=== PATIENT | female | born 1980 | race Caucasian/White ===

== ENCOUNTER 2017-02-25 20:34 | Emergency (ER) | payer MEDICAID ==
[2017-02-25 20:47] VITALS: O2SAT 100
[2017-02-25] MEDS ORDERED: ANTIVERT 25 MG PO ONE ×2 (21:00→21:54)
[2017-02-25] MEDS ORDERED: ANTIVERT 25 MG ONE ×2 (21:03→21:57)
[2017-02-25 21:11] LABS: BASOPHIL % 0.2 % (0.0-0.4); Eosinophil % 0.9 % (0.00-5.0); Granulocytes % 60.2 % (36.0-66.0); Lymphocytes % 34.1 % (24.0-44.0); Mean Corpuscular Hemoglobin 29.4 pg (26-32); Mean Platelet Volume 9.7 fl (6-9.5); Monocytes % 4.6 % (0.0-12.0); Platelet Count 348 K/mm3 (150-450); Red Cell Distribution Width 13.1 % (11.5-14.0); White Blood Count 12.5 K/mm3 (4.0-10.5)
--- NOTE | 2017-02-25 21:11 | ERPHSYRPT ---
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 dizziness and then back pain. saw today for follow up. with change of position, pt states she is having a frontal gonzalez. denies cough but has congestion in the morning. Physician History: CC: dizziness Hx: 36 y/o patient of Dr French. She has hx of DM. She has known perforated left ear drum and has seen Dr Acosta for this in the past. Tonite after supper she noted vertiginous dizziness. Room was spinning. Brief mild headache now gone. No chest pain or palpitations. No hx of this dizziness in the past. Still feels a little spinning but room is better. Sugars have been good. Eating well. No tinnitus or hearing loss. Timing/Duration: today Severity: moderate Allergies/Adverse Reactions: omeprazole [From Prilosec] Allergy (Severe, Verified 02/25/17 20:47) Hives Home Medications: Metformin HCl 500 mg [Glucophage 500 MG] 1,000 mg PO BID 02/12/14 [History ] Albuterol 2.5 mg/3 ml Neb [Proventil 2.5 mg/3 ml Neb] 2.5 mg IH Q4H PRN PRN 08/14/15 [History] Albuterol 8 gm Mdi Hfa [Ventolin Hfa MDI] 8 gm IH Q4HPRN PRN 08/14/15 [ History] Fluticasone/Salmeterol [Advair 250-50 Diskus] 1 puff IH DAILY 08/14/15 [History] Montelukast Sodium [Singulair] 10 mg PO DAILY 02/25/17 [History] Hx Tetanus, Diphtheria Vaccination/Date Given: Yes Hx Influenza Vaccination/Date Given: Yes Hx Pneumococcal Vaccination/Date Given: Yes Immunizations Up to Date: Yes - Review of Systems Constitutional: No Fever, No Chills Eyes: No Symptoms, No Vision Changes Ears, Nose, & Throat: No Hearing Changes, No Tinnitus Respiratory: No Cough, No Dyspnea Cardiac: No Chest Pain, No Palpitations, No Syncope Abdominal/Gastrointestinal: No Abdominal Pain, No Nausea, No Vomiting Genitourinary Symptoms: No Symptoms, (current normal menses) Musculoskeletal: No Symptoms Skin: No Rash Neurological: Dizziness, No Focal Weakness, No Headache, No Parasthesia All Other Systems: Reviewed and Negative - Past Medical History Pertinent Past Medical History: Yes Neurological History: No Pertinent History ENT History: No Pertinent History Cardiac History: High Cholesterol Respiratory History: Asthma Endocrine Medical History: Diabetes Type II Musculoskeletal History: Arthritis GI Medical History: No Pertinent History History: No Pertinent History Psycho-Social History: Anxiety, Depression Female Reproductive Disorders: Other Other Medical History: scoliosis - Past Surgical History Past Surgical History: Yes Neuro Surgical History: No Pertinent History Cardiac: No Pertinent History Respiratory: No Pertinent History Gastrointestinal: Hernia Repair Genitourinary: No Pertinent History Musculoskeletal: No Pertinent History Female Surgical History: Section Other Surgical History: 2 hernia repair,ear tubes, left ear drum,T&A - Social History Smoking Status: Never smoker Exposure to second hand smoke: Yes Alcohol Use: None Drug Use: none Patient Lives Alone: No - Female History Hx Last Menstrual Period: current Hx Now: No - Nursing Vital Signs Nursing Vital Signs: Initial Vital Signs Temperature 98.3 F Temperature Source Oral Pulse Rate 88 Respiratory Rate 16 Blood Pressure [Right Arm] 130/85 Pain Intensity 0 - Physical Exam General Appearance: alert Eye Exam: PERRL/EOMI, other (mild horizontal nystagmus) Ears, Nose, Throat Exam: moist mucous membranes, other (left TM perforation) Neck Exam: supple Respiratory Exam: normal breath sounds Cardiovascular Exam: regular rate/rhythm, No murmur Gastrointestinal/Abdomen Exam: soft, No tenderness, No distention Back Exam: normal inspection Extremity Exam: normal inspection, normal range of motion Neurologic Exam: alert, oriented x 3, 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, 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, nml cerebellar function (normal FTN, normal heel to [place], normal station and gait, normal heel walk, tandem walk, toe walk), nml station & gait, sensation nml, No motor deficits Skin Exam: warm, dry, No rash SpO2 Interpretation: normal SpO2: 100 Oxygen Delivery: Room Air - Course Nursing assessment & vital signs reviewed: Yes EKG Interpreted by Me: RATE (88), Sinus Rhythm, NORMAL AXIS, NORMAL INTERVALS ( QTc 441), NORMAL QRS, NORMAL ST-T Ordered Tests: Active Orders 24 hr Category Date Time Status EKG-ER Only STAT Care 02/25/17 21:00 Active Orthostatic Vital Signs STAT Care 02/25/17 20:49 Active CBC W DIFF Stat Lab 02/25/17 21:06 Completed CMP Stat Lab 02/25/17 21:06 Completed HCG QUALITATIVE,SERUM Stat Lab 02/25/17 21:06 Completed Medication Summary Generic Name Dose Route Start Last Admin Trade Name Freq PRN Reason Stop Dose Admin Meclizine HCl 25 mg 02/25/17 21:54 Antivert 25 Mg PO 02/25/17 21:55 STAT ONE Discontinued Medications Generic Name Dose Route Start Last Admin Trade Name Freq PRN Reason Stop Dose Admin Meclizine HCl 25 mg 02/25/17 21:00 02/25/17 21:04 Antivert 25 Mg PO 02/25/17 21:01 25 mg STAT ONE Administration Meclizine HCl Confirm 02/25/17 21:03 Antivert 25 Mg Administered 02/25/17 21:04 Dose 25 mg .ROUTE .STK-MED ONE Lab/Rad Data: Laboratory Result Diagrams 02/25/17 21:06 02/25/17 21:06 Laboratory Results 02/25/17 02/25/17 02/25/17 Range/Units 21:06 21:06 21:06 WBC 12.5 H (4.0-10.5) K/mm3 RBC 4.70 (4.1-5.4) M/mm3 Hgb 13.8 (12.0-16.0) gm/dl Hct 40.4 (35-47) % MCV 86.0 (78-100) fl MCH 29.4 (26-32) pg MCHC 34.2 (32-36) g/dl RDW 13.1 (11.5-14.0) % Plt Count 348 (150-450) K/mm3 MPV 9.7 H (6-9.5) fl Gran % 60.2 (36.0-66.0) % Lymphocytes % 34.1 (24.0-44.0) % Monocytes % 4.6 (0.0-12.0) % Eosinophils % 0.9 (0.00-5.0) % Basophils % 0.2 (0.0-0.4) % Basophils # 0.03 (0-0.4) Sodium 141 (136-145) mEq/L Potassium 3.5 (3.5-5.1) mEq/L Chloride 102 (98-107) mEq/L Carbon Dioxide 26.6 (21-32) mEq/L Anion Gap 15.4 H (5-15) MEQ/L BUN 7 L (9-20) mg/dL Creatinine 0.91 (0.55-1.30) mg/dl Estimated GFR > 60 ML/MIN Glucose 119 H (70-110) MG/DL Calcium 9.5 (8.5-10.1) mg/dL Total Bilirubin 0.40 (0.2-1.0) mg/dL AST 23 (15-37) U/L ALT 29 (12-78) U/L Alkaline Phosphatase 97 (46-116) U/L Serum Total Protein 8.4 H (6.4-8.2) gm/dL Albumin 3.6 (3.4-5.0) g/dL Serum , Qual NEGATIVE (Negative) - Progress Progress Note: 02/25/17 21:14 She ambulated well. Antivert given. Accu check ok. Likely inner ear phenomenon. 02/25/17 21:55 The patient feels better. She ambulated well. Will release with antivert. Advised follow up with dr French this week. Counseled pt/family regarding: lab results, diagnosis, need for follow-up - Departure Time of Disposition: 21:56 Departure Disposition: Home Clinical Impression: Vertigo Condition: Stable Critical Care Time: No Referrals: RAMESH FRENCH [Primary Care Provider] - Instructions: Vertigo Additional Instructions: No driving tonite or while taking antivert. Stay with family tonite. Follow up with Dr French this week. Return for problems or concerns. Rx antivert. Watch your sugars. Prescriptions: Meclizine HCl 25 mg [Antivert 25 mg] 1 tab PO Q6H PRN PRN #15 tablet PRN Reason: dizziness
[2017-02-25 21:37] LABS: ALBUMIN 3.6 g/dL (3.4-5.0); ALKALINE PHOSPHATASE 97 U/L (46-116); ANION GAP 15.4 MEQ/L (5-15); BLOOD UREA NITROGEN 7 mg/dL (9-20); CHLORIDE 102 mEq/L (98-107); Carbon Dioxide 26.6 mEq/L (21-32); Glucose 119 MG/DL (70-110); Potassium 3.5 mEq/L (3.5-5.1); SGOT/AST 23 U/L (15-37); SGPT/ALT 29 U/L (12-78); SODIUM 141 mEq/L (136-145); Total Protein 8.4 gm/dL (6.4-8.2)
[2017-02-25 22:05] VITALS: BP 119/70; PULSE 76
== END 2017-02-25 22:05 | disposition home or self-care (01) ==
LOC: ED 20:34
DX: R42 Dizziness and giddiness (principal)
CPT/HCPCS: 36415; 80053; 84703; 85025; 93005; 99284; A9270-GY

== ENCOUNTER 2017-04-25 21:08 | Emergency (ER) | payer MEDICAID ==
[2017-04-25] MEDS ORDERED: Zofran 4 MG/2 ML VIAL IV ONE (21:17)
[2017-04-25] MEDS ORDERED: Zofran 4 MG/2 ML VIAL ONE (21:27)
[2017-04-25] MEDS ORDERED: Hydromorphone 1 mg/ml Ampule IV ONE (21:27)
[2017-04-25] MEDS ORDERED: Sodium Chloride 0.9% 1000 ML 1,000 ML ONE (21:27)
[2017-04-25] MEDS ORDERED: Hydromorphone 1 mg/ml Ampule ONE (21:30)
[2017-04-25] MEDS ORDERED: Sodium Chloride 0.9% 1000 ML 1,000 ML IV SCH (21:30)
[2017-04-25 21:50] LABS: BASOPHIL % 0.2 % (0.0-0.4); Eosinophil % 1.8 % (0.00-5.0); Granulocytes % 55.8 % (36.0-66.0); Lymphocytes % 36.7 % (24.0-44.0); Mean Cell Volume 86.4 fl (78-100); Mean Platelet Volume 9.7 fl (6-9.5); Monocytes % 5.5 % (0.0-12.0); Platelet Count 346 K/mm3 (150-450); White Blood Count 11.1 K/mm3 (4.0-10.5)
--- NOTE | 2017-04-25 21:50 | ERPHSYRPT ---
- History of Present Illness Time Seen by Provider: 04/25/17 21:10 Historian: patient, family Exam Limitations: no limitations Patient Subjective Stated Complaint: pt reports pain in the chest and shoulder blades x 3 days - and getting worse with eating - states that she began vomiting after eating today and felt "shakey" thereafter Triage Nursing Assessment: ambulatory to treatment area - waddling gait - moves all extremities with equal strength. alert/oriented - flat affect. skin flushed/hot/dry - no rash/injury appreciated. resps labored per exertion Physician History: patient complains of abd pain x 3 days associated with N&V; onset 3 days ago; started between shoulder bladed; now in upper abdomen; worse after eating; some N&V no blood; normal BMs and voids ok; no fever; no travel; some substernal burning; no cough or sob; no travel; no expsoures; no prior hx but hx of HH and reflux; pain 4/10 worst Timing/Duration: today (worse), day(s) (3), constant, gradual onset, worse Activities at Onset: other (eating or bending) Quality: burning, fullness Abdominal Pain Onset Location: epigastric Pain Radiation: chest Severity of Pain-Max: moderate Severity of Pain-Current: moderate Modifying Factors: Improves With: eating, movement, vomiting Associated Symptoms: back, chest pain, heartburn, nausea, vomiting Previous symptoms: different symptoms Allergies/Adverse Reactions: omeprazole [From Prilosec] Allergy (Severe, Verified 04/25/17 21:56) Hives Home Medications: Metformin HCl 500 mg [Glucophage 500 MG] 1,000 mg PO BID 02/12/14 [History ] Albuterol 2.5 mg/3 ml Neb [Proventil 2.5 mg/3 ml Neb] 2.5 mg IH Q4H PRN PRN 08/14/15 [History] Albuterol 8 gm Mdi Hfa [Ventolin Hfa MDI] 8 gm IH Q4HPRN PRN 08/14/15 [ History] Fluticasone/Salmeterol [Advair 250-50 Diskus] 1 puff IH DAILY 08/14/15 [History] Montelukast Sodium [Singulair] 10 mg PO DAILY 02/25/17 [History] Cholecalciferol (Vitamin D3) [Vitamin D] 400 unit PO DAILY 04/25/17 [ History] Hx Tetanus, Diphtheria Vaccination/Date Given: Yes Hx Influenza Vaccination/Date Given: No Hx Pneumococcal Vaccination/Date Given: No Immunizations Up to Date: Yes - Review of Systems Constitutional: No Symptoms Eyes: No Symptoms Ears, Nose, & Throat: No Symptoms Respiratory: No Cough, No Dyspnea, No Wheezing Cardiac: Chest Pain, No Palpitations, No Syncope Abdominal/Gastrointestinal: Abdominal Pain, Nausea, Vomiting, No Diarrhea, No Constipation Genitourinary Symptoms: No Symptoms Musculoskeletal: Back Pain, No Fall, No Injury Skin: No Symptoms Neurological: No Symptoms Psychological: No Symptoms Endocrine: Polyuria, Polydipsia, Cold Intolerance Hematologic/Lymphatic: No Symptoms Immunological/Allergic: No Symptoms - Past Medical History Pertinent Past Medical History: Yes Neurological History: No Pertinent History ENT History: No Pertinent History Cardiac History: High Cholesterol Respiratory History: Asthma Endocrine Medical History: Diabetes Type II Musculoskeletal History: Arthritis GI Medical History: No Pertinent History History: No Pertinent History Psycho-Social History: Anxiety, Depression Female Reproductive Disorders: Other Other Medical History: scoliosis - Past Surgical History Past Surgical History: Yes Neuro Surgical History: No Pertinent History Cardiac: No Pertinent History Respiratory: No Pertinent History Gastrointestinal: Hernia Repair Genitourinary: No Pertinent History Musculoskeletal: No Pertinent History Female Surgical History: Section Other Surgical History: 2 hernia repair,ear tubes, left ear drum,T&A - Social History Smoking Status: Never smoker Exposure to second hand smoke: No Alcohol Use: None Drug Use: none Patient Lives Alone: No Significant Family History: diabetes, hypertension - Female History Hx Last Menstrual Period: unknown Hx Now: No - Nursing Vital Signs Nursing Vital Signs: Initial Vital Signs Temperature 99.3 F 04/25/17 21:37 Pulse Rate 90 04/25/17 21:37 Respiratory Rate 16 04/25/17 21:37 Blood Pressure 135/95 04/25/17 21:37 O2 Sat by Pulse Oximetry 99 04/25/17 21:37 Pain Scale Pain Intensity 3 - Physical Exam General Appearance: moderate distress, alert, obese Eye Exam: PERRL/EOMI, eyes nml inspection, No photophobia Ears, Nose, Throat Exam: normal ENT inspection, TMs normal, pharynx normal, moist mucous membranes Neck Exam: normal inspection, non-tender, supple, full range of motion, No meningismus, No JVD Respiratory Exam: normal breath sounds, lungs clear, airway intact, No chest tenderness, No respiratory distress, No crackles/rales, No rhonchi, No wheezing , No pleural rub Cardiovascular Exam: regular rate/rhythm, normal heart sounds, normal peripheral pulses, capillary refill <2 sec, No murmur Gastrointestinal/Abdomen Exam: soft, normal bowel sounds, tenderness (epig mild) , distention (due to obesity), No mass, No guarding, No pulsatile mass, No rebound, No organomegaly, No bruit Pelvic Exam: normal external exam, other (cervix closed and slightly blus; due to patients habitus exam not very revealing but no tenderness anywhere), No adnexal tenderness, No adnexal mass, No cervical motion tenderness, No vaginal bleeding, No uterine tenderness, No vaginal discharge Rectal Exam: deferred Back Exam: normal inspection, normal range of motion, No CVA tenderness, No vertebral tenderness, No rash Extremity Exam: normal inspection, normal range of motion, No kellie's sign, No pedal edema Neurologic Exam: alert, oriented x 3, 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, 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, normal mood/affect, nml cerebellar function, nml station & gait Skin Exam: normal color, warm, dry, No rash Lymphatic Exam: No adenopathy SpO2 Interpretation: normal SpO2: 99 Oxygen Delivery: Room Air - Course Nursing assessment & vital signs reviewed: Yes EKG Interpreted by Me: RATE (88), Sinus Rhythm, NORMAL AXIS, NORMAL INTERVALS, NORMAL QRS, NORMAL ST-T Rhythm Strip: Rate (88), Normal Sinus Rhythm Ordered Tests: Active Orders 24 hr Category Date Time Status EKG-ER Only STAT Care 04/25/17 21:17 Active IV Insertion STAT Care 04/25/17 21:17 Active NPO (ED) STAT Care 04/25/17 21:17 Active Pelvic Exam Assist STAT Care 04/25/17 23:01 Active Re-Check Vital Signs STAT Care 04/25/17 21:17 Active AMYLASE Stat Lab 04/25/17 21:25 Completed CBC W DIFF Stat Lab 04/25/17 21:25 Completed CMP Stat Lab 04/25/17 21:25 Completed HCG QUALITATIVE,SERUM Stat Lab 04/25/17 21:25 Completed LIPASE Stat Lab 04/25/17 21:25 Completed TROPONIN Q3H Lab 04/25/17 21:25 Completed TROPONIN Q3H Lab 04/26/17 00:30 Ordered TROPONIN Q3H Lab 04/26/17 03:30 Ordered TROPONIN Q3H Lab 04/26/17 06:30 Ordered TROPONIN Q3H Lab 04/26/17 09:30 Ordered UA W/RFX UR CULTURE Stat Lab 04/25/17 21:30 Completed Wet Prep Stat Lab 04/25/17 23:01 Ordered Medication Summary Generic Name Dose Route Start Last Admin Trade Name Freq PRN Reason Stop Dose Admin Sodium Chloride 1,000 mls @ 100 mls/hr 04/25/17 21:30 04/25/17 21:35 Sodium Chloride 0.9% 1000 Ml IV 05/25/17 21:29 100 mls/hr .Q10H USMAN Administration Discontinued Medications Generic Name Dose Route Start Last Admin Trade Name Freq PRN Reason Stop Dose Admin Al Hydrox/Mg Hydrox/Simethicone Confirm 04/25/17 22:34 Maalox Es 30 Ml Unit Dose Administered 04/25/17 22:35 Dose 30 ml .ROUTE .STK-MED ONE Belladonna Alkaloids/Phenobarbital 60 ml 04/25/17 22:31 04/25/17 22:39 Gi Cocktail 60ml (Belladonn/Phenobarb/Lidoc* PO 04/25/17 22:32 60 ml STAT ONE Administration Hydromorphone HCl 0.5 mg 04/25/17 21:27 04/25/17 21:36 Hydromorphone 1 Mg/Ml Ampule IV 04/25/17 21:28 0.5 mg STAT ONE Administration Hydromorphone HCl Confirm 04/25/17 21:30 Hydromorphone 1 Mg/Ml Ampule Administered 04/25/17 21:31 Dose 1 mg .ROUTE .STK-MED ONE Lidocaine HCl Confirm 04/25/17 22:34 Xylocaine Hcl Viscous * Administered 04/25/17 22:35 Dose 20 ml .ROUTE .STK-MED ONE Ondansetron HCl 4 mg 04/25/17 21:17 04/25/17 21:35 Zofran 4 Mg/2 Ml Vial IV 04/25/17 21:18 4 mg STAT ONE Administration Ondansetron HCl Confirm 04/25/17 21:27 Zofran 4 Mg/2 Ml Vial Administered 04/25/17 21:28 Dose 4 mg .ROUTE .STK-MED ONE Sucralfate Confirm 04/25/17 22:33 Carafate 1 Gm Administered 04/25/17 22:34 Dose 1 g PO .STK-MED ONE Lab/Rad Data: Laboratory Result Diagrams 04/25/17 21:25 04/25/17 21:25 Laboratory Results 04/25/17 04/25/17 04/25/17 Range/Units 21:30 21:25 21:25 WBC (4.0-10.5) K/mm3 RBC (4.1-5.4) M/mm3 Hgb (12.0-16.0) gm/dl Hct (35-47) % MCV (78-100) fl MCH (26-32) pg MCHC (32-36) g/dl RDW (11.5-14.0) % Plt Count (150-450) K/mm3 MPV (6-9.5) fl Gran % (36.0-66.0) % Lymphocytes % (24.0-44.0) % Monocytes % (0.0-12.0) % Eosinophils % (0.00-5.0) % Basophils % (0.0-0.4) % Basophils # (0-0.4) Sodium (136-145) mEq/L Potassium (3.5-5.1) mEq/L Chloride (98-107) mEq/L Carbon Dioxide (21-32) mEq/L Anion Gap (5-15) MEQ/L BUN (9-20) mg/dL Creatinine (0.55-1.30) mg/dl Estimated GFR ML/MIN Glucose (70-110) MG/DL Calcium (8.5-10.1) mg/dL Total Bilirubin (0.2-1.0) mg/dL AST (15-37) U/L ALT (12-78) U/L Alkaline Phosphatase (46-116) U/L Troponin I < 0.017 (0.000-0.056) ng/ml Serum Total Protein (6.4-8.2) gm/dL Albumin (3.4-5.0) g/dL Amylase (25-115) U/L Lipase (73-393) U/L Serum , Qual POSITIVE (Negative) Ur Collection Type CLEAN CATCH Urine Color YELLOW (YELLOW) Urine Appearance CLEAR (CLEAR) Urine pH 6.0 (5-6) Ur Specific [place] 1.020 (1.005-1.025) Urine Protein NEGATIVE (Negative) Urine Ketones NEGATIVE (NEGATIVE) Urine Blood NEGATIVE (0-5) Carloz/ul Urine Nitrite NEGATIVE (NEGATIVE) Urine Bilirubin NEGATIVE (NEGATIVE) Urine Urobilinogen 1 (0-1) mg/dL Ur Leukocyte Esterase NEGATIVE (NEGATIVE) Urine Glucose NEGATIVE (NEGATIVE) mg/dL Specimen Received 04/25/17:2130 04/25/17 04/25/17 Range/Units 21:25 21:25 WBC 11.1 H (4.0-10.5) K/mm3 RBC 4.20 (4.1-5.4) M/mm3 Hgb 12.2 (12.0-16.0) gm/dl Hct 36.3 (35-47) % MCV 86.4 (78-100) fl MCH 29.0 (26-32) pg MCHC 33.6 (32-36) g/dl RDW 13.0 (11.5-14.0) % Plt Count 346 (150-450) K/mm3 MPV 9.7 H (6-9.5) fl Gran % 55.8 (36.0-66.0) % Lymphocytes % 36.7 (24.0-44.0) % Monocytes % 5.5 (0.0-12.0) % Eosinophils % 1.8 (0.00-5.0) % Basophils % 0.2 (0.0-0.4) % Basophils # 0.02 (0-0.4) Sodium 140 (136-145) mEq/L Potassium 3.1 L (3.5-5.1) mEq/L Chloride 101 (98-107) mEq/L Carbon Dioxide 25.6 (21-32) mEq/L Anion Gap 16.4 H (5-15) MEQ/L BUN 13 (9-20) mg/dL Creatinine 1.03 (0.55-1.30) mg/dl Estimated GFR > 60 ML/MIN Glucose 136 H (70-110) MG/DL Calcium 9.2 (8.5-10.1) mg/dL Total Bilirubin 0.30 (0.2-1.0) mg/dL AST 14 L (15-37) U/L ALT 19 (12-78) U/L Alkaline Phosphatase 108 (46-116) U/L Troponin I (0.000-0.056) ng/ml Serum Total Protein 7.3 (6.4-8.2) gm/dL Albumin 3.4 (3.4-5.0) g/dL Amylase 49 (25-115) U/L Lipase 129 (73-393) U/L Serum , Qual (Negative) Ur Collection Type Urine Color (YELLOW) Urine Appearance (CLEAR) Urine pH (5-6) Ur Specific [place] (1.005-1.025) Urine Protein (Negative) Urine Ketones (NEGATIVE) Urine Blood (0-5) Carloz/ul Urine Nitrite (NEGATIVE) Urine Bilirubin (NEGATIVE) Urine Urobilinogen (0-1) mg/dL Ur Leukocyte Esterase (NEGATIVE) Urine Glucose (NEGATIVE) mg/dL Specimen Received reviewed - Progress Progress: improved (some with meds), re-examined (after meds) Progress Note: 04/25/17 21:54 IV started; meds given; labs pending; EKG wnl; xr pending; will monitor and recheck 04/25/17 22:37 HCG pos so will not get xr; will do pelvic exam; some releif with meds; now says am nausea for some time; breasts tender; low K+ 3.1; other labs ok; [id number] 04/25/17 23:03 rechecked and good relief of N&V and pain with GI cocktail; pelvic exam done and unremarkable after Preg test pos; 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; ; treatment plan and instructions given Counseled pt/family regarding: lab results, diagnosis, need for follow-up, rad results - Departure Time of Disposition: 23:05 Departure Disposition: Home Clinical Impression: Abdominal pain complicating , , Vomiting affecting , Hypokalemia, Morbid obesity, Type 2 diabetes mellitus, GERD (gastroesophageal reflux disease) Condition: Stable Critical Care Time: No Referrals: RAMESH GARCIA [Primary Care Provider] - Instructions: Abdominal Pain-Adult, Abdominal Pain -- Early , Hypokalemia Additional Instructions: rest; K+ rich diet; take meds; call LMD for recheck; vits Follow-up with family doctor as directed. Call for appointment. Return if any problems. If you smoke please stop. Call or follow up with your family doctor for assistance if you need it to stop. Please wear your seatbelt when driving. Have a nice day. Thank you for allowing us to participate in your care today. :o) Dr Carlos Manuel Pennington Prescriptions: Ondansetron [Zofran Odt] 4 mg PO Q6-8HPRN PRN #14 tab.rapdis PRN Reason: Vomiting Sucralfate 1000 mg/10 ml [Carafate SUSPENSION 1000 MG/10 ML] 1 gm PO ACHS # 1 liter
[2017-04-25 22:00] LABS: ADD URINE CULTURE? NO (NO); Bilirubin NEGATIVE (NEGATIVE); Blood NEGATIVE Ery/ul (0-5); COMPLETE URINE MICROSCOPIC? NO; Collection Type CLEAN CATCH; Glucose NEGATIVE (NEGATIVE); Leukocyte Esterase NEGATIVE (NEGATIVE)
[2017-04-25 22:06] LABS: ALBUMIN 3.4 g/dL (3.4-5.0); ALKALINE PHOSPHATASE 108 U/L (46-116); ANION GAP 16.4 MEQ/L (5-15); BLOOD UREA NITROGEN 13 mg/dL (9-20); CHLORIDE 101 mEq/L (98-107); Carbon Dioxide 25.6 mEq/L (21-32); Glucose 136 MG/DL (70-110); LIPASE 129 U/L (73-393); Potassium 3.1 mEq/L (3.5-5.1); SGOT/AST 14 U/L (15-37); SODIUM 140 mEq/L (136-145); Total Protein 7.3 gm/dL (6.4-8.2)
[2017-04-25 22:17] LABS: SGPT/ALT 19 U/L (12-78)
[2017-04-25] MEDS ORDERED: GI COCKTAIL 60ML (Belladonn/Phenobarb/Lidoc PO ONE (22:31)
[2017-04-25] MEDS ORDERED: Carafate 1 GM PO ONE (22:33)
[2017-04-25] MEDS ORDERED: MAALOX ES 30 ML UNIT DOSE ONE (22:34)
[2017-04-25] MEDS ORDERED: XYLOCAINE HCl Viscous ONE (22:34)
[2017-04-25 23:03] VITALS: BP 122/88; PULSE 78
[2017-04-25 23:07] VITALS: O2SAT 99
[2017-04-25 23:18] LABS: Bacteria Moderate; Clue Cells None Seen; Trichomonas None Seen; Yeast None Seen
== END 2017-04-25 23:23 | disposition home or self-care (01) ==
LOC: ED 21:08
DX: O21.9 Vomiting of pregnancy, unspecified (principal); R10.9 Unspecified abdominal pain; E87.6 Hypokalemia; E66.01 Morbid (severe) obesity due to excess calories; O24.111 Pre-existing type 2 diabetes mellitus, in pregnancy, first trimester; E11.9 Type 2 diabetes mellitus without complications; Z79.84 Long term (current) use of oral hypoglycemic drugs; K21.9 Gastro-esophageal reflux disease without esophagitis
CPT/HCPCS: 36000; 36415; 80053; 81002; 82150; 83690; 84484; 84703; 85025; 87210; 93005; 96360; 96361; 96374; 96375; 99284; 99285; J1170; J2405; A9270-GY

== ENCOUNTER 2017-05-09 19:20 | Emergency (ER) | payer OTHER ==
--- NOTE | 2017-05-09 20:09 | ERPHSYRPT ---
- History of Present Illness Time Seen by Provider: 05/09/17 19:50 Source: patient Exam Limitations: no limitations Patient Subjective Stated Complaint: "My doctor says that I am about 1 month . my levels were low. I am suppose to go back on friday to get my levels checks again. I started having real light brown discharge just a few min ago. there is no blood of anything. i am not having any stomach pain, but i do have a little back pain." Triage Nursing Assessment: aox3, breathing easy unlabored, skin pink warm dry, steady gait with cane Physician History: States noticed dark vaginal discharge about 1 hr. 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 Denies any abdominal pain , trauma or injury. Pt. seen in ED on when she first discovered she was . Pt. is with one previous live at 5 months [place], but child did not survive. Pt. states she has had frequency, but no dysuria or urgency. Denies any fever, chills, dizziness or weakness. Pt. have had some N/V associated with . Pt. have been seen for OB care and states that her "HCG was low and was not able to get an US." She is to follow up with he OB next week for recheck of HCG. Timing/Duration: today Activites at Onset: rest Quality: other (no pain) Sexual intercourse history: single partner Modifying Factors: Improves With: nothing Associated Symptoms: nausea, vomiting, urinary frequency, , vaginal discharge, No abdominal pain, No fever, No chills, No loss of bladder control, No vaginal fluid leakage Allergies/Adverse Reactions: omeprazole [From Prilosec] Allergy (Severe, Verified 05/09/17 19:33) Hives Home Medications: Metformin HCl 500 mg [Glucophage 500 MG] 1,000 mg PO BID 02/12/14 [History ] Hx Tetanus, Diphtheria Vaccination/Date Given: Yes Hx Influenza Vaccination/Date Given: No Hx Pneumococcal Vaccination/Date Given: No - Review of Systems Constitutional: No Fever, No Chills Eyes: No Symptoms Ears, Nose, & Throat: No Symptoms Respiratory: No Cough, No Dyspnea Cardiac: No Chest Pain, No Edema, No Syncope Abdominal/Gastrointestinal: No Abdominal Pain, No Nausea, No Vomiting, No Diarrhea Genitourinary Symptoms: Frequency, , Vaginal Discharge, No Dysuria, No Hematuria, No Hesitancy, No Incontinence, No Urgency Musculoskeletal: No Back Pain, No Neck Pain Skin: No Rash Neurological: No Dizziness, No Focal Weakness, No Sensory Changes Psychological: No Symptoms Endocrine: No Symptoms All Other Systems: Reviewed and Negative - Past Medical History Pertinent Past Medical History: Yes Neurological History: No Pertinent History ENT History: No Pertinent History Cardiac History: High Cholesterol Respiratory History: Asthma Endocrine Medical History: Diabetes Type II Musculoskeletal History: Arthritis GI Medical History: No Pertinent History History: No Pertinent History Psycho-Social History: Anxiety, Depression Female Reproductive Disorders: Other Other Medical History: scoliosis - Past Surgical History Past Surgical History: Yes Neuro Surgical History: No Pertinent History Cardiac: No Pertinent History Respiratory: No Pertinent History Gastrointestinal: Hernia Repair Genitourinary: No Pertinent History Musculoskeletal: No Pertinent History Female Surgical History: Section Other Surgical History: 2 hernia repair,ear tubes, left ear drum,T&A - Social History Smoking Status: Never smoker Exposure to second hand smoke: No Alcohol Use: None Drug Use: none Patient Lives Alone: No Significant Family History: diabetes, hypertension - Female History Hx Last Menstrual Period: 03/26/2017 Hx Now: No - Nursing Vital Signs Nursing Vital Signs: Initial Vital Signs Temperature 98.0 F 05/09/17 19:26 Pulse Rate 98 H 05/09/17 19:26 Respiratory Rate 16 05/09/17 19:26 Blood Pressure 150/95 05/09/17 19:26 O2 Sat by Pulse Oximetry 99 05/09/17 19:26 Pain Scale Pain Intensity 0 - Physical Exam General Appearance: no apparent distress, alert, obese Eye Exam: PERRL/EOMI, eyes nml inspection Ears, Nose, Throat Exam: normal ENT inspection, TMs normal, pharynx normal, moist mucous membranes Neck Exam: normal inspection, non-tender, supple, full range of motion Respiratory Exam: normal breath sounds, lungs clear, No respiratory distress Cardiovascular Exam: regular rate/rhythm, normal heart sounds, normal peripheral pulses Gastrointestinal/Abdomen Exam: soft, No tenderness, No mass Pelvic Exam: normal external exam, vaginal discharge (minimal dark discharge), No adnexal tenderness, No adnexal mass, No cervical motion tenderness, No vaginal bleeding Rectal Exam: deferred, not done Back Exam: normal inspection, normal range of motion, No CVA tenderness, No vertebral tenderness Extremity Exam: normal inspection, normal range of motion, pelvis stable Neurologic Exam: alert, oriented x 3, cooperative, 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, normal mood/affect, sensation nml, No motor deficits Skin Exam: normal color, warm, dry Lymphatic Exam: No adenopathy SpO2: 99 Oxygen Delivery: Room Air - Course Nursing assessment & vital signs reviewed: Yes Ordered Tests: Active Orders 24 hr Category Date Time Status Pelvic Exam Assist STAT Care 05/09/17 20:01 Active BMP Stat Lab 05/09/17 20:15 Completed CBC W DIFF Stat Lab 05/09/17 20:15 Completed CULTURE,URINE Stat Lab 05/09/17 20:00 Received HCG, Quantitative (Inhouse) Stat Lab 05/09/17 20:15 Completed UA W/ MICROSCOPIC Stat Lab 05/09/17 20:00 Completed Wet Prep Stat Lab 05/09/17 20:00 Completed Lab/Rad Data: Laboratory Result Diagrams 05/09/17 20:15 05/09/17 20:15 Laboratory Results 05/09/17 05/09/17 05/09/17 Range/Units 20:15 20:15 20:00 WBC 10.8 H (4.0-10.5) K/mm3 RBC 4.42 (4.1-5.4) M/mm3 Hgb 12.9 (12.0-16.0) gm/dl Hct 38.4 (35-47) % MCV 86.9 (78-100) fl MCH 29.2 (26-32) pg MCHC 33.6 (32-36) g/dl RDW 13.5 (11.5-14.0) % Plt Count 355 (150-450) K/mm3 MPV 9.3 (6-9.5) fl Gran % 56.9 (36.0-66.0) % Lymphocytes % 37.0 (24.0-44.0) % Monocytes % 4.6 (0.0-12.0) % Eosinophils % 1.2 (0.00-5.0) % Basophils % 0.3 (0.0-0.4) % Basophils # 0.03 (0-0.4) Sodium 139 (136-145) mEq/L Potassium 3.4 L (3.5-5.1) mEq/L Chloride 100 (98-107) mEq/L Carbon Dioxide 24.0 (21-32) mEq/L Anion Gap 17.9 H (5-15) MEQ/L BUN 8 L (9-20) mg/dL Creatinine 0.82 (0.55-1.30) mg/dl Estimated GFR > 60 ML/MIN Glucose 116 H (70-110) MG/DL Calcium 9.5 (8.5-10.1) mg/dL Beta HCG, Quant 954 H (0-6) IU/L Ur Collection Type Urine Color (YELLOW) Urine Appearance (CLEAR) Urine pH (5-6) Ur Specific [place] (1.005-1.025) Urine Protein (Negative) Urine Ketones (NEGATIVE) Urine Blood (0-5) Carloz/ul Urine Nitrite (NEGATIVE) Urine Bilirubin (NEGATIVE) Urine Urobilinogen (0-1) mg/dL Ur Leukocyte Esterase (NEGATIVE) Urine Microscopic WBC (0-5) /HPF Ur Epithelial Cells (FEW) /HPF Urine Bacteria (NEGATIVE) /HPF Urine Yeast (NEGATIVE) /HPF Urine Glucose (NEGATIVE) mg/dL WBC (Wet Prep) Few RBC (Wet Prep) Few Epi Cells (Wet Prep) Rare Bacteria (Wet Prep) Rare Clue Cells (Wet Prep) None Seen Trichomonas (Wet Prep) None Seen Budding Yeast (Wet Prp) Rare Specimen Received 05/09/17 Range/Units 20:00 WBC (4.0-10.5) K/mm3 RBC (4.1-5.4) M/mm3 Hgb (12.0-16.0) gm/dl Hct (35-47) % MCV (78-100) fl MCH (26-32) pg MCHC (32-36) g/dl RDW (11.5-14.0) % Plt Count (150-450) K/mm3 MPV (6-9.5) fl Gran % (36.0-66.0) % Lymphocytes % (24.0-44.0) % Monocytes % (0.0-12.0) % Eosinophils % (0.00-5.0) % Basophils % (0.0-0.4) % Basophils # (0-0.4) Sodium (136-145) mEq/L Potassium (3.5-5.1) mEq/L Chloride (98-107) mEq/L Carbon Dioxide (21-32) mEq/L Anion Gap (5-15) MEQ/L BUN (9-20) mg/dL Creatinine (0.55-1.30) mg/dl Estimated GFR ML/MIN Glucose (70-110) MG/DL Calcium (8.5-10.1) mg/dL Beta HCG, Quant (0-6) IU/L Ur Collection Type CCMS Urine Color YELLOW (YELLOW) Urine Appearance CLEAR (CLEAR) Urine pH 6.0 (5-6) Ur Specific [place] 1.010 (1.005-1.025) Urine Protein NEGATIVE (Negative) Urine Ketones NEGATIVE (NEGATIVE) Urine Blood 250 (0-5) Carloz/ul Urine Nitrite NEGATIVE (NEGATIVE) Urine Bilirubin NEGATIVE (NEGATIVE) Urine Urobilinogen NORMAL (0-1) mg/dL Ur Leukocyte Esterase 1+ (NEGATIVE) Urine Microscopic WBC 2-5 (0-5) /HPF Ur Epithelial Cells MODERATE (FEW) /HPF Urine Bacteria RARE (NEGATIVE) /HPF Urine Yeast FEW (NEGATIVE) /HPF Urine Glucose NEGATIVE (NEGATIVE) mg/dL WBC (Wet Prep) RBC (Wet Prep) Epi Cells (Wet Prep) Bacteria (Wet Prep) Clue Cells (Wet Prep) Trichomonas (Wet Prep) Budding Yeast (Wet Prp) Specimen Received 05-09-172024 - Progress Progress: improved Air Movement: good Counseled pt/family regarding: lab results, diagnosis - Departure Time of Disposition: 21:22 Departure Disposition: Home Clinical Impression: UTI (urinary tract infection) Condition: Stable Critical Care Time: No Referrals: RAMESH GARCIA [Primary Care Provider] - Instructions: Urinary Tract Infection (UTI) Additional Instructions: RX: Macrobid Tylenol for fever/pain Return for worse abdominal pain, fever, worse discharge or any problems Prescriptions: Nitrofurantoin Monohyd/M-Cryst [Macrobid 100 mg Capsule] 100 mg PO BID 7 Days # 14 capsule
[2017-05-09 20:26] LABS: Bacteria RARE /HPF (NEGATIVE); Bilirubin NEGATIVE (NEGATIVE); Blood 250 Ery/ul (0-5); COMPLETE URINE MICROSCOPIC? YES; Collection Type CCMS; Epithelial Cells MODERATE /HPF (FEW); Glucose NEGATIVE (NEGATIVE); Leukocyte Esterase 1+ (NEGATIVE)
[2017-05-09 20:27] LABS: BASOPHIL % 0.3 % (0.0-0.4); Eosinophil % 1.2 % (0.00-5.0); Granulocytes % 56.9 % (36.0-66.0); Mean Cell Volume 86.9 fl (78-100); Mean Corpuscular Hemoglobin 29.2 pg (26-32); Mean Platelet Volume 9.3 fl (6-9.5); Monocytes % 4.6 % (0.0-12.0); Platelet Count 355 K/mm3 (150-450); Red Blood Count 4.42 M/mm3 (4.1-5.4); Red Cell Distribution Width 13.5 % (11.5-14.0); White Blood Count 10.8 K/mm3 (4.0-10.5)
[2017-05-09 20:27] LABS: ADD URINE CULTURE? YES (NO); Bacteria Rare; Clue Cells None Seen; Yeast FEW /HPF (NEGATIVE)
[2017-05-09 20:28] LABS: Trichomonas None Seen; Yeast Rare
[2017-05-09 20:53] LABS: ANION GAP 17.9 MEQ/L (5-15); BLOOD UREA NITROGEN 8 mg/dL (9-20); CHLORIDE 100 mEq/L (98-107); Glucose 116 MG/DL (70-110); HCG, Quantitative (Inhouse) 954 IU/L (0-6); Potassium 3.4 mEq/L (3.5-5.1); SODIUM 139 mEq/L (136-145)
[2017-05-09 21:40] VITALS: BP 115/69; PULSE 89; O2SAT 98
[2017-05-09 21:50] LABS: CHLAMYDIA DNA NEGATIVE
== END 2017-05-09 21:39 | disposition home or self-care (01) ==
LOC: ED 19:20
DX: O23.41 Unspecified infection of urinary tract in pregnancy, first trimester (principal); Z3A.00 Weeks of gestation of pregnancy not specified; O26.20 Pregnancy care for patient with recurrent pregnancy loss, unspecified trimester
CPT/HCPCS: 36000; 36415; 80048; 81000; 84702; 85025; 87086; 87210; 87490; 87590; 99283

== ENCOUNTER 2017-05-15 12:33 | Emergency (ER) | payer OTHER ==
--- NOTE | 2017-05-15 12:59 | ERPHSYRPT ---
- History of Present Illness Time Seen by Provider: 05/15/17 12:57 Source: patient Exam Limitations: no limitations Patient Subjective Stated Complaint: "I am 6 weeks and I went to wipe and I had allot of blood on the toilet paper. I called the office and they told me to come here." Triage Nursing Assessment: PT alert and oriented X 3, skin pwd pt ambulates without difficulty, able to speak in full sentences. Physician History: 37 y/o female who says she is 6 weeks comes to the ER with complaints of vaginal bleeding that started this morning. Pt noticed a few clots in the toilet paper. Pt denies any abdominal pain, nausea, vomiting, dizziness, or urinary symptoms. Pt had a miscarriage at 5 months gestation. Timing/Duration: today Activites at Onset: none Associated Symptoms: No abdominal pain Allergies/Adverse Reactions: omeprazole [From Prilosec] Allergy (Severe, Verified 05/15/17 12:44) Hives Home Medications: Metformin HCl 500 mg [Glucophage 500 MG] 1,000 mg PO BID 02/12/14 [History ] Vit No.78/Iron/FA [Prenatabs FA Tablet] 1 each PO 05/15/17 [History] Hx Tetanus, Diphtheria Vaccination/Date Given: Yes Hx Influenza Vaccination/Date Given: Yes Hx Pneumococcal Vaccination/Date Given: Yes - Review of Systems Constitutional: No Fever, No Chills Eyes: No Symptoms Ears, Nose, & Throat: No Symptoms Respiratory: No Cough, No Dyspnea Cardiac: No Chest Pain, No Edema, No Syncope Abdominal/Gastrointestinal: No Abdominal Pain, No Nausea, No Vomiting, No Diarrhea Genitourinary Symptoms: Vaginal Bleeding, No Dysuria Musculoskeletal: No Back Pain, No Neck Pain Skin: No Rash Neurological: No Dizziness, No Focal Weakness, No Sensory Changes Psychological: No Symptoms Endocrine: No Symptoms All Other Systems: Reviewed and Negative - Past Medical History Pertinent Past Medical History: Yes Neurological History: No Pertinent History ENT History: No Pertinent History Cardiac History: High Cholesterol Respiratory History: Asthma Endocrine Medical History: Diabetes Type II Musculoskeletal History: Arthritis GI Medical History: No Pertinent History History: No Pertinent History Psycho-Social History: Anxiety, Depression Female Reproductive Disorders: Other Other Medical History: scoliosis - Past Surgical History Past Surgical History: Yes Neuro Surgical History: No Pertinent History Cardiac: No Pertinent History Respiratory: No Pertinent History Gastrointestinal: Hernia Repair Genitourinary: No Pertinent History Musculoskeletal: No Pertinent History Female Surgical History: Section Other Surgical History: 2 hernia repair,ear tubes, left ear drum,T&A - Social History Smoking Status: Never smoker Exposure to second hand smoke: Yes Alcohol Use: None Drug Use: none Patient Lives Alone: No Significant Family History: diabetes, hypertension - Female History Hx Last Menstrual Period: 03/26/2017 Hx Now: No Expected Date of Delivery: 12/31/17 - Nursing Vital Signs Nursing Vital Signs: Initial Vital Signs Temperature 98.1 F 05/15/17 12:38 Pulse Rate 96 H 05/15/17 12:38 Respiratory Rate 16 05/15/17 12:38 Blood Pressure 132/85 05/15/17 12:38 O2 Sat by Pulse Oximetry 98 05/15/17 12:38 Pain Scale Pain Intensity 0 - Physical Exam General Appearance: no apparent distress, alert, obese Eye Exam: PERRL/EOMI, eyes nml inspection Ears, Nose, Throat Exam: normal ENT inspection, TMs normal, pharynx normal, moist mucous membranes Neck Exam: normal inspection, non-tender, supple, full range of motion Respiratory Exam: normal breath sounds, lungs clear, No respiratory distress Cardiovascular Exam: regular rate/rhythm, normal heart sounds, normal peripheral pulses Gastrointestinal/Abdomen Exam: soft, No tenderness, No mass Back Exam: normal inspection, normal range of motion, No CVA tenderness, No vertebral tenderness Extremity Exam: normal inspection, normal range of motion, pelvis stable Neurologic Exam: alert, oriented x 3, cooperative, 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, normal mood/affect, sensation nml, No motor deficits Skin Exam: normal color, warm, dry Lymphatic Exam: No adenopathy SpO2: 98 Oxygen Delivery: Room Air - Course Nursing assessment & vital signs reviewed: Yes Ordered Tests: Active Orders 24 hr Category Date Time Status OB TRANSVAGINAL [US] Stat Exams 05/15/17 12:56 Completed CBC W DIFF Stat Lab 05/15/17 12:55 Completed CMP Stat Lab 05/15/17 12:55 Completed CULTURE,URINE Stat Lab 05/15/17 13:00 Received HCG, Quantitative (Inhouse) Stat Lab 05/15/17 12:55 Completed UA W/ MICROSCOPIC Stat Lab 05/15/17 13:00 Completed Lab/Rad Data: Laboratory Result Diagrams 05/15/17 12:55 05/15/17 12:55 Laboratory Results 05/15/17 05/15/17 05/15/17 Range/Units 13:00 12:55 12:55 WBC 8.0 (4.0-10.5) K/mm3 RBC 4.39 (4.1-5.4) M/mm3 Hgb 12.6 (12.0-16.0) gm/dl Hct 38.9 (35-47) % MCV 88.6 (78-100) fl MCH 28.7 (26-32) pg MCHC 32.4 (32-36) g/dl RDW 13.7 (11.5-14.0) % Plt Count 351 (150-450) K/mm3 MPV 9.5 (6-9.5) fl Gran % 62.2 (36.0-66.0) % Lymphocytes % 29.7 (24.0-44.0) % Monocytes % 5.6 (0.0-12.0) % Eosinophils % 2.1 (0.00-5.0) % Basophils % 0.4 (0.0-0.4) % Basophils # 0.03 (0-0.4) Sodium 139 (136-145) mEq/L Potassium 3.7 (3.5-5.1) mEq/L Chloride 101 (98-107) mEq/L Carbon Dioxide 28.2 (21-32) mEq/L Anion Gap 13.1 (5-15) MEQ/L BUN 8 L (9-20) mg/dL Creatinine 0.89 (0.55-1.30) mg/dl Estimated GFR > 60 ML/MIN Glucose 174 H (70-110) MG/DL Calcium 9.5 (8.5-10.1) mg/dL Total Bilirubin 0.40 (0.2-1.0) mg/dL AST 22 (15-37) U/L ALT 35 (12-78) U/L Alkaline Phosphatase 93 (46-116) U/L Serum Total Protein 7.7 (6.4-8.2) gm/dL Albumin 3.8 (3.4-5.0) g/dL Beta HCG, Quant 3769 H (0-6) IU/L Ur Collection Type CLEAN CATCH Urine Color YELLOW (YELLOW) Urine Appearance SLIGHTLY CLOUDY (CLEAR) Urine pH 6.0 (5-6) Ur Specific [place] 1.010 (1.005-1.025) Urine Protein TRACE (Negative) Urine Ketones NEGATIVE (NEGATIVE) Urine Blood 250 (0-5) Carloz/ul Urine Nitrite NEGATIVE (NEGATIVE) Urine Bilirubin NEGATIVE (NEGATIVE) Urine Urobilinogen NORMAL (0-1) mg/dL Ur Leukocyte Esterase 1+ (NEGATIVE) Urine Microscopic RBC >100 (0-2) /HPF Urine Microscopic WBC 2-5 (0-5) /HPF Ur Epithelial Cells FEW (FEW) /HPF Urine Bacteria MODERATE (NEGATIVE) /HPF Urine Glucose NEGATIVE (NEGATIVE) mg/dL Specimen Received 05/15 1300 - Progress Progress: improved Progress Note: 05/15/17 15:02 Pt has no more vaginal bleeding. The transvaginal US does not show any pole and the HCG is 3600. I spoke to Dr French who wants the patient to keep her appointment on June 04 - Departure Time of Disposition: 15:06 Departure Disposition: Home Clinical Impression: Vaginal bleeding Condition: Stable Critical Care Time: No Referrals: RAMESH FRENCH [Primary Care Provider] - Instructions: Vaginal Bleeding During Additional Instructions: Follow up with Dr French on June 04. Return to the ER with worsening abdominal pain, vaginal bleeding, nausea, vomiting or dizziness.
[2017-05-15 13:22] LABS: BASOPHIL % 0.4 % (0.0-0.4); Eosinophil % 2.1 % (0.00-5.0); Granulocytes % 62.2 % (36.0-66.0); Lymphocytes % 29.7 % (24.0-44.0); Mean Cell Volume 88.6 fl (78-100); Mean Corpuscular Hemoglobin 28.7 pg (26-32); Mean Platelet Volume 9.5 fl (6-9.5); Monocytes % 5.6 % (0.0-12.0); Platelet Count 351 K/mm3 (150-450); Red Blood Count 4.39 M/mm3 (4.1-5.4); Red Cell Distribution Width 13.7 % (11.5-14.0)
[2017-05-15 13:35] LABS: Collection Type CLEAN CATCH
[2017-05-15 13:36] LABS: Bilirubin NEGATIVE (NEGATIVE); Blood 250 Ery/ul (0-5); COMPLETE URINE MICROSCOPIC? YES; Glucose NEGATIVE (NEGATIVE); Leukocyte Esterase 1+ (NEGATIVE)
[2017-05-15 13:49] LABS: ADD URINE CULTURE? YES (NO); Bacteria MODERATE /HPF (NEGATIVE); Epithelial Cells FEW /HPF (FEW)
[2017-05-15 14:03] LABS: ALBUMIN 3.8 g/dL (3.4-5.0); ALKALINE PHOSPHATASE 93 U/L (46-116); ANION GAP 13.1 MEQ/L (5-15); BLOOD UREA NITROGEN 8 mg/dL (9-20); CHLORIDE 101 mEq/L (98-107); Carbon Dioxide 28.2 mEq/L (21-32); Glucose 174 MG/DL (70-110); HCG, Quantitative (Inhouse) 3769 IU/L (0-6); Potassium 3.7 mEq/L (3.5-5.1); SGOT/AST 22 U/L (15-37); SGPT/ALT 35 U/L (12-78); SODIUM 139 mEq/L (136-145); Total Protein 7.7 gm/dL (6.4-8.2)
--- NOTE | 2017-05-15 14:11 | XRAY ---
Indication: Vaginal bleeding. Two-dimensional transvaginal early OB ultrasound performed. Comparison: None for this . Uterus is anteverted with intrauterine saclike mass. Mean sac diameter 0.89 cm. No pole or heart tones. Right ovary measures 2.6 x 2.8 x 2.2 cm and the left measures 2.3 x 1.9 x 1.9 cm. No suspicious adnexal mass or free fluid. Impression: Intrauterine saclike mass, too small to calculate gestational age. No pole/heart tones. Correlate with serial beta hCG and follow-up sonogram to evaluate viability.
[2017-05-15 14:19] VITALS: BP 123/75; PULSE 83
[2017-05-15 15:04] VITALS: O2SAT 98
== END 2017-05-15 15:28 | disposition home or self-care (01) ==
LOC: ED 12:33
DX: O20.9 Hemorrhage in early pregnancy, unspecified (principal); Z87.59 Personal history of other complications of pregnancy, childbirth and the puerperium; Z3A.01 Less than 8 weeks gestation of pregnancy
CPT/HCPCS: 36415; 76817; 80053; 81000; 84702; 85025; 87086; 99284

== ENCOUNTER 2017-06-08 20:26 | Emergency (ER) | payer OTHER ==
[2017-06-08 20:43] VITALS: O2SAT 98
--- NOTE | 2017-06-08 20:56 | ERPHSYRPT ---
- History of Present Illness Time Seen by Provider: 06/08/17 20:49 Source: patient, family (mother in law) Patient Subjective Stated Complaint: "I started having sharp pains down there. ( points to vaginal area) It hurt really bad eariler when I peed. I miscarried last month and have not had a period yet" Triage Nursing Assessment: aox3, breathing easy unlabored, skin pink warm dry, steady gait Physician History: CC: dysuria Hx; 37 y/o patient of Dr French had recent miscarriage. Today she had sharp pains in urethral area with urination. No vaginal bleeding or discharge. No back pain. No vomiting. She has had prior UTI. She wants to know if she is re- . Timing/Duration: today Allergies/Adverse Reactions: omeprazole [From Prilosec] Allergy (Severe, Verified 06/08/17 20:44) Hives Home Medications: Metformin HCl 500 mg [Glucophage 500 MG] 1,000 mg PO BID 02/12/14 [History ] Vit,Calc78/Iron/Folic [Prenatabs FA Tablet] 1 each PO DAILY 05/15/17 [ History] Hx Tetanus, Diphtheria Vaccination/Date Given: Yes Hx Influenza Vaccination/Date Given: Yes Hx Pneumococcal Vaccination/Date Given: Yes - Review of Systems Constitutional: No Fever, No Chills Eyes: No Symptoms Ears, Nose, & Throat: No Symptoms Respiratory: No Cough Cardiac: No Chest Pain Abdominal/Gastrointestinal: No Abdominal Pain, No Vomiting Genitourinary Symptoms: Dysuria, No Vaginal Bleeding, No Vaginal Discharge Musculoskeletal: No Back Pain Skin: No Rash Neurological: No Headache All Other Systems: Reviewed and Negative - Past Medical History Pertinent Past Medical History: Yes Neurological History: No Pertinent History ENT History: No Pertinent History Cardiac History: High Cholesterol Respiratory History: Asthma Endocrine Medical History: Diabetes Type II Musculoskeletal History: Arthritis GI Medical History: No Pertinent History History: No Pertinent History Psycho-Social History: Anxiety, Depression Female Reproductive Disorders: Other Other Medical History: scoliosis - Past Surgical History Past Surgical History: Yes Neuro Surgical History: No Pertinent History Cardiac: No Pertinent History Respiratory: No Pertinent History Gastrointestinal: Hernia Repair Genitourinary: No Pertinent History Musculoskeletal: No Pertinent History Female Surgical History: Section Other Surgical History: 2 hernia repair,ear tubes, left ear drum,T&A - Social History Smoking Status: Never smoker Exposure to second hand smoke: Yes Alcohol Use: None Drug Use: none Patient Lives Alone: No Significant Family History: diabetes, hypertension - Female History Hx Last Menstrual Period: 03/26/17 Hx Now: No - Nursing Vital Signs Nursing Vital Signs: Initial Vital Signs Temperature 98.3 F 06/08/17 20:39 Pulse Rate 87 06/08/17 20:39 Respiratory Rate 16 06/08/17 20:39 Blood Pressure 119/73 06/08/17 20:39 O2 Sat by Pulse Oximetry 98 06/08/17 20:39 Pain Scale Pain Intensity 10 - Physical Exam General Appearance: alert, obese Eye Exam: PERRL/EOMI Ears, Nose, Throat Exam: normal ENT inspection, moist mucous membranes Neck Exam: normal inspection, non-tender, supple Respiratory Exam: normal breath sounds Cardiovascular Exam: regular rate/rhythm Gastrointestinal/Abdomen Exam: soft, No tenderness, No distention Pelvic Exam: other (external inspection with RN May- no discharge, bleeding or lesions) Extremity Exam: normal inspection, normal range of motion Neurologic Exam: alert, oriented x 3, cooperative Skin Exam: warm, dry, No rash SpO2 Interpretation: normal SpO2: 98 Oxygen Delivery: Room Air - Course Nursing assessment & vital signs reviewed: Yes Ordered Tests: Active Orders 24 hr Category Date Time Status Clean Catch Urine Specimen STAT Care 06/08/17 20:53 Active HCG,QUALITATIVE URINE Stat Lab 06/08/17 20:35 Completed UA W/RFX UR CULTURE Stat Lab 06/08/17 20:35 Completed Lab/Rad Data: Laboratory Results 06/08/17 06/08/17 Range/Units 20:35 20:35 Ur Collection Type CLEAN CATCH Urine Color YELLOW (YELLOW) Urine Appearance CLEAR (CLEAR) Urine pH 6.0 (5-6) Ur Specific [place] 1.010 (1.005-1.025) Urine Protein NEGATIVE (Negative) Urine Ketones NEGATIVE (NEGATIVE) Urine Blood NEGATIVE (0-5) Carloz/ul Urine Nitrite NEGATIVE (NEGATIVE) Urine Bilirubin NEGATIVE (NEGATIVE) Urine Urobilinogen NORMAL (0-1) mg/dL Ur Leukocyte Esterase NEGATIVE (NEGATIVE) Urine Glucose NEGATIVE (NEGATIVE) mg/dL Urine HCG, Qual NEGATIVE (Negative) Specimen Received 06/08/17:2034 - Progress Progress Note: 06/08/17 21:32 UA negative. HCG negative. She really wanted preg test. She has follow up appt with Dr Gillian Doherty. Will not do pelvic at this time as no discharge and no bleeding. Counseled pt/family regarding: diagnosis, need for follow-up - Departure Time of Disposition: 21:33 Departure Disposition: Home Clinical Impression: Dysuria Condition: Stable Critical Care Time: No Referrals: RAMESH FRENCH [Primary Care Provider] - Instructions: Dysuria -- Adult Additional Instructions: Drink plenty of fluids. See Dr Gillian Dohertyday as already scheduled.
[2017-06-08 21:16] LABS: ADD URINE CULTURE? NO (NO); Bilirubin NEGATIVE (NEGATIVE); Blood NEGATIVE Ery/ul (0-5); COMPLETE URINE MICROSCOPIC? NO; Collection Type CLEAN CATCH; Glucose NEGATIVE (NEGATIVE); Leukocyte Esterase NEGATIVE (NEGATIVE)
[2017-06-08 21:55] VITALS: BP 121/68; PULSE 65
== END 2017-06-08 21:20 | disposition home or self-care (01) ==
LOC: ED 20:26
DX: R30.0 Dysuria (principal)
CPT/HCPCS: 81002; 84703; 99284

== ENCOUNTER 2017-08-04 20:05 | Emergency (ER) | payer OTHER ==
[2017-08-04] MEDS ORDERED: Zofran 4 MG/2 ML VIAL IV ONE (21:03)
[2017-08-04] MEDS ORDERED: Sodium Chloride 0.9% 1000 ML 1,000 ML IV STA (21:03)
--- NOTE | 2017-08-04 21:08 | ERPHSYRPT ---
- History of Present Illness Time Seen by Provider: 08/04/17 21:00 Historian: patient Exam Limitations: no limitations Patient Subjective Stated Complaint: Pt reports nausea and vomiting, denies diarrhea. Vomited x 3. Was seen by PCP today for "head cold" and was given antibiotic and steroid injections. Stated PCP did not address her vomiting. Reports upper ABD pain 07/01 Triage Nursing Assessment: Pt alert, oriented, answers all questions appropriately. Ambulatory to tx room, steady gait noted. Resps non-labored. Pt vomiting during triage. Physician History: 37-year-old morbidly obese white female arrives with complaint of epigastric pain vomiting symptoms all day. Patient apparently had been seen by her family doctor earlier today and was given steroid injection as well as antibiotics. Past medical history includes asthma, hypercholesterolemia, diabetes type 2, arthritis, anxiety, depression,. Past surgical history includes , hernia repair, ear tubes, left eardrum repair, tonsillectomy and adenoidectomy.. Timing/Duration: today Activities at Onset: none Quality: cramping Abdominal Pain Onset Location: epigastric Pain Radiation: no radiation Severity of Pain-Max: moderate Severity of Pain-Current: moderate Modifying Factors: Improves With: nothing Associated Symptoms: nausea, vomiting, No back, No chest pain, No diaphoresis, No diarrhea, No fever/chills, No fatigue, No headache, No heartburn, No loss of appetite, No neck pain, No rash, No shortness of breath, No syncope Previous symptoms: no prior history Allergies/Adverse Reactions: omeprazole [From Prilosec] Allergy (Severe, Verified 08/04/17 20:37) Hives Home Medications: Famotidine [Pepcid] 20 mg PO DAILY 08/04/17 [History] Metformin HCl 1,000 mg PO BID 08/04/17 [History] Hx Tetanus, Diphtheria Vaccination/Date Given: Yes Hx Influenza Vaccination/Date Given: Yes Hx Pneumococcal Vaccination/Date Given: Yes Immunizations Up to Date: No - Review of Systems Constitutional: No Fever, No Chills Eyes: No Symptoms Ears, Nose, & Throat: No Symptoms Respiratory: No Cough, No Dyspnea Cardiac: No Chest Pain, No Edema, No Syncope Abdominal/Gastrointestinal: Abdominal Pain, Nausea, Vomiting, No Diarrhea, No Constipation, No Hematemesis, No Hematochezia, No Melena, No Dysphagia, No Appetite Changes Genitourinary Symptoms: No Dysuria Musculoskeletal: No Back Pain, No Neck Pain Skin: No Rash Neurological: No Dizziness, No Focal Weakness, No Sensory Changes Psychological: No Symptoms Endocrine: No Symptoms All Other Systems: Reviewed and Negative - Past Medical History Pertinent Past Medical History: Yes Neurological History: No Pertinent History ENT History: No Pertinent History Cardiac History: High Cholesterol Respiratory History: Asthma Endocrine Medical History: Diabetes Type II Musculoskeletal History: Arthritis GI Medical History: No Pertinent History History: No Pertinent History Psycho-Social History: Anxiety, Depression Female Reproductive Disorders: Other Other Medical History: scoliosis - Past Surgical History Past Surgical History: Yes Neuro Surgical History: No Pertinent History Cardiac: No Pertinent History Respiratory: No Pertinent History Gastrointestinal: Hernia Repair Genitourinary: No Pertinent History Musculoskeletal: No Pertinent History Female Surgical History: Section Other Surgical History: 2 hernia repair,ear tubes, left ear drum,T&A - Social History Smoking Status: Never smoker Exposure to second hand smoke: No Alcohol Use: None Drug Use: none Patient Lives Alone: No Significant Family History: diabetes, hypertension - Female History Hx Last Menstrual Period: 07/06/17 Hx Now: No - Nursing Vital Signs Nursing Vital Signs: Initial Vital Signs Temperature 98.4 F 08/04/17 20:30 Pulse Rate 102 H 08/04/17 20:30 Respiratory Rate 18 08/04/17 20:30 Blood Pressure 166/38 08/04/17 20:30 O2 Sat by Pulse Oximetry 99 08/04/17 20:30 Pain Scale Pain Intensity 4 - Physical Exam General Appearance: moderate distress Eye Exam: PERRL/EOMI, eyes nml inspection Ears, Nose, Throat Exam: normal ENT inspection, pharynx normal, moist mucous membranes Neck Exam: normal inspection, non-tender, supple, full range of motion Respiratory Exam: normal breath sounds, lungs clear, No respiratory distress Cardiovascular Exam: regular rate/rhythm, normal heart sounds Gastrointestinal/Abdomen Exam: soft, normal bowel sounds, tenderness ( epigastric tenderness) Back Exam: normal inspection, normal range of motion, No CVA tenderness, No vertebral tenderness Extremity Exam: normal inspection, normal range of motion, pelvis stable Neurologic Exam: alert, oriented x 3, cooperative, normal mood/affect, nml cerebellar function, sensation nml, No motor deficits Skin Exam: normal color, warm, dry SpO2 Interpretation: normal (99%) SpO2: 99 Oxygen Delivery: Room Air - Course Nursing assessment & vital signs reviewed: Yes - Radiology Exams Abdomen X-ray Interpretation: Interpreted by me, Other (acute abdominal series: No obstructive pattern nonspecific abdomen evidence of old hernia surgery) Ordered Tests: Active Orders 24 hr Category Date Time Status Accucheck STAT Care 08/04/17 21:04 Active IV Insertion STAT Care 08/04/17 21:03 Active OBSTR/ACUTE ABDOMEN SERIES Stat Exams 08/04/17 23:19 Taken AMYLASE Stat Lab 08/04/17 21:08 Completed CBC W DIFF Stat Lab 08/04/17 21:08 Completed CMP Stat Lab 08/04/17 21:08 Completed HCG QUALITATIVE,SERUM Stat Lab 08/04/17 21:08 Completed LIPASE Stat Lab 08/04/17 21:08 Completed Manual Differential NC Stat Lab 08/04/17 21:08 Completed UA W/RFX UR CULTURE Stat Lab 08/04/17 21:08 Completed Medication Summary Discontinued Medications Generic Name Dose Route Start Last Admin Trade Name Darius PRN Reason Stop Dose Admin Sodium Chloride 1,000 mls @ 999 mls/hr 08/04/17 21:03 08/04/17 21:19 Sodium Chloride 0.9% 1000 Ml IV 08/04/17 22:03 999 mls/hr .Q1H1M STA Administration Sodium Chloride Confirm 08/04/17 21:17 Sodium Chloride 0.9% 1000 Ml Administered 08/04/17 21:18 Dose 1,000 mls @ ud .ROUTE .STK-MED ONE Sodium Chloride Confirm 08/04/17 21:56 Sodium Chloride 0.9% 1000 Ml Administered 08/04/17 21:57 Dose 1,000 mls @ ud .ROUTE .STK-MED ONE Morphine Sulfate 4 mg 08/04/17 21:46 08/04/17 21:58 Morphine Sulfate 4 Mg Inj IV 08/04/17 21:47 4 mg STAT ONE Administration Morphine Sulfate Confirm 08/04/17 21:56 Morphine Sulfate 4 Mg Inj Administered 08/04/17 21:57 Dose 4 mg .ROUTE .STK-MED ONE Morphine Sulfate 4 mg 08/04/17 23:19 08/04/17 23:45 Morphine Sulfate 4 Mg Inj IV 08/04/17 23:20 4 mg STAT ONE Administration Morphine Sulfate Confirm 08/04/17 23:25 Morphine Sulfate 4 Mg Inj Administered 08/04/17 23:26 Dose 4 mg .ROUTE .STK-MED ONE Ondansetron HCl 4 mg 08/04/17 21:03 08/04/17 21:20 Zofran 4 Mg/2 Ml Vial IV 08/04/17 21:04 4 mg STAT ONE Administration Ondansetron HCl Confirm 08/04/17 21:17 Zofran 4 Mg/2 Ml Vial Administered 08/04/17 21:18 Dose 4 mg .ROUTE .STK-MED ONE Lab/Rad Data: Laboratory Result Diagrams 08/04/17 21:08 08/04/17 21:08 Laboratory Results 08/04/17 08/04/17 08/04/17 Range/Units 21:08 21:08 21:08 WBC (4.0-10.5) K/mm3 RBC (4.1-5.4) M/mm3 Hgb (12.0-16.0) gm/dl Hct (35-47) % MCV (78-100) fl MCH (26-32) pg MCHC (32-36) g/dl RDW (11.5-14.0) % Plt Count (150-450) K/mm3 MPV (6-9.5) fl Segmented Neutrophils (36.0-66.0) % Lymphocytes (Manual) (24-44) % Monocytes (Manual) (0.0-12.0) % Eosinophils (Manual) (0.00-3.0) % Basophils (Manual) (0.0-1.0) % Differential Comment Platelet Estimate (NORMAL) Anisocytosis Sodium 139 (136-145) mEq/L Potassium 3.9 (3.5-5.1) mEq/L Chloride 101 (98-107) mEq/L Carbon Dioxide 27.2 (21-32) mEq/L Anion Gap 14.3 (5-15) MEQ/L BUN 10 (9-20) mg/dL Creatinine 1.02 (0.55-1.30) mg/dl Estimated GFR > 60 ML/MIN Glucose 134 H (70-110) MG/DL Calcium 9.9 (8.5-10.1) mg/dL Total Bilirubin 0.40 (0.2-1.0) mg/dL AST 20 (15-37) U/L ALT 40 (12-78) U/L Alkaline Phosphatase 90 (46-116) U/L Serum Total Protein 8.4 H (6.4-8.2) gm/dL Albumin 3.9 (3.4-5.0) g/dL Amylase 47 (25-115) U/L Lipase 106 (73-393) U/L Serum , Qual NEGATIVE (Negative) Ur Collection Type CLEAN CATCH Urine Color YELLOW (YELLOW) Urine Appearance CLEAR (CLEAR) Urine pH 5.0 (5-6) Ur Specific [place] 1.010 (1.005-1.025) Urine Protein NEGATIVE (Negative) Urine Ketones NEGATIVE (NEGATIVE) Urine Blood NEGATIVE (0-5) Carloz/ul Urine Nitrite NEGATIVE (NEGATIVE) Urine Bilirubin NEGATIVE (NEGATIVE) Urine Urobilinogen NORMAL (0-1) mg/dL Ur Leukocyte Esterase NEGATIVE (NEGATIVE) Urine Culture Reflexed NO (NO) Urine Glucose NEGATIVE (NEGATIVE) mg/dL Specimen Received [id number] 08/04/17 Range/Units 21:08 WBC 16.4 H (4.0-10.5) K/mm3 RBC 4.36 (4.1-5.4) M/mm3 Hgb 13.0 (12.0-16.0) gm/dl Hct 39.1 (35-47) % MCV 89.7 (78-100) fl MCH 29.8 (26-32) pg MCHC 33.2 (32-36) g/dl RDW 14.5 H (11.5-14.0) % Plt Count 369 (150-450) K/mm3 MPV 9.8 H (6-9.5) fl Segmented Neutrophils 54 (36.0-66.0) % Lymphocytes (Manual) 40 (24-44) % Monocytes (Manual) 4 (0.0-12.0) % Eosinophils (Manual) 1 (0.00-3.0) % Basophils (Manual) 1 (0.0-1.0) % Differential Comment ABNORMAL Platelet Estimate NORMAL (NORMAL) Anisocytosis 1+ Sodium (136-145) mEq/L Potassium (3.5-5.1) mEq/L Chloride (98-107) mEq/L Carbon Dioxide (21-32) mEq/L Anion Gap (5-15) MEQ/L BUN (9-20) mg/dL Creatinine (0.55-1.30) mg/dl Estimated GFR ML/MIN Glucose (70-110) MG/DL Calcium (8.5-10.1) mg/dL Total Bilirubin (0.2-1.0) mg/dL AST (15-37) U/L ALT (12-78) U/L Alkaline Phosphatase (46-116) U/L Serum Total Protein (6.4-8.2) gm/dL Albumin (3.4-5.0) g/dL Amylase (25-115) U/L Lipase (73-393) U/L Serum , Qual (Negative) Ur Collection Type Urine Color (YELLOW) Urine Appearance (CLEAR) Urine pH (5-6) Ur Specific [place] (1.005-1.025) Urine Protein (Negative) Urine Ketones (NEGATIVE) Urine Blood (0-5) Carloz/ul Urine Nitrite (NEGATIVE) Urine Bilirubin (NEGATIVE) Urine Urobilinogen (0-1) mg/dL Ur Leukocyte Esterase (NEGATIVE) Urine Culture Reflexed (NO) Urine Glucose (NEGATIVE) mg/dL Specimen Received - Progress Progress: improved Progress Note: 08/04/17 21:47 37-year-old morbidly obese white female with history of asthma hypercholesterolemia diabetes anxiety depression. She was seen by her family doctor given a shot of antibiotics and steroids. She states she's been having epigastric abdominal pain vomiting all day. Patient with a mild tenderness in the epigastric region is improved with IV normal saline and Zofran but continues. Patient with a white count of 16,000 however patient received steroids injection. Patient with normal amylase and lipase. Will give patient Morphine 4 mg IV. 08/05/17 00:10 Patient feeling much better. Abdominal series shows a nonobstructive abdominal series no acute chest old abdominal hernia surgery. Will send patient home with Zofran and Mabel. - Departure Time of Disposition: 00:10 Departure Disposition: Home Clinical Impression: Vomiting Qualifiers: Vomiting type: bilious vomiting Nausea presence: with nausea Qualified Code(s) : R11.14 - Bilious vomiting Abdominal pain Qualifiers: Abdominal location: epigastric Qualified Code(s): R10.13 - Epigastric pain Condition: Fair Critical Care Time: No Referrals: RAMESH GARCIA [Primary Care Provider] - Instructions: Abdominal Pain-Adult Additional Instructions: Return home. Plenty of fluids clear fluids only 24-48 hours if nausea or vomiting. Zofran and Mabel as prescribed. Follow-up with your family doctor. Return for acute distress or for severe symptoms. Prescriptions: Hydrocodone/Acetaminophen [Mabel 5-325 Tablet] 1 tab PO Q4-6HPRN PRN #10 tablet PRN Reason: Pain Ondansetron [Zofran Odt] 4 mg PO Q4-6HPRN PRN #10 tab.rapdis PRN Reason: nausea and vomiting
[2017-08-04 21:11] LABS: ADD URINE CULTURE? NO (NO); Bilirubin NEGATIVE (NEGATIVE); Blood NEGATIVE Ery/ul (0-5); COMPLETE URINE MICROSCOPIC? NO; Collection Type CLEAN CATCH; Glucose NEGATIVE (NEGATIVE); Leukocyte Esterase NEGATIVE (NEGATIVE); Mean Cell Volume 89.7 fl (78-100); Mean Corpuscular Hemoglobin 29.8 pg (26-32); Mean Platelet Volume 9.8 fl (6-9.5); Platelet Count 369 K/mm3 (150-450); Red Blood Count 4.36 M/mm3 (4.1-5.4); Red Cell Distribution Width 14.5 % (11.5-14.0); White Blood Count 16.4 K/mm3 (4.0-10.5)
[2017-08-04] MEDS ORDERED: Zofran 4 MG/2 ML VIAL ONE (21:17)
[2017-08-04] MEDS ORDERED: Sodium Chloride 0.9% 1000 ML 1,000 ML ONE ×2 (21:17→21:56)
[2017-08-04 21:23] LABS: ALBUMIN 3.9 g/dL (3.4-5.0); ALKALINE PHOSPHATASE 90 U/L (46-116); ANION GAP 14.3 MEQ/L (5-15); BLOOD UREA NITROGEN 10 mg/dL (9-20); CHLORIDE 101 mEq/L (98-107); Carbon Dioxide 27.2 mEq/L (21-32); Glucose 134 MG/DL (70-110); LIPASE 106 U/L (73-393); Potassium 3.9 mEq/L (3.5-5.1); SGOT/AST 20 U/L (15-37); SGPT/ALT 40 U/L (12-78); SODIUM 139 mEq/L (136-145); Total Protein 8.4 gm/dL (6.4-8.2)
[2017-08-04] MEDS ORDERED: MORPHINE SULFATE 4 MG INJ IV ONE ×2 (21:46→23:19)
[2017-08-04] MEDS ORDERED: MORPHINE SULFATE 4 MG INJ ONE ×2 (21:56→23:25)
[2017-08-04 22:28] LABS: Basophil 1 % (0.0-1.0); Eosinophil 1 % (0.00-3.0); Platelet Estimate NORMAL (NORMAL); Total Cells Counted 100
[2017-08-04 22:30] LABS: ANISOCYTOSIS 1+
[2017-08-05] MEDS ORDERED: NORCO 5/325 MG PO ONE (00:15)
[2017-08-05] MEDS ORDERED: NORCO 5/325 MG ONE (00:23)
[2017-08-05 01:41] VITALS: BP 93/52; PULSE 85; O2SAT 97
--- NOTE | 2017-08-05 08:47 | XRAY ---
Indication: Abdominal pain, nausea, and vomiting. Comparison: December 04, 2015. 2 views of the abdomen again nonacute and nonobstructed with hernia mesh graft. Solid organs unremarkable. Single frontal chest again demonstrates normal heart and lungs. Osseous structures intact again with double curvature scoliosis. Impression: Stable nonacute abdomen and normal 1 view chest.
== END 2017-08-05 01:10 | disposition home or self-care (01) ==
LOC: ED 20:05
DX: R11.14 Bilious vomiting (principal); R10.13 Epigastric pain; E11.9 Type 2 diabetes mellitus without complications; E78.00 Pure hypercholesterolemia, unspecified; R11.0 Nausea
CPT/HCPCS: 36000; 36415; 74022; 80053; 81002; 82150; 82962; 83690; 84703; 85025; 96360; 96374; 96375; 96376; 99284; J2270; J2405; A9270-GY

== ENCOUNTER 2017-09-12 11:55 | Emergency (ER) | payer OTHER ==
--- NOTE | 2017-09-12 12:21 | ERPHSYRPT ---
- History of Present Illness Time Seen by Provider: 09/12/17 12:10 Source: patient Exam Limitations: no limitations Patient Subjective Stated Complaint: PT states "I started to get a sore throat yesterday and a cough and It is getting worse." Triage Nursing Assessment: Pt alert and oriented X 3, skin pwd. Pt ambulates without difficulty, able to speak in clear full sentences. Physician History: 37 y/o female comes to the ER with complaints of cough, runny nose and sore throat that started today. Pt also states that she thought she had a fever this morning. Pt has been using OTC tussin with minimal relief. Pt denies any shortness of breath, wheezing, sinus congestion and the daughter has similar symptoms. Timing/Duration: today Cough Quality/Degree: mild Modifying Factors: Improves With: nothing Associated Symptoms: fever, nasal drainage, sore throat Allergies/Adverse Reactions: omeprazole [From Prilosec] Allergy (Severe, Verified 08/04/17 20:37) Hives Home Medications: Famotidine [Pepcid] 20 mg PO DAILY 08/04/17 [History] Metformin HCl 1,000 mg PO BID 08/04/17 [History] Hx Tetanus, Diphtheria Vaccination/Date Given: Yes Hx Influenza Vaccination/Date Given: No Hx Pneumococcal Vaccination/Date Given: No Immunizations Up to Date: Yes - Review of Systems Constitutional: Fever, No Chills Eyes: No Symptoms Ears, Nose, & Throat: No Symptoms, Nose Discharge, Throat Pain Respiratory: Cough, No Dyspnea Cardiac: No Chest Pain, No Edema, No Syncope Abdominal/Gastrointestinal: No Abdominal Pain, No Nausea, No Vomiting, No Diarrhea Genitourinary Symptoms: No Dysuria Musculoskeletal: No Back Pain, No Neck Pain Skin: No Rash Neurological: No Dizziness, No Focal Weakness, No Sensory Changes Psychological: No Symptoms Endocrine: No Symptoms All Other Systems: Reviewed and Negative - Past Medical History Pertinent Past Medical History: Yes Neurological History: No Pertinent History ENT History: No Pertinent History Cardiac History: High Cholesterol Respiratory History: Asthma Endocrine Medical History: Diabetes Type II Musculoskeletal History: Arthritis GI Medical History: No Pertinent History History: No Pertinent History Psycho-Social History: Anxiety, Depression Female Reproductive Disorders: Other Other Medical History: scoliosis - Past Surgical History Past Surgical History: Yes Neuro Surgical History: No Pertinent History Cardiac: No Pertinent History Respiratory: No Pertinent History Gastrointestinal: Hernia Repair Genitourinary: No Pertinent History Musculoskeletal: No Pertinent History Female Surgical History: Section Other Surgical History: 2 hernia repair,ear tubes, left ear drum,T&A - Social History Smoking Status: Never smoker Exposure to second hand smoke: Yes Alcohol Use: None Drug Use: none Patient Lives Alone: No Significant Family History: diabetes, hypertension - Female History Hx Last Menstrual Period: 08/15/2017 Hx Now: No - Nursing Vital Signs Nursing Vital Signs: Initial Vital Signs Temperature 99.8 F 09/12/17 12:06 Pulse Rate 86 09/12/17 12:06 Respiratory Rate 18 09/12/17 12:06 Blood Pressure 123/64 09/12/17 12:06 O2 Sat by Pulse Oximetry 96 09/12/17 12:06 Pain Scale Pain Intensity 4 - Physical Exam General Appearance: no apparent distress, alert Eye Exam: PERRL/EOMI, eyes nml inspection Ears, Nose, Throat Exam: normal ENT inspection, TMs normal, pharynx normal, moist mucous membranes Neck Exam: normal inspection, non-tender, supple, full range of motion Respiratory Exam: normal breath sounds, lungs clear, No respiratory distress Cardiovascular Exam: regular rate/rhythm, normal heart sounds Gastrointestinal/Abdomen Exam: soft, No tenderness Back Exam: normal inspection, No CVA tenderness, No vertebral tenderness Extremity Exam: normal inspection, normal range of motion Neurologic Exam: alert, oriented x 3, cooperative, normal mood/affect, sensation nml, No motor deficits Skin Exam: normal color, warm, dry, No rash Lymphatic Exam: No adenopathy SpO2: 96 Oxygen Delivery: Room Air - Course Nursing assessment & vital signs reviewed: Yes Ordered Tests: Active Orders 24 hr Category Date Time Status CULTURE, THROAT Stat Lab 09/12/17 12:25 Received STREP SCREEN-BETA A Stat Lab 09/12/17 12:25 Completed Lab/Rad Data: Laboratory Results 09/12/17 09/12/17 Range/Units 12:25 12:25 Influenza Type A Ag NEGATIVE (NEGATIVE) Influenza Type B Ag NEGATIVE (NEGATIVE) RSV (PCR) NEGATIVE (Negative) Streptococcus Screen NEGATIVE (Negative) - Progress Progress: improved Progress Note: 09/12/17 13:49 The influenza, RSV and rapid strep are negative. Pt will be d/c home on azithromycin for 5 days for upper respiratory infection - Departure Time of Disposition: 13:50 Departure Disposition: Home Clinical Impression: Upper respiratory infection Qualifiers: URI type: unspecified URI Qualified Code(s): J06.9 - Acute upper respiratory infection, unspecified Condition: Stable Critical Care Time: No Referrals: RAMESH GARCIA [Primary Care Provider] - Instructions: Viral Upper Respiratory Infection -- Adult Additional Instructions: Follow up with your primary care doctor in the next few days if there is no improvement. Prescriptions: Azithromycin 250 mg PO DAILY #4 tablet
[2017-09-12] MEDS ORDERED: Zithromax 250 MG TABLET PO ONE (13:49)
[2017-09-12] MEDS ORDERED: Zithromax 250 MG TABLET ONE (13:54)
[2017-09-12 14:20] VITALS: BP 148/77; PULSE 78; O2SAT 98
== END 2017-09-12 14:15 | disposition home or self-care (01) ==
LOC: ED 11:55
DX: J06.9 Acute upper respiratory infection, unspecified (principal)
CPT/HCPCS: 87070; 87430; 87631; 99283; A9270-GY

== ENCOUNTER 2017-10-31 20:18 | Emergency (ER) | payer OTHER ==
[2017-10-31 20:45] VITALS: O2SAT 99
[2017-10-31] MEDS ORDERED: Zofran 4 MG/2 ML VIAL IV ONE (20:45)
[2017-10-31] MEDS ORDERED: Sodium Chloride 0.9% 1000 ML 1,000 ML IV STA (20:45)
[2017-10-31] MEDS ORDERED: Zofran 4 MG/2 ML VIAL ONE (20:49)
[2017-10-31] MEDS ORDERED: Sodium Chloride 0.9% 1000 ML 1,000 ML ONE (20:49)
[2017-10-31 20:55] LABS: Lactic Acid 2.2 (0.4-2.0)
[2017-10-31 20:55] LABS: BASOPHIL % 0.3 % (0.0-0.4); Basophil (Absolute #) 0.03 (0-0.4); Eosinophil % 1.2 % (0.00-5.0); Eosinophil (Absolute #) 0.14 (0-0.5); Granulocyte Absolute (ANC) 5.92 (1.4-6.9); Granulocytes % 52.5 % (36.0-66.0); Hematocrit 40.1 % (35-47); Hemoglobin 13.4 gm/dl (12.0-16.0); Lymphocyte (Absolute #) 4.54 (1.0-4.6); Lymphocytes % 40.2 % (24.0-44.0); Mean Cell Volume 90.1 fl (78-100); Mean Corpuscular Hemoglobin 30.1 pg (26-32); Mean Corpuscular Hgb Concent. 33.4 g/dl (32-36); Monocyte (Absolute #) 0.65 (0.0-1.3); Monocytes % 5.8 % (0.0-12.0); Platelet Count 317 K/mm3 (150-450); Red Blood Count 4.45 M/mm3 (4.1-5.4); Red Cell Distribution Width 13.4 % (11.5-14.0); White Blood Count 11.3 K/mm3 (4.0-10.5)
[2017-10-31 21:02] LABS: Appearance SLIGHTLY CLOUDY (CLEAR); Bilirubin NEGATIVE (NEGATIVE); Blood NEGATIVE Ery/ul (0-5); Glucose NEGATIVE (NEGATIVE); Ketones NEGATIVE (NEGATIVE); Leukocyte Esterase TRACE (NEGATIVE); Nitrite NEGATIVE (NEGATIVE); Protein,Urine Dip 30 (Negative); Specific Gravity 1.015 (1.005-1.025); Urobilinogen NORMAL mg/dL (0-1)
[2017-10-31 21:03] LABS: Bacteria MODERATE /HPF (NEGATIVE); Epithelial Cells MANY /HPF (FEW); Mucus SLIGHT /HPF (NEGATIVE); WBC 0-2 /HPF (0-5); Yeast FEW /HPF (NEGATIVE)
--- NOTE | 2017-10-31 21:03 | ERPHSYRPT ---
- History of Present Illness Time Seen by Provider: 10/31/17 20:47 Historian: patient Exam Limitations: no limitations Patient Subjective Stated Complaint: vomiting yesterday and vomited tonight after eating dinner. stomache pain and burning. smilar episode on Oct 24 was worked up by her doctor. Triage Nursing Assessment: alert and does not appear to be in distress. abdomen soft. staets buring after eating and vomited yesterday and tonight after eating hamburger helper. Physician History: Pt started c/o nausea vomiting yesterday, today vomited several times, and developed RUQ abdominal pain. She denies diarrhea, vomiting blood or coffee ground material, no fever, chills or other complaints. She underwent abdominal hernia repair in the past, denies other surgery or significant medical problems. Timing/Duration: yesterday Activities at Onset: none Quality: cramping, sharpness Abdominal Pain Onset Location: RUQ Pain Radiation: no radiation Severity of Pain-Max: severe Severity of Pain-Current: moderate Modifying Factors: Improves With: nothing Associated Symptoms: nausea, vomiting Previous symptoms: no prior history Allergies/Adverse Reactions: omeprazole [From Prilosec] Allergy (Severe, Verified 08/04/17 20:37) Hives Home Medications: Famotidine [Pepcid] 20 mg PO DAILY 08/04/17 [History] Metformin HCl 1,000 mg PO BID 08/04/17 [History] Hx Tetanus, Diphtheria Vaccination/Date Given: Yes Hx Influenza Vaccination/Date Given: No Hx Pneumococcal Vaccination/Date Given: No Immunizations Up to Date: Yes - Review of Systems Constitutional: No Symptoms Abdominal/Gastrointestinal: Abdominal Pain, Nausea, Vomiting All Other Systems: Reviewed and Negative - Past Medical History Pertinent Past Medical History: Yes Neurological History: No Pertinent History ENT History: No Pertinent History Cardiac History: High Cholesterol Respiratory History: Asthma Endocrine Medical History: Diabetes Type II Musculoskeletal History: Arthritis GI Medical History: GERD History: No Pertinent History Psycho-Social History: Anxiety, Depression Female Reproductive Disorders: Other Other Medical History: scoliosis - Past Surgical History Past Surgical History: No Neuro Surgical History: No Pertinent History Cardiac: No Pertinent History Respiratory: No Pertinent History Gastrointestinal: Hernia Repair Genitourinary: No Pertinent History Musculoskeletal: No Pertinent History Female Surgical History: Section Other Surgical History: 2 hernia repair,ear tubes, left ear drum,T&A - Social History Smoking Status: Never smoker Exposure to second hand smoke: No Alcohol Use: None Drug Use: none Patient Lives Alone: No Significant Family History: diabetes, hypertension - Female History Hx Now: No - Nursing Vital Signs Nursing Vital Signs: Initial Vital Signs Temperature 98.7 F 10/31/17 20:31 Pulse Rate 99 H 10/31/17 20:31 Respiratory Rate 20 10/31/17 20:31 Blood Pressure 145/112 10/31/17 20:31 O2 Sat by Pulse Oximetry 99 10/31/17 20:31 Pain Scale Pain Intensity 4 - Physical Exam General Appearance: no apparent distress Eye Exam: eyes nml inspection Ears, Nose, Throat Exam: normal ENT inspection Neck Exam: normal inspection, non-tender, supple Respiratory Exam: normal breath sounds, lungs clear, No chest tenderness Cardiovascular Exam: regular rate/rhythm, normal heart sounds, normal peripheral pulses, No murmur Gastrointestinal/Abdomen Exam: soft, normal bowel sounds, tenderness (mod. RUQ) , other (obese, old surgical scars, hernia repair, no large mass, or incarceration.), No distention, No mass, No guarding, No pulsatile mass, No rebound Back Exam: normal inspection, No CVA tenderness Extremity Exam: normal inspection Neurologic Exam: alert, oriented x 3, cooperative Skin Exam: normal color, warm, dry, No rash Lymphatic Exam: No adenopathy SpO2 Interpretation: normal SpO2: 99 Oxygen Delivery: Room Air - Course Nursing assessment & vital signs reviewed: Yes EKG Interpreted by Me: RATE (84/min), NORMAL AXIS, NORMAL INTERVALS, NORMAL ST-T - Radiology Exams Chest X-ray Interpretation: Interpreted by me, Negative, Other (scoliosis) - CT Exams abdomen, pelvis CT Interpretation: Negative, Other (large ventral hernia, no obstruction) Ordered Tests: Active Orders 24 hr Category Date Time Status EKG-ER Only STAT Care 10/31/17 20:45 Active IV Insertion STAT Care 10/31/17 20:45 Active NPO (ED) STAT Care 10/31/17 20:45 Active ABDOMEN AND PELVIS W CONTRAST [CT] Stat Exams 10/31/17 20:46 Taken CHEST 1 VIEW (PORTABLE) Stat Exams 10/31/17 20:46 Taken CBC W DIFF Stat Lab 10/31/17 20:49 Completed CMP Stat Lab 10/31/17 20:49 Completed CULTURE,URINE Stat Lab 10/31/17 20:49 Received HCG,QUALITATIVE URINE Stat Lab 10/31/17 Uncollected HCG,QUALITATIVE URINE Stat Lab 10/31/17 20:49 Completed LIPASE Stat Lab 10/31/17 20:49 Completed Lactic Acid Stat Lab 10/31/17 20:45 Completed Lactic Acid Stat Lab 10/31/17 22:55 Ordered TROPONIN Q3H Lab 10/31/17 20:49 Completed TROPONIN Q3H Lab 10/31/17 23:45 Ordered TROPONIN Q3H Lab 11/01/17 02:45 Ordered TROPONIN Q3H Lab 11/01/17 05:45 Ordered TROPONIN Q3H Lab 11/01/17 08:45 Ordered UA W/ MICROSCOPIC Stat Lab 10/31/17 20:49 Completed Urine Triage Profile Stat Lab 10/31/17 20:49 Completed Medication Summary Discontinued Medications Generic Name Dose Route Start Last Admin Trade Name Freq PRN Reason Stop Dose Admin Sodium Chloride 1,000 mls @ 999 mls/hr 10/31/17 20:45 10/31/17 20:51 Sodium Chloride 0.9% 1000 Ml IV 10/31/17 21:45 999 mls/hr .Q1H1M STA Administration Sodium Chloride Confirm 10/31/17 20:49 Sodium Chloride 0.9% 1000 Ml Administered 10/31/17 20:50 Dose 1,000 mls @ ud .ROUTE .STK-MED ONE Ondansetron HCl 4 mg 10/31/17 20:45 10/31/17 20:50 Zofran 4 Mg/2 Ml Vial IV 10/31/17 20:46 4 mg STAT ONE Administration Ondansetron HCl Confirm 10/31/17 20:49 Zofran 4 Mg/2 Ml Vial Administered 10/31/17 20:50 Dose 4 mg .ROUTE .STK-MED ONE Lab/Rad Data: Laboratory Result Diagrams 10/31/17 20:49 10/31/17 20:49 Laboratory Results 10/31/17 10/31/17 10/31/17 Range/Units 20:49 20:49 20:49 WBC 11.3 H (4.0-10.5) K/mm3 RBC 4.45 (4.1-5.4) M/mm3 Hgb 13.4 (12.0-16.0) gm/dl Hct 40.1 (35-47) % MCV 90.1 (78-100) fl MCH 30.1 (26-32) pg MCHC 33.4 (32-36) g/dl RDW 13.4 (11.5-14.0) % Plt Count 317 (150-450) K/mm3 MPV 10.0 H (6-9.5) fl Gran % 52.5 (36.0-66.0) % Lymphocytes % 40.2 (24.0-44.0) % Monocytes % 5.8 (0.0-12.0) % Eosinophils % 1.2 (0.00-5.0) % Basophils % 0.3 (0.0-0.4) % Basophils # 0.03 (0-0.4) Sodium 137 (136-145) mEq/L Potassium 4.2 (3.5-5.1) mEq/L Chloride 101 (98-107) mEq/L Carbon Dioxide 24.7 (21-32) mEq/L Anion Gap 15.2 H (5-15) MEQ/L BUN 8 L (9-20) mg/dL Creatinine 0.89 (0.55-1.30) mg/dl Estimated GFR > 60 ML/MIN Glucose 122 H (70-110) MG/DL Lactic Acid (0.4-2.0) Calcium 8.9 (8.5-10.1) mg/dL Total Bilirubin 0.30 (0.2-1.0) mg/dL AST 31 (15-37) U/L ALT 33 (12-78) U/L Alkaline Phosphatase 108 (46-116) U/L Troponin I (0.000-0.056) ng/ml Serum Total Protein 7.9 (6.4-8.2) gm/dL Albumin 3.6 (3.4-5.0) g/dL Lipase 106 (73-393) U/L Ur Collection Type Urine Color (YELLOW) Urine Appearance (CLEAR) Urine pH (5-6) Ur Specific [place] (1.005-1.025) Urine Protein (Negative) Urine Ketones (NEGATIVE) Urine Blood (0-5) Carloz/ul Urine Nitrite (NEGATIVE) Urine Bilirubin (NEGATIVE) Urine Urobilinogen (0-1) mg/dL Ur Leukocyte Esterase (NEGATIVE) Urine Microscopic RBC (0-2) /HPF Urine Microscopic WBC (0-5) /HPF Ur Epithelial Cells (FEW) /HPF Urine Bacteria (NEGATIVE) /HPF Urine Mucus (NEGATIVE) /HPF Urine Yeast (NEGATIVE) /HPF Urine Culture Reflexed (NO) Urine Glucose (NEGATIVE) mg/dL Urine HCG, Qual NEGATIVE (Negative) Urine Opiates Level (NEGATIVE) Ur Methadone (NEGATIVE) Urine Barbiturates (NEGATIVE) Ur Phencyclidine (PCP) (NEGATIVE) Urine Amphetamine (NEGATIVE) U Benzodiazepine Level (NEGATIVE) Urine Cocaine (NEGATIVE) Urine Marijuana (THC) (NEGATIVE) Specimen Received 10/31/17 10/31/17 10/31/17 Range/Units 20:49 20:49 20:49 WBC (4.0-10.5) K/mm3 RBC (4.1-5.4) M/mm3 Hgb (12.0-16.0) gm/dl Hct (35-47) % MCV (78-100) fl MCH (26-32) pg MCHC (32-36) g/dl RDW (11.5-14.0) % Plt Count (150-450) K/mm3 MPV (6-9.5) fl Gran % (36.0-66.0) % Lymphocytes % (24.0-44.0) % Monocytes % (0.0-12.0) % Eosinophils % (0.00-5.0) % Basophils % (0.0-0.4) % Basophils # (0-0.4) Sodium (136-145) mEq/L Potassium (3.5-5.1) mEq/L Chloride (98-107) mEq/L Carbon Dioxide (21-32) mEq/L Anion Gap (5-15) MEQ/L BUN (9-20) mg/dL Creatinine (0.55-1.30) mg/dl Estimated GFR ML/MIN Glucose (70-110) MG/DL Lactic Acid (0.4-2.0) Calcium (8.5-10.1) mg/dL Total Bilirubin (0.2-1.0) mg/dL AST (15-37) U/L ALT (12-78) U/L Alkaline Phosphatase (46-116) U/L Troponin I < 0.017 (0.000-0.056) ng/ml Serum Total Protein (6.4-8.2) gm/dL Albumin (3.4-5.0) g/dL Lipase (73-393) U/L Ur Collection Type VOID Urine Color YELLOW (YELLOW) Urine Appearance SLIGHTLY CLOUDY (CLEAR) Urine pH 6.0 (5-6) Ur Specific [place] 1.015 (1.005-1.025) Urine Protein 30 (Negative) Urine Ketones NEGATIVE (NEGATIVE) Urine Blood NEGATIVE (0-5) Carloz/ul Urine Nitrite NEGATIVE (NEGATIVE) Urine Bilirubin NEGATIVE (NEGATIVE) Urine Urobilinogen NORMAL (0-1) mg/dL Ur Leukocyte Esterase TRACE (NEGATIVE) Urine Microscopic RBC 2-5 (0-2) /HPF Urine Microscopic WBC 0-2 (0-5) /HPF Ur Epithelial Cells MANY (FEW) /HPF Urine Bacteria MODERATE (NEGATIVE) /HPF Urine Mucus SLIGHT (NEGATIVE) /HPF Urine Yeast FEW (NEGATIVE) /HPF Urine Culture Reflexed YES (NO) Urine Glucose NEGATIVE (NEGATIVE) mg/dL Urine HCG, Qual (Negative) Urine Opiates Level NEG. (NEGATIVE) Ur Methadone NEG. (NEGATIVE) Urine Barbiturates NEG. (NEGATIVE) Ur Phencyclidine (PCP) NEG. (NEGATIVE) Urine Amphetamine NEG. (NEGATIVE) U Benzodiazepine Level NEG. (NEGATIVE) Urine Cocaine NEG. (NEGATIVE) Urine Marijuana (THC) NEG. (NEGATIVE) Specimen Received 10/31/17204910/31/17 Range/Units 20:45 WBC (4.0-10.5) K/mm3 RBC (4.1-5.4) M/mm3 Hgb (12.0-16.0) gm/dl Hct (35-47) % MCV (78-100) fl MCH (26-32) pg MCHC (32-36) g/dl RDW (11.5-14.0) % Plt Count (150-450) K/mm3 MPV (6-9.5) fl Gran % (36.0-66.0) % Lymphocytes % (24.0-44.0) % Monocytes % (0.0-12.0) % Eosinophils % (0.00-5.0) % Basophils % (0.0-0.4) % Basophils # (0-0.4) Sodium (136-145) mEq/L Potassium (3.5-5.1) mEq/L Chloride (98-107) mEq/L Carbon Dioxide (21-32) mEq/L Anion Gap (5-15) MEQ/L BUN (9-20) mg/dL Creatinine (0.55-1.30) mg/dl Estimated GFR ML/MIN Glucose (70-110) MG/DL Lactic Acid 2.2 H (0.4-2.0) Calcium (8.5-10.1) mg/dL Total Bilirubin (0.2-1.0) mg/dL AST (15-37) U/L ALT (12-78) U/L Alkaline Phosphatase (46-116) U/L Troponin I (0.000-0.056) ng/ml Serum Total Protein (6.4-8.2) gm/dL Albumin (3.4-5.0) g/dL Lipase (73-393) U/L Ur Collection Type Urine Color (YELLOW) Urine Appearance (CLEAR) Urine pH (5-6) Ur Specific [place] (1.005-1.025) Urine Protein (Negative) Urine Ketones (NEGATIVE) Urine Blood (0-5) Carloz/ul Urine Nitrite (NEGATIVE) Urine Bilirubin (NEGATIVE) Urine Urobilinogen (0-1) mg/dL Ur Leukocyte Esterase (NEGATIVE) Urine Microscopic RBC (0-2) /HPF Urine Microscopic WBC (0-5) /HPF Ur Epithelial Cells (FEW) /HPF Urine Bacteria (NEGATIVE) /HPF Urine Mucus (NEGATIVE) /HPF Urine Yeast (NEGATIVE) /HPF Urine Culture Reflexed (NO) Urine Glucose (NEGATIVE) mg/dL Urine HCG, Qual (Negative) Urine Opiates Level (NEGATIVE) Ur Methadone (NEGATIVE) Urine Barbiturates (NEGATIVE) Ur Phencyclidine (PCP) (NEGATIVE) Urine Amphetamine (NEGATIVE) U Benzodiazepine Level (NEGATIVE) Urine Cocaine (NEGATIVE) Urine Marijuana (THC) (NEGATIVE) Specimen Received - Progress Progress: improved Progress Note: 10/31/17 23:02 Stable, afebrile, did not vomit., explained labs and CT result, suggested liquid diet x 1-2 days, and follow up with her PCP next week. She understood agreed, all questions answered, agreed to be discharged home. - Departure Time of Disposition: 23:03 Departure Disposition: Home Clinical Impression: Ventral hernia Qualifiers: Obstruction and gangrene presence: without obstruction or gangrene Qualified Code(s): K43.9 - Ventral hernia without obstruction or gangrene Condition: Stable Critical Care Time: No Referrals: RAMESH GARCIA [Primary Care Provider] - Instructions: Abdominal Hernia (DC) Additional Instructions: Rest x 2-3 days, continue liquid diet, return if severe pain, vomiting, or fever > 101 F! Prescriptions: Ondansetron ODT 4 MG [Zofran Odt 4 mg] 4 mg PO Q6H PRN PRN #10 tab.rapdis PRN Reason: Nausea/Vomiting
[2017-10-31 21:04] LABS: Amphetamine,Urine NEG. (NEGATIVE); Barbiturate,Urine NEG. (NEGATIVE); Benzodiazepine,Urine NEG. (NEGATIVE); Cocaine,Urine NEG. (NEGATIVE); Methadone,Urine NEG. (NEGATIVE); Opiate,Urine NEG. (NEGATIVE); PCP,Urine NEG. (NEGATIVE); THC,Urine NEG. (NEGATIVE)
[2017-10-31 21:15] LABS: ALBUMIN 3.6 g/dL (3.4-5.0); ALKALINE PHOSPHATASE 108 U/L (46-116); ANION GAP 15.2 MEQ/L (5-15); BLOOD UREA NITROGEN 8 mg/dL (9-20); CHLORIDE 101 mEq/L (98-107); Calcium 8.9 mg/dL (8.5-10.1); Carbon Dioxide 24.7 mEq/L (21-32); Creatinine 1 0.89 mg/dl (0.55-1.30); EST GLOMERULAR FILTRATION RATE > 60 ML/MIN; Glucose 122 MG/DL (70-110); LIPASE 106 U/L (73-393); Potassium 4.2 mEq/L (3.5-5.1); SGOT/AST 31 U/L (15-37); SGPT/ALT 33 U/L (12-78); SODIUM 137 mEq/L (136-145); Total Protein 7.9 gm/dL (6.4-8.2)
[2017-10-31 23:24] VITALS: BP 138/95; PULSE 76
--- NOTE | 2017-11-01 07:59 | XRAY ---
Indication: Right upper quadrant pain and vomiting. Multiple contiguous axial images obtained through the abdomen and pelvis using 80 cc Isovue 370 contrast only. Comparison: March 19, 2016. Lung bases are clear. Heart is not enlarged. Noncontrasted stomach and bowel loops appear nonobstructed. Stable descending/sigmoid diverticulosis without diverticulitis. Again there is large failed ventral hernia with increasing omental fat and small bowel loops herniating without incarceration/obstruction. Stable mild diffuse fatty liver. Gallbladder contracted without gallstones. Remaining pancreas, spleen, adrenal glands, kidneys, ureters, bladder, and uterus appear unremarkable. There remains minimal aortic calcifications. No AAA or pathologic retroperitoneal lymphadenopathy. Osseous structures intact again with double curvature scoliosis. Impression: 1. Worsening failed ventral hernia repair with increasing herniated omental fat and small bowel loops. 2. Stable fatty liver and colonic diverticulosis. Comment: Preliminary interpretation was made by [facility]. No critical discrepancy. CTDI 28.13
--- NOTE | 2017-11-01 07:59 | XRAY ---
Indication: Right upper quadrant pain and vomiting. Comparison: August 04, 2017. Single AP chest unchanged again demonstrating normal heart and lungs. Bony thorax intact with stable double curvature scoliosis.
== END 2017-10-31 23:24 | disposition home or self-care (01) ==
LOC: ED 20:18
DX: K43.9 Ventral hernia without obstruction or gangrene (principal); E11.9 Type 2 diabetes mellitus without complications; Z79.4 Long term (current) use of insulin; J45.909 Unspecified asthma, uncomplicated; K21.9 Gastro-esophageal reflux disease without esophagitis; M19.90 Unspecified osteoarthritis, unspecified site; F41.9 Anxiety disorder, unspecified; M41.9 Scoliosis, unspecified; Z79.899 Other long term (current) drug therapy
CPT/HCPCS: 36000; 36415; 71045; 74177; 80053; 80307; 81000; 83605; 83690; 84484; 84703; 85025; 87086; 93005; 96360; 99284; J2405

== ENCOUNTER 2017-11-10 14:53 | Emergency (ER) | payer OTHER ==
[2017-11-10 16:02] LABS: Appearance CLEAR (CLEAR); Bilirubin NEGATIVE (NEGATIVE); Blood NEGATIVE Ery/ul (0-5); Glucose NEGATIVE (NEGATIVE); Ketones NEGATIVE (NEGATIVE); Leukocyte Esterase NEGATIVE (NEGATIVE); Nitrite NEGATIVE (NEGATIVE); Protein,Urine Dip NEGATIVE (Negative); Specific Gravity 1.015 (1.005-1.025); Urobilinogen NORMAL mg/dL (0-1)
--- NOTE | 2017-11-10 16:11 | ERPHSYRPT ---
- History of Present Illness Time Seen by Provider: 11/10/17 15:48 Historian: patient Patient Subjective Stated Complaint: pain in abdomen and down her sides some burning in vaginal , having to urinate excessivelyarea Triage Nursing Assessment: pt alert adn orietnedx3, gait steady, ambulates by self, skin warm dry and intact, tenderness to sides on palpation bilateral, lung sounds clear, bowel sounds present x4, Physician History: CC: lower abd pain Hx: 37 y/o patient of Dr french with bilateral side pain since this AM. Some burning with urine. Wants to makle sure not . No fever or chills. No V/ D. She had recent CT showing ventral hernia. Timing/Duration: today Allergies/Adverse Reactions: omeprazole [From Prilosec] Allergy (Severe, Verified 08/04/17 20:37) Hives Home Medications: Famotidine [Pepcid] 20 mg PO DAILY 08/04/17 [History] Metformin HCl 1,000 mg PO BID 08/04/17 [History] Hx Tetanus, Diphtheria Vaccination/Date Given: Yes Hx Influenza Vaccination/Date Given: No Hx Pneumococcal Vaccination/Date Given: No Immunizations Up to Date: Yes - Review of Systems Constitutional: No Fever, No Chills Eyes: No Symptoms Ears, Nose, & Throat: No Symptoms Respiratory: No Cough, No Dyspnea Cardiac: No Chest Pain Abdominal/Gastrointestinal: Abdominal Pain, No Nausea, No Vomiting, No Diarrhea Genitourinary Symptoms: Dysuria Skin: No Rash Neurological: No Headache All Other Systems: Reviewed and Negative - Past Medical History Pertinent Past Medical History: Yes Neurological History: No Pertinent History ENT History: No Pertinent History Cardiac History: High Cholesterol Respiratory History: Asthma Endocrine Medical History: Diabetes Type II Musculoskeletal History: Arthritis GI Medical History: GERD History: No Pertinent History Psycho-Social History: Anxiety, Depression Female Reproductive Disorders: Other Other Medical History: scoliosis - Past Surgical History Past Surgical History: No Neuro Surgical History: No Pertinent History Cardiac: No Pertinent History Respiratory: No Pertinent History Gastrointestinal: Hernia Repair Genitourinary: No Pertinent History Musculoskeletal: No Pertinent History Female Surgical History: Section Other Surgical History: 2 hernia repair,ear tubes, left ear drum,T&A - Social History Smoking Status: Never smoker Exposure to second hand smoke: No Alcohol Use: None Drug Use: none Patient Lives Alone: No Significant Family History: diabetes, hypertension - Female History Hx Now: (unknown) - Nursing Vital Signs Nursing Vital Signs: Initial Vital Signs Temperature 98.9 F 11/10/17 14:55 Pulse Rate 90 11/10/17 14:55 Respiratory Rate 18 11/10/17 14:55 Blood Pressure 144/96 11/10/17 14:55 O2 Sat by Pulse Oximetry 98 11/10/17 14:55 Pain Scale Pain Intensity 7 - Physical Exam General Appearance: alert Eye Exam: PERRL/EOMI Ears, Nose, Throat Exam: normal ENT inspection, moist mucous membranes Neck Exam: normal inspection, non-tender, supple Respiratory Exam: normal breath sounds Cardiovascular Exam: regular rate/rhythm Gastrointestinal/Abdomen Exam: soft, No tenderness, No distention, No mass, No guarding Back Exam: normal inspection Extremity Exam: normal inspection Neurologic Exam: alert, oriented x 3, cooperative Skin Exam: warm, dry, No rash SpO2 Interpretation: normal SpO2: 98 Oxygen Delivery: Room Air - Course Nursing assessment & vital signs reviewed: Yes - Radiology Exams AAS X-ray Interpretation: Teleradiologist Report, Negative Ordered Tests: Active Orders 24 hr Category Date Time Status Clean Catch Urine Specimen STAT Care 11/10/17 15:48 Active OBSTR/ACUTE ABDOMEN SERIES Stat Exams 11/10/17 16:12 Completed CBC W DIFF Stat Lab 11/10/17 17:05 Completed CMP Stat Lab 11/10/17 17:05 Completed HCG,QUALITATIVE URINE Stat Lab 11/10/17 16:00 Completed LIPASE Stat Lab 11/10/17 17:05 Completed UA W/RFX UR CULTURE Stat Lab 11/10/17 15:48 Completed Lab/Rad Data: Laboratory Result Diagrams 11/10/17 17:05 11/10/17 17:05 Laboratory Results 11/10/17 11/10/17 11/10/17 Range/Units 17:05 17:05 16:00 WBC 11.2 H (4.0-10.5) K/mm3 RBC 4.40 (4.1-5.4) M/mm3 Hgb 13.2 (12.0-16.0) gm/dl Hct 39.5 (35-47) % MCV 89.8 (78-100) fl MCH 30.0 (26-32) pg MCHC 33.4 (32-36) g/dl RDW 13.5 (11.5-14.0) % Plt Count 326 (150-450) K/mm3 MPV 9.3 (6-9.5) fl Gran % 68.3 H (36.0-66.0) % Lymphocytes % 24.7 (24.0-44.0) % Monocytes % 5.7 (0.0-12.0) % Eosinophils % 1.0 (0.00-5.0) % Basophils % 0.3 (0.0-0.4) % Basophils # 0.03 (0-0.4) Sodium 138 (136-145) mEq/L Potassium 3.9 (3.5-5.1) mEq/L Chloride 101 (98-107) mEq/L Carbon Dioxide 28.0 (21-32) mEq/L Anion Gap 13.2 (5-15) MEQ/L BUN 9 (9-20) mg/dL Creatinine 0.91 (0.55-1.30) mg/dl Estimated GFR > 60 ML/MIN Glucose 141 H (70-110) MG/DL Calcium 9.0 (8.5-10.1) mg/dL Total Bilirubin 0.50 (0.2-1.0) mg/dL AST 35 (15-37) U/L ALT 38 (12-78) U/L Alkaline Phosphatase 105 (46-116) U/L Serum Total Protein 7.7 (6.4-8.2) gm/dL Albumin 3.5 (3.4-5.0) g/dL Lipase 97 (73-393) U/L Ur Collection Type Urine Color (YELLOW) Urine Appearance (CLEAR) Urine pH (5-6) Ur Specific [place] (1.005-1.025) Urine Protein (Negative) Urine Ketones (NEGATIVE) Urine Blood (0-5) Carloz/ul Urine Nitrite (NEGATIVE) Urine Bilirubin (NEGATIVE) Urine Urobilinogen (0-1) mg/dL Ur Leukocyte Esterase (NEGATIVE) Urine Culture Reflexed (NO) Urine Glucose (NEGATIVE) mg/dL Urine HCG, Qual NEGATIVE (Negative) Specimen Received 11/10/17 Range/Units 15:48 WBC (4.0-10.5) K/mm3 RBC (4.1-5.4) M/mm3 Hgb (12.0-16.0) gm/dl Hct (35-47) % MCV (78-100) fl MCH (26-32) pg MCHC (32-36) g/dl RDW (11.5-14.0) % Plt Count (150-450) K/mm3 MPV (6-9.5) fl Gran % (36.0-66.0) % Lymphocytes % (24.0-44.0) % Monocytes % (0.0-12.0) % Eosinophils % (0.00-5.0) % Basophils % (0.0-0.4) % Basophils # (0-0.4) Sodium (136-145) mEq/L Potassium (3.5-5.1) mEq/L Chloride (98-107) mEq/L Carbon Dioxide (21-32) mEq/L Anion Gap (5-15) MEQ/L BUN (9-20) mg/dL Creatinine (0.55-1.30) mg/dl Estimated GFR ML/MIN Glucose (70-110) MG/DL Calcium (8.5-10.1) mg/dL Total Bilirubin (0.2-1.0) mg/dL AST (15-37) U/L ALT (12-78) U/L Alkaline Phosphatase (46-116) U/L Serum Total Protein (6.4-8.2) gm/dL Albumin (3.4-5.0) g/dL Lipase (73-393) U/L Ur Collection Type CATH Urine Color YELLOW (YELLOW) Urine Appearance CLEAR (CLEAR) Urine pH 5.0 (5-6) Ur Specific [place] 1.015 (1.005-1.025) Urine Protein NEGATIVE (Negative) Urine Ketones NEGATIVE (NEGATIVE) Urine Blood NEGATIVE (0-5) Carloz/ul Urine Nitrite NEGATIVE (NEGATIVE) Urine Bilirubin NEGATIVE (NEGATIVE) Urine Urobilinogen NORMAL (0-1) mg/dL Ur Leukocyte Esterase NEGATIVE (NEGATIVE) Urine Culture Reflexed NO (NO) Urine Glucose NEGATIVE (NEGATIVE) mg/dL Urine HCG, Qual (Negative) Specimen Received 11/10/17 1544 - Progress Progress Note: 11/10/17 18:19 She is stable. Advised follow up with Dr French. Benign abd exam on recheck. She had prior ventral hernia. Urine negative. Will see patient in: office Counseled pt/family regarding: lab results, diagnosis, need for follow-up, rad results - Departure Time of Disposition: 18:20 Departure Disposition: Home Clinical Impression: Abdominal pain, Hx of ventral hernia repair, Morbid obesity Condition: Stable Critical Care Time: No Referrals: RAMESH FRENCH [Primary Care Provider] - Instructions: Acute Abdomen (Belly Pain) Additional Instructions: ABDOMINAL PAIN 1. There are several different causes for abdominal pain, some of which may not be able to be identified on initial examination. 2. The important thing to remember is that bodily functions can change in a short period of time. If you notice any of the following symptoms, return to the emergency department or consult your doctor immediately: A. Worsening pain or no improvement in the next 12 hours. B. Increasing, severe abdominal pain C. Blood in stool D. Black stools E. Persistent vomiting F. Fever or chills or other symptoms Follow up this week with Dr french.
--- NOTE | 2017-11-10 16:36 | XRAY ---
Indication: Upper abdominal pain. Comparison: August 04, 2017. 2 views of the abdomen again nonacute and nonobstructed with hernia mesh graft. Solid organs unremarkable. Osseous structures intact again with moderate double curvature thoracolumbar scoliosis. Single frontal chest again demonstrates normal heart and lungs. Impression: Stable nonacute abdomen and normal one view chest.
[2017-11-10 17:12] LABS: BASOPHIL % 0.3 % (0.0-0.4); Basophil (Absolute #) 0.03 (0-0.4); Eosinophil (Absolute #) 0.11 (0-0.5); Granulocyte Absolute (ANC) 7.65 (1.4-6.9); Granulocytes % 68.3 % (36.0-66.0); Hematocrit 39.5 % (35-47); Hemoglobin 13.2 gm/dl (12.0-16.0); Lymphocyte (Absolute #) 2.77 (1.0-4.6); Lymphocytes % 24.7 % (24.0-44.0); Mean Cell Volume 89.8 fl (78-100); Mean Corpuscular Hgb Concent. 33.4 g/dl (32-36); Mean Platelet Volume 9.3 fl (6-9.5); Monocyte (Absolute #) 0.64 (0.0-1.3); Monocytes % 5.7 % (0.0-12.0); Platelet Count 326 K/mm3 (150-450); Red Cell Distribution Width 13.5 % (11.5-14.0); White Blood Count 11.2 K/mm3 (4.0-10.5)
[2017-11-10 17:46] LABS: ALBUMIN 3.5 g/dL (3.4-5.0); ALKALINE PHOSPHATASE 105 U/L (46-116); ANION GAP 13.2 MEQ/L (5-15); BLOOD UREA NITROGEN 9 mg/dL (9-20); CHLORIDE 101 mEq/L (98-107); Creatinine 1 0.91 mg/dl (0.55-1.30); EST GLOMERULAR FILTRATION RATE > 60 ML/MIN; Glucose 141 MG/DL (70-110); LIPASE 97 U/L (73-393); Potassium 3.9 mEq/L (3.5-5.1); SGOT/AST 35 U/L (15-37); SGPT/ALT 38 U/L (12-78); SODIUM 138 mEq/L (136-145); Total Protein 7.7 gm/dL (6.4-8.2)
[2017-11-10] MEDS ORDERED: MOTRIN 400 MG PO ONE (18:21)
[2017-11-10] MEDS ORDERED: Pepcid 20 MG PO ONE (18:21)
[2017-11-10] MEDS ORDERED: Pepcid 20 MG ONE (18:43)
[2017-11-10] MEDS ORDERED: MOTRIN 400 MG ONE (18:44)
[2017-11-10 18:50] VITALS: BP 135/94; PULSE 94; O2SAT 99
== END 2017-11-10 18:50 | disposition home or self-care (01) ==
LOC: ED 14:53
DX: R10.9 Unspecified abdominal pain (principal); Z98.890 Other specified postprocedural states; E78.00 Pure hypercholesterolemia, unspecified; E11.9 Type 2 diabetes mellitus without complications; E66.01 Morbid (severe) obesity due to excess calories
CPT/HCPCS: 36415; 74022; 80053; 81002; 83690; 84703; 85025; 99284; A9270-GY

== ENCOUNTER 2018-03-02 18:16 | Emergency (ER) | payer OTHER ==
[2018-03-02 18:44] VITALS: BP 142/89; PULSE 84; O2SAT 99
--- NOTE | 2018-03-02 19:31 | ERPHSYRPT ---
- History of Present Illness Time Seen by Provider: 03/02/18 19:15 Source: patient Exam Limitations: no limitations Patient Subjective Stated Complaint: states upper left mouth has been hurting since friday. states pain radiated up into left ear. Triage Nursing Assessment: ambulated to room per self. skin w/d, color flushed. left upper face slightly swollen Physician History: 37 y/o female comes to the ER with complaints of left upper mouth pain since last week. Pt states that the pain has gotten worse, describing the pain as sharp, constant, 10/10, with radiation to left ear and not relieved by tylenol. No fever or chills. Timing/Duration: gradual onset Severity: severe ENT Location: ear (L), mouth Prearrival Treatment: no prearrival treatment Modifying Factors: Improves With: nothing Associated Symptoms: ear pain (L) Allergies/Adverse Reactions: omeprazole [From Prilosec] Allergy (Severe, Verified 03/02/18 18:40) Hives Home Medications: Famotidine [Pepcid] 20 mg PO DAILY 08/04/17 [History] Metformin HCl 1,000 mg PO BID 08/04/17 [History] Hx Tetanus, Diphtheria Vaccination/Date Given: Yes Hx Influenza Vaccination/Date Given: Yes Hx Pneumococcal Vaccination/Date Given: No - Review of Systems Constitutional: No Fever, No Chills Eyes: No Symptoms Ears, Nose, & Throat: Ear Pain, Mouth Pain Respiratory: No Cough, No Dyspnea Cardiac: No Chest Pain, No Edema, No Syncope Abdominal/Gastrointestinal: No Abdominal Pain, No Nausea, No Vomiting, No Diarrhea Genitourinary Symptoms: No Dysuria Musculoskeletal: No Back Pain, No Neck Pain Skin: No Rash Neurological: No Dizziness, No Focal Weakness, No Sensory Changes Psychological: No Symptoms Endocrine: No Symptoms All Other Systems: Reviewed and Negative - Past Medical History Pertinent Past Medical History: Yes Neurological History: No Pertinent History ENT History: No Pertinent History Cardiac History: High Cholesterol Respiratory History: Asthma Endocrine Medical History: Diabetes Type II Musculoskeletal History: Arthritis GI Medical History: GERD History: No Pertinent History Psycho-Social History: Anxiety, Depression Female Reproductive Disorders: Other Other Medical History: scoliosis - Past Surgical History Past Surgical History: Yes Neuro Surgical History: No Pertinent History Cardiac: No Pertinent History Respiratory: No Pertinent History Gastrointestinal: Hernia Repair Genitourinary: No Pertinent History Musculoskeletal: No Pertinent History Female Surgical History: Section Other Surgical History: 2 hernia repair,ear tubes, left ear drum,T&A - Social History Smoking Status: Never smoker Exposure to second hand smoke: Yes Alcohol Use: None Drug Use: none Patient Lives Alone: No Significant Family History: diabetes, hypertension - Female History Hx Last Menstrual Period: 02/18/18 Hx Now: No - Nursing Vital Signs Nursing Vital Signs: Initial Vital Signs Temperature 98.3 F 03/02/18 18:31 Pulse Rate 84 03/02/18 18:31 Respiratory Rate 16 03/02/18 18:31 Blood Pressure 142/89 03/02/18 18:31 O2 Sat by Pulse Oximetry 99 03/02/18 18:31 Pain Scale Pain Intensity 10 - Physical Exam General Appearance: no apparent distress, alert Eye Exam: bilateral eye: PERRL, EOMI Ear Exam: bilateral ear: auricle normal, canal normal, TM normal Nasal Exam: normal inspection Throat Exam: pharynx normal, dental tenderness, moist mucus membranes, No tonsillar exudate Neck Exam: supple Cardiovascular/Respiratory Exam: normal breath sounds, regular rate/rhythm Abdominal Exam: non-tender, soft Neurologic Exam: alert, oriented x 3, sensation nml, No motor deficits Skin Exam: normal color, warm, dry SpO2: 99 Oxygen Delivery: Room Air - Course Nursing assessment & vital signs reviewed: Yes Ordered Tests: Medication Summary Generic Name Dose Route Start Last Admin Trade Name Freq PRN Reason Stop Dose Admin Hydrocodone Bitart/Acetaminophen 1 tab 03/02/18 19:25 [place] 5/325 Mg PO 03/02/18 19:26 STAT ONE Discontinued Medications Generic Name Dose Route Start Last Admin Trade Name Freq PRN Reason Stop Dose Admin Amoxicillin/Clavulanate Potassium 875 mg 03/02/18 19:24 Augmentin 875-125 Tablet PO 03/02/18 19:25 STAT ONE - Progress Progress: improved Progress Note: 03/02/18 19:27 Pt will be started on augmentin and a short course of norco. Pt will see a dentist this week. - Departure Time of Disposition: 19:28 Departure Disposition: Home Clinical Impression: Pain, dental Condition: Stable Critical Care Time: No Referrals: RAMESH GARCIA [Primary Care Provider] - Instructions: Dental Pain (DC) Additional Instructions: Follow up with your dentist in the next 2-3 days. Return to the ER if you should have worsening mouth or ear pain or if there is increase swelling of the left cheek. Prescriptions: Amoxicillin/Potassium Clav [Augmentin 875-125 Tablet] 875 mg PO BID #19 tablet Hydrocodone Bit/Acetaminophen [[place] 5-325 Tablet] 1 each PO QID PRN #10 tablet MDD 4 PRN Reason: Pain
[2018-03-02] MEDS ORDERED: NORCO 5/325 MG ONE (19:46)
[2018-03-02] MEDS ORDERED: Augmentin 875-125 Tablet ONE (19:46)
[2018-03-02] MEDS: Augmentin 875-125 Tablet PO ONE (19:50)
[2018-03-02] MEDS: NORCO 5/325 MG PO ONE (19:51)
== END 2018-03-02 19:49 | disposition home or self-care (01) ==
LOC: ED 18:16
DX: K08.89 Other specified disorders of teeth and supporting structures (principal); E11.9 Type 2 diabetes mellitus without complications; E78.00 Pure hypercholesterolemia, unspecified; J45.909 Unspecified asthma, uncomplicated; M19.90 Unspecified osteoarthritis, unspecified site; K21.9 Gastro-esophageal reflux disease without esophagitis; F41.9 Anxiety disorder, unspecified; M41.9 Scoliosis, unspecified
CPT/HCPCS: 99283; A9270-GY

== ENCOUNTER 2018-03-17 00:37 | Emergency (ER) | payer OTHER ==
[2018-03-17 00:53] VITALS: BP 129/99; PULSE 87; O2SAT 99
[2018-03-17] MEDS ORDERED: Lotrisone Cream TOP ONE (01:03)
--- NOTE | 2018-03-17 01:09 | ERPHSYRPT ---
- History of Present Illness Time Seen by Provider: 03/17/18 00:57 Source: patient Exam Limitations: no limitations Patient Subjective Stated Complaint: pt states she has had a rash on her neck since . states pain is increased and is 8/10 and describes as burning pain Triage Nursing Assessment: pt alert and oriented, answers questions approp. pt ambulatory with cane, steady gait noted. respirations nonlabored with lungs cta. redness with raised areas to neck and chest. no open areas noted. Physician History: C/o rash, and itching under her chin, on the anterior neck. She denies any known exposure, no fever, chills, headaches, nausea, cough, wheezing or other complaints. She used topical Benadryl on it, but had to remove it, because it caused more burning. Timing/Duration: day(s) (4) Quality: burning, itchy Severity: moderate Location: neck Possible Causes: no cause identified Associated Symptoms: denies symptoms, No blisters, No edema Allergies/Adverse Reactions: omeprazole [From Prilosec] Allergy (Severe, Verified 03/02/18 18:40) Hives Home Medications: Famotidine [Pepcid] 20 mg PO DAILY 08/04/17 [History] Metformin HCl 1,000 mg PO BID 08/04/17 [History] Hx Tetanus, Diphtheria Vaccination/Date Given: Yes Hx Influenza Vaccination/Date Given: Yes Hx Pneumococcal Vaccination/Date Given: No Immunizations Up to Date: Yes - Review of Systems Constitutional: No Symptoms Skin: Pruritis, Rash (upper chest, neck) Neurological: No Symptoms All Other Systems: Reviewed and Negative - Past Medical History Pertinent Past Medical History: Yes Neurological History: No Pertinent History ENT History: No Pertinent History Cardiac History: High Cholesterol Respiratory History: Asthma Endocrine Medical History: Diabetes Type II Musculoskeletal History: Arthritis GI Medical History: GERD History: No Pertinent History Psycho-Social History: Anxiety, Depression Female Reproductive Disorders: Other Other Medical History: scoliosis - Past Surgical History Past Surgical History: Yes Neuro Surgical History: No Pertinent History Cardiac: No Pertinent History Respiratory: No Pertinent History Gastrointestinal: Hernia Repair Genitourinary: No Pertinent History Musculoskeletal: No Pertinent History Female Surgical History: Section Other Surgical History: 2 hernia repair,ear tubes, left ear drum,T&A - Social History Smoking Status: Never smoker Exposure to second hand smoke: Yes Alcohol Use: None Drug Use: none Patient Lives Alone: No Significant Family History: diabetes, hypertension - Female History Hx Last Menstrual Period: current Hx Now: No - Nursing Vital Signs Nursing Vital Signs: Initial Vital Signs Temperature 97.8 F 03/17/18 00:45 Pulse Rate 87 03/17/18 00:45 Respiratory Rate 18 03/17/18 00:45 Blood Pressure 129/99 03/17/18 00:45 O2 Sat by Pulse Oximetry 99 03/17/18 00:45 Pain Scale Pain Intensity 8 - Physical Exam General Appearance: no apparent distress Eye Exam: eyes nml inspection Ears, Nose, Throat Exam: normal ENT inspection, pharynx normal, moist mucous membranes Neck Exam: normal inspection, non-tender, supple, No JVD Respiratory Exam: normal breath sounds, lungs clear, airway intact Cardiovascular Exam: regular rate/rhythm, normal heart sounds, normal peripheral pulses, No murmur Gastrointestinal/Abdomen Exam: soft, normal bowel sounds Back Exam: normal inspection, No CVA tenderness Extremity Exam: normal inspection Neurologic Exam: alert, oriented x 3, normal mood/affect Skin Exam: normal color, warm, dry, rash (patchy erythema, and hives on the anterior neck and upper chest in the midline and little bit to the left, no blisters, or other lesions.) Lymphatic Exam: No adenopathy SpO2 Interpretation: normal SpO2: 99 Oxygen Delivery: Room Air - Course Nursing assessment & vital signs reviewed: Yes - Progress Progress: improved Progress Note: 03/17/18 01:09 Lotrizone cream to the rash given, she has been afebrile and stable, no sign of wheezing or difficulty breathing. Counseled pt/family regarding: diagnosis, need for follow-up - Departure Time of Disposition: 01:09 Departure Disposition: Home Clinical Impression: Contact dermatitis Qualifiers: Contact dermatitis type: unspecified Contact dermatitis trigger: unspecified trigger Qualified Code(s): L25.9 - Unspecified contact dermatitis, unspecified cause Condition: Stable Critical Care Time: No Referrals: RAMESH GARCIA [Primary Care Provider] - Instructions: Contact Dermatitis (DC) Additional Instructions: Keep area dry and away from the sun, return if severe pain, swelling, or difficulty breathing, fever> 102 F, otherwise follow up with your physician next week! Prescriptions: Clotrimazole/Betamethasone Dip [Lotrisone Cream] 1 inch TOP BID 14 Days #1 cream..g.
== END 2018-03-17 01:22 | disposition home or self-care (01) ==
LOC: ED 00:37
DX: L25.9 Unspecified contact dermatitis, unspecified cause (principal)
CPT/HCPCS: 99283; A9270-GY

== ENCOUNTER 2018-03-28 12:31 | Emergency (ER) | payer OTHER ==
--- NOTE | 2018-03-28 13:08 | ERPHSYRPT ---
- History of Present Illness Time Seen by Provider: 03/28/18 12:55 Source: patient Exam Limitations: no limitations Patient Subjective Stated Complaint: pt reports rash to bilateral arms and legs- states that she itches-denies exposure to new meds or foods-denies sob-rash began on fri Triage Nursing Assessment: pt pink warm and dry-resp easy and nonlabored-red rash noted to arms Physician History: 37-year-old morbidly obese white female with history of diabetes, asthma, hypercholesterolemia, GERD, arthritis, anxiety She arrives with complaint of 2 weeks of itching of her arms and legs and upper chest. She states she is not had any contacts such as new medications. She states this is pruritic and keeps her awake at night. She has not had any fevers. Past medical history includes diabetes, asthma, hypercholesterolemia, GERD, arthritis, anxiety Past surgical history includes hernia surgery 2 year tubes, tonsillectomy and adenoidectomy Timing/Duration: week(s) (2weeks) Severity: moderate Modifying Factors: Improves With: nothing Associated Symptoms: rash (rash on arms and legs), No nausea, No vomiting, No abdominal pain, No shortness of breath, No heartburn, No diaphoresis, No cough, No chills, No chest pain, No fever, No headaches, No loss of appetite, No malaise, No syncope, No seizure, No weakness Allergies/Adverse Reactions: omeprazole [From Prilosec] Allergy (Severe, Verified 03/28/18 12:37) Hives Home Medications: Famotidine [Pepcid] 20 mg PO DAILY 08/04/17 [History] Metformin HCl 1,000 mg PO BID 08/04/17 [History] Hx Tetanus, Diphtheria Vaccination/Date Given: Yes Hx Influenza Vaccination/Date Given: Yes Hx Pneumococcal Vaccination/Date Given: No Immunizations Up to Date: Yes - Review of Systems Constitutional: No Fever, No Chills Eyes: No Symptoms Respiratory: No Cough, No Dyspnea Cardiac: No Chest Pain, No Edema, No Syncope Abdominal/Gastrointestinal: No Abdominal Pain, No Nausea, No Vomiting, No Diarrhea Genitourinary Symptoms: No Dysuria Musculoskeletal: No Back Pain, No Neck Pain Skin: Rash (rash on arms and legsand upper chest) Neurological: No Dizziness, No Focal Weakness, No Sensory Changes Psychological: No Symptoms Endocrine: No Symptoms All Other Systems: Reviewed and Negative - Past Medical History Pertinent Past Medical History: Yes Neurological History: No Pertinent History ENT History: No Pertinent History Cardiac History: High Cholesterol Respiratory History: Asthma Endocrine Medical History: Diabetes Type II Musculoskeletal History: Arthritis GI Medical History: GERD History: No Pertinent History Psycho-Social History: Anxiety, Depression Female Reproductive Disorders: Other Other Medical History: scoliosis - Past Surgical History Past Surgical History: Yes Neuro Surgical History: No Pertinent History Cardiac: No Pertinent History Respiratory: No Pertinent History Gastrointestinal: Hernia Repair Genitourinary: No Pertinent History Musculoskeletal: No Pertinent History Female Surgical History: Section Other Surgical History: 2 hernia repair,ear tubes, left ear drum,T&A - Social History Smoking Status: Never smoker Exposure to second hand smoke: Yes Alcohol Use: None Drug Use: none Patient Lives Alone: No Significant Family History: diabetes, hypertension - Female History Hx Last Menstrual Period: last month Hx Now: No - Nursing Vital Signs Nursing Vital Signs: Initial Vital Signs Temperature 97.9 F 03/28/18 12:33 Pulse Rate 84 03/28/18 12:33 Respiratory Rate 18 03/28/18 12:33 Blood Pressure 146/85 03/28/18 12:33 O2 Sat by Pulse Oximetry 98 03/28/18 12:33 Pain Scale Pain Intensity 0 - Physical Exam General Appearance: no apparent distress, alert, obese Eye Exam: PERRL/EOMI, eyes nml inspection Ears, Nose, Throat Exam: normal ENT inspection, TMs normal, pharynx normal, moist mucous membranes Neck Exam: normal inspection, non-tender, supple, full range of motion Respiratory Exam: normal breath sounds, lungs clear, No respiratory distress Cardiovascular Exam: regular rate/rhythm, normal heart sounds, normal peripheral pulses Gastrointestinal/Abdomen Exam: soft, normal bowel sounds, No tenderness, No mass Back Exam: normal inspection, normal range of motion, No CVA tenderness, No vertebral tenderness Extremity Exam: normal inspection, normal range of motion, pelvis stable Neurologic Exam: alert, oriented x 3, cooperative, marketing account manager II-XII nml as tested, normal mood/affect, nml cerebellar function, nml station & gait, sensation nml, No motor deficits Skin Exam: other (patient with a appears be a sunburn on her upper chest especially on left , slight erythema upper arrms. Really do not see obvious rash on forearms or legs) SpO2 Interpretation: normal SpO2: 98 Oxygen Delivery: Room Air - Course Nursing assessment & vital signs reviewed: Yes Ordered Tests: Active Orders 24 hr Category Date Time Status HCG QUALITATIVE,SERUM Stat Lab 03/28/18 13:30 Completed Lab/Rad Data: Laboratory Results 03/28/18 Range/Units 13:30 Serum , Qual NEGATIVE (Negative) - Progress Progress: improved Progress Note: 03/28/18 13:06 37-year-old white female arrives with complaint of a rash on her upper chest wall arms and legs symptoms worse when she is covered up with a blanket at night. Patient has obvious sunburn on her upper chest with the looks like scarring on her left upper chest on the left. Patient with slight erythema to the upper arms. Forearms and legs really no obvious rash.. Patient has been in the sun. Patient is not sure whether she is or not. Will do hCG. Plan Atarax 3 times a day when necessary, moisturizing cream. 03/28/18 13:08 patient states her blood sugars have not been elevated. - Departure Time of Disposition: 14:13 Departure Disposition: Home Clinical Impression: Rash and nonspecific skin eruption Condition: Fair Critical Care Time: No Referrals: RAMESH GARCIA [Primary Care Provider] - Additional Instructions: Return home. Moisturizing cream to extremities daily. Atarax 25 mg orally 3 times a day as needed for itching #20. Follow-up with your family doctor if symptoms are worse, no better in 48-72 hours or persist longer than one week. Return for acute distress or for severe symptoms. Prescriptions: Hydroxyzine HCl 25 mg [Atarax 25 mg] 25 mg PO TID PRN #20 tablet
[2018-03-28] MEDS ORDERED: ATARAX 25 MG PO ONE (14:17)
[2018-03-28 14:28] VITALS: BP 137/83; PULSE 72; O2SAT 99
== END 2018-03-28 14:28 | disposition home or self-care (01) ==
LOC: ED 12:31
DX: R21 Rash and other nonspecific skin eruption (principal); Z79.899 Other long term (current) drug therapy
CPT/HCPCS: 36415; 84703; 99283

== ENCOUNTER 2018-04-06 19:31 | Emergency (ER) | payer OTHER ==
--- NOTE | 2018-04-06 19:59 | ERPHSYRPT ---
- History of Present Illness Time Seen by Provider: 04/06/18 19:41 Source: patient Exam Limitations: no limitations Patient Subjective Stated Complaint: pain in shoulder that radiates to her fingers, feels like fingers are being pulled off, pain started when she began to move from her home Triage Nursing Assessment: Pt A&O x3, c/o pain in right shoulder that radiates to the fingers, tingling, feels like fingers are being pulled off, stated this happened while moving from her residence, mild pain, no swelling, no bruising, does not appear to be in any distress Physician History: Pt has been c/o numbness in her first 3 fingers for about a month, since she moved furnitures. She does not recall any particular injury, but also started c/ o right shoulder pain since yesterday. She describes the pain and numbness in her fingers as if somebody was "pulling my tendons out". She has a history of cervical disc herniations, denies severe headaches, vomiting, arm or hand weakness, fever, chest pain, other complaints. She is diabetic, takes metformin. Occurred: other (about one month) Method of Injury: other (lifting) Quality: constant Severity of Pain-Max: severe Severity of Pain-Current: moderate Extremities Pain Location: shoulder: right, thumb: right, 2nd finger: right, 3rd finger: right Modifying Factors: Improves With: nothing Associated Symptoms: none Allergies/Adverse Reactions: omeprazole [From Prilosec] Allergy (Severe, Verified 04/06/18 19:44) Hives Home Medications: Famotidine [Pepcid] 20 mg PO DAILY 08/04/17 [History] Metformin HCl 1,000 mg PO BID 08/04/17 [History] Hx Tetanus, Diphtheria Vaccination/Date Given: Yes Hx Influenza Vaccination/Date Given: Yes Hx Pneumococcal Vaccination/Date Given: No - Review of Systems Constitutional: No Symptoms Musculoskeletal: Other (right shoulder pain, right 1-3 finger pain and numbness , paresthesia) All Other Systems: Reviewed and Negative - Past Medical History Pertinent Past Medical History: Yes Neurological History: No Pertinent History ENT History: No Pertinent History Cardiac History: High Cholesterol Respiratory History: Asthma Endocrine Medical History: Diabetes Type II Musculoskeletal History: Arthritis GI Medical History: GERD History: No Pertinent History Psycho-Social History: Anxiety, Depression Female Reproductive Disorders: Other Other Medical History: scoliosis - Past Surgical History Past Surgical History: Yes Neuro Surgical History: No Pertinent History Cardiac: No Pertinent History Respiratory: No Pertinent History Gastrointestinal: Hernia Repair Genitourinary: No Pertinent History Musculoskeletal: No Pertinent History Female Surgical History: Section Other Surgical History: 2 hernia repair,ear tubes, left ear drum,T&A - Social History Smoking Status: Never smoker Exposure to second hand smoke: Yes Alcohol Use: None Drug Use: none Patient Lives Alone: No Significant Family History: diabetes, hypertension - Female History Hx Last Menstrual Period: Hx Now: No - Nursing Vital Signs Nursing Vital Signs: Initial Vital Signs Temperature 99.4 F 04/06/18 19:35 Pulse Rate 84 04/06/18 19:35 Blood Pressure 181/101 04/06/18 19:35 O2 Sat by Pulse Oximetry 99 04/06/18 19:35 Pain Scale Pain Intensity 5 - Physical Exam General Appearance: no apparent distress Eyes, Ears, Nose, Throat Exam: normal ENT inspection Neck Exam: normal inspection, non-tender, supple, No JVD Cardiovascular/Respiratory Exam: chest non-tender, normal breath sounds, regular rate/rhythm, heart sounds normal, no ecchymosis, no JVD, no respiratory distress Abdominal Exam: non-tender, soft, hernia (large ventral hernia, soft) Back Exam: normal inspection, No CVA tenderness, No vertebral tenderness Shoulder Exam: normal inspection, non-tender, no evidence of injury, normal ROM Hand Exam: normal inspection, non-tender Neuro/Tendon Exam: normal sensation, normal motor functions Mental Status Exam: alert, oriented x 3, cooperative Skin Exam: normal color, warm, dry, No rash SpO2 Interpretation: normal SpO2: 99 Oxygen Delivery: Room Air - Course Nursing assessment & vital signs reviewed: Yes - Radiology Exams Right Shoulder X-ray Interpretation: Interpreted by me, Negative - CT Exams Cervical Spine CT Interpretation: Negative, Tele-radiologist Report Ordered Tests: Active Orders 24 hr Category Date Time Status CERVICAL SPINE WO CONTRAST [CT] Stat Exams 04/06/18 19:47 Taken SHOULDER Stat Exams 04/06/18 19:48 Taken HCG,QUALITATIVE URINE Stat Lab 04/06/18 20:40 Completed Lab/Rad Data: Laboratory Results 04/06/18 Range/Units 20:40 Urine HCG, Qual NEGATIVE (Negative) - Progress Progress: unchanged Progress Note: 04/06/18 23:34 Pt was informed about the test results, given instructions, to rest, apply moist heat to painful muscles, and follow up with her doctor in 1 week, to return if severe headaches, severe arm weakness, numbness. She is being discharged on Medrol dosepak, Ultram 50 mg Po Q6h PRN #10m and Flexeril 10 mg TID #15. Counseled pt/family regarding: diagnosis, need for follow-up, rad results - Departure Time of Disposition: 23:36 Departure Disposition: Home Clinical Impression: Cervical radiculopathy Condition: Stable Critical Care Time: No Referrals: RAMESH GARCIA [Primary Care Provider] - Instructions: Radiculopathy (DC) Additional Instructions: Rest x 3-4 days, apply moist heat to painful muscles, return if severe pain, headaches, sudden arm weakness, numbness! Follow up with your physician in 1 week! Prescriptions: Cyclobenzaprine HCl 10 mg [Cyclobenzaprine 10 MG] 10 mg PO TID #15 tablet Methylprednisolone Packet [Medrol Dosepack] 4 mg PO UD #1 packet
[2018-04-06 23:40] VITALS: BP 121/80; PULSE 80; O2SAT 99
--- NOTE | 2018-04-07 08:46 | XRAY ---
Indication: Posterior neck pain. No known injury. Multiple contiguous axial images obtained through the cervical spine. Sagittal and coronal reformatted images obtained. Comparison: None. There is a cervical radiograph dated June 24, 2014. Axial images negative for acute fracture, suspicious bony lesions, or spinal canal stenosis. Very minimal C5-C6 endplate spurring without significant spinal canal or foraminal compromise. Sagittal and coronal reformatted images demonstrates cervical lordotic straightening, positional versus paraspinal spasm. Disc spaces maintained. No acute compression fracture, subluxation, or jumped facet. Normal-appearing craniocervical junction. Visualized noncontrasted soft tissues including base of the brain and lung apices unremarkable. Impression: 1. Minimal C5-C6 degenerative disc disease unchanged. 2. Cervical lordotic straightening, positional versus paraspinal spasm. 3. Remaining CT cervical spine is negative. CT DI 73.96
--- NOTE | 2018-04-07 09:02 | XRAY ---
Indication: Shoulder/neck pain. Finger numbness. No known injury. Comparison: None 3 views of the right shoulder demonstrates mild/moderate AC degenerative arthropathy and significant dextrorotoscoliosis. No other bony, articular, or soft tissue abnormalities.
== END 2018-04-06 23:48 | disposition home or self-care (01) ==
LOC: ED 19:31
DX: M54.12 Radiculopathy, cervical region (principal); M25.511 Pain in right shoulder; R20.0 Anesthesia of skin; Z79.899 Other long term (current) drug therapy
CPT/HCPCS: 72125; 73030; 84703; 99284

== ENCOUNTER 2018-05-23 21:33 | Emergency (ER) | payer OTHER ==
[2018-05-23] MEDS ORDERED: Zofran 4 MG/2 ML VIAL IV ONE (22:32)
[2018-05-23] MEDS ORDERED: Sodium Chloride 0.9% 1000 ML 1,000 ML IV STA (22:32)
[2018-05-23] MEDS ORDERED: PROTONIX 40 MG IV IV ONE ×2 (22:32→23:08)
--- NOTE | 2018-05-23 22:38 | ERPHSYRPT ---
- History of Present Illness Time Seen by Provider: 05/23/18 22:34 Historian: patient, family Exam Limitations: no limitations Patient Subjective Stated Complaint: abd pain Triage Nursing Assessment: pt stated that her left upper quadrant of her abdomen began hurting today causing her to vomit prior to coming to ER, states that she thinks she might be , vitals wnl, pulses normal, patient doesn' t appear to be in any distress Physician History: pt having epigastric pain today with nausea no vomiting hx lower abd hernia not amenable to repair but this is nontender today; tender in upper abd - no hx GB or pancreatic dx or etoh use; no trauma; no discharge vaginal - Timing/Duration: today Activities at Onset: none Quality: burning, cramping, sharpness Abdominal Pain Onset Location: LUQ, epigastric Severity of Pain-Max: moderate Severity of Pain-Current: moderate Modifying Factors: Improves With: nothing Associated Symptoms: nausea Previous symptoms: same symptoms as today (was last time) Allergies/Adverse Reactions: omeprazole [From Prilosec] Allergy (Severe, Verified 05/23/18 21:49) Hives Home Medications: Metformin HCl 1,000 mg PO BID 08/04/17 [History] Loratadine 10 mg [Claritin 10 mg] 10 mg PO DAILY 05/23/18 [History] Hx Tetanus, Diphtheria Vaccination/Date Given: Yes Hx Influenza Vaccination/Date Given: Yes Hx Pneumococcal Vaccination/Date Given: No - Review of Systems Constitutional: No Fever, No Chills Eyes: No Symptoms Ears, Nose, & Throat: No Symptoms Respiratory: No Cough, No Dyspnea Cardiac: No Chest Pain, No Edema, No Syncope Abdominal/Gastrointestinal: No Abdominal Pain, No Nausea, No Vomiting, No Diarrhea Genitourinary Symptoms: No Dysuria Musculoskeletal: No Back Pain, No Neck Pain Skin: No Rash Neurological: No Dizziness, No Focal Weakness, No Sensory Changes Psychological: No Symptoms Endocrine: No Symptoms Hematologic/Lymphatic: No Symptoms Immunological/Allergic: No Symptoms All Other Systems: Reviewed and Negative - Past Medical History Pertinent Past Medical History: Yes Neurological History: No Pertinent History ENT History: No Pertinent History Cardiac History: High Cholesterol Respiratory History: Asthma Endocrine Medical History: Diabetes Type II Musculoskeletal History: Arthritis GI Medical History: GERD History: No Pertinent History Psycho-Social History: Anxiety, Depression Female Reproductive Disorders: Other Other Medical History: scoliosis - Past Surgical History Past Surgical History: Yes Neuro Surgical History: No Pertinent History Cardiac: No Pertinent History Respiratory: No Pertinent History Gastrointestinal: Hernia Repair Genitourinary: No Pertinent History Musculoskeletal: No Pertinent History Female Surgical History: Section Other Surgical History: 2 hernia repair,ear tubes, left ear drum,T&A - Social History Smoking Status: Never smoker Exposure to second hand smoke: Yes Alcohol Use: None Drug Use: none Patient Lives Alone: No Significant Family History: diabetes, hypertension - Female History Hx Last Menstrual Period: 05/09/2018 Hx Now: No (unsure) - Nursing Vital Signs Nursing Vital Signs: Initial Vital Signs Temperature 98.8 F 05/23/18 21:36 Pulse Rate 98 H 05/23/18 21:36 Blood Pressure 133/83 05/23/18 21:36 O2 Sat by Pulse Oximetry 98 05/23/18 21:36 Pain Scale Pain Intensity 8 - Physical Exam General Appearance: no apparent distress, alert Eye Exam: PERRL/EOMI, eyes nml inspection Ears, Nose, Throat Exam: normal ENT inspection, pharynx normal, moist mucous membranes Neck Exam: normal inspection, non-tender, supple, full range of motion Respiratory Exam: normal breath sounds, lungs clear, No respiratory distress Cardiovascular Exam: regular rate/rhythm, normal heart sounds Gastrointestinal/Abdomen Exam: soft, tenderness, hernia, No distention, No mass , No ecchymosis, No pulsatile mass, No rebound Pelvic Exam: deferred Rectal Exam: deferred Back Exam: normal inspection, normal range of motion, No CVA tenderness, No vertebral tenderness Extremity Exam: normal inspection, normal range of motion, pelvis stable Neurologic Exam: alert, oriented x 3, cooperative, normal mood/affect, nml cerebellar function, sensation nml, No motor deficits Skin Exam: normal color, warm, dry SpO2: 98 Oxygen Delivery: Room Air - Course Nursing assessment & vital signs reviewed: Yes EKG Interpreted by Me: Sinus Rhythm, NORMAL AXIS, NORMAL INTERVALS, Non- specific ST Changes - CT Exams Abdomen/Pelvis CT Interpretation: Tele-radiologist Report, Normal Appendix, No appendicitis, Other (nonobst ventral hernia) Ordered Tests: Active Orders 24 hr Category Date Time Status Clean Catch Urine Specimen STAT Care 05/23/18 22:32 Active EKG-ER Only STAT Care 05/23/18 22:32 Active IV Insertion STAT Care 05/23/18 22:32 Active NPO (ED) STAT Care 05/23/18 22:32 Active ABDOMEN AND PELVIS W/0 CONTRAS [CT] Stat Exams 05/23/18 22:32 Ordered AMYLASE Stat Lab 05/23/18 21:00 Completed CBC W DIFF Stat Lab 05/23/18 21:00 Completed CMP Stat Lab 05/23/18 21:00 Completed HCG QUALITATIVE,SERUM Stat Lab 05/23/18 21:00 Completed LIPASE Stat Lab 05/23/18 21:00 Completed Lactic Acid Stat Lab 05/23/18 23:15 Completed Lactic Acid Stat Lab 05/24/18 01:19 Ordered Occult Blood,Stool Other Stat Lab 05/23/18 22:32 Uncollected TROPONIN Q3H Lab 05/23/18 21:00 Completed TROPONIN Q3H Lab 05/24/18 01:45 Ordered TROPONIN Q3H Lab 05/24/18 04:45 Ordered TROPONIN Q3H Lab 05/24/18 07:45 Ordered TROPONIN Q3H Lab 05/24/18 10:45 Ordered UA W/RFX UR CULTURE Stat Lab 05/23/18 21:00 Completed Medication Summary Discontinued Medications Generic Name Dose Route Start Last Admin Trade Name Freq PRN Reason Stop Dose Admin Sodium Chloride 1,000 mls @ 999 mls/hr 05/23/18 22:32 05/24/18 00:20 Sodium Chloride 0.9% 1000 Ml IV 05/23/18 23:32 Infused .Q1H1M STA Infusion Sodium Chloride Confirm 05/23/18 23:08 Sodium Chloride 0.9% 1000 Ml Administered 05/23/18 23:09 Dose 1,000 mls @ ud .ROUTE .STK-MED ONE Ondansetron HCl 4 mg 05/23/18 22:32 05/23/18 23:11 Zofran 4 Mg/2 Ml Vial IV 05/23/18 22:33 4 mg STAT ONE Administration Ondansetron HCl Confirm 05/23/18 23:08 Zofran 4 Mg/2 Ml Vial Administered 05/23/18 23:09 Dose 4 mg .ROUTE .STK-MED ONE Pantoprazole Sodium 40 mg 05/23/18 22:32 05/23/18 23:10 Protonix 40 Mg Iv IV 05/23/18 22:33 40 mg STAT ONE Administration Pantoprazole Sodium Confirm 05/23/18 23:08 Protonix 40 Mg Iv Administered 05/23/18 23:09 Dose 40 mg IV .STK-MED ONE Lab/Rad Data: Laboratory Result Diagrams 05/23/18 21:00 05/23/18 21:00 Laboratory Results 05/23/18 05/23/18 05/23/18 Range/Units 23:15 21:00 21:00 WBC (4.0-10.5) K/mm3 RBC (4.1-5.4) M/mm3 Hgb (12.0-16.0) gm/dl Hct (35-47) % MCV (78-100) fl MCH (26-32) pg MCHC (32-36) g/dl RDW (11.5-14.0) % Plt Count (150-450) K/mm3 MPV (6-9.5) fl Gran % (36.0-66.0) % Eos # (Auto) (0-0.5) Absolute Lymphs (auto) (1.0-4.6) Absolute Monos (auto) (0.0-1.3) Lymphocytes % (24.0-44.0) % Monocytes % (0.0-12.0) % Eosinophils % (0.00-5.0) % Basophils % (0.0-0.4) % Absolute Granulocytes (1.4-6.9) Basophils # (0-0.4) Sodium (137-145) mmol/L Potassium (3.5-5.1) mmol/L Chloride (98-107) mmol/L Carbon Dioxide (22-30) mmol/L Anion Gap (5-15) MEQ/L BUN (7-17) mg/dL Creatinine (0.52-1.04) mg/dL Estimated GFR ML/MIN Glucose (74-106) mg/dL Lactic Acid 2.4 H (0.4-2.0) Calcium (8.4-10.2) mg/dL Total Bilirubin (0.2-1.3) mg/dL AST (14-36) U/L ALT (0-35) U/L Alkaline Phosphatase (38-126) U/L Troponin I (0.000-0.034) ng/mL Serum Total Protein (6.3-8.2) g/dL Albumin (3.5-5.0) g/dL Amylase (30-110) U/L Lipase (23-300) U/L Serum , Qual NEGATIVE (Negative) Ur Collection Type VOID Urine Color YELLOW (YELLOW) Urine Appearance HAZY (CLEAR) Urine pH 5.0 (5-6) Ur Specific [place] 1.025 (1.005-1.025) Urine Protein NEGATIVE (Negative) Urine Ketones NEGATIVE (NEGATIVE) Urine Blood NEGATIVE (0-5) Carloz/ul Urine Nitrite NEGATIVE (NEGATIVE) Urine Bilirubin NEGATIVE (NEGATIVE) Urine Urobilinogen NORMAL (0-1) mg/dL Ur Leukocyte Esterase NEGATIVE (NEGATIVE) Urine Culture Reflexed NO (NO) Urine Glucose NEGATIVE (NEGATIVE) mg/dL Slides for Path Review Specimen Received 05/23 23005/23/18 05/23/18 05/23/18 Range/Units 21:00 21:00 21:00 WBC 11.5 H (4.0-10.5) K/mm3 RBC 4.26 (4.1-5.4) M/mm3 Hgb 13.0 (12.0-16.0) gm/dl Hct 37.6 (35-47) % MCV 88.3 (78-100) fl MCH 30.5 (26-32) pg MCHC 34.6 (32-36) g/dl RDW 14.0 (11.5-14.0) % Plt Count 295 (150-450) K/mm3 MPV 9.7 H (6-9.5) fl Gran % 49.5 (36.0-66.0) % Eos # (Auto) 0.08 (0-0.5) Absolute Lymphs (auto) 5.17 H (1.0-4.6) Absolute Monos (auto) 0.52 (0.0-1.3) Lymphocytes % 45.0 H (24.0-44.0) % Monocytes % 4.5 (0.0-12.0) % Eosinophils % 0.7 (0.00-5.0) % Basophils % 0.3 (0.0-0.4) % Absolute Granulocytes 5.70 (1.4-6.9) Basophils # 0.03 (0-0.4) Sodium 137 (137-145) mmol/L Potassium 3.8 (3.5-5.1) mmol/L Chloride 103 (98-107) mmol/L Carbon Dioxide 23 (22-30) mmol/L Anion Gap 15.2 H (5-15) MEQ/L BUN 13 (7-17) mg/dL Creatinine 0.80 (0.52-1.04) mg/dL Estimated GFR > 60.0 ML/MIN Glucose 137 H (74-106) mg/dL Lactic Acid (0.4-2.0) Calcium 9.9 (8.4-10.2) mg/dL Total Bilirubin 0.80 (0.2-1.3) mg/dL AST 35 (14-36) U/L ALT 31 (0-35) U/L Alkaline Phosphatase 96 (38-126) U/L Troponin I < 0.012 (0.000-0.034) ng/mL Serum Total Protein 7.8 (6.3-8.2) g/dL Albumin 4.6 (3.5-5.0) g/dL Amylase 55 (30-110) U/L Lipase 46 (23-300) U/L Serum , Qual (Negative) Ur Collection Type Urine Color (YELLOW) Urine Appearance (CLEAR) Urine pH (5-6) Ur Specific [place] (1.005-1.025) Urine Protein (Negative) Urine Ketones (NEGATIVE) Urine Blood (0-5) Carloz/ul Urine Nitrite (NEGATIVE) Urine Bilirubin (NEGATIVE) Urine Urobilinogen (0-1) mg/dL Ur Leukocyte Esterase (NEGATIVE) Urine Culture Reflexed (NO) Urine Glucose (NEGATIVE) mg/dL Slides for Path Review YES Specimen Received - Progress Progress: improved, re-examined Progress Note: 05/24/18 01:33 pt advised that undetected pathology may still be evolving and for need of f/u , further testing including for elevated lactate , but declines at this time, prefers outpt f/u PCP and has the capacity to make that choice. 05/24/18 01:34 05/24/18 01:35 ventral hernia in nontender and without current symptoms or acute findings on CT Counseled pt/family regarding: lab results, diagnosis, need for follow-up, rad results - Departure Time of Disposition: 01:35 Departure Disposition: Home Clinical Impression: Abdominal pain of unknown etiology, Ventral hernia Condition: Good Critical Care Time: No Referrals: RAMESH GARCIA [Primary Care Provider] - Instructions: Acute Abdomen (Belly Pain), Adult (DC), Abdominal Hernia (DC) Additional Instructions: followup with your Dr for further workup as we have not determined the cause for your abdominal pain; also ask your dr which antacid treatment they prefer during attempts return meantime if further concerns.
[2018-05-23] MEDS ORDERED: Sodium Chloride 0.9% 1000 ML 1,000 ML ONE (23:08)
[2018-05-23] MEDS ORDERED: Zofran 4 MG/2 ML VIAL ONE (23:08)
[2018-05-23 23:19] LABS: Lactic Acid 2.4 (0.4-2.0)
[2018-05-23 23:30] LABS: Appearance HAZY (CLEAR); Bilirubin NEGATIVE (NEGATIVE); Blood NEGATIVE Ery/ul (0-5); Glucose NEGATIVE (NEGATIVE); Ketones NEGATIVE (NEGATIVE); Leukocyte Esterase NEGATIVE (NEGATIVE); Nitrite NEGATIVE (NEGATIVE); Protein,Urine Dip NEGATIVE (Negative); Specific Gravity 1.025 (1.005-1.025); Urobilinogen NORMAL mg/dL (0-1)
[2018-05-23 23:32] LABS: BASOPHIL % 0.3 % (0.0-0.4); Basophil (Absolute #) 0.03 (0-0.4); Eosinophil % 0.7 % (0.00-5.0); Eosinophil (Absolute #) 0.08 (0-0.5); Granulocytes % 49.5 % (36.0-66.0); Hematocrit 37.6 % (35-47); Lymphocyte (Absolute #) 5.17 (1.0-4.6); Mean Cell Volume 88.3 fl (78-100); Mean Corpuscular Hemoglobin 30.5 pg (26-32); Mean Corpuscular Hgb Concent. 34.6 g/dl (32-36); Mean Platelet Volume 9.7 fl (6-9.5); Monocyte (Absolute #) 0.52 (0.0-1.3); Monocytes % 4.5 % (0.0-12.0); Platelet Count 295 K/mm3 (150-450); Red Blood Count 4.26 M/mm3 (4.1-5.4); White Blood Count 11.5 K/mm3 (4.0-10.5)
[2018-05-23 23:46] LABS: ALBUMIN 4.6 g/dL (3.5-5.0); ALKALINE PHOSPHATASE 96 U/L (38-126); AMYLASE 55 U/L (30-110); ANION GAP 15.2 MEQ/L (5-15); BLOOD UREA NITROGEN 13 mg/dL (7-17); CHLORIDE 103 mmol/L (98-107); Calcium 9.9 mg/dL (8.4-10.2); Carbon Dioxide 23 mmol/L (22-30); Glucose 137 mg/dL (74-106); LIPASE 46 U/L (23-300); Potassium 3.8 mmol/L (3.5-5.1); SGOT/AST 35 U/L (14-36); SGPT/ALT 31 U/L (0-35); SODIUM 137 mmol/L (137-145); Total Protein 7.8 g/dL (6.3-8.2)
[2018-05-24 00:25] LABS: Slide Review 1 YES
[2018-05-24 02:12] VITALS: BP 117/79; PULSE 72; O2SAT 99
--- NOTE | 2018-05-24 07:47 | XRAY ---
Indication: Left upper quadrant pain and emesis. Multiple contiguous axial images obtained through the abdomen and pelvis without contrast as ordered. Comparison: October 31, 2017. Lung bases essentially clear. Heart is not enlarged. Noncontrasted stomach and bowel loops appear nonobstructed with stable descending/sigmoid diverticulosis. Also stable large failed infraumbilical ventral hernia repair again with herniated omental fat and small bowel loops without incarceration/obstruction. No free fluid/air. Stable fatty liver. Remaining gallbladder, pancreas, spleen, adrenal glands, kidneys, ureters, bladder, and uterus appear unremarkable for noncontrast exam. Stable minimal aortic calcifications without AAA. Osseous structures intact again with double curvature scoliosis. Impression: 1. Again large failed infraumbilical ventral hernia repair with herniated omental fat and bowel loops. No complications. 2. Stable fatty liver and colonic diverticulosis. Comment: Preliminary interpretation was made by C. No critical discrepancy. CTDI 23.68
== END 2018-05-24 02:12 | disposition home or self-care (01) ==
LOC: ED 21:33
DX: R10.12 Left upper quadrant pain (principal); R10.13 Epigastric pain; R11.0 Nausea; K43.9 Ventral hernia without obstruction or gangrene
CPT/HCPCS: 36000; 36415; 74176; 80053; 81002; 82150; 83605; 83690; 84484; 84703; 85025; 93005; 96360; 96374; 96375; 99284; J2405

== ENCOUNTER 2018-07-28 16:09 | Emergency (ER) | payer OTHER ==
--- NOTE | 2018-07-28 16:44 | ERPHSYRPT ---
- History of Present Illness Time Seen by Provider: 07/28/18 16:25 Historian: patient Exam Limitations: no limitations Patient Subjective Stated Complaint: PT states "I vomited last night and again today after I ate. I feel nauseous. My stomach hurts a little too." Triage Nursing Assessment: Pt alert and oriented X 3, skin pwd. PT ambulates with an upright steady gait, able to speak in clear full sentences. Pt in no apparent respiratory distress. Physician History: 38 y/o obese white female presents with vomiting x2 since last pm. pt has only a little abd pain. no diarrhea. no vaginal bleeding or discharge. pt has no urinary complaints. pt has been seen often in this ED for abd pain issues. pt has not had any abd surgeries. Timing/Duration: day(s) (1) Quality: other (no sig abd pain) Pain Radiation: no radiation Severity of Pain-Max: none Severity of Pain-Current: none Modifying Factors: Improves With: eating Associated Symptoms: nausea, vomiting, No back, No chest pain, No diaphoresis, No diarrhea, No fatigue, No headache, No rash, No shortness of breath Previous symptoms: no prior history Allergies/Adverse Reactions: omeprazole [From Prilosec] Allergy (Severe, Verified 05/23/18 21:49) Hives Home Medications: Metformin HCl 1,000 mg PO BID 08/04/17 [History] Loratadine 10 mg [Claritin 10 mg] 10 mg PO DAILY 05/23/18 [History] Hx Tetanus, Diphtheria Vaccination/Date Given: Yes Hx Influenza Vaccination/Date Given: No Hx Pneumococcal Vaccination/Date Given: No Immunizations Up to Date: Yes - Review of Systems Constitutional: No Symptoms Eyes: No Symptoms Ears, Nose, & Throat: No Symptoms Respiratory: No Symptoms Cardiac: No Symptoms Abdominal/Gastrointestinal: No Symptoms, Nausea, Vomiting Genitourinary Symptoms: No Symptoms Musculoskeletal: No Symptoms Skin: No Symptoms Neurological: No Symptoms Psychological: No Symptoms Endocrine: No Symptoms Hematologic/Lymphatic: No Symptoms Immunological/Allergic: No Symptoms All Other Systems: Reviewed and Negative - Past Medical History Pertinent Past Medical History: Yes Neurological History: No Pertinent History ENT History: No Pertinent History Cardiac History: High Cholesterol Respiratory History: Asthma Endocrine Medical History: Diabetes Type II Musculoskeletal History: Arthritis GI Medical History: GERD History: No Pertinent History Psycho-Social History: Anxiety, Depression Female Reproductive Disorders: Other Other Medical History: scoliosis - Past Surgical History Past Surgical History: Yes Neuro Surgical History: No Pertinent History Cardiac: No Pertinent History Respiratory: No Pertinent History Gastrointestinal: Hernia Repair Genitourinary: No Pertinent History Musculoskeletal: No Pertinent History Female Surgical History: Section Other Surgical History: 2 hernia repair,ear tubes, left ear drum,T&A - Social History Smoking Status: Never smoker Exposure to second hand smoke: Yes Alcohol Use: None Drug Use: none Patient Lives Alone: No Significant Family History: diabetes, hypertension - Female History Hx Last Menstrual Period: 07/01/2018 Hx Now: (unknown) - Nursing Vital Signs Nursing Vital Signs: Initial Vital Signs Temperature 98.0 F 07/28/18 16:13 Pulse Rate 72 07/28/18 16:13 Respiratory Rate 18 07/28/18 16:13 Blood Pressure 136/79 07/28/18 16:13 O2 Sat by Pulse Oximetry 100 07/28/18 16:13 Pain Scale Pain Intensity 5 - Physical Exam General Appearance: no apparent distress, alert, anxiety Eye Exam: PERRL/EOMI Ears, Nose, Throat Exam: normal ENT inspection, moist mucous membranes Neck Exam: normal inspection, non-tender, supple, full range of motion Respiratory Exam: normal breath sounds, lungs clear, airway intact, No chest tenderness, No respiratory distress, No accessory muscle use, No rhonchi, No wheezing, No stridor Cardiovascular Exam: regular rate/rhythm, normal heart sounds, normal peripheral pulses Gastrointestinal/Abdomen Exam: soft, normal bowel sounds, No tenderness, No guarding, No rebound Pelvic Exam: not done Rectal Exam: not done Back Exam: normal inspection, normal range of motion, No CVA tenderness, No vertebral tenderness Extremity Exam: normal inspection, normal range of motion, pelvis stable Neurologic Exam: alert, oriented x 3, cooperative, 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 II-XII nml as tested Skin Exam: normal color, warm, dry Lymphatic Exam: No adenopathy SpO2: 100 Oxygen Delivery: Room Air - Course Nursing assessment & vital signs reviewed: Yes Ordered Tests: Active Orders 24 hr Category Date Time Status AMYLASE Stat Lab 07/28/18 16:48 Completed CBC W DIFF Stat Lab 07/28/18 16:48 Completed CMP Stat Lab 07/28/18 16:48 Completed HCG,QUALITATIVE URINE Stat Lab 07/28/18 17:00 Completed LIPASE Stat Lab 07/28/18 16:48 Completed Lactic Acid Stat Lab 07/28/18 16:48 Completed UA W/RFX UR CULTURE Stat Lab 07/28/18 17:00 Completed Lab/Rad Data: Laboratory Result Diagrams 07/28/18 16:48 07/28/18 16:48 Laboratory Results 07/28/18 07/28/18 07/28/18 Range/Units 17:00 17:00 16:48 WBC (4.0-10.5) K/mm3 RBC (4.1-5.4) M/mm3 Hgb (12.0-16.0) gm/dl Hct (35-47) % MCV (78-100) fl MCH (26-32) pg MCHC (32-36) g/dl RDW (11.5-14.0) % Plt Count (150-450) K/mm3 MPV (6-9.5) fl Gran % (36.0-66.0) % Eos # (Auto) (0-0.5) Absolute Lymphs (auto) (1.0-4.6) Absolute Monos (auto) (0.0-1.3) Lymphocytes % (24.0-44.0) % Monocytes % (0.0-12.0) % Eosinophils % (0.00-5.0) % Basophils % (0.0-0.4) % Absolute Granulocytes (1.4-6.9) Basophils # (0-0.4) Sodium 138 (137-145) mmol/L Potassium 4.2 (3.5-5.1) mmol/L Chloride 101 (98-107) mmol/L Carbon Dioxide 26 (22-30) mmol/L Anion Gap 14.6 (5-15) MEQ/L BUN 10 (7-17) mg/dL Creatinine 0.79 (0.52-1.04) mg/dL Estimated GFR > 60.0 ML/MIN Glucose 106 (74-106) mg/dL Lactic Acid (0.4-2.0) Calcium 9.6 (8.4-10.2) mg/dL Total Bilirubin 0.40 (0.2-1.3) mg/dL AST 23 (14-36) U/L ALT 19 (0-35) U/L Alkaline Phosphatase 91 (38-126) U/L Serum Total Protein 7.4 (6.3-8.2) g/dL Albumin 4.2 (3.5-5.0) g/dL Amylase 64 (30-110) U/L Lipase 34 (23-300) U/L Urine Color STRAW (YELLOW) Urine Appearance CLEAR (CLEAR) Urine pH 6.0 (5-6) Ur Specific [place] 1.000 (1.005-1.025) Urine Protein NEGATIVE (Negative) Urine Ketones NEGATIVE (NEGATIVE) Urine Blood NEGATIVE (0-5) Carloz/ul Urine Nitrite NEGATIVE (NEGATIVE) Urine Bilirubin NEGATIVE (NEGATIVE) Urine Urobilinogen NEGATIVE (0-1) mg/dL Ur Leukocyte Esterase TRACE (NEGATIVE) Urine WBC (Auto) 0-2 (0-5) /HPF Urine RBC (Auto) NONE (0-2) /HPF U Epithel Cells (Auto) RARE (FEW) /HPF Urine Mucus (Auto) SLIGHT (NEGATIVE) /HPF Urine Culture Reflexed NO (NO) Urine Glucose NEGATIVE (NEGATIVE) mg/dL Urine HCG, Qual NEGATIVE (Negative) 07/28/18 07/28/18 Range/Units 16:48 16:48 WBC 8.9 (4.0-10.5) K/mm3 RBC 4.08 L (4.1-5.4) M/mm3 Hgb 12.3 (12.0-16.0) gm/dl Hct 36.5 (35-47) % MCV 89.5 (78-100) fl MCH 30.1 (26-32) pg MCHC 33.7 (32-36) g/dl RDW 12.8 (11.5-14.0) % Plt Count 328 (150-450) K/mm3 MPV 9.4 (6-9.5) fl Gran % 51.4 (36.0-66.0) % Eos # (Auto) 0.10 (0-0.5) Absolute Lymphs (auto) 3.75 (1.0-4.6) Absolute Monos (auto) 0.43 (0.0-1.3) Lymphocytes % 42.4 (24.0-44.0) % Monocytes % 4.9 (0.0-12.0) % Eosinophils % 1.1 (0.00-5.0) % Basophils % 0.2 (0.0-0.4) % Absolute Granulocytes 4.55 (1.4-6.9) Basophils # 0.02 (0-0.4) Sodium (137-145) mmol/L Potassium (3.5-5.1) mmol/L Chloride (98-107) mmol/L Carbon Dioxide (22-30) mmol/L Anion Gap (5-15) MEQ/L BUN (7-17) mg/dL Creatinine (0.52-1.04) mg/dL Estimated GFR ML/MIN Glucose (74-106) mg/dL Lactic Acid 1.1 (0.4-2.0) Calcium (8.4-10.2) mg/dL Total Bilirubin (0.2-1.3) mg/dL AST (14-36) U/L ALT (0-35) U/L Alkaline Phosphatase (38-126) U/L Serum Total Protein (6.3-8.2) g/dL Albumin (3.5-5.0) g/dL Amylase (30-110) U/L Lipase (23-300) U/L Urine Color (YELLOW) Urine Appearance (CLEAR) Urine pH (5-6) Ur Specific [place] (1.005-1.025) Urine Protein (Negative) Urine Ketones (NEGATIVE) Urine Blood (0-5) Carloz/ul Urine Nitrite (NEGATIVE) Urine Bilirubin (NEGATIVE) Urine Urobilinogen (0-1) mg/dL Ur Leukocyte Esterase (NEGATIVE) Urine WBC (Auto) (0-5) /HPF Urine RBC (Auto) (0-2) /HPF U Epithel Cells (Auto) (FEW) /HPF Urine Mucus (Auto) (NEGATIVE) /HPF Urine Culture Reflexed (NO) Urine Glucose (NEGATIVE) mg/dL Urine HCG, Qual (Negative) - Progress Progress: unchanged Counseled pt/family regarding: lab results, diagnosis, need for follow-up - Departure Time of Disposition: 17:55 Departure Disposition: Home Clinical Impression: Vomiting Condition: Stable Critical Care Time: No Referrals: RAMESH GARCIA [Primary Care Provider] - Additional Instructions: drink plenty of fluids. avoid fatty, greasy, spicy food. follow up with primary doctor for further management. Prescriptions: Ondansetron HCl [Zofran] 4 mg PO TID PRN #10 tablet PRN Reason: Nausea/Vomiting
[2018-07-28 17:21] LABS: BASOPHIL % 0.2 % (0.0-0.4); Basophil (Absolute #) 0.02 (0-0.4); Eosinophil % 1.1 % (0.00-5.0); Granulocyte Absolute (ANC) 4.55 (1.4-6.9); Granulocytes % 51.4 % (36.0-66.0); Hematocrit 36.5 % (35-47); Hemoglobin 12.3 gm/dl (12.0-16.0); Lymphocyte (Absolute #) 3.75 (1.0-4.6); Lymphocytes % 42.4 % (24.0-44.0); Mean Cell Volume 89.5 fl (78-100); Mean Corpuscular Hemoglobin 30.1 pg (26-32); Mean Corpuscular Hgb Concent. 33.7 g/dl (32-36); Mean Platelet Volume 9.4 fl (6-9.5); Monocyte (Absolute #) 0.43 (0.0-1.3); Monocytes % 4.9 % (0.0-12.0); Platelet Count 328 K/mm3 (150-450); Red Blood Count 4.08 M/mm3 (4.1-5.4); Red Cell Distribution Width 12.8 % (11.5-14.0); White Blood Count 8.9 K/mm3 (4.0-10.5)
[2018-07-28 17:25] LABS: Appearance CLEAR (CLEAR); Bilirubin NEGATIVE (NEGATIVE); Blood NEGATIVE Ery/ul (0-5); Glucose NEGATIVE (NEGATIVE); Ketones NEGATIVE (NEGATIVE); Leukocyte Esterase TRACE (NEGATIVE); Nitrite NEGATIVE (NEGATIVE); Protein,Urine Dip NEGATIVE (Negative); Urobilinogen NEGATIVE mg/dL (0-1)
[2018-07-28 17:34] LABS: ALBUMIN 4.2 g/dL (3.5-5.0); ALKALINE PHOSPHATASE 91 U/L (38-126); AMYLASE 64 U/L (30-110); ANION GAP 14.6 MEQ/L (5-15); BLOOD UREA NITROGEN 10 mg/dL (7-17); CHLORIDE 101 mmol/L (98-107); Calcium 9.6 mg/dL (8.4-10.2); Carbon Dioxide 26 mmol/L (22-30); Creatinine 1 0.79 mg/dL (0.52-1.04); Glucose 106 mg/dL (74-106); LIPASE 34 U/L (23-300); Potassium 4.2 mmol/L (3.5-5.1); SGOT/AST 23 U/L (14-36); SGPT/ALT 19 U/L (0-35); SODIUM 138 mmol/L (137-145); Total Protein 7.4 g/dL (6.3-8.2)
[2018-07-28 18:13] VITALS: BP 134/72; PULSE 72; O2SAT 98
== END 2018-07-28 18:20 | disposition home or self-care (01) ==
LOC: ED 16:09
DX: R11.2 Nausea with vomiting, unspecified (principal); R10.9 Unspecified abdominal pain; Z79.899 Other long term (current) drug therapy
CPT/HCPCS: 36415; 80053; 81001; 82150; 83605; 83690; 84703; 85025; 99283

== ENCOUNTER 2018-08-27 12:42 | Observation (INO) | payer OTHER ==
[2018-08-27] MEDS ORDERED: Zofran 4 MG/2 ML VIAL IV ONE (12:56)
[2018-08-27] MEDS ORDERED: Sodium Chloride 0.9% 1000 ML 1,000 ML IV STA (12:56)
--- NOTE | 2018-08-27 12:56 | ERPHSYRPT ---
- History of Present Illness Time Seen by Provider: 08/27/18 12:50 Historian: patient Exam Limitations: no limitations Physician History: 38 y/o white female presents with 5 day h/o sinus drainage, cough, epigastric and cp with cough only. pt has coughed to the point of gagging and vomiting. pt seen by her pcp, dr. kulkarni, prior to arrival here. dr. kulkarni states pt trying to get and to perform a test. dr. kulkarni is going to admit her after our work up here to r/o myocardial infarction and will call in antibx. pt has no h/o cadz Timing/Duration: day(s) (5) Activities at Onset: none Quality: tightness (with coughing only) Location: substernal Chest Pain Radiation: no radiation Severity of Pain-Max: mild Severity of Pain-Current: none Modifying Factors: Improves With: coughing Associated Symptoms: vomiting (after gagging from coughing), abdominal pain ( epigastric ), cough, No nausea, No palpitations, No shortness of breath, No hurts to breathe, No diaphoresis, No weakness Prior Chest Pain/Cardiac Workup: no prior chest pain Nitro Today/Relief: no nitro taken today Aspirin Treatment Today: no aspirin today Allergies/Adverse Reactions: omeprazole [From Prilosec] Allergy (Severe, Verified 05/23/18 21:49) Hives Home Medications: Metformin HCl 1,000 mg PO BID 08/04/17 [History] Loratadine 10 mg [Claritin 10 mg] 10 mg PO DAILY 05/23/18 [History] Famotidine 20 mg [Pepcid 20 MG] 20 mg PO DAILY 08/27/18 [History] Hx Tetanus, Diphtheria Vaccination/Date Given: Yes Hx Influenza Vaccination/Date Given: No Hx Pneumococcal Vaccination/Date Given: No - Review of Systems Constitutional: No Symptoms Eyes: No Symptoms Ears, Nose, & Throat: No Symptoms Respiratory: Cough, No Dyspnea, No Stridor, No Wheezing Cardiac: Chest Pain (with coughing only), No Palpitations, No Syncope Abdominal/Gastrointestinal: Abdominal Pain (epigastric), No Nausea, No Vomiting , No Diarrhea Genitourinary Symptoms: No Symptoms, No Dysuria, No Frequency, No Hematuria Musculoskeletal: No Symptoms Skin: No Symptoms Neurological: No Symptoms Psychological: No Symptoms Endocrine: No Symptoms Hematologic/Lymphatic: No Symptoms Immunological/Allergic: No Symptoms All Other Systems: Reviewed and Negative - Past Medical History Pertinent Past Medical History: Yes Neurological History: No Pertinent History ENT History: No Pertinent History Cardiac History: High Cholesterol Respiratory History: Asthma Endocrine Medical History: Diabetes Type II Musculoskeletal History: Arthritis GI Medical History: GERD History: No Pertinent History Psycho-Social History: Anxiety, Depression Female Reproductive Disorders: Other Other Medical History: scoliosis - Past Surgical History Past Surgical History: Yes Neuro Surgical History: No Pertinent History Cardiac: No Pertinent History Respiratory: No Pertinent History Gastrointestinal: Hernia Repair Genitourinary: No Pertinent History Musculoskeletal: No Pertinent History Female Surgical History: Section Other Surgical History: 2 hernia repair,ear tubes, left ear drum,T&A - Social History Smoking Status: Never smoker Exposure to second hand smoke: Yes Alcohol Use: None Drug Use: none Patient Lives Alone: No Significant Family History: diabetes, hypertension - Nursing Vital Signs Nursing Vital Signs: Initial Vital Signs Temperature 98.3 F 08/27/18 12:50 Pulse Rate 80 08/27/18 12:50 Respiratory Rate 18 08/27/18 12:50 Blood Pressure 125/86 08/27/18 12:50 O2 Sat by Pulse Oximetry 99 08/27/18 12:50 Pain Scale Pain Intensity 4 - Physical Exam General Appearance: no apparent distress, alert, anxiety Eye Exam: PERRL/EOMI Ears, Nose, Throat Exam: normal ENT inspection, moist mucous membranes Neck Exam: normal inspection, non-tender, supple, full range of motion Respiratory Exam: normal breath sounds, chest tenderness (with cough), lungs clear, airway intact, No respiratory distress, No accessory muscle use, No rhonchi, No wheezing, No stridor Cardiovascular Exam: regular rate/rhythm, normal heart sounds, normal peripheral pulses Gastrointestinal/Abdomen Exam: soft, normal bowel sounds, No guarding, No rebound Pelvic Exam: not done Rectal Exam: not done Back Exam: normal inspection Extremity Exam: normal inspection, normal range of motion, pelvis stable Neurologic Exam: alert, oriented x 3, cooperative, is support analyst II-XII nml as tested Skin Exam: normal color, warm, dry Lymphatic Exam: No adenopathy SpO2 Interpretation: normal Oxygen Delivery: Room Air - Course Nursing assessment & vital signs reviewed: Yes EKG Interpreted by Me: RATE (72), Sinus Rhythm, NORMAL AXIS, NORMAL INTERVALS, NORMAL QRS Ordered Tests: Active Orders 24 hr Category Date Time Status Conveyor Belt Operator STAT Care 08/27/18 12:56 Active EKG-ER Only STAT Care 08/27/18 12:56 Active IV Insertion STAT Care 08/27/18 12:56 Active CHEST 1 VIEW (PORTABLE) Stat Exams 08/27/18 13:52 Completed BMP Stat Lab 08/27/18 12:56 Completed CBC W DIFF Stat Lab 08/27/18 12:56 Completed D-DIMER QUANTITATION Stat Lab 08/27/18 12:56 Completed HCG QUALITATIVE,SERUM Stat Lab 08/27/18 Completed NT PRO BNP Stat Lab 08/27/18 12:56 Completed TROPONIN Q3H Lab 08/27/18 12:56 Completed TROPONIN Q3H Lab 08/27/18 16:00 Ordered TROPONIN Q3H Lab 08/27/18 19:00 Ordered TROPONIN Q3H Lab 08/27/18 22:00 Ordered TROPONIN Q3H Lab 08/28/18 01:00 Ordered Transfer Order Routine Transfer 08/27/18 Ordered Medication Summary Discontinued Medications Generic Name Dose Route Start Last Admin Trade Name Freq PRN Reason Stop Dose Admin Sodium Chloride 1,000 mls @ 999 mls/hr 08/27/18 12:56 08/27/18 14:12 Sodium Chloride 0.9% 1000 Ml IV 08/27/18 13:56 999 mls/hr .Q1H1M STA Administration Sodium Chloride Confirm 08/27/18 14:03 Sodium Chloride 0.9% 1000 Ml Administered 08/27/18 14:04 Dose 1,000 mls @ ud .ROUTE .STK-MED ONE Ondansetron HCl 4 mg 08/27/18 12:56 08/27/18 14:12 Zofran 4 Mg/2 Ml Vial IV 08/27/18 12:57 4 mg STAT ONE Administration Ondansetron HCl Confirm 08/27/18 14:03 Zofran 4 Mg/2 Ml Vial Administered 08/27/18 14:04 Dose 4 mg .ROUTE .STK-MED ONE Lab/Rad Data: Laboratory Result Diagrams 08/27/18 12:56 08/27/18 12:56 Laboratory Results 08/27/18 08/27/18 08/27/18 Range/Units Unknown 12:56 12:56 WBC (4.0-10.5) K/mm3 RBC (4.1-5.4) M/mm3 Hgb (12.0-16.0) gm/dl Hct (35-47) % MCV (78-100) fl MCH (26-32) pg MCHC (32-36) g/dl RDW (11.5-14.0) % Plt Count (150-450) K/mm3 MPV (6-9.5) fl Gran % (36.0-66.0) % Eos # (Auto) (0-0.5) Absolute Lymphs (auto) (1.0-4.6) Absolute Monos (auto) (0.0-1.3) Lymphocytes % (24.0-44.0) % Monocytes % (0.0-12.0) % Eosinophils % (0.00-5.0) % Basophils % (0.0-0.4) % Absolute Granulocytes (1.4-6.9) Basophils # (0-0.4) D-Dimer 357 (215-500) ng/mL Sodium (137-145) mmol/L Potassium (3.5-5.1) mmol/L Chloride (98-107) mmol/L Carbon Dioxide (22-30) mmol/L Anion Gap (5-15) MEQ/L BUN (7-17) mg/dL Creatinine (0.52-1.04) mg/dL Estimated GFR ML/MIN Glucose (74-106) mg/dL Calcium (8.4-10.2) mg/dL Troponin I < 0.012 (0.000-0.034) ng/mL NT-Pro-B Natriuret Pep (0-450) pg/mL Serum , Qual NEGATIVE (Negative) 18 08/27/18 Range/Units 12:56 12:56 WBC 9.2 (4.0-10.5) K/mm3 RBC 4.46 (4.1-5.4) M/mm3 Hgb 13.3 (12.0-16.0) gm/dl Hct 39.8 (35-47) % MCV 89.2 (78-100) fl MCH 29.8 (26-32) pg MCHC 33.4 (32-36) g/dl RDW 12.7 (11.5-14.0) % Plt Count 315 (150-450) K/mm3 MPV 9.7 H (6-9.5) fl Gran % 55.3 (36.0-66.0) % Eos # (Auto) 0.11 (0-0.5) Absolute Lymphs (auto) 3.42 (1.0-4.6) Absolute Monos (auto) 0.56 (0.0-1.3) Lymphocytes % 37.2 (24.0-44.0) % Monocytes % 6.1 (0.0-12.0) % Eosinophils % 1.2 (0.00-5.0) % Basophils % 0.2 (0.0-0.4) % Absolute Granulocytes 5.08 (1.4-6.9) Basophils # 0.02 (0-0.4) D-Dimer (215-500) ng/mL Sodium 138 (137-145) mmol/L Potassium 4.1 (3.5-5.1) mmol/L Chloride 103 (98-107) mmol/L Carbon Dioxide 24 (22-30) mmol/L Anion Gap 15.7 H (5-15) MEQ/L BUN 14 (7-17) mg/dL Creatinine 0.73 (0.52-1.04) mg/dL Estimated GFR > 60.0 ML/MIN Glucose 115 H (74-106) mg/dL Calcium 9.5 (8.4-10.2) mg/dL Troponin I (0.000-0.034) ng/mL NT-Pro-B Natriuret Pep 23.6 (0-450) pg/mL Serum , Qual (Negative) - Progress Progress: unchanged Air Movement: good Blood Culture(s) Obtained: No Antibiotics given: No Discussed with : Gillian (elevator pilot) Counseled pt/family regarding: lab results, diagnosis, rad results - Departure Time of Disposition: 14:45 Departure Disposition: Observation Clinical Impression: Cough, Sinusitis, Chest pain Condition: Stable Critical Care Time: No Referrals: RAMESH KULKARNI [Primary Care Provider] -
[2018-08-27 13:17] LABS: BASOPHIL % 0.2 % (0.0-0.4); Basophil (Absolute #) 0.02 (0-0.4); Eosinophil % 1.2 % (0.00-5.0); Eosinophil (Absolute #) 0.11 (0-0.5); Granulocyte Absolute (ANC) 5.08 (1.4-6.9); Granulocytes % 55.3 % (36.0-66.0); Hematocrit 39.8 % (35-47); Hemoglobin 13.3 gm/dl (12.0-16.0); Lymphocyte (Absolute #) 3.42 (1.0-4.6); Lymphocytes % 37.2 % (24.0-44.0); Mean Cell Volume 89.2 fl (78-100); Mean Corpuscular Hemoglobin 29.8 pg (26-32); Mean Corpuscular Hgb Concent. 33.4 g/dl (32-36); Mean Platelet Volume 9.7 fl (6-9.5); Monocyte (Absolute #) 0.56 (0.0-1.3); Monocytes % 6.1 % (0.0-12.0); Platelet Count 315 K/mm3 (150-450); Red Blood Count 4.46 M/mm3 (4.1-5.4); Red Cell Distribution Width 12.7 % (11.5-14.0); White Blood Count 9.2 K/mm3 (4.0-10.5)
[2018-08-27 13:52] LABS: ANION GAP 15.7 MEQ/L (5-15); BLOOD UREA NITROGEN 14 mg/dL (7-17); CHLORIDE 103 mmol/L (98-107); Calcium 9.5 mg/dL (8.4-10.2); Carbon Dioxide 24 mmol/L (22-30); Creatinine 1 0.73 mg/dL (0.52-1.04); Glucose 115 mg/dL (74-106); NT PRO BNP 23.6 pg/mL (0-450); Potassium 4.1 mmol/L (3.5-5.1); SODIUM 138 mmol/L (137-145)
[2018-08-27] MEDS ORDERED: Zofran 4 MG/2 ML VIAL ONE (14:03)
[2018-08-27] MEDS ORDERED: Sodium Chloride 0.9% 1000 ML 1,000 ML ONE (14:03)
--- NOTE | 2018-08-27 14:11 | XRAY ---
Indication: Cough. Comparison: November 10, 2017. Portable chest again demonstrates normal heart and lungs. Bony thorax intact again with double curvature scoliosis. No new/acute findings.
[2018-08-27] MEDS ORDERED: Sodium Chloride 0.9% 1000 ML 1,000 ML IV SCH (16:27)
[2018-08-27] MEDS ORDERED: TYLENOL 325 MG PO PRN (16:27)
[2018-08-27] MEDS ORDERED: Zofran 4 MG/2 ML VIAL IV PRN ×2 (16:27→16:41)
[2018-08-27] MEDS: ROCEPHIN 1 Gm-D5w 50 ml Bag** 1 G/50 ML IVPB IV SCH (17:21)
[2018-08-27] MEDS: NovoLOG Insulin SQ SCH (22:05)
[2018-08-28 02:38] LABS: ALBUMIN 3.7 g/dL (3.5-5.0); ALKALINE PHOSPHATASE 82 U/L (38-126); ANION GAP 14.1 MEQ/L (5-15); BLOOD UREA NITROGEN 11 mg/dL (7-17); CHLORIDE 103 mmol/L (98-107); Calcium 8.9 mg/dL (8.4-10.2); Carbon Dioxide 25 mmol/L (22-30); Creatinine 1 0.75 mg/dL (0.52-1.04); Glucose 153 mg/dL (74-106); Potassium 3.9 mmol/L (3.5-5.1); SGOT/AST 23 U/L (14-36); SGPT/ALT 21 U/L (0-35); SODIUM 138 mmol/L (137-145); Total Protein 6.6 g/dL (6.3-8.2)
[2018-08-28 03:15] LABS: BASOPHIL % 0.2 % (0.0-0.4); Basophil (Absolute #) 0.02 (0-0.4); Eosinophil % 1.4 % (0.00-5.0); Eosinophil (Absolute #) 0.13 (0-0.5); Granulocyte Absolute (ANC) 4.57 (1.4-6.9); Granulocytes % 50.1 % (36.0-66.0); Hematocrit 36.4 % (35-47); Lymphocyte (Absolute #) 3.87 (1.0-4.6); Lymphocytes % 42.3 % (24.0-44.0); Mean Cell Volume 90.3 fl (78-100); Mean Platelet Volume 9.7 fl (6-9.5); Monocyte (Absolute #) 0.55 (0.0-1.3); Platelet Count 304 K/mm3 (150-450); Red Blood Count 4.03 M/mm3 (4.1-5.4); Red Cell Distribution Width 12.7 % (11.5-14.0); White Blood Count 9.1 K/mm3 (4.0-10.5)
[2018-08-28 03:17] LABS: Mean Corpuscular Hemoglobin 29.7 pg (26-32)
[2018-08-28] MEDS: NovoLOG Insulin SQ SCH ×2 (07:59→12:25)
[2018-08-28] MEDS: ROCEPHIN 1 Gm-D5w 50 ml Bag** 1 G/50 ML IVPB IV SCH (09:12)
[2018-08-28 09:49] LABS: INFLUENZA A NEGATIVE (NEGATIVE); INFLUENZA B NEGATIVE (NEGATIVE); RESPIRATORY SYNCTIAL VIRUS NEGATIVE (Negative)
[2018-08-28] MEDS ORDERED: FLUZONE QUAD (36mo-64yo) 2018-2019 SYRINGE IM ONE (10:00)
[2018-08-28] MEDS ORDERED: CLARITIN 10 MG PO SCH (10:00)
[2018-08-28] MEDS ORDERED: Pepcid 20 MG PO SCH (10:00)
[2018-08-28 12:16] VITALS: BP 114/64; PULSE 80; O2SAT 97
--- NOTE | 2018-08-28 15:50 | SSS ---
ADMISSION DIAGNOSES: 1) Cough. 2) Sinusitis. 3) Chest pain. DISCHARGE DIAGNOSES: 1) CHEST PAIN, MYOCARDIAL INFARCTION RULED OUT. 2) SINUSITIS. 3) COUGH. 4) VOMITING, RESOLVED. HISTORY: This is a 38 year-old female patient well known to me from [facility] who came to the office yesterday complaining of five days of vomiting with increased drainage and cough. She has been using her inhaler more than usual and having wheezing after her cough. She was having epigastric and substernal chest pain that comes and goes. She was unable to describe it. It was 8 out of 10 and seemed worse when she was moving around. She has complained of some polyuria x1 day. Denied any fever but did have chills the day prior to admission and felt hot but did not take her temperature. She was very thirsty and just wanting to drink and drink. She has been nauseated and felt like sometimes her emesis is due to her coughing. The patient was also complaining of some mid abdominal pain. PAST MEDICAL HISTORY: She had a EDWIN scan in 2013. Never a smoker. Did have a hiatal hernia. 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 She has had an EGD in the past with Dr. Edgar but it was years ago and not in our system. HOSPITAL COURSE: The patient was admitted through the emergency room and she had a negative troponin, negative D-dimer, nonacute EKG, nonacute chest x-ray. She was given clear liquid diet and admitted to the floor. She tolerated that well overnight. The next morning she was advanced to full liquid diet and then bland diet and after tolerating that was discharged to home. DISCHARGE PHYSICAL: Temperature 98.5F, pulse 74, respirations 18, blood pressure 122/71. Pulse ox 98% on room air. She is awake, alert and in no acute distress. Morbidly obese. HEENT: She had moist mucous membranes. NECK: Normal inspection. CV: Regular rate and rhythm. No murmurs. CHEST: Clear to auscultation bilaterally. ABDOMEN: Soft, bowel sounds were positive and normal. She had mild epigastric tenderness to palpation. No masses. No guarding or rebound. EXTREMITIES: Without pitting edema. LAB DATA AND TESTS: Her labs this morning were white blood cells 9.1, hemoglobin 12.0, PLT 304,000. Granulocytes 50.1, lymphocytes 42.3. Sodium 138, potassium 3.9, chloride 103, bicarb 25, BUN 11, creatinine 0.5. Estimated glomerular filtration rate greater than 60 and glucose of 153. Total bilirubin 0.5, AST 23, ALT 21, alkaline phosphatase 82. Her troponins were negative x5. BNP in the emergency room was 23.6. Serum was negative. Influenza A and B were negative. Respiratory syncytial virus was negative. DISPOSITION: Home. DISCHARGE CONDITION: Stable.
== END 2018-08-28 12:40 | disposition home or self-care (01) ==
LOC: ED 12:42 → MED SURG 16:23
PROVIDERS: ADMIT Family Medicine; ATTEND Family Medicine
DX: J32.9 Chronic sinusitis, unspecified (principal); R05 Cough; R11.10 Vomiting, unspecified; Z23 Encounter for immunization
CPT/HCPCS: 36000; 36415; 71045; 80048; 80053; 81025; 82962; 83036; 83880; 84484; 85025; 85379; 87631; 93005; 93041; 93268; 94762; 96365; 96374; 96375; 99285; G0008; G0378; 90686; 96360; J0696; J2405; A9270-GY

== ENCOUNTER 2018-10-01 18:25 | Emergency (ER) | payer OTHER ==
[2018-10-01] MEDS ORDERED: Sodium Chloride 0.9% 1000 ML 1,000 ML IV STA (19:22)
--- NOTE | 2018-10-01 19:26 | ERPHSYRPT ---
- History of Present Illness Time Seen by Provider: 10/01/18 19:14 Historian: patient Exam Limitations: no limitations Patient Subjective Stated Complaint: right mid abd pain for the past hour. also states urine is not normal color. Triage Nursing Assessment: ambulated to room per self. skin w/d, color normal, resp easy. holding mid abd. abd soft, tender. normal bowel sounds. denies diarrhea or vomiting. Physician History: 38-year-old morbidly obese white female with history of diabetes type 2, asthma , hyperlipidemia, GERD, anxiety, arthritis. Arrives with complaint of discolored urine dysuria and lower abdominal pain. Symptoms for one hour no vomiting no diarrhea. Past medical history includes diabetes type 2, asthma, hyperlipidemia, GERD, arthritis, anxiety, depression, scoliosis Past surgical history includes tonsillectomy and adenoidectomy, hernia, C- section, myringotomy tubes, left eardrum surgery Social history denies tobacco alcohol or illicit drug use Timing/Duration: today (one hour) Activities at Onset: none Quality: sharpness Abdominal Pain Onset Location: periumbilical, suprapubic Severity of Pain-Max: moderate Severity of Pain-Current: mild Modifying Factors: Improves With: nothing Associated Symptoms: other (dysuria), No back, No chest pain, No diaphoresis, No diarrhea, No fever/chills, No fatigue, No headache, No heartburn, No loss of appetite, No nausea, No neck pain, No rash, No shortness of breath, No syncope, No vomiting, No weakness Previous symptoms: no prior history Allergies/Adverse Reactions: omeprazole [From Prilosec] Allergy (Severe, Verified 10/01/18 18:44) [facility] Home Medications: Metformin HCl 1,000 mg PO BID 08/04/17 [History] Loratadine 10 mg [Claritin 10 mg] 10 mg PO DAILY 05/23/18 [History] Famotidine 20 mg [Pepcid 20 MG] 20 mg PO DAILY 08/27/18 [History] Hx Tetanus, Diphtheria Vaccination/Date Given: No Hx Influenza Vaccination/Date Given: Yes Hx Pneumococcal Vaccination/Date Given: No - Review of Systems Constitutional: No Fever, No Chills Eyes: No Symptoms Ears, Nose, & Throat: No Symptoms Respiratory: No Cough, No Dyspnea Cardiac: No Chest Pain, No Edema, No Syncope Abdominal/Gastrointestinal: Abdominal Pain, No Nausea, No Vomiting, No Diarrhea , No Constipation, No Hematemesis, No Hematochezia, No Melena, No Dysphagia, No Appetite Changes Genitourinary Symptoms: Dysuria, No Frequency, No Hematuria, No Hesitancy, No Incontinence, No Urgency, No Urinary Retention, No Flank Pain, No Menorrhagia, No , No Vaginal Bleeding, No Vaginal Discharge, No Vaginal Itching Musculoskeletal: No Back Pain, No Neck Pain Skin: No Rash Neurological: No Dizziness, No Focal Weakness, No Sensory Changes Psychological: No Symptoms Endocrine: No Symptoms All Other Systems: Reviewed and Negative - Past Medical History Pertinent Past Medical History: Yes Neurological History: No Pertinent History ENT History: No Pertinent History Cardiac History: High Cholesterol Respiratory History: Asthma Endocrine Medical History: Diabetes Type II Musculoskeletal History: Arthritis GI Medical History: GERD History: No Pertinent History Psycho-Social History: Anxiety, Depression Female Reproductive Disorders: Other Other Medical History: scoliosis - Past Surgical History Past Surgical History: Yes Neuro Surgical History: No Pertinent History Cardiac: No Pertinent History Respiratory: No Pertinent History Gastrointestinal: Hernia Repair Genitourinary: No Pertinent History Musculoskeletal: No Pertinent History Female Surgical History: Section Other Surgical History: 2 hernia repair,ear tubes, left ear drum,T&A - Social History Smoking Status: Never smoker Exposure to second hand smoke: No Alcohol Use: None Drug Use: none Patient Lives Alone: No Significant Family History: diabetes, hypertension - Female History Hx Last Menstrual Period: now Hx Now: No - Nursing Vital Signs Nursing Vital Signs: Initial Vital Signs Temperature 97.5 F 10/01/18 18:39 Pulse Rate 80 10/01/18 18:39 Respiratory Rate 16 10/01/18 18:39 Blood Pressure 144/83 10/01/18 18:39 O2 Sat by Pulse Oximetry 99 10/01/18 18:39 Pain Scale Pain Intensity 4 - Physical Exam General Appearance: no apparent distress, alert, obese Eye Exam: PERRL/EOMI, eyes nml inspection Ears, Nose, Throat Exam: normal ENT inspection, pharynx normal, moist mucous membranes Neck Exam: normal inspection, non-tender, supple, full range of motion Respiratory Exam: normal breath sounds, lungs clear, No respiratory distress Cardiovascular Exam: regular rate/rhythm, normal heart sounds Gastrointestinal/Abdomen Exam: soft, tenderness (suprapubic and periumbilical tenderness), No mass, No guarding, No ecchymosis, No pulsatile mass, No rebound , No hernia, No hepatomegaly, No organomegaly, No splenomegaly Back Exam: normal inspection, normal range of motion, No CVA tenderness, No vertebral tenderness Extremity Exam: normal inspection, normal range of motion, pelvis stable Neurologic Exam: alert, oriented x 3, cooperative, 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 as tested, normal mood/affect, nml cerebellar function, sensation nml, No motor deficits Skin Exam: normal color, warm, dry SpO2 Interpretation: normal (99%) SpO2: 99 Oxygen Delivery: Room Air Ordered Tests: Active Orders 24 hr Category Date Time Status IV Insertion STAT Care 10/01/18 19:22 Active AMYLASE Stat Lab 10/01/18 19:33 Completed CBC W DIFF Stat Lab 10/01/18 19:33 Completed CMP Stat Lab 10/01/18 19:33 Completed HCG QUALITATIVE,SERUM Stat Lab 10/01/18 19:33 Completed LIPASE Stat Lab 10/01/18 19:33 Completed UA W/RFX UR CULTURE Stat Lab 10/01/18 20:12 Results Medication Summary Discontinued Medications Generic Name Dose Route Start Last Admin Trade Name Freq PRN Reason Stop Dose Admin Sodium Chloride 1,000 mls @ 999 mls/hr 10/01/18 19:22 10/01/18 20:11 Sodium Chloride 0.9% 1000 Ml IV 10/01/18 20:22 999 mls/hr .Q1H1M STA Administration Sodium Chloride Confirm 10/01/18 20:08 Sodium Chloride 0.9% 1000 Ml Administered 10/01/18 20:09 Dose 1,000 mls @ ud .ROUTE .STK-MED ONE Lab/Rad Data: Laboratory Result Diagrams 10/01/18 19:33 10/01/18 19:33 Laboratory Results 10/01/18 10/01/18 10/01/18 Range/Units 20:12 19:33 19:33 WBC (4.0-10.5) K/mm3 RBC (4.1-5.4) M/mm3 Hgb (12.0-16.0) gm/dl Hct (35-47) % MCV (78-100) fl MCH (26-32) pg MCHC (32-36) g/dl RDW (11.5-14.0) % Plt Count (150-450) K/mm3 MPV (6-9.5) fl Gran % (36.0-66.0) % Eos # (Auto) (0-0.5) Absolute Lymphs (auto) (1.0-4.6) Absolute Monos (auto) (0.0-1.3) Lymphocytes % (24.0-44.0) % Monocytes % (0.0-12.0) % Eosinophils % (0.00-5.0) % Basophils % (0.0-0.4) % Absolute Granulocytes (1.4-6.9) Basophils # (0-0.4) Sodium 139 (137-145) mmol/L Potassium 4.3 (3.5-5.1) mmol/L Chloride 102 (98-107) mmol/L Carbon Dioxide 28 (22-30) mmol/L Anion Gap 13.7 (5-15) MEQ/L BUN 12 (7-17) mg/dL Creatinine 0.74 (0.52-1.04) mg/dL Estimated GFR > 60.0 ML/MIN Glucose 131 H (74-106) mg/dL Calcium 9.3 (8.4-10.2) mg/dL Total Bilirubin 0.50 (0.2-1.3) mg/dL AST 19 (14-36) U/L ALT 21 (0-35) U/L Alkaline Phosphatase 103 (38-126) U/L Serum Total Protein 7.6 (6.3-8.2) g/dL Albumin 4.2 (3.5-5.0) g/dL Amylase 60 (30-110) U/L Lipase 49 (23-300) U/L Serum , Qual NEGATIVE (Negative) Urine Color STRAW (YELLOW) Urine Appearance CLEAR (CLEAR) Urine pH 6.0 (5-6) Ur Specific [place] 1.005 (1.005-1.025) Urine Protein NEGATIVE (Negative) Urine Ketones NEGATIVE (NEGATIVE) Urine Blood LARGE (0-5) Carloz/ul Urine Nitrite NEGATIVE (NEGATIVE) Urine Bilirubin NEGATIVE (NEGATIVE) Urine Urobilinogen NEGATIVE (0-1) mg/dL Ur Leukocyte Esterase NEGATIVE (NEGATIVE) Urine WBC (Auto) 0-2 (0-5) /HPF Urine RBC (Auto) NONE (0-2) /HPF U Epithel Cells (Auto) RARE (FEW) /HPF Urine Bacteria (Auto) NONE (NEGATIVE) /HPF Urine Mucus (Auto) SLIGHT (NEGATIVE) /HPF Urine Culture Reflexed Pending Urine Glucose NEGATIVE (NEGATIVE) mg/dL 10/01/18 Range/Units 19:33 WBC 8.5 (4.0-10.5) K/mm3 RBC 4.22 (4.1-5.4) M/mm3 Hgb 12.6 (12.0-16.0) gm/dl Hct 38.3 (35-47) % MCV 90.8 (78-100) fl MCH 29.9 (26-32) pg MCHC 32.9 (32-36) g/dl RDW 13.7 (11.5-14.0) % Plt Count 334 (150-450) K/mm3 MPV 9.2 (6-9.5) fl Gran % 47.8 (36.0-66.0) % Eos # (Auto) 0.14 (0-0.5) Absolute Lymphs (auto) 3.83 (1.0-4.6) Absolute Monos (auto) 0.45 (0.0-1.3) Lymphocytes % 45.1 H (24.0-44.0) % Monocytes % 5.3 (0.0-12.0) % Eosinophils % 1.6 (0.00-5.0) % Basophils % 0.2 (0.0-0.4) % Absolute Granulocytes 4.05 (1.4-6.9) Basophils # 0.02 (0-0.4) Sodium (137-145) mmol/L Potassium (3.5-5.1) mmol/L Chloride (98-107) mmol/L Carbon Dioxide (22-30) mmol/L Anion Gap (5-15) MEQ/L BUN (7-17) mg/dL Creatinine (0.52-1.04) mg/dL Estimated GFR ML/MIN Glucose (74-106) mg/dL Calcium (8.4-10.2) mg/dL Total Bilirubin (0.2-1.3) mg/dL AST (14-36) U/L ALT (0-35) U/L Alkaline Phosphatase (38-126) U/L Serum Total Protein (6.3-8.2) g/dL Albumin (3.5-5.0) g/dL Amylase (30-110) U/L Lipase (23-300) U/L Serum , Qual (Negative) Urine Color (YELLOW) Urine Appearance (CLEAR) Urine pH (5-6) Ur Specific [place] (1.005-1.025) Urine Protein (Negative) Urine Ketones (NEGATIVE) Urine Blood (0-5) Carloz/ul Urine Nitrite (NEGATIVE) Urine Bilirubin (NEGATIVE) Urine Urobilinogen (0-1) mg/dL Ur Leukocyte Esterase (NEGATIVE) Urine WBC (Auto) (0-5) /HPF Urine RBC (Auto) (0-2) /HPF U Epithel Cells (Auto) (FEW) /HPF Urine Bacteria (Auto) (NEGATIVE) /HPF Urine Mucus (Auto) (NEGATIVE) /HPF Urine Culture Reflexed Urine Glucose (NEGATIVE) mg/dL - Progress Progress: improved Progress Note: 10/01/18 20:36 Patient's labs essentially normal. Patient feeling better after IV normal saline. Urine positive for blood negative red cells negative white cells.patient is on her menstrual period. patient states she is pain free after labs are available. Will discharge patient 10/01/18 20:39 10/01/18 20:39 - Departure Time of Disposition: 20:37 Departure Disposition: Home Clinical Impression: Dysuria Abdominal pain Qualifiers: Abdominal location: unspecified location Qualified Code(s): R10.9 - Unspecified abdominal pain Condition: Fair Critical Care Time: No Referrals: RAMESH GARCIA [Primary Care Provider] - Additional Instructions: Return home. Plenty of fluids clear fluids only 24-48 hours if abdominal pain. Tylenol every 4 hours as needed for pain. Follow-up with your family doctor if symptoms are worse, no better in 24-48 hours, or persist longer than 72 hours. Return for acute distress or for severe symptoms.
[2018-10-01 19:42] LABS: BASOPHIL % 0.2 % (0.0-0.4); Basophil (Absolute #) 0.02 (0-0.4); Eosinophil % 1.6 % (0.00-5.0); Eosinophil (Absolute #) 0.14 (0-0.5); Granulocytes % 47.8 % (36.0-66.0); Hematocrit 38.3 % (35-47); Hemoglobin 12.6 gm/dl (12.0-16.0); Lymphocyte (Absolute #) 3.83 (1.0-4.6); Lymphocytes % 45.1 % (24.0-44.0); Mean Cell Volume 90.8 fl (78-100); Mean Corpuscular Hemoglobin 29.9 pg (26-32); Mean Corpuscular Hgb Concent. 32.9 g/dl (32-36); Mean Platelet Volume 9.2 fl (6-9.5); Monocyte (Absolute #) 0.45 (0.0-1.3); Monocytes % 5.3 % (0.0-12.0); Platelet Count 334 K/mm3 (150-450); Red Blood Count 4.22 M/mm3 (4.1-5.4); Red Cell Distribution Width 13.7 % (11.5-14.0); White Blood Count 8.5 K/mm3 (4.0-10.5)
[2018-10-01] MEDS ORDERED: Sodium Chloride 0.9% 1000 ML 1,000 ML ONE (20:08)
[2018-10-01 20:15] LABS: ALBUMIN 4.2 g/dL (3.5-5.0); ALKALINE PHOSPHATASE 103 U/L (38-126); AMYLASE 60 U/L (30-110); ANION GAP 13.7 MEQ/L (5-15); BLOOD UREA NITROGEN 12 mg/dL (7-17); CHLORIDE 102 mmol/L (98-107); Calcium 9.3 mg/dL (8.4-10.2); Carbon Dioxide 28 mmol/L (22-30); Creatinine 1 0.74 mg/dL (0.52-1.04); Glucose 131 mg/dL (74-106); LIPASE 49 U/L (23-300); Potassium 4.3 mmol/L (3.5-5.1); SGOT/AST 19 U/L (14-36); SGPT/ALT 21 U/L (0-35); SODIUM 139 mmol/L (137-145); Total Protein 7.6 g/dL (6.3-8.2)
[2018-10-01 20:21] LABS: Appearance CLEAR (CLEAR); Bilirubin NEGATIVE (NEGATIVE); Blood LARGE Ery/ul (0-5); Epithelial Cells RARE /HPF (FEW); Glucose NEGATIVE (NEGATIVE); Ketones NEGATIVE (NEGATIVE); Leukocyte Esterase NEGATIVE (NEGATIVE); Mucus SLIGHT /HPF (NEGATIVE); Nitrite NEGATIVE (NEGATIVE); Protein,Urine Dip NEGATIVE (Negative); Specific Gravity 1.005 (1.005-1.025); Urobilinogen NEGATIVE mg/dL (0-1); WBC 0-2 /HPF (0-5)
[2018-10-01 21:16] VITALS: BP 129/70; PULSE 90; O2SAT 97
== END 2018-10-01 21:17 | disposition home or self-care (01) ==
LOC: ED 18:25
DX: R30.0 Dysuria (principal); R10.33 Periumbilical pain; Z79.899 Other long term (current) drug therapy; E11.9 Type 2 diabetes mellitus without complications; Z79.84 Long term (current) use of oral hypoglycemic drugs
CPT/HCPCS: 36000; 36415; 80053; 81001; 81025; 82150; 83690; 85025; 96360; 99284

== ENCOUNTER 2018-10-19 18:40 | Emergency (ER) | payer OTHER ==
--- NOTE | 2018-10-19 21:12 | ERPHSYRPT ---
- History of Present Illness Source: patient Exam Limitations: no limitations Patient Subjective Stated Complaint: right wrist pain x 3 days. unknown injury..states swelling.. Triage Nursing Assessment: alert and oriented with right wrist pain x 3 days. unknown injury, swelling. + radial pulse present Physician History: Pt is a 38 y/o female that presented to the ER with right wrist pain. Pt states , shebanged her wrist on a wall a few days ago, and today the wrist is very painful. Pt states, she can't move her fingers or wrist and can't hold o to cups, or hold on to objects. Occurred: days ago (3 days ago) Quality: constant Severity of Pain-Max: moderate Severity of Pain-Current: moderate Extremities Pain Location: wrist: right Modifying Factors: Improves With: nothing Associated Symptoms: none Allergies/Adverse Reactions: omeprazole [From Prilosec] Allergy (Severe, Verified 10/19/18 19:08) Hives Home Medications: Metformin HCl 1,000 mg PO BID 08/04/17 [History] Loratadine 10 mg [Claritin 10 mg] 10 mg PO DAILY 05/23/18 [History] Famotidine 20 mg [Pepcid 20 MG] 20 mg PO DAILY 08/27/18 [History] Hx Tetanus, Diphtheria Vaccination/Date Given: No Hx Influenza Vaccination/Date Given: Yes Hx Pneumococcal Vaccination/Date Given: No - Review of Systems Constitutional: No Fever, No Chills Eyes: No Symptoms Ears, Nose, & Throat: No Symptoms Respiratory: No Cough, No Dyspnea Cardiac: No Chest Pain, No Edema, No Syncope Abdominal/Gastrointestinal: No Abdominal Pain, No Nausea, No Vomiting, No Diarrhea Musculoskeletal: Joint Pain (R wrist) Skin: No Rash Neurological: No Dizziness, No Focal Weakness, No Sensory Changes - Past Medical History Pertinent Past Medical History: Yes Neurological History: No Pertinent History ENT History: No Pertinent History Cardiac History: High Cholesterol Respiratory History: Asthma Endocrine Medical History: Diabetes Type II Musculoskeletal History: Arthritis GI Medical History: GERD History: No Pertinent History Psycho-Social History: Anxiety, Depression Female Reproductive Disorders: Other Other Medical History: scoliosis - Past Surgical History Past Surgical History: No Neuro Surgical History: No Pertinent History Cardiac: No Pertinent History Respiratory: No Pertinent History Gastrointestinal: Hernia Repair Genitourinary: No Pertinent History Musculoskeletal: No Pertinent History Female Surgical History: Section Other Surgical History: 2 hernia repair,ear tubes, left ear drum,T&A - Social History Smoking Status: Never smoker Exposure to second hand smoke: No Alcohol Use: None Drug Use: none Patient Lives Alone: No Significant Family History: diabetes, hypertension - Female History Hx Last Menstrual Period: 1 month Hx Now: No - Nursing Vital Signs Nursing Vital Signs: Initial Vital Signs Temperature 97 F 10/19/18 18:55 Pulse Rate 89 10/19/18 18:55 Respiratory Rate 16 10/19/18 18:55 Blood Pressure 148/90 10/19/18 18:55 O2 Sat by Pulse Oximetry 100 10/19/18 18:55 Pain Scale Pain Intensity 7 - Physical Exam General Appearance: alert Cardiovascular/Respiratory Exam: chest non-tender, normal breath sounds, regular rate/rhythm, no respiratory distress Abdominal Exam: non-tender, No guarding Back Exam: normal inspection, No vertebral tenderness Wrist Exam: normal inspection, no evidence of injury, limited ROM, pain, soft tissue tenderness SpO2: 94 - Course Nursing assessment & vital signs reviewed: Yes - Radiology Exams Right Wrist X-ray Interpretation: Interpreted by me (Fo fracture noted.), No Fracture Ordered Tests: Active Orders 24 hr Category Date Time Status WRIST (MIN 3 VIEWS) Stat Exams 10/19/18 19:32 Taken HCG,QUALITATIVE URINE Stat Lab 10/19/18 20:20 Completed Lab/Rad Data: Laboratory Results 10/19/18 Range/Units 20:20 Urine HCG, Qual NEGATIVE (Negative) - Progress Progress: unchanged Will see patient in: office Counseled pt/family regarding: need for follow-up, rad results - Departure Time of Disposition: 21:12 Departure Disposition: Home Clinical Impression: Wrist pain, right Condition: Stable Critical Care Time: No Referrals: RAMESH GARCIA [Primary Care Provider] - Instructions: Wrist Pain Additional Instructions: F/U with PCP. Ice the wrist as needed. Ibuprofen OTC is a good choice for pain med, for anti inflammatory effect.
[2018-10-19 21:20] VITALS: BP 120/58; PULSE 100; O2SAT 98
--- NOTE | 2018-10-20 09:00 | XRAY ---
Indication: Pain following injury. 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 No other bony, articular, or soft tissue abnormalities.
== END 2018-10-19 21:21 | disposition home or self-care (01) ==
LOC: ED 18:40
DX: M25.531 Pain in right wrist (principal); E11.9 Type 2 diabetes mellitus without complications; E78.00 Pure hypercholesterolemia, unspecified; M19.90 Unspecified osteoarthritis, unspecified site; K21.9 Gastro-esophageal reflux disease without esophagitis; F41.8 Other specified anxiety disorders; Z79.4 Long term (current) use of insulin; Z79.899 Other long term (current) drug therapy
CPT/HCPCS: 73110; 84703; 99284

== ENCOUNTER 2018-11-24 17:29 | Emergency (ER) | payer OTHER ==
--- NOTE | 2018-11-24 17:41 | ERPHSYRPT ---
- History of Present Illness Time Seen by Provider: 11/24/18 17:40 Source: patient Exam Limitations: no limitations Physician History: 38 y/o white female presents with cough and congestion for 5 days. Timing/Duration: day(s) (5) Cough Quality/Degree: dry cough Possible Cause: occasional episodes Modifying Factors: Improves With: coughing Allergies/Adverse Reactions: omeprazole [From Prilosec] Allergy (Severe, Verified 11/24/18 17:38) Hives Home Medications: Metformin HCl 1,000 mg PO BID 08/04/17 [History] Loratadine 10 mg [Claritin 10 mg] 10 mg PO DAILY 05/23/18 [History] Famotidine 20 mg [Pepcid 20 MG] 20 mg PO DAILY 08/27/18 [History] Hx Tetanus, Diphtheria Vaccination/Date Given: No Hx Influenza Vaccination/Date Given: Yes Hx Pneumococcal Vaccination/Date Given: No - Review of Systems Constitutional: No Symptoms Eyes: No Symptoms Ears, Nose, & Throat: Nose Congestion Respiratory: Cough Cardiac: Chest Pain (with cough) Abdominal/Gastrointestinal: No Symptoms Genitourinary Symptoms: No Symptoms Musculoskeletal: No Symptoms Skin: No Symptoms Neurological: No Symptoms Psychological: No Symptoms Endocrine: No Symptoms Hematologic/Lymphatic: No Symptoms Immunological/Allergic: No Symptoms All Other Systems: Reviewed and Negative - Past Medical History Pertinent Past Medical History: Yes Neurological History: No Pertinent History ENT History: No Pertinent History Cardiac History: High Cholesterol Respiratory History: Asthma Endocrine Medical History: Diabetes Type II Musculoskeletal History: Arthritis GI Medical History: GERD History: No Pertinent History Psycho-Social History: Anxiety, Depression Female Reproductive Disorders: Other Other Medical History: scoliosis - Past Surgical History Past Surgical History: No Neuro Surgical History: No Pertinent History Cardiac: No Pertinent History Respiratory: No Pertinent History Gastrointestinal: Hernia Repair Genitourinary: No Pertinent History Musculoskeletal: No Pertinent History Female Surgical History: Section Other Surgical History: 2 hernia repair,ear tubes, left ear drum,T&A - Social History Smoking Status: Never smoker Exposure to second hand smoke: No Alcohol Use: None Drug Use: none Patient Lives Alone: No Significant Family History: diabetes, hypertension - Nursing Vital Signs Nursing Vital Signs: Initial Vital Signs Temperature 98.1 F 11/24/18 17:35 Pulse Rate 99 H 11/24/18 17:35 Respiratory Rate 16 03/05/19 17:35 Blood Pressure 156/100 11/24/18 17:35 O2 Sat by Pulse Oximetry 98 11/24/18 17:35 Pain Scale Pain Intensity 0 - Physical Exam General Appearance: mild distress, alert, anxiety Eye Exam: PERRL/EOMI Ears, Nose, Throat Exam: normal ENT inspection, TMs normal, moist mucous membranes Neck Exam: normal inspection, non-tender, supple, full range of motion Respiratory Exam: normal breath sounds, lungs clear, airway intact, No chest tenderness, No respiratory distress, No accessory muscle use, No rhonchi, No wheezing, No stridor Cardiovascular Exam: regular rate/rhythm, normal heart sounds, normal peripheral pulses Gastrointestinal/Abdomen Exam: soft, normal bowel sounds, No tenderness, No guarding, No rebound Pelvic Exam: not done Rectal Exam: not done Back Exam: normal inspection, normal range of motion, No CVA tenderness, No vertebral tenderness Extremity Exam: normal inspection, normal range of motion, pelvis stable Neurologic Exam: alert, oriented x 3, cooperative, 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 Skin Exam: normal color, warm, dry Lymphatic Exam: No adenopathy SpO2 Interpretation: normal O2 Delivery: Room Air - Course Nursing assessment & vital signs reviewed: Yes Ordered Tests: Medication Summary Generic Name Dose Route Start Last Admin Trade Name Lonnieq PRN Reason Stop Dose Admin Hydrocodone Bitart/Acetaminophen 10 ml 11/24/18 18:04 Hydrocodone-Acetamin 2.5-108/5 Ml Solution PO 11/24/18 18:05 STAT STA Ceftriaxone Sodium 1,000 mg 11/24/18 18:05 Rocephin 1000 Mg Inj IM 11/24/18 18:06 STAT ONE Methylprednisolone Sodium Succinate 125 mg 11/24/18 18:04 Solu-Medrol 125 Mg IM 11/24/18 18:05 STAT ONE - Progress Progress: re-examined, unchanged Air Movement: good Blood Culture(s) Obtained: No Antibiotics given: Yes Counseled pt/family regarding: diagnosis, need for follow-up - Departure Time of Disposition: 17:58 Departure Disposition: Home Clinical Impression: Bronchitis Condition: Stable Critical Care Time: No Referrals: RAMESH KULKARNI [Primary Care Provider] - Additional Instructions: drink plenty of fluids. follow up with dr. kulkarni for further management Prescriptions: Hydrocodone Bit/Acetaminophen [Hydrocodone-Acetaminophen Soln] 10 ml PO Q8H PRN PRN #120 ml PRN Reason: bronchitis Albuterol 8 gm Mdi Hfa [Ventolin Hfa MDI] 8 gm IH Q4H #1 hfa.aer.[id number] Azithromycin 250 mg [Zithromax 250 MG TABLET] 250 mg PO ZPACK #6 tablet Prednisone 10 mg [Deltasone 10 mg] 10 mg PO BID #6 tablet
[2018-11-24] MEDS ORDERED: HYDROCODONE-ACETAMIN 2.5-108/5 ML SOLUTION PO STA (18:04)
[2018-11-24] MEDS ORDERED: solu-MEDROL 125 MG IM ONE (18:04)
[2018-11-24] MEDS ORDERED: Rocephin 1000 MG INJ IM ONE (18:05)
[2018-11-24] MEDS ORDERED: solu-MEDROL 125 MG ONE (18:08)
[2018-11-24] MEDS ORDERED: Rocephin 1000 MG INJ ONE (18:08)
[2018-11-24] MEDS ORDERED: XYLOCAINE 1% HCL 20 ML MDV ONE (18:08)
[2018-11-24] MEDS ORDERED: HYDROCODONE-ACETAMIN 2.5-108/5 ML SOLUTION ONE (18:08)
[2018-11-24 18:40] VITALS: BP 123/105; PULSE 75; O2SAT 97
== END 2018-11-24 18:41 | disposition home or self-care (01) ==
LOC: ED 17:29
DX: J40 Bronchitis, not specified as acute or chronic (principal); J45.909 Unspecified asthma, uncomplicated; E11.9 Type 2 diabetes mellitus without complications; Z79.4 Long term (current) use of insulin; M19.90 Unspecified osteoarthritis, unspecified site; K21.9 Gastro-esophageal reflux disease without esophagitis; F41.8 Other specified anxiety disorders; Z79.899 Other long term (current) drug therapy
CPT/HCPCS: 96372; 99284; J0696; J2930; A9270-GY

== ENCOUNTER 2018-11-29 00:31 | Emergency (ER) | payer OTHER ==
[2018-11-29] MEDS ORDERED: solu-MEDROL 125 MG ONE (01:30)
--- NOTE | 2018-11-29 01:32 | ERPHSYRPT ---
- History of Present Illness Time Seen by Provider: 11/29/18 01:09 Source: patient Exam Limitations: no limitations Patient Subjective Stated Complaint: pt states she has had a cough and runny nose. states she has a headache on the rt side of ner haead from coughing. Triage Nursing Assessment: pt alert and oriented, answers questions approp. pt ambulatory with steady gait noted. respirations nonlabored with lungs cta. skin pink wrm and dry. Physician History: This is a 38-year-old white female with history of hypercholesterolemia, asthma , diabetes type 2, arthritis, GERD, anxiety, depression, scoliosis, Patient was seen here 5 days ago with complaint of cough she was given an injection of Solu-Medrol, placed on Zithromax, and placed on prednisone. She states she is now having a cough and a runny nose. She is not having any fever she is not short of breath she does state she coughs and it makes his right side of her head hurt. She has no vomiting no diarrhea. Past medical history includes hypercholesterolemia, asthma, diabetes type 2, arthritis, GERD, anxiety, depression, scoliosis, Past surgical history includes hernia repair, , myringotomy tubes, tonsillectomy and adenoidectomy. Social history patient denies tobacco alcohol or illicit drug use. Timing/Duration: other (5 days) Severity: mild Modifying Factors: Improves With: medication (patient is still on Zithromax, she states that she has some hydrocodone elixir at home she states she is still on prednisone) Associated Symptoms: cough, headaches, No nausea, No vomiting, No abdominal pain , No shortness of breath, No heartburn, No diaphoresis, No chills, No chest pain , No fever, No loss of appetite, No malaise, No rash, No syncope, No seizure, No weakness Allergies/Adverse Reactions: omeprazole [From Prilosec] Allergy (Severe, Verified 11/29/18 00:50) Hives Home Medications: Metformin HCl 1,000 mg PO BID 08/04/17 [History] Loratadine 10 mg [Claritin 10 mg] 10 mg PO DAILY 05/23/18 [History] Famotidine 20 mg [Pepcid 20 MG] 20 mg PO DAILY 08/27/18 [History] Hx Tetanus, Diphtheria Vaccination/Date Given: No Hx Influenza Vaccination/Date Given: Yes Hx Pneumococcal Vaccination/Date Given: No Immunizations Up to Date: Yes - Review of Systems Constitutional: No Fever, No Chills Eyes: No Symptoms Ears, Nose, & Throat: Nose Congestion, Nose Discharge, Sinus Drainage, No Ear Pain, No Ear Discharge, No Hearing Changes, No Tinnitus, No Nose Pain, No Epistaxis, No Mouth Pain, No Mouth Swelling, No Loose Teeth, No Throat Pain, No Throat Swelling, No Hoarse, No Painful Swallowing, No Snoring, No Stridor Respiratory: Cough, No Cyanosis, No Dyspnea, No Dyspnea on Exertion (SERRATO), No Stridor, No Wheezing Cardiac: No Chest Pain, No Edema, No Syncope Abdominal/Gastrointestinal: No Abdominal Pain, No Nausea, No Vomiting, No Diarrhea Genitourinary Symptoms: No Dysuria Musculoskeletal: No Back Pain, No Neck Pain Skin: No Rash Neurological: Headache, No Dizziness, No Focal Weakness, No Sensory Changes Psychological: No Symptoms Endocrine: No Symptoms All Other Systems: Reviewed and Negative - Past Medical History Pertinent Past Medical History: Yes Neurological History: No Pertinent History ENT History: No Pertinent History Cardiac History: High Cholesterol Respiratory History: Asthma Endocrine Medical History: Diabetes Type II Musculoskeletal History: Arthritis GI Medical History: GERD History: No Pertinent History Psycho-Social History: Anxiety, Depression Female Reproductive Disorders: Other Other Medical History: scoliosis - Past Surgical History Past Surgical History: No Neuro Surgical History: No Pertinent History Cardiac: No Pertinent History Respiratory: No Pertinent History Gastrointestinal: Hernia Repair Genitourinary: No Pertinent History Musculoskeletal: No Pertinent History Female Surgical History: Section Other Surgical History: 2 hernia repair,ear tubes, left ear drum,T&A - Social History Smoking Status: Never smoker Exposure to second hand smoke: No Alcohol Use: None Drug Use: none Patient Lives Alone: No Significant Family History: diabetes, hypertension - Female History Hx Last Menstrual Period: current Hx Now: No - Nursing Vital Signs Nursing Vital Signs: Initial Vital Signs Temperature 97.6 F 11/29/18 00:42 Pulse Rate 86 11/29/18 00:42 Respiratory Rate 18 11/29/18 00:42 Blood Pressure 134/98 11/29/18 00:42 O2 Sat by Pulse Oximetry 97 11/29/18 00:42 Pain Scale Pain Intensity 5 - Physical Exam General Appearance: no apparent distress, alert, obese, No mild distress, No moderate distress, No severe distress, No anxiety, No lethargy, No cachetic, No thin, No other Eye Exam: PERRL/EOMI, eyes nml inspection, other (fundi are unremarkable) Ears, Nose, Throat Exam: normal ENT inspection, TMs normal, pharynx normal, moist mucous membranes Neck Exam: normal inspection, non-tender, supple, full range of motion Respiratory Exam: normal breath sounds, lungs clear, No respiratory distress, No diminished breath sounds, No wheezing Cardiovascular Exam: regular rate/rhythm, normal heart sounds, normal peripheral pulses Gastrointestinal/Abdomen Exam: soft, normal bowel sounds, No tenderness, No mass Back Exam: normal inspection, normal range of motion, No CVA tenderness, No vertebral tenderness Extremity Exam: normal inspection, normal range of motion, pelvis stable Neurologic Exam: alert, oriented x 3, cooperative, 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, normal mood/affect, nml cerebellar function, nml station & gait, sensation nml, No motor deficits Skin Exam: normal color, warm, dry, No rash Lymphatic Exam: No adenopathy SpO2 Interpretation: normal (97%) SpO2: 97 - Course Nursing assessment & vital signs reviewed: Yes Ordered Tests: Active Orders 24 hr Category Date Time Status Pulse Oximetry (ED) STAT Care 11/29/18 01:20 Active HCG,QUALITATIVE URINE Stat Lab 11/29/18 03:11 Completed Medication Summary Discontinued Medications Generic Name Dose Route Start Last Admin Trade Name Darius PRN Reason Stop Dose Admin Methylprednisolone Sodium Succinate 125 mg 11/29/18 01:20 11/29/18 01:36 Solu-Medrol 125 Mg IV 11/29/18 01:21 125 mg STAT ONE Administration Methylprednisolone Sodium Succinate Confirm 11/29/18 01:30 Solu-Medrol 125 Mg Administered 11/29/18 01:31 Dose 125 mg .ROUTE .STK-MED ONE Lab/Rad Data: Laboratory Results 11/29/18 Range/Units 03:11 Urine HCG, Qual NEGATIVE (Negative) - Progress Progress: improved Progress Note: 11/29/18 01:30 38-year-old white female morbidly obese with history of asthma, diabetes she arrives with complaint of a continued cough she states she has runny nose. She was seen here 5 days ago placed on Zithromax, prednisone, given an injection of Solu-Medrol and given hydrocodone elixir. She states she still has a cough when she has a runny nose. She states she gets a headache of the right side of her head with her cough she has no fevers no vomiting. She does not appear to be in acute distress. Patient's lungs are clear she has normal neurologic exam she is breathing easily heart is regular she is afebrile. Patient does feel like she continues to cough Will go ahead and give patient Solu-Medrol 125 mg IM. I've explained to the patient that she does have some nasal congestion which is bothering the patient however she is already on Zithromax and I do not feel that further antibiotics are necessary. Will go ahead and give patient hydrocodone 2 tablets to go home with the patient for her headache she does have some hydrocodone elixir at home I've been told her not to take more of this . Patient is concerned that on her last visit she did not have a test we 'll go ahead and order one. - Departure Time of Disposition: 03:19 Departure Disposition: Home Clinical Impression: Bronchitis Sinusitis Qualifiers: Sinusitis location: unspecified location Chronicity: acute Recurrence: non- recurrent Qualified Code(s): J01.90 - Acute sinusitis, unspecified Headache Qualifiers: Headache type: unspecified Headache chronicity pattern: acute headache Intractability: not intractable Qualified Code(s): R51 - Headache Condition: Fair Critical Care Time: No Referrals: RAMESH GARCIA [Primary Care Provider] - Instructions: Cough, Adult (DC) Additional Instructions: Return home. You have sinusitis you are already on Zithromax you do not require more antibiotics at this time. Continue prednisone as prescribed to you by your family doctor or at last visit. Use your inhalers as prescribed. Plenty of fluids. You'll be given 2 [place] tablets you may take one every 6 hours as needed for headache do not take these at the same time as you take your [place] elixir. After these 2 [place] tablets begin Tylenol every 4 hours as needed for pain. Do not double up Tylenol with Tylenol in your [place] elixir. Follow-up with your family doctor. Return for acute distress or for severe symptoms.
[2018-11-29] MEDS: solu-MEDROL 125 MG IV ONE (01:36)
[2018-11-29] MEDS ORDERED: NORCO 5/325 MG ONE (03:25)
[2018-11-29] MEDS: NORCO 5/325 MG PO ONE (03:28)
[2018-11-29 03:32] VITALS: BP 117/82; PULSE 74; O2SAT 96
== END 2018-11-29 03:29 | disposition home or self-care (01) ==
LOC: ED 00:31
DX: J40 Bronchitis, not specified as acute or chronic (principal); J01.90 Acute sinusitis, unspecified; R51 Headache; E78.00 Pure hypercholesterolemia, unspecified; J45.909 Unspecified asthma, uncomplicated; E11.9 Type 2 diabetes mellitus without complications; Z79.4 Long term (current) use of insulin; M19.90 Unspecified osteoarthritis, unspecified site; K21.9 Gastro-esophageal reflux disease without esophagitis; F41.8 Other specified anxiety disorders; M41.9 Scoliosis, unspecified; Z79.899 Other long term (current) drug therapy
CPT/HCPCS: 84703; 99284; J2930; A9270-GY

== ENCOUNTER 2018-12-04 19:27 | Emergency (ER) | payer OTHER ==
[2018-12-04] MEDS ORDERED: Zofran 4 MG/2 ML VIAL IV ONE (20:00)
[2018-12-04] MEDS ORDERED: Sodium Chloride 0.9% 1000 ML 1,000 ML IV SCH (20:00)
[2018-12-04] MEDS ORDERED: solu-MEDROL 125 MG IV ONE (20:28)
[2018-12-04] MEDS ORDERED: DUONEB 0.5-3 MG/3 ml Neb IH ONE ×2 (20:28→20:41)
[2018-12-04] MEDS ORDERED: Zofran 4 MG/2 ML VIAL ONE (20:40)
[2018-12-04] MEDS ORDERED: Sodium Chloride 0.9% 1000 ML 1,000 ML ONE (20:40)
[2018-12-04] MEDS ORDERED: solu-MEDROL 125 MG ONE (20:40)
[2018-12-04] MEDS ORDERED: ROCEPHIN 1 Gm-D5w 50 ml Bag** 1 G/50 ML IVPB IV STA (21:01)
[2018-12-04] MEDS ORDERED: ROCEPHIN 1 Gm-D5w 50 ml Bag** 1 G/50 ML IVPB IV ONE (21:09)
--- NOTE | 2018-12-04 21:15 | ERPHSYRPT ---
- History of Present Illness Time Seen by Provider: 12/04/18 19:50 Source: patient Exam Limitations: clinical condition Patient Subjective Stated Complaint: pt reports cough, nasal drainage for one week, states today the drainage is causing her to feel sick to her stomach, pt reports vomiting x2 today, pt reports abd pain when she coughs. Triage Nursing Assessment: pt is aox3, pupils perrl, afebrile, resps easy and non labored, lung sounds are clear throughout all lind, no cough present upon exam, radial pulses strong and equal, abd is soft non tender, bowel sounds present and normoactive x4, skin pink warm dry, cap refill < 3 seconds. Physician History: PATIENT WITH A HISTORY OF ASTHMA COMPLAINS OF NONPRODUCTIVE COUGH X 4 DAYS ASSOCIATED WITH SORETHROAT AND EMESIS X 2. DENIES FEVER, CHILLS OR DYSPNEA Timing/Duration: day(s) Cough Quality/Degree: dry cough Possible Cause: occasional episodes Modifying Factors: Improves With: activity, coughing Associated Symptoms: sore throat International travel in last 2 weeks: No Allergies/Adverse Reactions: omeprazole [From [employer]] Allergy (Severe, Verified 12/04/18 19:47) Hives Home Medications: Metformin HCl 1,000 mg PO BID 08/04/17 [History] Loratadine 10 mg [Claritin 10 mg] 10 mg PO DAILY 05/23/18 [History] Famotidine 20 mg [Pepcid 20 MG] 20 mg PO DAILY 08/27/18 [History] Hx Tetanus, Diphtheria Vaccination/Date Given: Yes Hx Influenza Vaccination/Date Given: Yes Hx Pneumococcal Vaccination/Date Given: No Immunizations Up to Date: Yes - Review of Systems Constitutional: No Fever, No Chills Eyes: No Symptoms Ears, Nose, & Throat: Throat Pain Respiratory: Cough, No Dyspnea Cardiac: No Symptoms, No Chest Pain, No Edema, No Syncope Abdominal/Gastrointestinal: No Symptoms, No Abdominal Pain, No Nausea, No Vomiting, No Diarrhea Genitourinary Symptoms: No Symptoms, No Dysuria Musculoskeletal: No Symptoms, No Back Pain, No Neck Pain Skin: No Rash Neurological: No Dizziness, No Focal Weakness, No Sensory Changes Psychological: No Symptoms Endocrine: No Symptoms All Other Systems: Reviewed and Negative - Past Medical History Pertinent Past Medical History: Yes Neurological History: No Pertinent History ENT History: No Pertinent History Cardiac History: High Cholesterol Respiratory History: Asthma Endocrine Medical History: Diabetes Type II Musculoskeletal History: Arthritis GI Medical History: GERD History: No Pertinent History Psycho-Social History: Anxiety, Depression Female Reproductive Disorders: Other Other Medical History: scoliosis - Past Surgical History Past Surgical History: No Neuro Surgical History: No Pertinent History Cardiac: No Pertinent History Respiratory: No Pertinent History Gastrointestinal: Hernia Repair Genitourinary: No Pertinent History Musculoskeletal: No Pertinent History Female Surgical History: Section Other Surgical History: 2 hernia repair,ear tubes, left ear drum,T&A - Social History Smoking Status: Former smoker Exposure to second hand smoke: No Alcohol Use: None Drug Use: none Patient Lives Alone: No Significant Family History: diabetes, hypertension - Female History Hx Last Menstrual Period: 11/28/17 Hx Now: (possibly) - Nursing Vital Signs Nursing Vital Signs: Initial Vital Signs Temperature 97.8 F 12/04/18 19:36 Pulse Rate 91 H 12/04/18 19:36 Respiratory Rate 22 12/04/18 19:36 Blood Pressure 113/89 12/04/18 19:36 O2 Sat by Pulse Oximetry 98 12/04/18 19:36 Pain Scale Pain Intensity 5 - Physical Exam General Appearance: no apparent distress, alert Eye Exam: PERRL/EOMI, eyes nml inspection Ears, Nose, Throat Exam: normal ENT inspection, TMs normal, pharynx normal, moist mucous membranes Neck Exam: normal inspection, non-tender, supple, full range of motion Respiratory Exam: lungs clear, diminished breath sounds (NO WHEEZES), No respiratory distress Cardiovascular Exam: regular rate/rhythm, normal heart sounds Gastrointestinal/Abdomen Exam: soft, normal bowel sounds (NONTENDER), No tenderness Back Exam: normal inspection, No CVA tenderness, No vertebral tenderness Extremity Exam: normal inspection, normal range of motion Neurologic Exam: alert, oriented x 3, cooperative, normal mood/affect, sensation nml, No motor deficits Skin Exam: normal color, warm, dry, No rash Lymphatic Exam: No adenopathy SpO2 Interpretation: normal SpO2: 96 Ordered Tests: Active Orders 24 hr Category Date Time Status HCG,QUALITATIVE URINE Stat Lab 12/04/18 19:45 Completed Peak Expiratory Flow Rate ONCE RT 12/04/18 20:42 Active Respiratory Nebulizer STAT RT 12/04/18 20:28 Active Respiratory Therapy Assessment DAILY RT 12/04/18 20:42 Active Medication Summary Generic Name Dose Route Start Last Admin Trade Name Lonnieq PRN Reason Stop Dose Admin Sodium Chloride 1,000 mls @ 50 mls/hr 12/04/18 20:00 12/04/18 20:44 Sodium Chloride 0.9% 1000 Ml IV 01/03/19 19:59 50 mls/hr .Q20H USMAN Administration Discontinued Medications Generic Name Dose Route Start Last Admin Trade Name Darius PRN Reason Stop Dose Admin Albuterol/Ipratropium 3 ml 12/04/18 20:28 12/04/18 20:43 Duoneb 0.5-3 Mg/3 Ml Neb IH 12/04/18 20:29 3 ml STAT ONE Administration Albuterol/Ipratropium Confirm 12/04/18 20:41 Duoneb 0.5-3 Mg/3 Ml Neb Administered 12/04/18 20:42 Dose 3 ml IH .STK-MED ONE Ceftriaxone Sodium/Dextrose 1 g in 50 mls @ 100 mls/hr 12/04/18 21:01 21:12 Rocephin 1 Gm-D5w 50 Ml Bag IV 12/04/18 21:30 100 mls/hr STAT STA 100 mls/hr Administration Ceftriaxone Sodium/Dextrose Confirm 12/04/18 21:09 Rocephin 1 Gm-D5w 50 Ml Bag Administered 12/04/18 21:10 Dose 1 g in 50 mls @ ud IV .STK-MED ONE Methylprednisolone Sodium Succinate 125 mg 12/04/18 20:28 12/04/18 20:47 Solu-Medrol 125 Mg IV 12/04/18 20:29 125 mg STAT ONE Administration Methylprednisolone Sodium Succinate Confirm 12/04/18 20:40 Solu-Medrol 125 Mg Administered 12/04/18 20:41 Dose 125 mg .ROUTE .STK-MED ONE Ondansetron HCl 4 mg 12/04/18 20:00 12/04/18 20:45 Zofran 4 Mg/2 Ml Vial IV 12/04/18 20:01 4 mg STAT ONE Administration Ondansetron HCl Confirm 12/04/18 20:40 Zofran 4 Mg/2 Ml Vial Administered 12/04/18 20:41 Dose 4 mg .ROUTE .STK-MED ONE Lab/Rad Data: Laboratory Results 12/04/18 Range/Units 19:45 Urine HCG, Qual NEGATIVE (Negative) - Progress Progress: improved, re-examined Air Movement: good Progress Note: 12/04/18 21:35 ADMINISTERED IV NORMAL SALINE 50ML/HR, ZOFRAN 4MG, SOLUMEDROL 125MG, ROCEPHIN 1GM IVPB, FOLLOWED BY [facility]O NEB AEROSOL [place] Counseled pt/family regarding: lab results, diagnosis, need for follow-up - Departure Time of Disposition: 21:46 Departure Disposition: Home Clinical Impression: ACUTE ASTHMATIC BRONCHITIS Condition: Stable Critical Care Time: No Referrals: RAMESH GARCIA [Primary Care Provider] - Additional Instructions: CONTINUE ALBUTEROL AEROSOL TREATMENTS EVERY 4 HOURS NEEDED. ANTIBIOTIC CEFDINIR 300MG TWICE DAILY FOR 10 DAYS. PREDNISONE 20MG, 2 TABLETS DAILY FOR 4 DAYS. ZOFRAN 4MG EVERY 6 HOURS FOR NAUSEA. CONSULT YOUR PRIMARY CARE PROVIDER FOR FOLLOWUP IN 1 WEEK. RETURN TO EMERGENCY FOR DIFFICULTY BREATHING. Prescriptions: Ondansetron ODT 4 MG [Zofran Odt 4 mg] 4 mg PO Q6H PRN PRN #10 tab.rapdis PRN Reason: Nausea Cefdinir [Omnicef] 300 mg PO BID #20 capsule Prednisone 20 mg [Deltasone 20 mg] 2 tab PO DAILY #8 tablet
[2018-12-04 21:49] VITALS: BP 153/87; PULSE 97; O2SAT 98
== END 2018-12-04 21:52 | disposition home or self-care (01) ==
LOC: ED 19:27
DX: J45.901 Unspecified asthma with (acute) exacerbation (principal); E78.00 Pure hypercholesterolemia, unspecified; E11.9 Type 2 diabetes mellitus without complications; K21.9 Gastro-esophageal reflux disease without esophagitis; M19.90 Unspecified osteoarthritis, unspecified site
CPT/HCPCS: 84703; 94150; 94640; 96365; 96374; 96375; 99284; J0696; J2405; J2930; A9270-GY

== ENCOUNTER 2018-12-08 20:36 | Emergency (ER) | payer OTHER ==
[2018-12-08] MEDS ORDERED: Zofran 4 MG/2 ML VIAL IV ONE (20:44)
[2018-12-08] MEDS ORDERED: Sodium Chloride 0.9% 1000 ML 1,000 ML IV STA ×2 (20:44→22:23)
--- NOTE | 2018-12-08 20:44 | ERPHSYRPT ---
- History of Present Illness Time Seen by Provider: 12/08/18 20:42 Source: patient, family Exam Limitations: no limitations Physician History: 38 y/o obese white female presents to this ED for the 4th time in 2 weeks for flu like sx. pt has been on cefdinir and prednisone most recently. pts primary complaint today is recurrent epigastric abd pain, vomiting and diarrhea. 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 pt ate fried potatoes this evening. Timing/Duration: today Severity: mild Associated Symptoms: nausea, vomiting, abdominal pain Allergies/Adverse Reactions: omeprazole [From [facility]] Allergy (Severe, Verified 12/08/18 20:44) Hives Home Medications: Metformin HCl 1,000 mg PO BID 08/04/17 [History] Loratadine 10 mg [Claritin 10 mg] 10 mg PO DAILY 05/23/18 [History] Famotidine 20 mg [Pepcid 20 MG] 20 mg PO BID 08/27/18 [History] Fluticasone/Salmeterol [Advair 250-50 Diskus] 1 each IN DAILY 12/08/18 [History] Hx Tetanus, Diphtheria Vaccination/Date Given: Yes Hx Influenza Vaccination/Date Given: Yes Hx Pneumococcal Vaccination/Date Given: No - Review of Systems Constitutional: No Symptoms Eyes: No Symptoms Ears, Nose, & Throat: No Symptoms Respiratory: No Symptoms Cardiac: No Symptoms Abdominal/Gastrointestinal: Abdominal Pain, Nausea, Vomiting Genitourinary Symptoms: No Symptoms Musculoskeletal: No Symptoms Skin: No Symptoms Neurological: No Symptoms Psychological: No Symptoms Endocrine: No Symptoms Hematologic/Lymphatic: No Symptoms Immunological/Allergic: No Symptoms All Other Systems: Reviewed and Negative - Past Medical History Pertinent Past Medical History: Yes Neurological History: No Pertinent History ENT History: No Pertinent History Cardiac History: High Cholesterol Respiratory History: Asthma Endocrine Medical History: Diabetes Type II Musculoskeletal History: Arthritis GI Medical History: GERD History: No Pertinent History Psycho-Social History: Anxiety, Depression Female Reproductive Disorders: Other Other Medical History: scoliosis - Past Surgical History Past Surgical History: No Neuro Surgical History: No Pertinent History Cardiac: No Pertinent History Respiratory: No Pertinent History Gastrointestinal: Hernia Repair Genitourinary: No Pertinent History Musculoskeletal: No Pertinent History Female Surgical History: Section Other Surgical History: 2 hernia repair,ear tubes, left ear drum,T&A - Social History Smoking Status: Former smoker Exposure to second hand smoke: No Alcohol Use: None Drug Use: none Patient Lives Alone: No Significant Family History: diabetes, hypertension - Nursing Vital Signs Nursing Vital Signs: Initial Vital Signs Temperature 98.7 F 12/08/18 20:44 Pulse Rate 83 12/08/18 20:44 Respiratory Rate 18 12/08/18 20:44 Blood Pressure 133/89 12/08/18 20:44 O2 Sat by Pulse Oximetry 96 12/08/18 20:44 Pain Scale Pain Intensity 0 - Physical Exam General Appearance: mild distress, alert, anxiety Eye Exam: PERRL/EOMI Ears, Nose, Throat Exam: normal ENT inspection, moist mucous membranes Neck Exam: normal inspection, non-tender, supple, full range of motion Respiratory Exam: normal breath sounds, lungs clear, respiratory distress, airway intact, No chest tenderness Cardiovascular Exam: regular rate/rhythm, normal heart sounds, normal peripheral pulses Gastrointestinal/Abdomen Exam: soft, normal bowel sounds, tenderness (epigastric ), No distention, No guarding Pelvic Exam: not done Rectal Exam: not done Back Exam: normal inspection, normal range of motion, No CVA tenderness, No vertebral tenderness Extremity Exam: normal inspection, normal range of motion, pelvis stable Neurologic Exam: alert, oriented x 3, cooperative, urologist physician II-XII nml as tested Skin Exam: normal color, warm, dry Lymphatic Exam: No adenopathy SpO2 Interpretation: normal O2 Delivery: Room Air - Course Nursing assessment & vital signs reviewed: Yes Ordered Tests: Active Orders 24 hr Category Date Time Status IV Insertion STAT Care 12/08/18 20:44 Active ABDOMEN AND PELVIS W/0 CONTRAS [CT] Stat Exams 12/08/18 21:32 Taken AMYLASE Stat Lab 12/08/18 20:55 Completed CBC W DIFF Stat Lab 12/08/18 20:55 Completed CMP Stat Lab 12/08/18 20:55 Completed HCG,QUALITATIVE URINE Stat Lab 12/08/18 20:50 Completed LIPASE Stat Lab 12/08/18 20:55 Completed Lactic Acid Stat Lab 12/08/18 20:55 Completed Lactic Acid Stat Lab 12/08/18 23:04 Ordered UA W/RFX UR CULTURE Stat Lab 12/08/18 20:50 Completed Medication Summary Discontinued Medications Generic Name Dose Route Start Last Admin Trade Name Freq PRN Reason Stop Dose Admin Diphenhydramine HCl 25 mg 12/08/18 23:08 12/08/18 23:13 Benadryl 50 Mg/Ml IV 12/08/18 23:09 25 mg STAT ONE Administration Diphenhydramine HCl Confirm 12/08/18 23:12 Benadryl 50 Mg/Ml Administered 12/08/18 23:13 Dose 50 mg .ROUTE .STK-MED ONE Hydromorphone HCl 1 mg 12/08/18 21:22 12/08/18 21:30 Hydromorphone 1 Mg/Ml Ampule IV 12/08/18 21:23 1 mg STAT ONE Administration Hydromorphone HCl Confirm 12/08/18 21:28 Hydromorphone 1 Mg/Ml Ampule Administered 12/08/18 21:29 Dose 1 mg .ROUTE .STK-MED ONE Sodium Chloride 1,000 mls @ 999 mls/hr 12/08/18 20:44 12/08/18 21:57 Sodium Chloride 0.9% 1000 Ml IV 12/08/18 21:44 Infused .Q1H1M STA Infusion Sodium Chloride Confirm 12/08/18 20:53 Sodium Chloride 0.9% 1000 Ml Administered 12/08/18 20:54 Dose 1,000 mls @ ud .ROUTE .STK-MED ONE Sodium Chloride 1,000 mls @ 999 mls/hr 12/08/18 22:23 12/08/18 23:14 Sodium Chloride 0.9% 1000 Ml IV 12/08/18 23:23 999 mls/hr .Q1H1M STA Administration Sodium Chloride Confirm 12/08/18 22:31 Sodium Chloride 0.9% 1000 Ml Administered 12/08/18 22:32 Dose 1,000 mls @ ud .ROUTE .STK-MED ONE Metronidazole 500 mg 12/08/18 23:09 12/08/18 23:14 Flagyl 500 Mg PO 12/08/18 23:10 500 mg STAT ONE Administration Metronidazole Confirm 12/08/18 23:12 Flagyl 500 Mg Administered 12/08/18 23:13 Dose 500 mg .ROUTE .STK-MED ONE Ondansetron HCl 4 mg 12/08/18 20:44 12/08/18 20:56 Zofran 4 Mg/2 Ml Vial IV 12/08/18 20:45 4 mg STAT ONE Administration Ondansetron HCl Confirm 12/08/18 20:53 Zofran 4 Mg/2 Ml Vial Administered 12/08/18 20:54 Dose 4 mg .ROUTE .STK-MED ONE Lab/Rad Data: Laboratory Result Diagrams 12/08/18 20:55 12/08/18 20:55 Laboratory Results 12/08/18 12/08/18 12/08/18 Range/Units 20:55 20:55 20:55 WBC 15.1 H (4.0-10.5) K/mm3 RBC 4.46 (4.1-5.4) M/mm3 Hgb 13.6 (12.0-16.0) gm/dl Hct 40.6 (35-47) % MCV 91.0 (78-100) fl MCH 30.5 (26-32) pg MCHC 33.5 (32-36) g/dl RDW 13.6 (11.5-14.0) % Plt Count 351 (150-450) K/mm3 MPV 9.4 (6-9.5) fl Gran % 56.8 (36.0-66.0) % Eos # (Auto) 0.01 (0-0.5) Absolute Lymphs (auto) 5.30 H (1.0-4.6) Absolute Monos (auto) 1.18 (0.0-1.3) Lymphocytes % 35.2 (24.0-44.0) % Monocytes % 7.8 (0.0-12.0) % Eosinophils % 0.1 (0.00-5.0) % Basophils % 0.1 (0.0-0.4) % Absolute Granulocytes 8.56 H (1.4-6.9) Basophils # 0.01 (0-0.4) Sodium 138 (137-145) mmol/L Potassium 4.3 (3.5-5.1) mmol/L Chloride 98 (98-107) mmol/L Carbon Dioxide 30 (22-30) mmol/L Anion Gap 14.2 (5-15) MEQ/L BUN 14 (7-17) mg/dL Creatinine 0.90 (0.52-1.04) mg/dL Estimated GFR > 60.0 ML/MIN Glucose 152 H (74-106) mg/dL Lactic Acid 2.7 H (0.4-2.0) Calcium 9.4 (8.4-10.2) mg/dL Total Bilirubin 0.80 (0.2-1.3) mg/dL AST 15 (14-36) U/L ALT 23 (0-35) U/L Alkaline Phosphatase 90 (38-126) U/L Serum Total Protein 7.9 (6.3-8.2) g/dL Albumin 4.5 (3.5-5.0) g/dL Amylase 79 (30-110) U/L Lipase 70 (23-300) U/L Urine Color (YELLOW) Urine Appearance (CLEAR) Urine pH (5-6) Ur Specific [place] (1.005-1.025) Urine Protein (Negative) Urine Ketones (NEGATIVE) Urine Blood (0-5) Carloz/ul Urine Nitrite (NEGATIVE) Urine Bilirubin (NEGATIVE) Urine Urobilinogen (0-1) mg/dL Ur Leukocyte Esterase (NEGATIVE) Urine WBC (Auto) (0-5) /HPF Urine RBC (Auto) (0-2) /HPF U Epithel Cells (Auto) (FEW) /HPF Urine Bacteria (Auto) (NEGATIVE) /HPF Urine Mucus (Auto) (NEGATIVE) /HPF Urine Culture Reflexed (NO) Urine Glucose (NEGATIVE) mg/dL Urine HCG, Qual (Negative) Slides for Path Review YES 12/08/18 12/08/18 Range/Units 20:50 20:50 WBC (4.0-10.5) K/mm3 RBC (4.1-5.4) M/mm3 Hgb (12.0-16.0) gm/dl Hct (35-47) % MCV (78-100) fl MCH (26-32) pg MCHC (32-36) g/dl RDW (11.5-14.0) % Plt Count (150-450) K/mm3 MPV (6-9.5) fl Gran % (36.0-66.0) % Eos # (Auto) (0-0.5) Absolute Lymphs (auto) (1.0-4.6) Absolute Monos (auto) (0.0-1.3) Lymphocytes % (24.0-44.0) % Monocytes % (0.0-12.0) % Eosinophils % (0.00-5.0) % Basophils % (0.0-0.4) % Absolute Granulocytes (1.4-6.9) Basophils # (0-0.4) Sodium (137-145) mmol/L Potassium (3.5-5.1) mmol/L Chloride (98-107) mmol/L Carbon Dioxide (22-30) mmol/L Anion Gap (5-15) MEQ/L BUN (7-17) mg/dL Creatinine (0.52-1.04) mg/dL Estimated GFR ML/MIN Glucose (74-106) mg/dL Lactic Acid (0.4-2.0) Calcium (8.4-10.2) mg/dL Total Bilirubin (0.2-1.3) mg/dL AST (14-36) U/L ALT (0-35) U/L Alkaline Phosphatase (38-126) U/L Serum Total Protein (6.3-8.2) g/dL Albumin (3.5-5.0) g/dL Amylase (30-110) U/L Lipase (23-300) U/L Urine Color YELLOW (YELLOW) Urine Appearance SLIGHTLY CLOUDY (CLEAR) Urine pH 6.0 (5-6) Ur Specific [place] 1.009 (1.005-1.025) Urine Protein NEGATIVE (Negative) Urine Ketones NEGATIVE (NEGATIVE) Urine Blood MODERATE (0-5) Carloz/ul Urine Nitrite NEGATIVE (NEGATIVE) Urine Bilirubin NEGATIVE (NEGATIVE) Urine Urobilinogen NEGATIVE (0-1) mg/dL Ur Leukocyte Esterase NEGATIVE (NEGATIVE) Urine WBC (Auto) 3-5 (0-5) /HPF Urine RBC (Auto) 3-5 (0-2) /HPF U Epithel Cells (Auto) FEW (FEW) /HPF Urine Bacteria (Auto) NONE (NEGATIVE) /HPF Urine Mucus (Auto) SLIGHT (NEGATIVE) /HPF Urine Culture Reflexed NO (NO) Urine Glucose NEGATIVE (NEGATIVE) mg/dL Urine HCG, Qual NEGATIVE (Negative) Slides for Path Review - Progress Progress: improved, pain not gone completely, re-examined Progress Note: 12/08/18 23:28 ct abd/pelvis-ventral abd wall herne with small bowel. no dilation or obstruction. small bowel enteritis. 12/08/18 23:29 pt is feeling better. she states she can take norco without issues. pt has antinausea medicine at home. 12/08/18 23:32 i had a long d/w pt and her . they were feeling as though we were upset she came in again. i explained to them we would ask any pt who has been in the ED 4 times in 2 weeks what is different this time and ask if they have seen primary doctor. i told them if we did not think they should be here it would be made very clear and no workup would be performed. however, this was not the case with this patient. they voiced satisfaction with our discussion. additionally, they were told to always come into ED if they feel it necessary. They were told they should never be made to feel as though they should not be here. Counseled pt/family regarding: lab results, diagnosis, need for follow-up, rad results - Departure Time of Disposition: 23:29 Departure Disposition: Home Clinical Impression: Regional enteritis of small bowel Condition: Stable Critical Care Time: No Referrals: RAMESH FRENCH [Primary Care Provider] - Additional Instructions: drink plenty of clear liquids. continue your antibiotics and steroids as prescribed. keep your appointment with Dr. French. Return to ED if symptoms worsen. Prescriptions: Hydrocodone/APAP 5/325 [Qulin 5/325 mg] 1 each PO Q8H PRN PRN #10 tablet MDD 3 PRN Reason: Pain Metronidazole 500 mg [Flagyl 500 MG] 500 mg PO TID #21 tablet
[2018-12-08] MEDS ORDERED: Zofran 4 MG/2 ML VIAL ONE (20:53)
[2018-12-08] MEDS ORDERED: Sodium Chloride 0.9% 1000 ML 1,000 ML ONE ×2 (20:53→22:31)
[2018-12-08 21:03] LABS: BASOPHIL % 0.1 % (0.0-0.4); Basophil (Absolute #) 0.01 (0-0.4); Eosinophil % 0.1 % (0.00-5.0); Eosinophil (Absolute #) 0.01 (0-0.5); Granulocyte Absolute (ANC) 8.56 (1.4-6.9); Granulocytes % 56.8 % (36.0-66.0); Hematocrit 40.6 % (35-47); Hemoglobin 13.6 gm/dl (12.0-16.0); Lymphocytes % 35.2 % (24.0-44.0); Mean Corpuscular Hemoglobin 30.5 pg (26-32); Mean Corpuscular Hgb Concent. 33.5 g/dl (32-36); Mean Platelet Volume 9.4 fl (6-9.5); Monocyte (Absolute #) 1.18 (0.0-1.3); Monocytes % 7.8 % (0.0-12.0); Platelet Count 351 K/mm3 (150-450); Red Blood Count 4.46 M/mm3 (4.1-5.4); Red Cell Distribution Width 13.6 % (11.5-14.0); White Blood Count 15.1 K/mm3 (4.0-10.5)
[2018-12-08 21:04] LABS: Lactic Acid 2.7 (0.4-2.0)
[2018-12-08 21:15] LABS: Appearance SLIGHTLY CLOUDY (CLEAR); Bilirubin NEGATIVE (NEGATIVE); Blood MODERATE Ery/ul (0-5); Epithelial Cells FEW /HPF (FEW); Glucose NEGATIVE (NEGATIVE); Ketones NEGATIVE (NEGATIVE); Leukocyte Esterase NEGATIVE (NEGATIVE); Mucus SLIGHT /HPF (NEGATIVE); Nitrite NEGATIVE (NEGATIVE); Protein,Urine Dip NEGATIVE (Negative); Specific Gravity 1.009 (1.005-1.025); Urobilinogen NEGATIVE mg/dL (0-1)
[2018-12-08 21:17] LABS: ALBUMIN 4.5 g/dL (3.5-5.0); ALKALINE PHOSPHATASE 90 U/L (38-126); AMYLASE 79 U/L (30-110); ANION GAP 14.2 MEQ/L (5-15); BLOOD UREA NITROGEN 14 mg/dL (7-17); CHLORIDE 98 mmol/L (98-107); Calcium 9.4 mg/dL (8.4-10.2); Carbon Dioxide 30 mmol/L (22-30); Glucose 152 mg/dL (74-106); LIPASE 70 U/L (23-300); Potassium 4.3 mmol/L (3.5-5.1); SGOT/AST 15 U/L (14-36); SGPT/ALT 23 U/L (0-35); SODIUM 138 mmol/L (137-145); Total Protein 7.9 g/dL (6.3-8.2)
[2018-12-08] MEDS ORDERED: Hydromorphone 1 mg/ml Ampule IV ONE (21:22)
[2018-12-08] MEDS ORDERED: Hydromorphone 1 mg/ml Ampule ONE (21:28)
[2018-12-08 22:31] LABS: Slide Review 1 YES
[2018-12-08] MEDS ORDERED: BENADRYL 50 MG/ML IV ONE (23:08)
[2018-12-08] MEDS ORDERED: Flagyl 500 MG PO ONE (23:09)
[2018-12-08] MEDS ORDERED: Flagyl 500 MG ONE (23:12)
[2018-12-08] MEDS ORDERED: BENADRYL 50 MG/ML ONE (23:12)
[2018-12-08 23:49] LABS: Lactic Acid 2.5 (0.4-2.0)
[2018-12-08 23:55] VITALS: O2SAT 100
[2018-12-09 00:29] VITALS: BP 123/78; PULSE 75
--- NOTE | 2018-12-09 09:02 | XRAY ---
Indication: Epigastric pain. Flu symptoms. Elevated WBC. Multiple contiguous axial images obtained through the abdomen and pelvis without contrast as ordered. Comparison: May 24, 2018. Lung bases remain clear. Heart is not enlarged. Stomach is distended with food/fluid. Noncontrasted stomach and bowel loops appear nonobstructed with stable descending/sigmoid diverticulosis. There is mild diffuse scattered colonic fecal debris throughout. Stable failed large infraumbilical ventral hernia repair again with herniated omental fat, mesh graft, and small bowel loops without incarceration/obstruction. New 2.8 cm left ovary cyst. No free fluid/air. Gallbladder contracted without gallstones. Stable fatty liver. Remaining liver, gallbladder, pancreas, spleen, adrenal glands, kidneys, ureters, bladder, and uterus appear unremarkable for noncontrast exam. Again minimal aortic calcifications without AAA. Osseous structures intact with stable moderate double curvature scoliosis. Impression: 1. Grossly stable failed large infraumbilical ventral hernia repair again with herniated omental fat, mesh graft, and bowel loops. No complications. 2. New 2.8 cm left ovary cyst. 3. Mild diffuse fecal stasis with stable colonic diverticulosis. 4. Stable fatty liver. Comment: Preliminary interpretation was made by [facility]. No critical discrepancy. CT DI 23.68
== END 2018-12-09 00:34 | disposition home or self-care (01) ==
LOC: ED 20:36
DX: K52.9 Noninfective gastroenteritis and colitis, unspecified (principal); E11.9 Type 2 diabetes mellitus without complications; E78.00 Pure hypercholesterolemia, unspecified; J45.909 Unspecified asthma, uncomplicated; F41.9 Anxiety disorder, unspecified; F32.9 Major depressive disorder, single episode, unspecified; Z79.4 Long term (current) use of insulin; Z79.899 Other long term (current) drug therapy
CPT/HCPCS: 36000; 36415; 74176; 80053; 81001; 82150; 83605; 83690; 84703; 85025; 96360; 96361; 96374; 96375; 99284; J1170; J1200; J2405; A9270-GY

== ENCOUNTER 2018-12-15 10:54 | Emergency (ER) | payer OTHER ==
[2018-12-15] MEDS ORDERED: BABY ASPIRIN 81 MG CHEW PO ONE (11:13)
--- NOTE | 2018-12-15 11:27 | ERPHSYRPT ---
- History of Present Illness Time Seen by Provider: 12/15/18 11:10 Historian: patient Exam Limitations: no limitations Patient Subjective Stated Complaint: CP x 2 days. pain increases with breathing.. states has a hiatal hernia which she is going to have a scope scheduled.. she has had this problems for a while got bad last night Triage Nursing Assessment: alert and oriented with c/o CP x 2 days. increases with cough andf deep breathing. states pain midchest and feels tight. states has had a cough but doersnt feel it is a reason for CP. in no distress. no n/v non radiating. Physician History: 38 y/o morbidly obese white female presents with chronic recurrent cp. pt seen here in ED several times for recurrent cp and abd pain. pt told she has a hiatal hernia. pt does have h/o ventral hernia. pt has an appt on January 07 with her pcp to discuss possible referral to gi specialist. Activities at Onset: none Quality: sharpness, stabbing Location: substernal Chest Pain Radiation: arm (left), back Severity of Pain-Max: moderate Severity of Pain-Current: mild Modifying Factors: Improves With: nothing Associated Symptoms: denies symptoms Prior Chest Pain/Cardiac Workup: recently seen/treated Nitro Today/Relief: no nitro taken today Aspirin Treatment Today: provided by ED Allergies/Adverse Reactions: omeprazole [From Prilosec] Allergy (Severe, Verified 12/15/18 11:13) Hives Home Medications: Metformin HCl 1,000 mg PO BID 08/04/17 [History] Loratadine 10 mg [Claritin 10 mg] 10 mg PO DAILY 05/23/18 [History] Famotidine 20 mg [Pepcid 20 MG] 20 mg PO BID 08/27/18 [History] Fluticasone/Salmeterol [Advair 250-50 Diskus] 1 each IN DAILY 12/08/18 [History] Hx Tetanus, Diphtheria Vaccination/Date Given: Yes Hx Influenza Vaccination/Date Given: Yes Hx Pneumococcal Vaccination/Date Given: No - Review of Systems Constitutional: No Symptoms Eyes: No Symptoms Ears, Nose, & Throat: No Symptoms Respiratory: No Symptoms Cardiac: Chest Pain Abdominal/Gastrointestinal: No Symptoms Genitourinary Symptoms: No Symptoms Musculoskeletal: No Symptoms Skin: No Symptoms Neurological: No Symptoms Psychological: No Symptoms Endocrine: No Symptoms Hematologic/Lymphatic: No Symptoms Immunological/Allergic: No Symptoms All Other Systems: Reviewed and Negative - Past Medical History Pertinent Past Medical History: Yes Neurological History: No Pertinent History ENT History: No Pertinent History Cardiac History: High Cholesterol Respiratory History: Asthma Endocrine Medical History: Diabetes Type II Musculoskeletal History: Arthritis GI Medical History: GERD History: No Pertinent History Psycho-Social History: Anxiety, Depression Female Reproductive Disorders: Other Other Medical History: scoliosis - Past Surgical History Past Surgical History: Yes Neuro Surgical History: No Pertinent History Cardiac: No Pertinent History Respiratory: No Pertinent History Gastrointestinal: Hernia Repair Genitourinary: No Pertinent History Musculoskeletal: No Pertinent History Female Surgical History: Section Other Surgical History: 2 hernia repair,ear tubes, left ear drum,T&A - Social History Smoking Status: Never smoker Exposure to second hand smoke: No Alcohol Use: None Drug Use: none Patient Lives Alone: No Significant Family History: diabetes, hypertension - Female History Hx Now: No - Nursing Vital Signs Nursing Vital Signs: Initial Vital Signs Temperature 97.5 F 12/15/18 11:05 Pulse Rate 81 12/15/18 11:05 Respiratory Rate 18 12/15/18 11:05 Blood Pressure 130/112 12/15/18 11:05 O2 Sat by Pulse Oximetry 97 12/15/18 11:05 Pain Scale Pain Intensity 3 - Physical Exam General Appearance: no apparent distress, alert, anxiety Eye Exam: PERRL/EOMI Ears, Nose, Throat Exam: normal ENT inspection, moist mucous membranes Neck Exam: normal inspection, non-tender, supple, full range of motion Respiratory Exam: normal breath sounds, chest tenderness, lungs clear, airway intact, No respiratory distress Cardiovascular Exam: regular rate/rhythm, normal heart sounds, normal peripheral pulses Pelvic Exam: not done Rectal Exam: not done Back Exam: normal inspection, normal range of motion, No CVA tenderness, No vertebral tenderness Extremity Exam: normal inspection, normal range of motion, pelvis stable Neurologic Exam: alert, oriented x 3, cooperative, 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 nurse II-XII 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 as tested Skin Exam: normal color, warm, dry Lymphatic Exam: No adenopathy SpO2 Interpretation: normal SpO2: 97 O2 Delivery: Room Air - Course Nursing assessment & vital signs reviewed: Yes EKG Interpreted by Me: RATE (74), NORMAL AXIS, NORMAL INTERVALS, NORMAL QRS, NORMAL ST-T, Other (no change from ekg dated 08/28/18) Ordered Tests: Active Orders 24 hr Category Date Time Status Rn Invasive STAT Care 12/15/18 11:14 Active EKG-ER Only STAT Care 12/15/18 11:13 Active IV Insertion STAT Care 12/15/18 11:13 Active Pulse Oximetry (ED) STAT Care 12/15/18 11:13 Active BMP Stat Lab 12/15/18 11:23 Completed CBC W DIFF Stat Lab 12/15/18 11:23 Completed D-DIMER QUANTITATION Stat Lab 12/15/18 12:00 Completed TROPONIN Q3H Lab 12/15/18 11:23 Completed TROPONIN Q3H Lab 12/15/18 14:15 Ordered TROPONIN Q3H Lab 12/15/18 17:15 Ordered TROPONIN Q3H Lab 12/15/18 20:15 Ordered TROPONIN Q3H Lab 12/15/18 23:15 Ordered Medication Summary Discontinued Medications Generic Name Dose Route Start Last Admin Trade Name Freq PRN Reason Stop Dose Admin Aspirin 324 mg 12/15/18 11:13 12/15/18 11:33 Baby Aspirin 81 Mg Chew PO 12/15/18 11:14 324 mg STAT ONE Administration Aspirin Confirm 12/15/18 11:32 Baby Aspirin 81 Mg Chew Administered 12/15/18 11:33 Dose 324 mg .ROUTE .STK-MED ONE Lab/Rad Data: Laboratory Result Diagrams 12/15/18 11:23 12/15/18 11:23 Laboratory Results 12/15/18 12/15/18 12/15/18 Range/Units 12:00 11:23 11:23 WBC (4.0-10.5) K/mm3 RBC (4.1-5.4) M/mm3 Hgb (12.0-16.0) gm/dl Hct (35-47) % MCV (78-100) fl MCH (26-32) pg MCHC (32-36) g/dl RDW (11.5-14.0) % Plt Count (150-450) K/mm3 MPV (6-9.5) fl Gran % (36.0-66.0) % Eos # (Auto) (0-0.5) Absolute Lymphs (auto) (1.0-4.6) Absolute Monos (auto) (0.0-1.3) Lymphocytes % (24.0-44.0) % Monocytes % (0.0-12.0) % Eosinophils % (0.00-5.0) % Basophils % (0.0-0.4) % Absolute Granulocytes (1.4-6.9) Basophils # (0-0.4) D-Dimer 343 (215-500) ng/mL Sodium 137 (137-145) mmol/L Potassium 4.2 (3.5-5.1) mmol/L Chloride 105 (98-107) mmol/L Carbon Dioxide 24 (22-30) mmol/L Anion Gap 12.9 (5-15) MEQ/L BUN 12 (7-17) mg/dL Creatinine 0.76 (0.52-1.04) mg/dL Estimated GFR > 60.0 ML/MIN Glucose 137 H (74-106) mg/dL Calcium 9.9 (8.4-10.2) mg/dL Troponin I < 0.012 (0.000-0.034) ng/mL 12/15/18 Range/Units 11:23 WBC 7.7 (4.0-10.5) K/mm3 RBC 4.37 (4.1-5.4) M/mm3 Hgb 13.6 (12.0-16.0) gm/dl Hct 39.8 (35-47) % MCV 91.1 (78-100) fl MCH 31.1 (26-32) pg MCHC 34.2 (32-36) g/dl RDW 13.6 (11.5-14.0) % Plt Count 285 (150-450) K/mm3 MPV 9.6 H (6-9.5) fl Gran % 48.3 (36.0-66.0) % Eos # (Auto) 0.07 (0-0.5) Absolute Lymphs (auto) 3.21 (1.0-4.6) Absolute Monos (auto) 0.68 (0.0-1.3) Lymphocytes % 41.6 (24.0-44.0) % Monocytes % 8.8 (0.0-12.0) % Eosinophils % 0.9 (0.00-5.0) % Basophils % 0.4 (0.0-0.4) % Absolute Granulocytes 3.72 (1.4-6.9) Basophils # 0.03 (0-0.4) D-Dimer (215-500) ng/mL Sodium (137-145) mmol/L Potassium (3.5-5.1) mmol/L Chloride (98-107) mmol/L Carbon Dioxide (22-30) mmol/L Anion Gap (5-15) MEQ/L BUN (7-17) mg/dL Creatinine (0.52-1.04) mg/dL Estimated GFR ML/MIN Glucose (74-106) mg/dL Calcium (8.4-10.2) mg/dL Troponin I (0.000-0.034) ng/mL - Progress Progress: improved, re-examined Air Movement: good Progress Note: 12/15/18 12:20 no cp, no soa Blood Culture(s) Obtained: No Antibiotics given: No Counseled pt/family regarding: lab results, diagnosis, need for follow-up - Departure Time of Disposition: 12:58 Departure Disposition: Home Clinical Impression: Chest tightness or pressure Condition: Stable Critical Care Time: No Referrals: RAMESH GARCIA [Primary Care Provider] - Additional Instructions: avoid fatty, greasy spicy foods. follow up with primary doctor for further management
[2018-12-15 11:30] LABS: BASOPHIL % 0.4 % (0.0-0.4); Basophil (Absolute #) 0.03 (0-0.4); Eosinophil % 0.9 % (0.00-5.0); Eosinophil (Absolute #) 0.07 (0-0.5); Granulocyte Absolute (ANC) 3.72 (1.4-6.9); Granulocytes % 48.3 % (36.0-66.0); Hematocrit 39.8 % (35-47); Hemoglobin 13.6 gm/dl (12.0-16.0); Lymphocyte (Absolute #) 3.21 (1.0-4.6); Lymphocytes % 41.6 % (24.0-44.0); Mean Cell Volume 91.1 fl (78-100); Mean Corpuscular Hemoglobin 31.1 pg (26-32); Mean Corpuscular Hgb Concent. 34.2 g/dl (32-36); Mean Platelet Volume 9.6 fl (6-9.5); Monocyte (Absolute #) 0.68 (0.0-1.3); Monocytes % 8.8 % (0.0-12.0); Platelet Count 285 K/mm3 (150-450); Red Blood Count 4.37 M/mm3 (4.1-5.4); Red Cell Distribution Width 13.6 % (11.5-14.0); White Blood Count 7.7 K/mm3 (4.0-10.5)
[2018-12-15] MEDS ORDERED: BABY ASPIRIN 81 MG CHEW ONE (11:32)
[2018-12-15 11:40] LABS: ANION GAP 12.9 MEQ/L (5-15); BLOOD UREA NITROGEN 12 mg/dL (7-17); CHLORIDE 105 mmol/L (98-107); Calcium 9.9 mg/dL (8.4-10.2); Carbon Dioxide 24 mmol/L (22-30); Creatinine 1 0.76 mg/dL (0.52-1.04); Glucose 137 mg/dL (74-106); Potassium 4.2 mmol/L (3.5-5.1); SODIUM 137 mmol/L (137-145)
[2018-12-15 13:19] VITALS: BP 123/83; PULSE 73; O2SAT 100
== END 2018-12-15 13:19 | disposition home or self-care (01) ==
LOC: ED 10:54
DX: R07.89 Other chest pain (principal); E78.00 Pure hypercholesterolemia, unspecified; J45.909 Unspecified asthma, uncomplicated; E11.9 Type 2 diabetes mellitus without complications; M19.90 Unspecified osteoarthritis, unspecified site; K21.9 Gastro-esophageal reflux disease without esophagitis; F41.8 Other specified anxiety disorders
CPT/HCPCS: 36000; 36415; 80048; 84484; 85025; 85379; 93005; 93041; 99284; A9270-GY

== ENCOUNTER 2019-01-01 19:28 | Emergency (ER) | payer OTHER ==
[2019-01-01] MEDS ORDERED: Zofran 4 MG/2 ML VIAL ONE (19:52)
[2019-01-01] MEDS ORDERED: Sodium Chloride 0.9% 1000 ML 1,000 ML ONE (19:53)
--- NOTE | 2019-01-01 19:56 | ERPHSYRPT ---
- History of Present Illness Time Seen by Provider: 01/01/19 19:47 Historian: patient Exam Limitations: no limitations Patient Subjective Stated Complaint: pt states she has vomited multiple times in the last half hour and has not been unable to keep anything down. Triage Nursing Assessment: pt alert and oriented, answers questions approp. pt ambulatory with steady gait noted. respirations nonlabored with lungs cta. abd soft and nontender with bowel sounds present x4. pt states she has been passsing flatus. bowel movements normal. skin pink warm and dry. Physician History: 38-year-old morbidly obese white female with history of hyperlipidemia asthma, diabetes type 2, reflux, arrives with complaint of vomiting for approximately one half hour prior to arrival she states she cannot keep anything down she has no abdominal pain no fevers. Past medical history includes hyperlipidemia, asthma, diabetes type 2, arthritis , GERD, anxiety, depression, scoliosis. Past surgical history includes , myringotomy tubes, left eardrum surgery, tonsillectomy and adenoidectomy. Social history patient denies tobacco alcohol or illicit drug use Timing/Duration: today (one half hour prior to arrival) Activities at Onset: none Quality: other (No pain) Abdominal Pain Onset Location: other (no pain) Severity of Pain-Max: none Severity of Pain-Current: none Associated Symptoms: nausea, vomiting, No back, No chest pain, No diaphoresis, No fever/chills, No fatigue, No headache, No heartburn, No loss of appetite, No neck pain, No rash, No shortness of breath, No syncope Previous symptoms: other (patient with frequent presentation secondary to abdominal pain) Allergies/Adverse Reactions: omeprazole [From Prilosec] Allergy (Severe, Verified 01/01/19 19:45) Hives Home Medications: Metformin HCl 1,000 mg PO BID 08/04/17 [History] Loratadine 10 mg [Claritin 10 mg] 10 mg PO DAILY 05/23/18 [History] Famotidine 20 mg [Pepcid 20 MG] 20 mg PO BID 08/27/18 [History] Fluticasone/Salmeterol [Advair 250-50 Diskus] 1 each IN DAILY 12/08/18 [History] Hx Tetanus, Diphtheria Vaccination/Date Given: Yes Hx Influenza Vaccination/Date Given: Yes Hx Pneumococcal Vaccination/Date Given: No Immunizations Up to Date: Yes - Review of Systems Constitutional: No Fever, No Chills Eyes: No Symptoms Ears, Nose, & Throat: No Symptoms Respiratory: No Cough, No Dyspnea Cardiac: No Chest Pain, No Edema, No Syncope Abdominal/Gastrointestinal: Nausea, Vomiting, No Abdominal Pain, No Diarrhea, No Constipation, No Hematemesis, No Hematochezia, No Melena, No Dysphagia, No Appetite Changes Genitourinary Symptoms: No Dysuria Musculoskeletal: No Back Pain, No Neck Pain Skin: No Rash Neurological: No Dizziness, No Focal Weakness, No Sensory Changes Psychological: No Symptoms Endocrine: No Symptoms All Other Systems: Reviewed and Negative - Past Medical History Pertinent Past Medical History: Yes Neurological History: No Pertinent History ENT History: No Pertinent History Cardiac History: High Cholesterol Respiratory History: Asthma Endocrine Medical History: Diabetes Type II Musculoskeletal History: Arthritis GI Medical History: GERD History: No Pertinent History Psycho-Social History: Anxiety, Depression Female Reproductive Disorders: Other Other Medical History: scoliosis - Past Surgical History Past Surgical History: Yes Neuro Surgical History: No Pertinent History Cardiac: No Pertinent History Respiratory: No Pertinent History Gastrointestinal: Hernia Repair Genitourinary: No Pertinent History Musculoskeletal: No Pertinent History Female Surgical History: Section Other Surgical History: 2 hernia repair,ear tubes, left ear drum,T&A - Social History Smoking Status: Never smoker Exposure to second hand smoke: No Alcohol Use: None Drug Use: none Patient Lives Alone: No Significant Family History: diabetes, hypertension - Female History Hx Last Menstrual Period: begining of this month Hx Now: No (possibilty) - Nursing Vital Signs Nursing Vital Signs: Initial Vital Signs Temperature 98.5 F 01/01/19 19:36 Pulse Rate 94 H 01/01/19 19:36 Respiratory Rate 18 01/01/19 19:36 Blood Pressure 140/88 01/01/19 19:36 O2 Sat by Pulse Oximetry 97 01/01/19 19:36 Pain Scale Pain Intensity 0 - Physical Exam General Appearance: no apparent distress, alert, obese Eye Exam: PERRL/EOMI, eyes nml inspection Ears, Nose, Throat Exam: normal ENT inspection, pharynx normal, moist mucous membranes Neck Exam: normal inspection, non-tender, supple, full range of motion Respiratory Exam: normal breath sounds, lungs clear, No respiratory distress Cardiovascular Exam: regular rate/rhythm, normal heart sounds, capillary refill <2 sec Gastrointestinal/Abdomen Exam: soft, No tenderness, No mass Back Exam: normal inspection, normal range of motion, No CVA tenderness, No vertebral tenderness Extremity Exam: normal inspection, normal range of motion, pelvis stable Neurologic Exam: alert, oriented x 3, cooperative, computing tutor II-XII nml as tested ( lungs), normal mood/affect, nml cerebellar function, sensation nml, No motor deficits Skin Exam: normal color, warm, dry SpO2 Interpretation: normal (97%) SpO2: 97 - Course Nursing assessment & vital signs reviewed: Yes Ordered Tests: Active Orders 24 hr Category Date Time Status ACCUCHECK [Accucheck] STAT Care 01/01/19 19:45 Active IV Insertion STAT Care 01/01/19 19:45 Active AMYLASE Stat Lab 01/01/19 20:05 Completed CBC W DIFF Stat Lab 01/01/19 20:05 Completed CMP Stat Lab 01/01/19 20:05 Completed CULTURE,URINE Stat Lab 01/01/19 19:50 Received HCG QUALITATIVE,SERUM Stat Lab 01/01/19 20:05 Completed LIPASE Stat Lab 01/01/19 20:05 Completed UA W/RFX UR CULTURE Stat Lab 01/01/19 19:50 Completed Medication Summary Generic Name Dose Route Start Last Admin Trade Name Freq PRN Reason Stop Dose Admin Sodium Chloride 1,000 mls @ 999 mls/hr 01/01/19 19:50 01/01/19 19:57 Sodium Chloride 0.9% 1000 Ml IV 01/01/19 20:50 999 mls/hr .Q1H1M STA Administration Ceftriaxone Sodium/Dextrose 1 g in 50 mls @ 100 mls/hr 01/01/19 20:30 Rocephin 1 Gm-D5w 50 Ml Bag IV 01/01/19 20:59 STAT STA Discontinued Medications Generic Name Dose Route Start Last Admin Trade Name Freq PRN Reason Stop Dose Admin Sodium Chloride Confirm 01/01/19 19:53 Sodium Chloride 0.9% 1000 Ml Administered 01/01/19 19:54 Dose 1,000 mls @ ud .ROUTE .STK-MED ONE Ceftriaxone Sodium/Dextrose Confirm 01/01/19 20:38 Rocephin 1 Gm-D5w 50 Ml Bag Administered 01/01/19 20:39 Dose 1 g in 50 mls @ ud IV .STK-MED ONE Ondansetron HCl 4 mg 01/01/19 19:50 01/01/19 19:57 Zofran 4 Mg/2 Ml Vial IV 01/01/19 19:51 4 mg STAT ONE Administration Ondansetron HCl Confirm 01/01/19 19:52 Zofran 4 Mg/2 Ml Vial Administered 01/01/19 19:53 Dose 4 mg .ROUTE .STK-MED ONE Lab/Rad Data: Laboratory Result Diagrams 01/01/19 20:05 01/01/19 20:05 Laboratory Results 01/01/19 01/01/19 01/01/19 Range/Units 20:05 20:05 20:05 WBC 9.2 (4.0-10.5) K/mm3 RBC 4.15 (4.1-5.4) M/mm3 Hgb 12.9 (12.0-16.0) gm/dl Hct 38.0 (35-47) % MCV 91.6 (78-100) fl MCH 31.1 (26-32) pg MCHC 33.9 (32-36) g/dl RDW 13.5 (11.5-14.0) % Plt Count 316 (150-450) K/mm3 MPV 9.0 (6-9.5) fl Gran % 50.9 (36.0-66.0) % Eos # (Auto) 0.09 (0-0.5) Absolute Lymphs (auto) 3.84 (1.0-4.6) Absolute Monos (auto) 0.57 (0.0-1.3) Lymphocytes % 41.7 (24.0-44.0) % Monocytes % 6.2 (0.0-12.0) % Eosinophils % 1.0 (0.00-5.0) % Basophils % 0.2 (0.0-0.4) % Absolute Granulocytes 4.68 (1.4-6.9) Basophils # 0.02 (0-0.4) Sodium 139 (137-145) mmol/L Potassium 4.0 (3.5-5.1) mmol/L Chloride 101 (98-107) mmol/L Carbon Dioxide 27 (22-30) mmol/L Anion Gap 14.9 (5-15) MEQ/L BUN 6 L (7-17) mg/dL Creatinine 0.91 (0.52-1.04) mg/dL Estimated GFR > 60.0 ML/MIN Glucose 144 H (74-106) mg/dL Calcium 9.6 (8.4-10.2) mg/dL Total Bilirubin 0.70 (0.2-1.3) mg/dL AST 36 (14-36) U/L ALT 34 (0-35) U/L Alkaline Phosphatase 103 (38-126) U/L Serum Total Protein 7.3 (6.3-8.2) g/dL Albumin 4.0 (3.5-5.0) g/dL Amylase 73 (30-110) U/L Lipase 45 (23-300) U/L Serum , Qual NEGATIVE (Negative) Urine Color (YELLOW) Urine Appearance (CLEAR) Urine pH (5-6) Ur Specific [place] (1.005-1.025) Urine Protein (Negative) Urine Ketones (NEGATIVE) Urine Blood (0-5) Carloz/ul Urine Nitrite (NEGATIVE) Urine Bilirubin (NEGATIVE) Urine Urobilinogen (0-1) mg/dL Ur Leukocyte Esterase (NEGATIVE) Urine WBC (Auto) (0-5) /HPF Urine RBC (Auto) (0-2) /HPF U Epithel Cells (Auto) (FEW) /HPF Urine Bacteria (Auto) (NEGATIVE) /HPF Urine Mucus (Auto) (NEGATIVE) /HPF Urine Culture Reflexed (NO) Urine Glucose (NEGATIVE) mg/dL 01/01/19 Range/Units 19:50 WBC (4.0-10.5) K/mm3 RBC (4.1-5.4) M/mm3 Hgb (12.0-16.0) gm/dl Hct (35-47) % MCV (78-100) fl MCH (26-32) pg MCHC (32-36) g/dl RDW (11.5-14.0) % Plt Count (150-450) K/mm3 MPV (6-9.5) fl Gran % (36.0-66.0) % Eos # (Auto) (0-0.5) Absolute Lymphs (auto) (1.0-4.6) Absolute Monos (auto) (0.0-1.3) Lymphocytes % (24.0-44.0) % Monocytes % (0.0-12.0) % Eosinophils % (0.00-5.0) % Basophils % (0.0-0.4) % Absolute Granulocytes (1.4-6.9) Basophils # (0-0.4) Sodium (137-145) mmol/L Potassium (3.5-5.1) mmol/L Chloride (98-107) mmol/L Carbon Dioxide (22-30) mmol/L Anion Gap (5-15) MEQ/L BUN (7-17) mg/dL Creatinine (0.52-1.04) mg/dL Estimated GFR ML/MIN Glucose (74-106) mg/dL Calcium (8.4-10.2) mg/dL Total Bilirubin (0.2-1.3) mg/dL AST (14-36) U/L ALT (0-35) U/L Alkaline Phosphatase (38-126) U/L Serum Total Protein (6.3-8.2) g/dL Albumin (3.5-5.0) g/dL Amylase (30-110) U/L Lipase (23-300) U/L Serum , Qual (Negative) Urine Color YELLOW (YELLOW) Urine Appearance SLIGHTLY CLOUDY (CLEAR) Urine pH 7.0 (5-6) Ur Specific [place] 1.014 (1.005-1.025) Urine Protein NEGATIVE (Negative) Urine Ketones NEGATIVE (NEGATIVE) Urine Blood MODERATE (0-5) Carloz/ul Urine Nitrite NEGATIVE (NEGATIVE) Urine Bilirubin NEGATIVE (NEGATIVE) Urine Urobilinogen 2 (0-1) mg/dL Ur Leukocyte Esterase LARGE (NEGATIVE) Urine WBC (Auto) 26-50 (0-5) /HPF Urine RBC (Auto) 6-10 (0-2) /HPF U Epithel Cells (Auto) RARE (FEW) /HPF Urine Bacteria (Auto) FEW (NEGATIVE) /HPF Urine Mucus (Auto) SLIGHT (NEGATIVE) /HPF Urine Culture Reflexed YES (NO) Urine Glucose NEGATIVE (NEGATIVE) mg/dL - Progress Progress: improved Progress Note: 01/01/19 20:42 38-year-old morbidly obese white female with history of frequent presentations to the emergency room secondary to abdominal pain arrives with complaint of nausea and vomiting symptoms one half hour prior to arrival. On physical examination abdomen is nontender positive bowel sounds. Patient does have a UTI on laboratory tests CBC CMP hCG home essentially normal. Patient given Rocephin 1 g IV, Zofran, normal saline 1 L patient improved.. Patient will be sent home with prescription for Bactrim DS one orally twice a day for 10 days will write for Zofran. Patient to take plenty of fluids. - Departure Departure Disposition: Home Clinical Impression: Vomiting Qualifiers: Vomiting type: unspecified Vomiting Intractability: non-intractable Nausea presence: with nausea Qualified Code(s): R11.2 - Nausea with vomiting, unspecified UTI (urinary tract infection) Qualifiers: Urinary tract infection type: acute cystitis Hematuria presence: without hematuria Qualified Code(s): N30.00 - Acute cystitis without hematuria Condition: Fair Critical Care Time: No Referrals: RAMESH GARCIA [Primary Care Provider] - Instructions: Vomiting -- Adult Additional Instructions: Return home. Plenty of fluids clear fluids only 24-48 hours if nausea vomiting or abdominal pain. Bactrim as prescribed. Zofran as prescribed. Follow-up with your family doctor. Return for acute distress or for severe symptoms. Prescriptions: Ondansetron ODT 4 MG [Zofran Odt 4 mg] 4 mg PO Q6H PRN PRN #10 tab.rapdis PRN Reason: nausea or vomiting Smz/Tmp Ds Tablet [Bactrim Ds Tablet] 1 tab PO BID #20 tablet
[2019-01-01] MEDS: Sodium Chloride 0.9% 1000 ML 1,000 ML IV STA (19:57)
[2019-01-01] MEDS: Zofran 4 MG/2 ML VIAL IV ONE (19:57)
[2019-01-01 20:11] LABS: BASOPHIL % 0.2 % (0.0-0.4); Basophil (Absolute #) 0.02 (0-0.4); Eosinophil (Absolute #) 0.09 (0-0.5); Granulocyte Absolute (ANC) 4.68 (1.4-6.9); Granulocytes % 50.9 % (36.0-66.0); Hemoglobin 12.9 gm/dl (12.0-16.0); Lymphocyte (Absolute #) 3.84 (1.0-4.6); Lymphocytes % 41.7 % (24.0-44.0); Mean Cell Volume 91.6 fl (78-100); Mean Corpuscular Hemoglobin 31.1 pg (26-32); Mean Corpuscular Hgb Concent. 33.9 g/dl (32-36); Monocyte (Absolute #) 0.57 (0.0-1.3); Monocytes % 6.2 % (0.0-12.0); Platelet Count 316 K/mm3 (150-450); Red Blood Count 4.15 M/mm3 (4.1-5.4); Red Cell Distribution Width 13.5 % (11.5-14.0); White Blood Count 9.2 K/mm3 (4.0-10.5)
[2019-01-01 20:14] VITALS: PULSE 88
[2019-01-01 20:16] LABS: Appearance SLIGHTLY CLOUDY (CLEAR); Bacteria FEW /HPF (NEGATIVE); Bilirubin NEGATIVE (NEGATIVE); Blood MODERATE Ery/ul (0-5); Epithelial Cells RARE /HPF (FEW); Glucose NEGATIVE (NEGATIVE); Ketones NEGATIVE (NEGATIVE); Leukocyte Esterase LARGE (NEGATIVE); Mucus SLIGHT /HPF (NEGATIVE); Nitrite NEGATIVE (NEGATIVE); Protein,Urine Dip NEGATIVE (Negative); Specific Gravity 1.014 (1.005-1.025); Urobilinogen 2 mg/dL (0-1); WBC 26-50 /HPF (0-5)
[2019-01-01 20:38] LABS: ALKALINE PHOSPHATASE 103 U/L (38-126); AMYLASE 73 U/L (30-110); ANION GAP 14.9 MEQ/L (5-15); BLOOD UREA NITROGEN 6 mg/dL (7-17); CHLORIDE 101 mmol/L (98-107); Calcium 9.6 mg/dL (8.4-10.2); Carbon Dioxide 27 mmol/L (22-30); Creatinine 1 0.91 mg/dL (0.52-1.04); Glucose 144 mg/dL (74-106); LIPASE 45 U/L (23-300); SGOT/AST 36 U/L (14-36); SGPT/ALT 34 U/L (0-35); SODIUM 139 mmol/L (137-145); Total Protein 7.3 g/dL (6.3-8.2)
[2019-01-01] MEDS ORDERED: ROCEPHIN 1 Gm-D5w 50 ml Bag** 1 G/50 ML IVPB IV ONE (20:38)
[2019-01-01] MEDS: ROCEPHIN 1 Gm-D5w 50 ml Bag** 1 G/50 ML IVPB IV STA (20:42)
[2019-01-01 20:47] VITALS: BP 120/83; O2SAT 97
== END 2019-01-01 21:06 | disposition home or self-care (01) ==
LOC: ED 19:28
DX: R11.2 Nausea with vomiting, unspecified (principal); N30.00 Acute cystitis without hematuria; E78.00 Pure hypercholesterolemia, unspecified; E78.5 Hyperlipidemia, unspecified; E11.9 Type 2 diabetes mellitus without complications; Z79.4 Long term (current) use of insulin; J45.909 Unspecified asthma, uncomplicated; K21.9 Gastro-esophageal reflux disease without esophagitis; M19.90 Unspecified osteoarthritis, unspecified site; M41.9 Scoliosis, unspecified; Z79.899 Other long term (current) drug therapy
CPT/HCPCS: 36000; 36415; 80053; 81001; 81025; 82150; 82962; 83690; 85025; 87077; 87086; 87186; 96360; 96365; 96374; 99284; J0696; J2405

== ENCOUNTER 2019-02-01 18:48 | Emergency (ER) | payer OTHER ==
[2019-02-01] MEDS ORDERED: TYLENOL 325 MG PO STA (19:27)
--- NOTE | 2019-02-01 19:28 | ERPHSYRPT ---
- History of Present Illness Time Seen by Provider: 02/01/19 19:16 Source: patient Exam Limitations: clinical condition Physician History: PATIENT DROPPED A 2 LITER BOTTLE OF SODA ONTO LEFT FOOT SUSTAINED PAIN, AND SWELLING OVER LEFT FOOT WORSE UPON WEIGHT BEARING. DENIES BRUISING OR DEFORMITY. Method of Injury: direct blow Occurred: just prior to arrival Quality: constant Severity of Pain-Max: moderate Severity of Pain-Current: moderate Lower Extremities Pain: foot: left Modifying Factors: Improves With: movement Associated Symptoms: unable to bear weight Allergies/Adverse Reactions: omeprazole [From [employer]] Allergy (Severe, Verified 02/01/19 19:06) Hives Home Medications: Metformin HCl 1,000 mg PO BID 08/04/17 [History] Loratadine 10 mg [Claritin 10 mg] 10 mg PO DAILY 05/23/18 [History] Famotidine 20 mg [Pepcid 20 MG] 20 mg PO BID 08/27/18 [History] Fluticasone/Salmeterol [Advair 250-50 Diskus] 1 each IN DAILY 12/08/18 [History] Hx Tetanus, Diphtheria Vaccination/Date Given: Yes Hx Influenza Vaccination/Date Given: Yes Hx Pneumococcal Vaccination/Date Given: No - Review of Systems Musculoskeletal: Injury, Joint Pain, Joint Swelling - Past Medical History Pertinent Past Medical History: Yes Neurological History: No Pertinent History ENT History: No Pertinent History Cardiac History: High Cholesterol Respiratory History: Asthma Endocrine Medical History: Diabetes Type II Musculoskeletal History: Arthritis GI Medical History: GERD History: No Pertinent History Psycho-Social History: Anxiety, Depression Female Reproductive Disorders: Other Other Medical History: scoliosis - Past Surgical History Past Surgical History: Yes Neuro Surgical History: No Pertinent History Cardiac: No Pertinent History Respiratory: No Pertinent History Gastrointestinal: Hernia Repair Genitourinary: No Pertinent History Musculoskeletal: No Pertinent History Female Surgical History: Section Other Surgical History: 2 hernia repair,ear tubes, left ear drum,T&A - Social History Smoking Status: Never smoker Exposure to second hand smoke: No Alcohol Use: None Drug Use: none Patient Lives Alone: No Significant Family History: diabetes, hypertension - Female History Hx Now: (unknown-abdominal shield) - Nursing Vital Signs Nursing Vital Signs: Initial Vital Signs Temperature 98.2 F 02/01/19 19:07 Pulse Rate 95 H 02/01/19 19:07 Respiratory Rate 18 02/01/19 19:07 Blood Pressure 157/83 02/01/19 19:07 O2 Sat by Pulse Oximetry 98 02/01/19 19:07 Pain Scale Pain Intensity 10 - Physical Exam General Appearance: no apparent distress Foot Exam: left foot: soft tissue tenderness, swelling (MID LEFT FOOT 3RD MID TO DISTAL METATARSAL WITH SWELLING NO ECCHYMOSIS OR CREPITUS), other (PEDIS PULSE 2+) DTR - Lower Extremities Exam: knee (R): 2+, knee (L): 2+, ankle (R): 2+, ankle ( L): 2+ Skin Exam: normal color SpO2 Interpretation: normal SpO2: 98 - Radiology Exams Left Foot X-ray Interpretation: Interpreted by me, No Fracture (SOFT TISSUE SWELLING) Ordered Tests: Active Orders 24 hr Category Date Time Status FOOT (MINIMUM 3 VIEWS) Stat Exams 02/01/19 19:20 Taken Medication Summary Discontinued Medications Generic Name Dose Route Start Last Admin Trade Name Darius PRN Reason Stop Dose Admin Acetaminophen 650 mg 02/01/19 19:27 02/01/19 19:38 Tylenol 325 Mg PO 02/01/19 19:28 650 mg STAT STA Administration Acetaminophen Confirm 02/01/19 19:36 Tylenol 325 Mg Administered 02/01/19 19:37 Dose 650 mg .ROUTE .STK-MED ONE - Progress Progress Note: 02/01/19 20:12 TYLENOL 650MG ORALLY, FITTED FOR CRUTCHES - Departure Departure Disposition: Home Clinical Impression: LEFT FOOT CONTUSION Condition: Stable Critical Care Time: No Referrals: RAMESH GARCIA [Primary Care Provider] - Additional Instructions: APPLY ICE OVER FOOT SWELLING EVERY 4 HOURS, 30 MINUTES FOR 48 HOURS. TYLENOL EVERY 4 HOURS NEEDED FOR PAIN. AMBULATE USING CRUTCHES NONWEIGHT BEARING LEFT FOOT FOR 4 DAYS. CONSULT YOUR PRIMARY CARE PROVIDER FOR FOLLOWUP.
[2019-02-01] MEDS ORDERED: TYLENOL 325 MG ONE (19:36)
[2019-02-01 20:44] VITALS: BP 153/86; PULSE 100; O2SAT 97
--- NOTE | 2019-02-02 08:50 | XRAY ---
Indication: Pain following injury. Comparison: None 3 nonweightbearing views of the left foot demonstrates anterior forefoot soft tissue swelling and tiny heel spurs. No other bony, articular, or soft tissue abnormalities.
== END 2019-02-01 20:45 | disposition home or self-care (01) ==
LOC: ED 18:48
DX: S90.32XA Contusion of left foot, initial encounter (principal); W20.8XXA Other cause of strike by thrown, projected or falling object, initial encounter; E11.9 Type 2 diabetes mellitus without complications; E78.00 Pure hypercholesterolemia, unspecified
CPT/HCPCS: 73630; 99283; A9270-GY

== ENCOUNTER 2019-02-19 15:29 | Emergency (ER) | payer OTHER ==
[2019-02-19] MEDS ORDERED: PROTONIX 40 MG IV IV ONE ×2 (16:03→16:19)
[2019-02-19] MEDS ORDERED: Zofran 4 MG/2 ML VIAL IV ONE (16:03)
[2019-02-19] MEDS ORDERED: Sodium Chloride 0.9% 1000 ML 1,000 ML IV SCH (16:15)
--- NOTE | 2019-02-19 16:17 | ERPHSYRPT ---
- History of Present Illness Time Seen by Provider: 02/19/19 15:50 Historian: patient Exam Limitations: clinical condition Patient Subjective Stated Complaint: pt eat popcorn chicken 1430 and then about 15 mins ago she vomited x3 and had 3 normal bm's Triage Nursing Assessment: pt alert, resp easy, skin w/d/p. walked in, holding abd, abd soft, no edema noted Physician History: PATIENT WITH A HISTORY OF TYPE 2 DIABETES, ASTHMA, MORBID OBESITY COMPLAINS OF ACUTE ONSET OF EMESIS AT 2:30PM AFTER EATING FOOD 1 HOUR EARLIER AT [facility] [employer] [facility]. HAS ASSOCIATED UPPER ABDOMINAL PAIN AND SLIGHT DIARRHEA. Timing/Duration: today Activities at Onset: none Abdominal Pain Onset Location: epigastric Pain Radiation: no radiation Severity of Pain-Max: moderate Severity of Pain-Current: moderate Allergies/Adverse Reactions: omeprazole [From Prilosec] Allergy (Severe, Verified 02/01/19 19:06) Hives Home Medications: Metformin HCl 1,000 mg PO BID 08/04/17 [History] Loratadine 10 mg [Claritin 10 mg] 10 mg PO DAILY 05/23/18 [History] Famotidine 20 mg [Pepcid 20 MG] 20 mg PO BID 08/27/18 [History] Fluticasone/Salmeterol [Advair 250-50 Diskus] 1 each IN DAILY 12/08/18 [History] Hx Tetanus, Diphtheria Vaccination/Date Given: Yes Hx Influenza Vaccination/Date Given: Yes Hx Pneumococcal Vaccination/Date Given: No Immunizations Up to Date: Yes - Review of Systems Constitutional: No Fever, No Chills Eyes: No Symptoms Ears, Nose, & Throat: No Symptoms Respiratory: No Cough, No Dyspnea Cardiac: No Chest Pain, No Edema, No Syncope Abdominal/Gastrointestinal: Abdominal Pain, Nausea, Vomiting, No Diarrhea Genitourinary Symptoms: No Dysuria Musculoskeletal: No Back Pain, No Neck Pain Skin: No Symptoms, No Rash Neurological: No Dizziness, No Focal Weakness, No Sensory Changes Psychological: No Symptoms Endocrine: No Symptoms All Other Systems: Reviewed and Negative - Past Medical History Pertinent Past Medical History: Yes Neurological History: No Pertinent History ENT History: No Pertinent History Cardiac History: High Cholesterol Respiratory History: Asthma Endocrine Medical History: Diabetes Type II Musculoskeletal History: Arthritis GI Medical History: GERD History: No Pertinent History Psycho-Social History: Anxiety, Depression Female Reproductive Disorders: Other Other Medical History: scoliosis - Past Surgical History Past Surgical History: Yes Neuro Surgical History: No Pertinent History Cardiac: No Pertinent History Respiratory: No Pertinent History Gastrointestinal: Hernia Repair Genitourinary: No Pertinent History Musculoskeletal: No Pertinent History Female Surgical History: Section Other Surgical History: 2 hernia repair,ear tubes, left ear drum,T&A - Social History Smoking Status: Never smoker Exposure to second hand smoke: No Alcohol Use: None Drug Use: none Patient Lives Alone: No Significant Family History: diabetes, hypertension - Female History Hx Last Menstrual Period: 2 days aog Hx Now: No - Nursing Vital Signs Nursing Vital Signs: Initial Vital Signs Temperature 97.0 F 02/19/19 15:41 Pulse Rate 88 02/19/19 15:41 Respiratory Rate 18 02/19/19 15:41 Blood Pressure 132/89 02/19/19 15:41 O2 Sat by Pulse Oximetry 98 02/19/19 15:41 Pain Scale Pain Intensity 4 - Physical Exam General Appearance: no apparent distress, alert Eye Exam: PERRL/EOMI, eyes nml inspection Ears, Nose, Throat Exam: normal ENT inspection, pharynx normal, moist mucous membranes Neck Exam: normal inspection, non-tender, supple, full range of motion Respiratory Exam: normal breath sounds, lungs clear, No respiratory distress Cardiovascular Exam: regular rate/rhythm, normal heart sounds Gastrointestinal/Abdomen Exam: soft, normal bowel sounds, tenderness ( EPIGASTRIC TENDERNESS), No mass Back Exam: normal inspection, normal range of motion, No CVA tenderness, No vertebral tenderness Extremity Exam: normal inspection, normal range of motion, pelvis stable Neurologic Exam: alert, oriented x 3, cooperative, normal mood/affect, nml cerebellar function, sensation nml, No motor deficits Skin Exam: normal color, warm, dry SpO2: 98 - CT Exams Abdomen/Pelvis CT Interpretation: Discussed w/radiologist (LARGE VENTRAL HERNIA, NO ACUTE FINDINGS) Ordered Tests: Active Orders 24 hr Category Date Time Status IV Insertion STAT Care 02/19/19 16:03 Active ABDOMEN AND PELVIS W/0 CONTRAS [CT] Stat Exams 02/19/19 16:04 Taken AMYLASE Stat Lab 02/19/19 16:10 Completed CBC W DIFF Stat Lab 02/19/19 16:03 Completed CMP Stat Lab 02/19/19 16:10 Completed HCG,QUALITATIVE URINE Stat Lab 02/19/19 16:37 Completed LIPASE Stat Lab 02/19/19 16:10 Completed UA W/RFX UR CULTURE Stat Lab 02/19/19 16:04 Completed Medication Summary Generic Name Dose Route Start Last Admin Trade Name Darius PRN Reason Stop Dose Admin Sodium Chloride 1,000 mls @ 250 mls/hr 02/19/19 16:15 02/19/19 16:29 Sodium Chloride 0.9% 1000 Ml IV 03/21/19 16:14 250 mls/hr .Q4H USMAN Administration Discontinued Medications Generic Name Dose Route Start Last Admin Trade Name Darius PRN Reason Stop Dose Admin Ketorolac Tromethamine 30 mg 02/19/19 17:16 02/19/19 17:30 Toradol 30 Mg Injection IV 02/19/19 17:17 30 mg STAT ONE Administration Ketorolac Tromethamine Confirm 02/19/19 17:28 Toradol 30 Mg Injection Administered 02/19/19 17:29 Dose 30 mg .ROUTE .STK-MED ONE Ondansetron HCl 4 mg 02/19/19 16:03 02/19/19 16:29 Zofran 4 Mg/2 Ml Vial IV 02/19/19 16:04 4 mg STAT ONE Administration Ondansetron HCl Confirm 02/19/19 16:19 Zofran 4 Mg/2 Ml Vial Administered 02/19/19 16:20 Dose 4 mg .ROUTE .STK-MED ONE Pantoprazole Sodium 40 mg 02/19/19 16:03 02/19/19 16:29 Protonix 40 Mg Iv IV 02/19/19 16:04 40 mg STAT ONE Administration Pantoprazole Sodium Confirm 02/19/19 16:19 Protonix 40 Mg Iv Administered 02/19/19 16:20 Dose 40 mg IV .STK-MED ONE Lab/Rad Data: Laboratory Result Diagrams 02/19/19 16:03 02/19/19 16:10 Laboratory Results 02/19/19 02/19/19 02/19/19 Range/Units 16:37 16:10 16:04 WBC (4.0-10.5) K/mm3 RBC (4.1-5.4) M/mm3 Hgb (12.0-16.0) gm/dl Hct (35-47) % MCV (78-100) fl MCH (26-32) pg MCHC (32-36) g/dl RDW (11.5-14.0) % Plt Count (150-450) K/mm3 MPV (6-9.5) fl Gran % (36.0-66.0) % Eos # (Auto) (0-0.5) Absolute Lymphs (auto) (1.0-4.6) Absolute Monos (auto) (0.0-1.3) Lymphocytes % (24.0-44.0) % Monocytes % (0.0-12.0) % Eosinophils % (0.00-5.0) % Basophils % (0.0-0.4) % Absolute Granulocytes (1.4-6.9) Basophils # (0-0.4) Sodium 140 (137-145) mmol/L Potassium 3.6 (3.5-5.1) mmol/L Chloride 104 (98-107) mmol/L Carbon Dioxide 25 (22-30) mmol/L Anion Gap 14.8 (5-15) MEQ/L BUN 11 (7-17) mg/dL Creatinine 0.78 (0.52-1.04) mg/dL Estimated GFR > 60.0 ML/MIN Glucose 125 H (74-106) mg/dL Calcium 9.6 (8.4-10.2) mg/dL Total Bilirubin 0.50 (0.2-1.3) mg/dL AST 23 (14-36) U/L ALT 22 (0-35) U/L Alkaline Phosphatase 83 (38-126) U/L Serum Total Protein 7.3 (6.3-8.2) g/dL Albumin 4.1 (3.5-5.0) g/dL Amylase 69 (30-110) U/L Lipase 46 (23-300) U/L Urine Color STRAW (YELLOW) Urine Appearance CLEAR (CLEAR) Urine pH 6.0 (5-6) Ur Specific [place] 1.006 (1.005-1.025) Urine Protein NEGATIVE (Negative) Urine Ketones NEGATIVE (NEGATIVE) Urine Blood MODERATE (0-5) Carloz/ul Urine Nitrite NEGATIVE (NEGATIVE) Urine Bilirubin NEGATIVE (NEGATIVE) Urine Urobilinogen NEGATIVE (0-1) mg/dL Ur Leukocyte Esterase NEGATIVE (NEGATIVE) Urine WBC (Auto) 3-5 (0-5) /HPF Urine RBC (Auto) NONE (0-2) /HPF U Epithel Cells (Auto) RARE (FEW) /HPF Urine Bacteria (Auto) NONE (NEGATIVE) /HPF Urine Culture Reflexed NO (NO) Urine Glucose NEGATIVE (NEGATIVE) mg/dL Urine HCG, Qual NEGATIVE (Negative) 02/19/19 Range/Units 16:03 WBC 9.0 (4.0-10.5) K/mm3 RBC 4.16 (4.1-5.4) M/mm3 Hgb 12.9 (12.0-16.0) gm/dl Hct 38.1 (35-47) % MCV 91.6 (78-100) fl MCH 31.0 (26-32) pg MCHC 33.9 (32-36) g/dl RDW 13.0 (11.5-14.0) % Plt Count 328 (150-450) K/mm3 MPV 9.2 (6-9.5) fl Gran % 49.7 (36.0-66.0) % Eos # (Auto) 0.12 (0-0.5) Absolute Lymphs (auto) 3.87 (1.0-4.6) Absolute Monos (auto) 0.53 (0.0-1.3) Lymphocytes % 43.0 (24.0-44.0) % Monocytes % 5.9 (0.0-12.0) % Eosinophils % 1.3 (0.00-5.0) % Basophils % 0.1 (0.0-0.4) % Absolute Granulocytes 4.48 (1.4-6.9) Basophils # 0.01 (0-0.4) Sodium (137-145) mmol/L Potassium (3.5-5.1) mmol/L Chloride (98-107) mmol/L Carbon Dioxide (22-30) mmol/L Anion Gap (5-15) MEQ/L BUN (7-17) mg/dL Creatinine (0.52-1.04) mg/dL Estimated GFR ML/MIN Glucose (74-106) mg/dL Calcium (8.4-10.2) mg/dL Total Bilirubin (0.2-1.3) mg/dL AST (14-36) U/L ALT (0-35) U/L Alkaline Phosphatase (38-126) U/L Serum Total Protein (6.3-8.2) g/dL Albumin (3.5-5.0) g/dL Amylase (30-110) U/L Lipase (23-300) U/L Urine Color (YELLOW) Urine Appearance (CLEAR) Urine pH (5-6) Ur Specific [place] (1.005-1.025) Urine Protein (Negative) Urine Ketones (NEGATIVE) Urine Blood (0-5) Carloz/ul Urine Nitrite (NEGATIVE) Urine Bilirubin (NEGATIVE) Urine Urobilinogen (0-1) mg/dL Ur Leukocyte Esterase (NEGATIVE) Urine WBC (Auto) (0-5) /HPF Urine RBC (Auto) (0-2) /HPF U Epithel Cells (Auto) (FEW) /HPF Urine Bacteria (Auto) (NEGATIVE) /HPF Urine Culture Reflexed (NO) Urine Glucose (NEGATIVE) mg/dL Urine HCG, Qual (Negative) - Progress Counseled pt/family regarding: lab results, diagnosis, need for follow-up, rad results - Departure Departure Disposition: Home Clinical Impression: ACUTE EMESIS, ABDOMINAL PAIN Condition: Stable Critical Care Time: No Referrals: RAMESH GARCIA [Primary Care Provider] - Additional Instructions: BEGIN A CLEAR LIQUID DIET FOR 24 HOURS THEN ADVANCE DIET TOLERATED. ZOFRAN 4MG EVERY 6 HOURS FOR NAUSEA. TAKE MYLANTA OR MAALOX 2 TABLESPOONS AFTER MEALS AND AT BEDTIME. CONSULT YOUR PRIMARY CARE PROVIDER FOR FOLLOWUP. Prescriptions: Ondansetron ODT 4 MG [Zofran Odt 4 mg] 4 mg PO Q6H PRN PRN #10 tab.rapdis PRN Reason: Nausea
[2019-02-19] MEDS ORDERED: Zofran 4 MG/2 ML VIAL ONE (16:19)
[2019-02-19] MEDS ORDERED: Sodium Chloride 0.9% 1000 ML 1,000 ML ONE (16:19)
[2019-02-19 16:21] LABS: BASOPHIL % 0.1 % (0.0-0.4); Basophil (Absolute #) 0.01 (0-0.4); Eosinophil % 1.3 % (0.00-5.0); Eosinophil (Absolute #) 0.12 (0-0.5); Granulocyte Absolute (ANC) 4.48 (1.4-6.9); Granulocytes % 49.7 % (36.0-66.0); Hematocrit 38.1 % (35-47); Hemoglobin 12.9 gm/dl (12.0-16.0); Lymphocyte (Absolute #) 3.87 (1.0-4.6); Mean Cell Volume 91.6 fl (78-100); Mean Corpuscular Hgb Concent. 33.9 g/dl (32-36); Mean Platelet Volume 9.2 fl (6-9.5); Monocyte (Absolute #) 0.53 (0.0-1.3); Monocytes % 5.9 % (0.0-12.0); Platelet Count 328 K/mm3 (150-450); Red Blood Count 4.16 M/mm3 (4.1-5.4)
[2019-02-19 16:26] LABS: Appearance CLEAR (CLEAR); Bilirubin NEGATIVE (NEGATIVE); Blood MODERATE Ery/ul (0-5); Epithelial Cells RARE /HPF (FEW); Glucose NEGATIVE (NEGATIVE); Ketones NEGATIVE (NEGATIVE); Leukocyte Esterase NEGATIVE (NEGATIVE); Nitrite NEGATIVE (NEGATIVE); Protein,Urine Dip NEGATIVE (Negative); Specific Gravity 1.006 (1.005-1.025); Urobilinogen NEGATIVE mg/dL (0-1)
[2019-02-19 16:34] LABS: ALBUMIN 4.1 g/dL (3.5-5.0); ALKALINE PHOSPHATASE 83 U/L (38-126); AMYLASE 69 U/L (30-110); ANION GAP 14.8 MEQ/L (5-15); BLOOD UREA NITROGEN 11 mg/dL (7-17); CHLORIDE 104 mmol/L (98-107); Calcium 9.6 mg/dL (8.4-10.2); Carbon Dioxide 25 mmol/L (22-30); Creatinine 1 0.78 mg/dL (0.52-1.04); Glucose 125 mg/dL (74-106); LIPASE 46 U/L (23-300); Potassium 3.6 mmol/L (3.5-5.1); SGOT/AST 23 U/L (14-36); SGPT/ALT 22 U/L (0-35); SODIUM 140 mmol/L (137-145); Total Protein 7.3 g/dL (6.3-8.2)
[2019-02-19] MEDS ORDERED: TORAdol 30 mg Injection IV ONE (17:16)
[2019-02-19] MEDS ORDERED: TORAdol 30 mg Injection ONE (17:28)
[2019-02-19 18:18] VITALS: BP 110/60; PULSE 72; O2SAT 96
--- NOTE | 2019-02-20 08:13 | XRAY ---
Indication: Abdominal pain, cramping, nausea, and vomiting. Multiple contiguous axial images obtained through the abdomen and pelvis without contrast as ordered. Comparison: December 08, 2018. Lung bases essentially clear. Heart is not enlarged. Stable failed large infraumbilical ventral hernia repair again with herniated omental fat, mesh graft, and small bowel loops without incarceration/obstruction. No free fluid/air. Noncontrasted stomach and bowel loops appear nonobstructed again with descending/sigmoid diverticulosis. Stable fatty liver. Gallbladder contracted without gallstones. Remaining liver, gallbladder, pancreas, spleen, adrenal glands, kidneys, ureters, bladder, and uterus appear unremarkable for noncontrast exam. Stable minimal aortoiliac calcifications without AAA. Osseous structures again demonstrates double curvature scoliosis. Impression: 1. Stable failed large infraumbilical ventral hernia repair. No complications. 2. Stable colonic diverticulosis and fatty liver. 3. No new or acute intra-abdominal/pelvic abnormalities on this noncontrast exam. CTDI 28.13
== END 2019-02-19 18:17 | disposition home or self-care (01) ==
LOC: ED 15:29
DX: R11.10 Vomiting, unspecified (principal); R10.9 Unspecified abdominal pain
CPT/HCPCS: 36000; 36415; 74176; 80053; 81001; 82150; 83690; 84703; 85025; 96360; 96374; 96375; 99284; J1885; J2405

== ENCOUNTER 2019-03-05 22:05 | Emergency (ER) | payer OTHER ==
[2019-03-05] MEDS ORDERED: ANUSOL-HC 2.5% CREAM 30 GM TP ONE (22:25)
[2019-03-05 22:27] VITALS: BP 110/78; PULSE 92; O2SAT 97
--- NOTE | 2019-03-05 22:29 | ERPHSYRPT ---
- History of Present Illness Time Seen by Provider: 03/05/19 22:26 Source: patient Physician History: patient came to ER with hives on left arm, Timing/Duration: today Location: extremities Possible Causes: insect sting Associated Symptoms: change in skin texture, rash, No difficulty breathing, No paresthesia, No sore throat, No swelling/mass/lumps, No tingling Allergies/Adverse Reactions: omeprazole [From Prilosec] Allergy (Severe, Verified 02/01/19 19:06) Hives Home Medications: Metformin HCl 1,000 mg PO BID 08/04/17 [History] Loratadine 10 mg [Claritin 10 mg] 10 mg PO DAILY 05/23/18 [History] Famotidine 20 mg [Pepcid 20 MG] 20 mg PO BID 08/27/18 [History] Fluticasone/Salmeterol [Advair 250-50 Diskus] 1 each IN DAILY 12/08/18 [History] Hx Tetanus, Diphtheria Vaccination/Date Given: Yes Hx Influenza Vaccination/Date Given: Yes Hx Pneumococcal Vaccination/Date Given: No - Review of Systems Constitutional: No Symptoms Eyes: No Symptoms Ears, Nose, & Throat: No Symptoms Respiratory: No Symptoms Cardiac: No Symptoms Abdominal/Gastrointestinal: No Symptoms Skin: Rash - Past Medical History Pertinent Past Medical History: Yes Neurological History: No Pertinent History ENT History: No Pertinent History Cardiac History: High Cholesterol Respiratory History: Asthma Endocrine Medical History: Diabetes Type II Musculoskeletal History: Arthritis GI Medical History: GERD History: No Pertinent History Psycho-Social History: Anxiety, Depression Female Reproductive Disorders: Other Other Medical History: scoliosis - Past Surgical History Past Surgical History: Yes Neuro Surgical History: No Pertinent History Cardiac: No Pertinent History Respiratory: No Pertinent History Gastrointestinal: Hernia Repair Genitourinary: No Pertinent History Musculoskeletal: No Pertinent History Female Surgical History: Section Other Surgical History: 2 hernia repair,ear tubes, left ear drum,T&A - Social History Smoking Status: Never smoker Exposure to second hand smoke: No Alcohol Use: None Drug Use: none Patient Lives Alone: No Significant Family History: diabetes, hypertension - Physical Exam General Appearance: no apparent distress Eye Exam: PERRL/EOMI Ears, Nose, Throat Exam: normal ENT inspection Neck Exam: normal inspection Cardiovascular Exam: regular rate/rhythm Neurologic Exam: alert, oriented x 3 Skin Exam: rash - Course Nursing assessment & vital signs reviewed: Yes Ordered Tests: Medication Summary Generic Name Dose Route Start Last Admin Trade Name Darius PRN Reason Stop Dose Admin Hydrocortisone 30 gm 03/05/19 22:25 Anusol-Hc 2.5% Cream 30 Gm TP 03/05/19 22:26 STAT ONE - Progress Progress: unchanged Counseled pt/family regarding: diagnosis, need for follow-up - Departure Departure Disposition: Home Clinical Impression: Insect bite Qualifiers: Encounter type: initial encounter Site of insect bite: upper arm Laterality: left Qualified Code(s): S40.862A - Insect bite (nonvenomous) of left upper arm, initial encounter; W57.XXXA - Bitten or stung by nonvenomous insect and other nonvenomous arthropods, initial encounter Condition: Stable Critical Care Time: No Referrals: RAMESH GARCIA [Primary Care Provider] - Instructions: Insect Bites and Stings (DC) Additional Instructions: use hydrocortisone cream 3 times a day Discharge/Care Plan CLEOPATRAABENA GARCIA was seen on 03/05/19 in the Emergency Room. The patient was counseled regarding Diagnosis,Lab results, Imaging studies, need for follow up and when to return to the Emergency Room. Prescriptions given: Discharge Note I have spoken with the patient and/or caregivers. I have explained the patient' s condition, diagnosis and treatment plan based on the information available to me at this time. I have answered the patient's and/or caregiver's questions and addressed any concerns. The patient and/or caregivers have as good understanding of the patient's diagnosis, condition and treatment plan as can be expected at this point. The vital signs have been stable. The patient's condition is stable and appropriate for discharge from the emergency department. The patient will pursue further outpatient evaluation with the primary care physician or other designated or consulting physician as outlined in the discharge instructions. The patient and/or caregivers are agreeable to this plan of care and follow-up instructions have been explained in detail. The patient and/or caregivers have received these instruction. The patient/and or caregivers are aware that any significant change in condition or worsening of symptoms should prompt an immediate return to this or the closest emergency department or call 911.
[2019-03-05] MEDS ORDERED: ANUSOL-HC 2.5% CREAM 30 GM ONE (22:44)
== END 2019-03-05 22:48 | disposition home or self-care (01) ==
LOC: ED 22:05
DX: L50.9 Urticaria, unspecified (principal); S40.862A Insect bite (nonvenomous) of left upper arm, initial encounter; W57.XXXA Bitten or stung by nonvenomous insect and other nonvenomous arthropods, initial encounter
CPT/HCPCS: 99283; A9270-GY

== ENCOUNTER 2019-05-30 18:48 | Emergency (ER) | payer OTHER ==
[2019-05-30] MEDS ORDERED: DUONEB 0.5-3 MG/3 ml Neb IH ONE ×2 (19:17→19:30)
--- NOTE | 2019-05-30 19:33 | ERPHSYRPT ---
- History of Present Illness Time Seen by Provider: 05/30/19 19:15 Source: patient Exam Limitations: no limitations Patient Subjective Stated Complaint: pt here for cough for two days with sob with coughing startes, nonproductive cough, no fever, also co pain to abd from coughing, vomited x4 today Triage Nursing Assessment: pt alert, walked in , resp easy,nonproductive cough. chest clear, abd soft, no edema, moves all ext Physician History: 2 days history of cough and exacerbation of her asthma. Coughing to the point of vomiting. No shaking chills or soaking sweats - no fever. Activities at Onset: none Severity of Dyspnea-Max: moderate Severity of Dyspnea-Current: mild Possible Cause: occasional episodes (acute asthma exacerbation) Modifying Factors: Improves With: activity (worsens) International travel in last 2 weeks: No Allergies/Adverse Reactions: omeprazole [From [employer]] Allergy (Severe, Verified 02/01/19 19:06) Hives Home Medications: Metformin HCl 1,000 mg PO BID 08/04/17 [History] Loratadine 10 mg [Claritin 10 mg] 10 mg PO DAILY 05/23/18 [History] Famotidine 20 mg [Pepcid 20 MG] 20 mg PO BID 08/27/18 [History] Fluticasone/Salmeterol [Advair 250-50 Diskus] 1 each IN DAILY 12/08/18 [History] Hx Tetanus, Diphtheria Vaccination/Date Given: Yes Hx Influenza Vaccination/Date Given: Yes Hx Pneumococcal Vaccination/Date Given: Yes Immunizations Up to Date: Yes - Review of Systems Constitutional: No Symptoms Respiratory: Cough Abdominal/Gastrointestinal: Abdominal Pain (upper increased with coughing) All Other Systems: Reviewed and Negative - Past Medical History Pertinent Past Medical History: Yes Neurological History: No Pertinent History ENT History: No Pertinent History Cardiac History: High Cholesterol Respiratory History: Asthma Endocrine Medical History: Diabetes Type II Musculoskeletal History: Arthritis GI Medical History: GERD History: No Pertinent History Psycho-Social History: Anxiety, Depression Female Reproductive Disorders: Other Other Medical History: scoliosis - Past Surgical History Past Surgical History: Yes Neuro Surgical History: No Pertinent History Cardiac: No Pertinent History Respiratory: No Pertinent History Gastrointestinal: Hernia Repair Genitourinary: No Pertinent History Musculoskeletal: No Pertinent History Female Surgical History: Section Other Surgical History: 2 hernia repair,ear tubes, left ear drum,T&A - Social History Smoking Status: Never smoker Exposure to second hand smoke: No Alcohol Use: None Drug Use: none Patient Lives Alone: No Significant Family History: diabetes, hypertension - Female History Hx Last Menstrual Period: 05/16/2019 Hx Now: No - Nursing Vital Signs Nursing Vital Signs: Initial Vital Signs Temperature 98.4 F 05/30/19 18:49 Pulse Rate 102 H 05/30/19 18:49 Respiratory Rate 18 05/30/19 18:49 Blood Pressure 121/73 05/30/19 18:49 O2 Sat by Pulse Oximetry 97 05/30/19 18:49 Pain Scale Pain Intensity 0 - Physical Exam General Appearance: no apparent distress Eye Exam: PERRL/EOMI, eyes nml inspection Ears, Nose, Throat Exam: hearing grossly normal, normal pharynx Neck Exam: normal inspection, non-tender Respiratory Exam: diminished breath sounds, wheezing (bilateral expiratory) Cardiovascular/Chest Exam: normal heart sounds, regular rate/rhythm, normal peripheral pulses Abdominal/Gastrointestinal Exam: soft, No tenderness Extremity Exam: non-tender, normal range of motion Neurologic Exam: alert, oriented x 3, cooperative Skin Exam: normal color, warm, dry SpO2 Interpretation: normal SpO2: 97 O2 Delivery: Room Air - Course Nursing assessment & vital signs reviewed: Yes - Radiology Exams Chest X-ray Interpretation: Interpreted by me, No Pneumonia Ordered Tests: Active Orders 24 hr Category Date Time Status CHEST 1 VIEW (PORTABLE) Stat Exams 05/30/19 19:20 Taken Respiratory Therapy Assessment DAILY RT 05/30/19 19:26 Active Medication Summary Discontinued Medications Generic Name Dose Route Start Last Admin Trade Name Darius PRN Reason Stop Dose Admin Albuterol Sulfate 2.5 mg 05/30/19 20:57 05/30/19 21:03 Proventil 2.5 Mg/3 Ml Neb IH 05/30/19 20:58 2.5 mg STAT ONE Administration Albuterol Sulfate Confirm 05/30/19 21:00 Proventil Solution 2.5 Mg/0.5 Ml Administered 05/30/19 21:01 Dose 2.5 mg IH .STK-MED ONE Albuterol/Ipratropium 3 ml 05/30/19 19:17 05/30/19 19:35 Duoneb 0.5-3 Mg/3 Ml Neb IH 05/30/19 19:18 3 ml STAT ONE Administration Albuterol/Ipratropium Confirm 05/30/19 19:30 Duoneb 0.5-3 Mg/3 Ml Neb Administered 05/30/19 19:31 Dose 3 ml IH .STK-MED ONE Levofloxacin 500 mg 05/30/19 20:57 05/30/19 21:01 Levofloxacin 250mg Tablet PO 05/30/19 20:58 500 mg STAT ONE Administration Levofloxacin Confirm 05/30/19 21:00 Levofloxacin 250mg Tablet Administered 05/30/19 21:01 Dose 500 mg .ROUTE .STK-MED ONE - Progress Progress: improved Air Movement: good Progress Note: 05/30/19 21:01 Pt feels better - not coughing as much; has MDI at home and believes can find her neb machne. Advised CXR did not show a definite pneumonia but will place on ABX - patient at risk. 05/30/19 21:33 After 2nd breathing treatment - says not coughing as much - ready to go home. Got the antibiotic a few minutes ago. - Departure Departure Disposition: Home Clinical Impression: Bronchitis Condition: Stable Critical Care Time: No Referrals: RAMESH GARCIA [Primary Care Provider] - Additional Instructions: Follow up with primary care - take antibiotics as prescribed, use your inhailer - either nebulizer or hand held MDI. Prescriptions: Levofloxacin [Levaquin] 500 mg PO DAILY #4 tablet
[2019-05-30] MEDS ORDERED: PROVENTIL 2.5 MG/3 ML NEB IH ONE (20:57)
[2019-05-30] MEDS ORDERED: Levofloxacin 250MG Tablet PO ONE (20:57)
[2019-05-30] MEDS ORDERED: PROVENTIL Solution 2.5 MG/0.5 ML IH ONE (21:00)
[2019-05-30] MEDS ORDERED: Levofloxacin 250MG Tablet ONE (21:00)
[2019-05-30 21:06] VITALS: BP 145/84
[2019-05-30 21:28] VITALS: PULSE 115
[2019-05-30 21:34] VITALS: O2SAT 97
--- NOTE | 2019-05-31 09:57 | XRAY ---
Exam: AP upright portable chest film from 05/30/2019. Comparison: AP upright portable chest film from 08/27/2018. Indication: 39-year-old female with cough, shortness of breath, history of asthma. Findings: The patient was unsure whether she might be . Regardless, the emergency department physician wanted the exam to be performed. The patient's pelvis was shielded with a lead apron. The transverse heart size is normal. There is adequate inflation of the lungs. EKG leads are seen in place. There appears to be some new subtle airspace opacity within the left perihilar projection and right lung base as compared to 08/27/2018. I am not sure whether this is due to new patchy bilateral atelectasis versus small pneumonic infiltrates. Correlate clinically. The remainder of the lung lind appears clear. No vascular congestion, pneumothorax, or pleural fluid is seen. There is a moderate rotary S-shaped scoliosis within the visualized thoracolumbar spine representing no change. Impression: 1. New ill-defined airspace opacities are seen within the left perihilar projection and right lung base which may reflect bilateral atelectasis and/or small pneumonic infiltrates. Correlate clinically. 2. No other acute cardiopulmonary disease is seen. 3. Moderate rotary S-shaped scoliosis within the visualized thoracolumbar spine, stable. Note: I personally called the results of this chest film to Dr. Mckenzie at 9:28 AM on 05/31/2019.
== END 2019-05-30 21:57 | disposition home or self-care (01) ==
LOC: ED 18:48
DX: J40 Bronchitis, not specified as acute or chronic (principal)
CPT/HCPCS: 71045; 94640; 99284; J7609; A9270-GY

== ENCOUNTER 2019-06-28 18:50 | Emergency (ER) | payer OTHER ==
[2019-06-28 19:17] VITALS: O2SAT 98
--- NOTE | 2019-06-28 19:31 | ERPHSYRPT ---
- History of Present Illness Time Seen by Provider: 06/28/19 19:31 Historian: patient, family Exam Limitations: no limitations Physician History: 39 y/o diabetic, obese white female presents with recurrent vomiting after eating then coughing then gagging. she has had several visits to ED for same issue. Timing/Duration: today Activities at Onset: other (eating) Severity of Pain-Max: none Severity of Pain-Current: none Modifying Factors: Improves With: eating (worsened) Associated Symptoms: nausea, vomiting, No chest pain, No headache, No shortness of breath Previous symptoms: same symptoms as today, no recent treatment Allergies/Adverse Reactions: omeprazole [From Prilosec] Allergy (Severe, Verified 02/01/19 19:06) Hives Home Medications: Metformin HCl 1,000 mg PO BID 08/04/17 [History] Loratadine 10 mg [Claritin 10 mg] 10 mg PO DAILY 05/23/18 [History] Famotidine 20 mg [Pepcid 20 MG] 20 mg PO DAILY 08/27/18 [History] Fluticasone/Salmeterol [Advair 250-50 Diskus] 1 each IN DAILY 12/08/18 [History] Albuterol 8 gm Mdi Hfa [Ventolin Hfa MDI] 8 gm IH Q4HPRN PRN 06/28/19 [ History] Hx Tetanus, Diphtheria Vaccination/Date Given: Yes Hx Influenza Vaccination/Date Given: Yes Hx Pneumococcal Vaccination/Date Given: Yes - Review of Systems Constitutional: No Symptoms Eyes: No Symptoms Ears, Nose, & Throat: No Symptoms Respiratory: No Symptoms Cardiac: No Symptoms Abdominal/Gastrointestinal: Nausea, Vomiting Genitourinary Symptoms: No Symptoms Musculoskeletal: No Symptoms Skin: No Symptoms Neurological: No Symptoms Psychological: No Symptoms Endocrine: No Symptoms Hematologic/Lymphatic: No Symptoms Immunological/Allergic: No Symptoms All Other Systems: Reviewed and Negative - Past Medical History Pertinent Past Medical History: Yes Neurological History: No Pertinent History ENT History: No Pertinent History Cardiac History: High Cholesterol Respiratory History: Asthma Endocrine Medical History: Diabetes Type II Musculoskeletal History: Arthritis GI Medical History: GERD History: No Pertinent History Psycho-Social History: Anxiety, Depression Female Reproductive Disorders: Other Other Medical History: scoliosis - Past Surgical History Past Surgical History: Yes Neuro Surgical History: No Pertinent History Cardiac: No Pertinent History Respiratory: No Pertinent History Gastrointestinal: Hernia Repair Genitourinary: No Pertinent History Musculoskeletal: No Pertinent History Female Surgical History: Section Other Surgical History: 2 hernia repair,ear tubes, left ear drum,T&A - Social History Smoking Status: Never smoker Exposure to second hand smoke: No Alcohol Use: None Drug Use: none Patient Lives Alone: No Significant Family History: diabetes, hypertension - Nursing Vital Signs Nursing Vital Signs: Initial Vital Signs Temperature 97.7 F 06/28/19 19:14 Pulse Rate 63 06/28/19 19:14 Respiratory Rate 17 06/28/19 19:14 Blood Pressure 127/83 06/28/19 19:14 O2 Sat by Pulse Oximetry 98 06/28/19 19:14 Pain Scale Pain Intensity 6 - Physical Exam General Appearance: no apparent distress, alert, anxiety Eye Exam: PERRL/EOMI, eyes nml inspection Ears, Nose, Throat Exam: normal ENT inspection, moist mucous membranes Neck Exam: normal inspection, non-tender, supple, full range of motion Respiratory Exam: normal breath sounds, lungs clear, airway intact, No chest tenderness, No respiratory distress Cardiovascular Exam: regular rate/rhythm, normal heart sounds, normal peripheral pulses Gastrointestinal/Abdomen Exam: soft, normal bowel sounds, No tenderness Pelvic Exam: not done Rectal Exam: not done Back Exam: normal inspection, normal range of motion, CVA tenderness Extremity Exam: normal inspection, normal range of motion, pelvis stable Neurologic Exam: alert, oriented x 3, cooperative, ortho tech II-XII nml as tested Skin Exam: normal color, warm, dry Lymphatic Exam: No adenopathy SpO2 Interpretation: normal SpO2: 98 O2 Delivery: Room Air - Course Nursing assessment & vital signs reviewed: Yes Ordered Tests: Active Orders 24 hr Category Date Time Status IV Insertion STAT Care 06/28/19 19:31 Active AMYLASE Stat Lab 06/28/19 19:50 Completed CBC W DIFF Stat Lab 06/28/19 19:50 Completed CMP Stat Lab 06/28/19 19:50 Completed HCG,QUALITATIVE URINE Stat Lab 06/28/19 21:10 Completed LIPASE Stat Lab 06/28/19 19:50 Completed Lactic Acid Stat Lab 06/28/19 19:55 Completed Lactic Acid Stat Lab 06/28/19 22:02 Ordered UA W/RFX UR CULTURE Stat Lab 06/28/19 21:10 Completed Medication Summary Discontinued Medications Generic Name Dose Route Start Last Admin Trade Name Darius PRN Reason Stop Dose Admin Sodium Chloride 1,000 mls @ 999 mls/hr 06/28/19 19:31 06/28/19 21:14 Sodium Chloride 0.9% 1000 Ml IV 06/28/19 20:31 Infused .Q1H1M STA Infusion Sodium Chloride Confirm 06/28/19 19:57 Sodium Chloride 0.9% 1000 Ml Administered 06/28/19 19:58 Dose 1,000 mls @ ud .ROUTE .STK-MED ONE Promethazine HCl 12.5 mg 06/28/19 19:31 06/28/19 19:59 Phenergan 25 Mg Inj IM 06/28/19 19:32 12.5 mg STAT ONE Administration Promethazine HCl Confirm 06/28/19 19:57 Phenergan 25 Mg Inj Administered 06/28/19 19:58 Dose 25 mg .ROUTE .STK-MED ONE Lab/Rad Data: Laboratory Result Diagrams 06/28/19 19:50 06/28/19 19:50 Laboratory Results 06/28/19 06/28/19 06/28/19 Range/Units 21:10 21:10 19:55 WBC (4.0-10.5) K/mm3 RBC (4.1-5.4) M/mm3 Hgb (12.0-16.0) gm/dl Hct (35-47) % MCV (78-100) fl MCH (26-32) pg MCHC (32-36) g/dl RDW (11.5-14.0) % Plt Count (150-450) K/mm3 MPV (6-9.5) fl Gran % (36.0-66.0) % Eos # (Auto) (0-0.5) Absolute Lymphs (auto) (1.0-4.6) Absolute Monos (auto) (0.0-1.3) Lymphocytes % (24.0-44.0) % Monocytes % (0.0-12.0) % Eosinophils % (0.00-5.0) % Basophils % (0.0-0.4) % Absolute Granulocytes (1.4-6.9) Basophils # (0-0.4) Sodium (137-145) mmol/L Potassium (3.5-5.1) mmol/L Chloride (98-107) mmol/L Carbon Dioxide (22-30) mmol/L Anion Gap (5-15) MEQ/L BUN (7-17) mg/dL Creatinine (0.52-1.04) mg/dL Estimated GFR ML/MIN Glucose (74-106) mg/dL Lactic Acid 2.1 H (0.4-2.0) Calcium (8.4-10.2) mg/dL Total Bilirubin (0.2-1.3) mg/dL AST (14-36) U/L ALT (0-35) U/L Alkaline Phosphatase (38-126) U/L Serum Total Protein (6.3-8.2) g/dL Albumin (3.5-5.0) g/dL Amylase (30-110) U/L Lipase (23-300) U/L Urine Color YELLOW (YELLOW) Urine Appearance SLIGHTLY CLOUDY (CLEAR) Urine pH 6.0 (5-6) Ur Specific [place] 1.010 (1.005-1.025) Urine Protein NEGATIVE (Negative) Urine Ketones NEGATIVE (NEGATIVE) Urine Blood NEGATIVE (0-5) Carloz/ul Urine Nitrite NEGATIVE (NEGATIVE) Urine Bilirubin NEGATIVE (NEGATIVE) Urine Urobilinogen NEGATIVE (0-1) mg/dL Ur Leukocyte Esterase NEGATIVE (NEGATIVE) Urine WBC (Auto) 0-2 (0-5) /HPF Urine RBC (Auto) NONE (0-2) /HPF U Epithel Cells (Auto) RARE (FEW) /HPF Urine Bacteria (Auto) RARE (NEGATIVE) /HPF Urine Mucus (Auto) SLIGHT (NEGATIVE) /HPF Urine Culture Reflexed NO (NO) Urine Glucose NEGATIVE (NEGATIVE) mg/dL Urine HCG, Qual NEGATIVE (Negative) 06/28/19 06/28/19 Range/Units 19:50 19:50 WBC 10.5 (4.0-10.5) K/mm3 RBC 4.30 (4.1-5.4) M/mm3 Hgb 13.0 (12.0-16.0) gm/dl Hct 38.7 (35-47) % MCV 90.0 (78-100) fl MCH 30.2 (26-32) pg MCHC 33.6 (32-36) g/dl RDW 14.2 H (11.5-14.0) % Plt Count 306 (150-450) K/mm3 MPV 9.3 (6-9.5) fl Gran % 56.7 (36.0-66.0) % Eos # (Auto) 0.18 (0-0.5) Absolute Lymphs (auto) 3.82 (1.0-4.6) Absolute Monos (auto) 0.50 (0.0-1.3) Lymphocytes % 36.6 (24.0-44.0) % Monocytes % 4.8 (0.0-12.0) % Eosinophils % 1.7 (0.00-5.0) % Basophils % 0.2 (0.0-0.4) % Absolute Granulocytes 5.93 (1.4-6.9) Basophils # 0.02 (0-0.4) Sodium 140 (137-145) mmol/L Potassium 3.7 (3.5-5.1) mmol/L Chloride 102 (98-107) mmol/L Carbon Dioxide 28 (22-30) mmol/L Anion Gap 13.6 (5-15) MEQ/L BUN 9 (7-17) mg/dL Creatinine 0.76 (0.52-1.04) mg/dL Estimated GFR > 60.0 ML/MIN Glucose 156 H (74-106) mg/dL Lactic Acid (0.4-2.0) Calcium 9.4 (8.4-10.2) mg/dL Total Bilirubin 0.60 (0.2-1.3) mg/dL AST 47 H (14-36) U/L ALT 32 (0-35) U/L Alkaline Phosphatase 102 (38-126) U/L Serum Total Protein 8.0 (6.3-8.2) g/dL Albumin 4.2 (3.5-5.0) g/dL Amylase 70 (30-110) U/L Lipase 47 (23-300) U/L Urine Color (YELLOW) Urine Appearance (CLEAR) Urine pH (5-6) Ur Specific [place] (1.005-1.025) Urine Protein (Negative) Urine Ketones (NEGATIVE) Urine Blood (0-5) Carloz/ul Urine Nitrite (NEGATIVE) Urine Bilirubin (NEGATIVE) Urine Urobilinogen (0-1) mg/dL Ur Leukocyte Esterase (NEGATIVE) Urine WBC (Auto) (0-5) /HPF Urine RBC (Auto) (0-2) /HPF U Epithel Cells (Auto) (FEW) /HPF Urine Bacteria (Auto) (NEGATIVE) /HPF Urine Mucus (Auto) (NEGATIVE) /HPF Urine Culture Reflexed (NO) Urine Glucose (NEGATIVE) mg/dL Urine HCG, Qual (Negative) - Progress Progress: improved Counseled pt/family regarding: lab results, diagnosis, need for follow-up - Departure Departure Disposition: Home Clinical Impression: Vomiting Condition: Stable Critical Care Time: No Referrals: RAMESH GARCIA [Primary Care Provider] - Additional Instructions: clear liquid diet. follow up with primary doctor for further management
[2019-06-28] MEDS ORDERED: Phenergan 25 MG INJ ONE (19:57)
[2019-06-28] MEDS ORDERED: Sodium Chloride 0.9% 1000 ML 1,000 ML ONE (19:57)
[2019-06-28 19:59] LABS: Absolute Neutrophil Ct (ANC) 5.93 (1.4-6.9); BASOPHIL % 0.2 % (0.0-0.4); Basophil (Absolute #) 0.02 (0-0.4); Eosinophil % 1.7 % (0.00-5.0); Eosinophil (Absolute #) 0.18 (0-0.5); Hematocrit 38.7 % (35-47); Lymphocyte (Absolute #) 3.82 (1.0-4.6); Lymphocytes % 36.6 % (24.0-44.0); Mean Corpuscular Hemoglobin 30.2 pg (26-32); Mean Corpuscular Hgb Concent. 33.6 g/dl (32-36); Mean Platelet Volume 9.3 fl (6-9.5); Monocytes % 4.8 % (0.0-12.0); Neutrophil % 56.7 % (36.0-66.0); Platelet Count 306 K/mm3 (150-450); Red Cell Distribution Width 14.2 % (11.5-14.0); White Blood Count 10.5 K/mm3 (4.0-10.5)
[2019-06-28] MEDS: Sodium Chloride 0.9% 1000 ML 1,000 ML IV STA (19:59)
[2019-06-28] MEDS: Phenergan 25 MG INJ IM ONE (19:59)
[2019-06-28 20:04] LABS: Lactic Acid 2.1 (0.4-2.0)
[2019-06-28 20:09] LABS: ALBUMIN 4.2 g/dL (3.5-5.0); ALKALINE PHOSPHATASE 102 U/L (38-126); AMYLASE 70 U/L (30-110); ANION GAP 13.6 MEQ/L (5-15); BLOOD UREA NITROGEN 9 mg/dL (7-17); CHLORIDE 102 mmol/L (98-107); Calcium 9.4 mg/dL (8.4-10.2); Carbon Dioxide 28 mmol/L (22-30); Creatinine 1 0.76 mg/dL (0.52-1.04); Glucose 156 mg/dL (74-106); LIPASE 47 U/L (23-300); Potassium 3.7 mmol/L (3.5-5.1); SGOT/AST 47 U/L (14-36); SGPT/ALT 32 U/L (0-35); SODIUM 140 mmol/L (137-145)
[2019-06-28 21:27] LABS: Appearance SLIGHTLY CLOUDY (CLEAR); Bacteria RARE /HPF (NEGATIVE); Bilirubin NEGATIVE (NEGATIVE); Blood NEGATIVE Ery/ul (0-5); Epithelial Cells RARE /HPF (FEW); Glucose NEGATIVE (NEGATIVE); Ketones NEGATIVE (NEGATIVE); Leukocyte Esterase NEGATIVE (NEGATIVE); Mucus SLIGHT /HPF (NEGATIVE); Nitrite NEGATIVE (NEGATIVE); Protein,Urine Dip NEGATIVE (Negative); Urobilinogen NEGATIVE mg/dL (0-1); WBC 0-2 /HPF (0-5)
[2019-06-28 22:27] VITALS: BP 109/74; PULSE 81
== END 2019-06-28 22:17 | disposition home or self-care (01) ==
LOC: ED 18:50
DX: R11.2 Nausea with vomiting, unspecified (principal)
CPT/HCPCS: 36000; 36415; 80053; 81001; 82150; 83605; 83690; 84703; 85025; 96360; 96372; 99284; J2550

== ENCOUNTER 2019-09-11 01:19 | Emergency (ER) | payer OTHER ==
[2019-09-11] MEDS ORDERED: DUONEB 0.5-3 MG/3 ml Neb IH ONE ×2 (01:40→02:13)
--- NOTE | 2019-09-11 01:44 | ERPHSYRPT ---
- History of Present Illness Time Seen by Provider: 09/11/19 01:35 Source: patient Exam Limitations: no limitations Patient Subjective Stated Complaint: nyquil. citirizine Triage Nursing Assessment: pt states she has been coughing , congested since friday Physician History: Patient has a history of asthma and has had a cough for the past 7 days. Patient's symptoms began with rhinorrhea with the cough. Patient had increased coughing this evening and she had an episode of vomiting. Timing/Duration: day(s) (7) Cough Quality/Degree: moderate, dry cough Possible Cause: occasional episodes Modifying Factors: Improves With: albuterol nebulizer. Worsens With: coughing, lying down Associated Symptoms: cough, nasal congestion, nasal drainage, wheezing, No fever , No chills, No chest pain/soreness, No dizziness, No earache, No facial pain, No headache, No lightheadedness, No muscle aches, No shortness of breath, No sinus infection, No sore throat International travel in last 2 weeks: No Allergies/Adverse Reactions: omeprazole [From [facility] / [email or web address]] Allergy (Severe, Verified 09/11/19 01:31) Hives Home Medications: Metformin HCl 1,000 mg PO BID 08/04/17 [History] Loratadine 10 mg [Claritin 10 mg] 10 mg PO DAILY 05/23/18 [History] Famotidine 20 mg [Pepcid 20 MG] 20 mg PO DAILY 08/27/18 [History] Fluticasone/Salmeterol [Advair 250-50 Diskus] 1 each IN DAILY 12/08/18 [History] Albuterol 8 gm Mdi Hfa [Ventolin Hfa MDI] 8 gm IH Q4HPRN PRN 06/28/19 [ History] Prednisone 20 mg [Deltasone 20 mg] 20 mg PO DAILY 09/11/19 [History] Hx Tetanus, Diphtheria Vaccination/Date Given: Yes Hx Influenza Vaccination/Date Given: Yes Hx Pneumococcal Vaccination/Date Given: Yes - Review of Systems Constitutional: No Fever, No Chills, No Lethargy Eyes: No Eye Pain, No Vision Changes Ears, Nose, & Throat: Nose Congestion, Nose Discharge, No Ear Discharge, No Mouth Swelling, No Throat Pain, No Throat Swelling, No Painful Swallowing Respiratory: Cough, No Dyspnea Cardiac: No Chest Pain, No Edema, No Palpitations, No Syncope Abdominal/Gastrointestinal: Vomiting, No Abdominal Pain, No Nausea, No Diarrhea , No Hematemesis, No Hematochezia, No Melena Genitourinary Symptoms: No Dysuria, No Hematuria, No Flank Pain Musculoskeletal: No Back Pain, No Neck Pain, No Myalgias Skin: No Rash Neurological: No Dizziness, No Focal Weakness, No Headache, No Parasthesia, No Sensory Changes Psychological: No Anxiety Endocrine: No Excessive Sweating Hematologic/Lymphatic: No Easy Bleeding, No Easy Bruising All Other Systems: Reviewed and Negative - Past Medical History Pertinent Past Medical History: Yes Neurological History: No Pertinent History ENT History: No Pertinent History Cardiac History: High Cholesterol Respiratory History: Asthma Endocrine Medical History: Diabetes Type II Musculoskeletal History: Arthritis GI Medical History: GERD History: No Pertinent History Psycho-Social History: Anxiety, Depression Female Reproductive Disorders: Other Other Medical History: scoliosis - Past Surgical History Past Surgical History: Yes Neuro Surgical History: No Pertinent History Cardiac: No Pertinent History Respiratory: No Pertinent History Gastrointestinal: Hernia Repair Genitourinary: No Pertinent History Musculoskeletal: No Pertinent History Female Surgical History: Section Other Surgical History: 2 hernia repair,ear tubes, left ear drum,T&A - Social History Smoking Status: Never smoker Exposure to second hand smoke: No Alcohol Use: None Drug Use: none Patient Lives Alone: No Significant Family History: diabetes, hypertension - Female History Hx Last Menstrual Period: 08/22/19 Hx Now: No - Nursing Vital Signs Nursing Vital Signs: Initial Vital Signs Temperature 98.7 F 09/11/19 01:23 Pulse Rate 89 09/11/19 01:23 Respiratory Rate 18 09/11/19 01:23 O2 Sat by Pulse Oximetry 97 09/11/19 01:23 Pain Scale Pain Intensity 0 - Physical Exam General Appearance: no apparent distress, alert Eye Exam: PERRL/EOMI, eyes nml inspection Ears, Nose, Throat Exam: normal ENT inspection, TMs normal, pharynx normal, moist mucous membranes Neck Exam: normal inspection, non-tender, supple, full range of motion, No meningismus Respiratory Exam: normal breath sounds, lungs clear, airway intact, No respiratory distress, No crackles/rales, No rhonchi, No stridor, No pleural rub Cardiovascular Exam: regular rate/rhythm, normal heart sounds, normal peripheral pulses, capillary refill <2 sec Gastrointestinal/Abdomen Exam: soft, No tenderness Back Exam: normal inspection, No CVA tenderness, No vertebral tenderness Extremity Exam: normal inspection, normal range of motion Neurologic Exam: alert, oriented x 3, cooperative, hhas II-XII nml as tested, normal mood/affect, sensation nml, No motor deficits Skin Exam: normal color, warm, dry, No rash Lymphatic Exam: No adenopathy SpO2 Interpretation: normal SpO2: 97 O2 Delivery: Room Air - Course Nursing assessment & vital signs reviewed: Yes Ordered Tests: Active Orders 24 hr Category Date Time Status CHEST 1 VIEW (PORTABLE) Stat Exams 09/11/19 01:41 Taken HCG,QUALITATIVE URINE Stat Lab 09/11/19 02:00 Completed Respiratory Therapy Assessment DAILY RT 09/11/19 02:17 Completed Medication Summary Discontinued Medications Generic Name Dose Route Start Last Admin Trade Name Freq PRN Reason Stop Dose Admin Albuterol/Ipratropium 3 ml 09/11/19 01:40 09/11/19 02:15 Duoneb 0.5-3 Mg/3 Ml Neb IH 09/11/19 01:41 3 ml STAT ONE Administration Albuterol/Ipratropium Confirm 09/11/19 02:13 Duoneb 0.5-3 Mg/3 Ml Neb Administered 09/11/19 02:14 Dose 3 ml IH .STK-MED ONE Ondansetron HCl 4 mg 09/11/19 01:48 09/11/19 02:09 Zofran Odt 4 Mg PO 09/11/19 01:49 4 mg STAT ONE Administration Ondansetron HCl Confirm 09/11/19 02:06 Zofran Odt 4 Mg Administered 09/11/19 02:07 Dose 4 mg .ROUTE .STK-MED ONE Lab/Rad Data: Laboratory Results 09/11/19 Range/Units 02:00 Urine HCG, Qual NEGATIVE (Negative) - Progress Progress: re-examined Air Movement: good Progress Note: 09/11/19 02:51 Patient has improved airflow after DuoNeb treatment and subjectively feels better. Patient denies any further nausea after Zofran. Patient states she has not had a menstrual period this month, so she will have a urine checked. 09/11/19 04:24 Patient is doing well. No respiratory distress, no wheezing, patient does not require inpatient admission at this time for further monitoring and treatment. Blood Culture(s) Obtained: No Antibiotics given: No Counseled pt/family regarding: lab results, diagnosis, need for follow-up, rad results - Departure Departure Disposition: Home Clinical Impression: Acute asthma exacerbation Qualifiers: Asthma severity: mild Asthma persistence: intermittent Qualified Code(s): J45.21 - Mild intermittent asthma with (acute) exacerbation Vomiting Qualifiers: Vomiting type: unspecified Vomiting Intractability: non-intractable Nausea presence: with nausea Qualified Code(s): R11.2 - Nausea with vomiting, unspecified Condition: Good Critical Care Time: No Referrals: RAMESH GARCIA [Primary Care Provider] - 09/14/19 Instructions: Asthma, Adult (DC), Nausea and Vomiting, Adult (DC), Cough, Adult (DC), Avoiding Asthma Triggers Additional Instructions: Return immediately back to the emergency department if you feel any shortness of breath, any fever spike greater than 101, new productive cough, blood in your sputum, new abdominal pain, new chest pain, new back pain, skin rashes or any other concerning signs or symptoms that were not present at today's emergency department visit for immediate reevaluation in the emergency department. Prescriptions: Albuterol/Ipratropium 3ml Neb* [DUONEB 0.5-3 MG/3 ml Neb] 3 ml NEBULIZE Q4H PRN PRN #1 box PRN Reason: Wheezing/Chest Congestion Ondansetron ODT 4 MG [Zofran Odt 4 mg] 4 mg PO Q8H PRN PRN #10 tab.rapdis PRN Reason: Vomiting
[2019-09-11] MEDS ORDERED: ZOFRAN ODT 4 MG PO ONE (01:48)
[2019-09-11] MEDS ORDERED: ZOFRAN ODT 4 MG ONE (02:06)
[2019-09-11 04:42] VITALS: BP 120/80; PULSE 86; O2SAT 98
--- NOTE | 2019-09-11 09:54 | XRAY ---
Indication: Cough. Comparison: September 07, 2019. Portable chest again demonstrates normal heart and lungs with double curvature scoliosis. No new/acute findings.
== END 2019-09-11 04:43 | disposition home or self-care (01) ==
LOC: ED 01:19
DX: J45.21 Mild intermittent asthma with (acute) exacerbation (principal); J11.2 Influenza due to unidentified influenza virus with gastrointestinal manifestations
CPT/HCPCS: 71045; 84703; 94640; 99284; Q0162; A9270-GY

== ENCOUNTER 2019-10-04 20:51 | Emergency (ER) | payer OTHER ==
[2019-10-04] MEDS ORDERED: DUONEB 0.5-3 MG/3 ml Neb IH ONE ×4 (21:32→22:44)
--- NOTE | 2019-10-04 21:44 | ERPHSYRPT ---
- History of Present Illness Time Seen by Provider: 10/04/19 21:30 Source: patient Exam Limitations: no limitations Patient Subjective Stated Complaint: pt states she has been vomiting for the last 3 days. states she has vomited 3 times today. states she vomits after eating. pt also c/o cough and sore throat. Triage Nursing Assessment: pt alert and oriented, answers questions approp. pt ambulatory with steady gait noted. repsirations nonlabored with lungs cta. pt reports abd pain only with coughing Physician History: Patient has had a cough for the last three days, causing her to have vomiting on occasion. Patient states she has a history of hiatal hernia. Patient has not been evaluated or treated by anyone in the past three days. Timing/Duration: day(s) Cough Quality/Degree: moderate Possible Cause: no prior episodes Modifying Factors: Improves With: nothing Associated Symptoms: cough, sore throat, No fever, No chills, No chest pain/ soreness, No dizziness, No earache, No facial pain, No headache, No lightheadedness, No muscle aches, No nasal congestion, No nasal drainage, No shortness of breath, No sinus infection, No wheezing International travel in last 2 weeks: No Allergies/Adverse Reactions: omeprazole [From [email or web address]] Allergy (Severe, Verified 09/11/19 01:31) Hives Home Medications: Metformin HCl 1,000 mg PO BID 08/04/17 [History] Loratadine 10 mg [Claritin 10 mg] 10 mg PO DAILY 05/23/18 [History] Famotidine 20 mg [Pepcid 20 MG] 20 mg PO DAILY 08/27/18 [History] Fluticasone/Salmeterol [Advair 250-50 Diskus] 1 each IN DAILY 12/08/18 [History] Albuterol 8 gm Mdi Hfa [Ventolin Hfa MDI] 8 gm IH Q4HPRN PRN 06/28/19 [ History] Prednisone 20 mg [Deltasone 20 mg] 20 mg PO DAILY 09/11/19 [History] Hx Tetanus, Diphtheria Vaccination/Date Given: Yes Hx Influenza Vaccination/Date Given: Yes Hx Pneumococcal Vaccination/Date Given: Yes Immunizations Up to Date: Yes - Review of Systems Constitutional: No Fever, No Chills, No Lethargy, No Malaise Eyes: No Eye Pain, No Eye Redness, No Photophobia Ears, Nose, & Throat: Throat Pain, No Ear Pain, No Nose Congestion, No Mouth Pain, No Mouth Swelling, No Painful Swallowing Respiratory: Cough, No Dyspnea Cardiac: No Chest Pain, No Edema, No Syncope Abdominal/Gastrointestinal: Nausea, Vomiting, No Abdominal Pain, No Diarrhea, No Hematemesis, No Hematochezia, No Melena Genitourinary Symptoms: No Dysuria, No Hematuria, No Urinary Retention, No Flank Pain Musculoskeletal: No Back Pain, No Neck Pain Skin: No Rash Neurological: No Dizziness, No Focal Weakness, No Headache, No Sensory Changes Psychological: No Emotional Lability Endocrine: No Excessive Sweating Hematologic/Lymphatic: No Easy Bleeding, No Easy Bruising All Other Systems: Reviewed and Negative - Past Medical History Pertinent Past Medical History: Yes Neurological History: No Pertinent History ENT History: No Pertinent History Cardiac History: High Cholesterol Respiratory History: Asthma Endocrine Medical History: Diabetes Type II Musculoskeletal History: Arthritis GI Medical History: GERD History: No Pertinent History Psycho-Social History: Anxiety, Depression Female Reproductive Disorders: Other Other Medical History: scoliosis - Past Surgical History Past Surgical History: Yes Neuro Surgical History: No Pertinent History Cardiac: No Pertinent History Respiratory: No Pertinent History Gastrointestinal: Hernia Repair Genitourinary: No Pertinent History Musculoskeletal: No Pertinent History Female Surgical History: Section Other Surgical History: 2 hernia repair,ear tubes, left ear drum,T&A - Social History Smoking Status: Never smoker Exposure to second hand smoke: No Alcohol Use: None Drug Use: none Patient Lives Alone: No Significant Family History: diabetes, hypertension - Female History Hx Last Menstrual Period: 09/10/2019 Hx Now: No - Nursing Vital Signs Nursing Vital Signs: Initial Vital Signs Temperature 98.8 F 10/04/19 21:11 Pulse Rate 91 H 10/04/19 21:11 Respiratory Rate 18 10/04/19 21:11 Blood Pressure 113/70 10/04/19 21:11 O2 Sat by Pulse Oximetry 96 10/04/19 21:11 Pain Scale Pain Intensity 0 - Physical Exam General Appearance: no apparent distress, alert Eye Exam: PERRL/EOMI, eyes nml inspection Ears, Nose, Throat Exam: normal ENT inspection, TMs normal, pharynx normal, moist mucous membranes Neck Exam: normal inspection, non-tender, supple, full range of motion, No meningismus, No Brudzinski, No Kernig's, No JVD, No lymphadenopathy Respiratory Exam: normal breath sounds, lungs clear, airway intact, diminished breath sounds, No respiratory distress, No crackles/rales, No rhonchi, No wheezing, No stridor Cardiovascular Exam: regular rate/rhythm, normal heart sounds, normal peripheral pulses Gastrointestinal/Abdomen Exam: soft, No normal bowel sounds, No tenderness, No distention, No guarding Back Exam: normal inspection, No CVA tenderness, No vertebral tenderness Extremity Exam: normal inspection, normal range of motion Neurologic Exam: alert, oriented x 3, cooperative, picture enlarger II-XII nml as tested, normal mood/affect, sensation nml, No motor deficits Skin Exam: normal color, warm, dry, No rash Lymphatic Exam: No adenopathy SpO2 Interpretation: normal SpO2: 96 O2 Delivery: Room Air - Course Nursing assessment & vital signs reviewed: Yes - Radiology Exams Chest X-ray Interpretation: Interpreted by me, Reviewed by me, No Pneumonia, No Pneumothorax, Nml Heart Size, No Infiltrates, Nml Mediastinum, Other (scoliosis) Ordered Tests: Active Orders 24 hr Category Date Time Status CHEST 1 VIEW (PORTABLE) Stat Exams 10/04/19 21:32 Taken HCG,QUALITATIVE URINE Stat Lab 10/04/19 21:50 Completed UA W/RFX UR CULTURE Stat Lab 10/04/19 21:50 Completed Peak Expiratory Flow Rate ONCE RT 10/04/19 22:01 Active Respiratory Therapy Assessment DAILY RT 10/04/19 22:01 Active Medication Summary Discontinued Medications Generic Name Dose Route Start Last Admin Trade Name Freq PRN Reason Stop Dose Admin Albuterol/Ipratropium 3 ml 10/04/19 21:32 10/04/19 21:58 Duoneb 0.5-3 Mg/3 Ml Neb IH 10/04/19 21:33 3 ml STAT ONE Administration Albuterol/Ipratropium Confirm 10/04/19 21:55 Duoneb 0.5-3 Mg/3 Ml Neb Administered 10/04/19 21:56 Dose 3 ml IH .STK-MED ONE Albuterol/Ipratropium 3 ml 10/04/19 22:41 10/04/19 22:45 Duoneb 0.5-3 Mg/3 Ml Neb IH 10/04/19 22:42 3 ml STAT ONE Administration Albuterol/Ipratropium Confirm 10/04/19 22:44 Duoneb 0.5-3 Mg/3 Ml Neb Administered 10/04/19 22:45 Dose 3 ml IH .STK-MED ONE Ondansetron HCl 4 mg 10/04/19 22:41 10/04/19 22:58 Zofran Odt 4 Mg PO 10/04/19 22:42 4 mg STAT ONE Administration Ondansetron HCl Confirm 10/04/19 22:57 Zofran Odt 4 Mg Administered 10/04/19 22:58 Dose 4 mg .ROUTE .STK-MED ONE Lab/Rad Data: Laboratory Results 10/04/19 10/04/19 10/04/19 Range/Units 22:10 21:50 21:50 Urine Color YELLOW (YELLOW) Urine Appearance SLIGHTLY CLOUDY (CLEAR) Urine pH 6.0 (5-6) Ur Specific [place] 1.006 (1.005-1.025) Urine Protein NEGATIVE (Negative) Urine Ketones NEGATIVE (NEGATIVE) Urine Blood NEGATIVE (0-5) Carloz/ul Urine Nitrite NEGATIVE (NEGATIVE) Urine Bilirubin NEGATIVE (NEGATIVE) Urine Urobilinogen NEGATIVE (0-1) mg/dL Ur Leukocyte Esterase NEGATIVE (NEGATIVE) Urine WBC (Auto) 0-2 (0-5) /HPF Urine RBC (Auto) NONE (0-2) /HPF U Epithel Cells (Auto) RARE (FEW) /HPF Urine Bacteria (Auto) NONE (NEGATIVE) /HPF Urine Mucus (Auto) SLIGHT (NEGATIVE) /HPF Urine Culture Reflexed NO (NO) Urine Glucose >=500 (NEGATIVE) mg/dL Urine HCG, Qual NEGATIVE (Negative) Influenza Type A Ag NEGATIVE (NEGATIVE) Influenza Type B Ag NEGATIVE (NEGATIVE) RSV (PCR) NEGATIVE (Negative) - Progress Progress: re-examined Air Movement: good Progress Note: 10/04/19 22:42 improved air flow throughout with positive wheezing 10/04/19 23:19 Good airflow throughout with faint wheezing on end-expiration only 10/04/19 23:25 Patient does not require inpatient admission and she is hemodynamically good condition, afebrile, has improved physical examination, no respiratory distress , no hypoxia, had a negative chest x-ray at this time and is able to do treatment at home. Blood Culture(s) Obtained: No Antibiotics given: No Counseled pt/family regarding: lab results, diagnosis, need for follow-up, rad results - Departure Departure Disposition: Home Clinical Impression: Cough, Elevated blood pressure reading without diagnosis of hypertension Asthma exacerbation Qualifiers: Asthma severity: mild Asthma persistence: intermittent Qualified Code(s): J45.21 - Mild intermittent asthma with (acute) exacerbation Vomiting Qualifiers: Vomiting type: unspecified Vomiting Intractability: non-intractable Nausea presence: without nausea Qualified Code(s): R11.11 - Vomiting without nausea Condition: Good Critical Care Time: No Referrals: RAMESH GARCIA [Primary Care Provider] - Follow Up with PCP/3 days (Discuss getting another EGD if the vomiting or stuck sensation when you swallow continues) Instructions: Vomiting -- Adult, Cough, Adult (DC), Asthma, Adult (DC) Additional Instructions: Discharge/Care Plan ABENA WHELANE was seen on 10/04/19 in the Emergency Room. The patient was counseled regarding Diagnosis,Lab results, Imaging studies, need for follow up and when to return to the Emergency Room. Return for any uncontrolled coughing , new fever, productive cough, difficulty breathing, abdominal pain or any other concerning signs or symptoms that were not present at today's emergency department visit for immediate re-evaluation in the emergency department. Prescriptions given: Duoneb, Prednisone, Zofran Discharge Note I have spoken with the patient. I have explained the patient's condition, diagnosis and treatment plan based on the information available to me at this time. I have answered the patient's questions and addressed any concerns. The patient has a good understanding of the patient's diagnosis, condition and treatment plan as can be expected at this point. The vital signs have been stable. The patient's condition is stable and appropriate for discharge from the emergency department. The patient will pursue further outpatient evaluation with the primary care physician or other designated or consulting physician as outlined in the discharge instructions. The patient is agreeable to this plan of care and follow -up instructions have been explained in detail. The patient has received these instruction. The patient is aware that any significant change in condition or worsening of symptoms should prompt an immediate return to this or the closest emergency department or call 911. Prescriptions: Albuterol/Ipratropium 3ml Neb* [DUONEB 0.5-3 MG/3 ml Neb] 3 ml NEBULIZE Q4H PRN PRN #1 box PRN Reason: Wheezing/Chest Congestion Ondansetron ODT 4 MG [Zofran Odt 4 mg] 4 mg PO Q8H PRN PRN #10 tab.rapdis PRN Reason: Nausea Prednisone 20 mg [Deltasone 20 mg] 60 mg PO DAILY PRN #9 tablet PRN Reason: Sore Throat Relief
[2019-10-04 22:22] LABS: Appearance SLIGHTLY CLOUDY (CLEAR); Bilirubin NEGATIVE (NEGATIVE); Blood NEGATIVE Ery/ul (0-5); Epithelial Cells RARE /HPF (FEW); Glucose >=500 mg/dL (NEGATIVE); Ketones NEGATIVE (NEGATIVE); Leukocyte Esterase NEGATIVE (NEGATIVE); Mucus SLIGHT /HPF (NEGATIVE); Nitrite NEGATIVE (NEGATIVE); Protein,Urine Dip NEGATIVE (Negative); Specific Gravity 1.006 (1.005-1.025); Urobilinogen NEGATIVE mg/dL (0-1); WBC 0-2 /HPF (0-5)
[2019-10-04] MEDS ORDERED: ZOFRAN ODT 4 MG PO ONE (22:41)
[2019-10-04 22:51] LABS: INFLUENZA A NEGATIVE (NEGATIVE); INFLUENZA B NEGATIVE (NEGATIVE); RESPIRATORY SYNCTIAL VIRUS NEGATIVE (Negative)
[2019-10-04] MEDS ORDERED: ZOFRAN ODT 4 MG ONE (22:57)
[2019-10-04 23:00] VITALS: BP 126/85; PULSE 96
[2019-10-04 23:24] VITALS: O2SAT 96
--- NOTE | 2019-10-05 09:12 | XRAY ---
Indication: Cough. Comparison: September 11, 2019. Portable chest again demonstrates normal heart and lungs with incidental double curvature scoliosis. No new/acute findings.
== END 2019-10-04 23:39 | disposition home or self-care (01) ==
LOC: ED 20:51
DX: R05 Cough (principal); R03.0 Elevated blood-pressure reading, without diagnosis of hypertension; J45.21 Mild intermittent asthma with (acute) exacerbation; E78.00 Pure hypercholesterolemia, unspecified; F41.9 Anxiety disorder, unspecified; E11.9 Type 2 diabetes mellitus without complications; R11.11 Vomiting without nausea; Z79.899 Other long term (current) drug therapy
CPT/HCPCS: 71045; 81001; 84703; 87631; 94150; 94640; 99284; Q0162; A9270-GY

== ENCOUNTER 2019-11-25 18:02 | Emergency (ER) | payer OTHER ==
[2013-06-05 11:07] VITALS: BP 142/83
[2019-11-25] MEDS ORDERED: TORAdol 30 mg Injection ONE (18:54)
[2019-11-25] MEDS ORDERED: BENADRYL 50 MG/ML ONE (18:55)
[2019-11-25] MEDS ORDERED: ZOFRAN ODT 4 MG ONE (18:55)
[2019-11-25] MEDS ORDERED: Reglan 10 MG/2 ML ONE (18:56)
[2019-11-25 20:38] LABS: ALBUMIN 4.1 g/dL (3.5-5.0); ALKALINE PHOSPHATASE 122 U/L (38-126); BLOOD UREA NITROGEN 13 mg/dL (7-17); CHLORIDE 101 mmol/L (98-107); Calcium 9.4 mg/dL (8.4-10.2); Carbon Dioxide 27 mmol/L (22-30); Creatinine 1 0.77 mg/dL (0.52-1.04); Glucose 186 mg/dL (74-106); Potassium 3.8 mmol/L (3.5-5.1); SGOT/AST 48 U/L (14-36); SGPT/ALT 31 U/L (0-35); SODIUM 134 mmol/L (137-145); Total Protein 7.4 g/dL (6.3-8.2)
[2019-11-25 20:40] LABS: ANION GAP 9.8 MEQ/L (5-15)
[2019-11-25 20:41] LABS: Hematocrit 38.2 % (35-47); Hemoglobin 12.9 gm/dl (12.0-16.0); Mean Corpuscular Hemoglobin 30.1 pg (26-32); Mean Corpuscular Hgb Concent. 33.8 g/dl (32-36); Mean Platelet Volume 9.6 fl (7.5-11.0); Platelet Count 284 K/mm3 (150-450); Red Blood Count 4.29 M/mm3 (4.1-5.4); Red Cell Distribution Width 13.3 % (11.5-14.0); White Blood Count 9.8 K/mm3 (4.0-10.5)
--- NOTE | 2019-11-26 08:53 | XRAY ---
Indication: Migraine headache. Multiple contiguous axial images obtained through the head without contrast. Comparison: None Ventriculosulcal pattern appears symmetric. No acute intracranial hemorrhage, abnormal extra-axial fluid collection, or mass effect. Fourth ventricle is midline without hydrocephalus. Argueta-white matter differentiation is preserved.. Bony calvarium intact. Visualized paranasal sinuses and mastoid air cells are clear. Impression: Negative CT head without contrast exam.
== END 2019-11-25 20:06 | disposition home or self-care (01) ==
LOC: ED 18:02
DX: G43.909 Migraine, unspecified, not intractable, without status migrainosus (principal); R20.2 Paresthesia of skin; R53.1 Weakness; H53.149 Visual discomfort, unspecified; M25.50 Pain in unspecified joint; Z79.899 Other long term (current) drug therapy
CPT/HCPCS: 36415; 70450; 80053; 85027; 96372; 99284; J1200; J1885; Q0162

== ENCOUNTER 2020-06-09 19:52 | Emergency (ER) | payer OTHER ==
[2020-06-09 20:25] LABS: Absolute Neutrophil Ct (ANC) 6.18 (1.4-6.9); BASOPHIL % 0.2 % (0.0-0.4); Basophil (Absolute #) 0.02 (0-0.4); Eosinophil % 1.5 % (0.00-5.0); Eosinophil (Absolute #) 0.15 (0-0.5); Hematocrit 43.2 % (35-47); Hemoglobin 14.5 gm/dl (12.0-16.0); Lymphocyte (Absolute #) 3.42 (1.0-4.6); Lymphocytes % 33.3 % (24.0-44.0); Mean Cell Volume 88.7 fl (78-100); Mean Corpuscular Hemoglobin 29.8 pg (26-32); Mean Corpuscular Hgb Concent. 33.6 g/dl (32-36); Mean Platelet Volume 10.3 fl (7.5-11.0); Monocyte (Absolute #) 0.49 (0.0-1.3); Monocytes % 4.8 % (0.0-12.0); Neutrophil % 60.2 % (36.0-66.0); Platelet Count 242 K/mm3 (150-450); Red Blood Count 4.87 M/mm3 (4.1-5.4); Red Cell Distribution Width 13.6 % (11.5-14.0); White Blood Count 10.3 K/mm3 (4.0-10.5)
[2020-06-09 20:35] LABS: Appearance SLIGHTLY CLOUDY (CLEAR); Bilirubin NEGATIVE (NEGATIVE); Blood NEGATIVE Ery/ul (0-5); Epithelial Cells RARE /HPF (FEW); Glucose >=500 mg/dL (NEGATIVE); Ketones NEGATIVE (NEGATIVE); Leukocyte Esterase NEGATIVE (NEGATIVE); Mucus SLIGHT /HPF (NEGATIVE); Nitrite NEGATIVE (NEGATIVE); Protein,Urine Dip >=500 (Negative); Specific Gravity 1.033 (1.005-1.025); Urobilinogen NEGATIVE mg/dL (0-1)
[2020-06-09 20:43] LABS: ALBUMIN 4.5 g/dL (3.5-5.0); ALKALINE PHOSPHATASE 150 U/L (38-126); AMYLASE 53 U/L (30-110); ANION GAP 14.5 MEQ/L (5-15); BLOOD UREA NITROGEN 11 mg/dL (7-17); CHLORIDE 96 mmol/L (98-107); Calcium 9.9 mg/dL (8.4-10.2); Carbon Dioxide 25 mmol/L (22-30); EST GLOMERULAR FILTRATION RATE > 60.0 ML/MIN; Glucose 290 mg/dL (74-106); LIPASE 59 U/L (23-300); Potassium 4.7 mmol/L (3.5-5.1); SGOT/AST 67 U/L (14-36); SGPT/ALT 39 U/L (0-35); SODIUM 131 mmol/L (137-145); Total Protein 7.5 g/dL (6.3-8.2)
--- NOTE | 2020-06-09 20:45 | ERPHSYRPT ---
- History of Present Illness Historian: patient Exam Limitations: no limitations Patient Subjective Stated Complaint: pt states that she began to have midline abdomen pain that started yesterday, pt states that she has severe cramping Triage Nursing Assessment: pt ambulated into the er, pt is axo x4, c/o abd pain, states 9/10 pain to abd, abd is obsese, soft, hernia present, hyperactive bowel sounds in all quads, denies N/D/V, clear lung sounds, clear heart tones, vitals wnl Physician History: 40 yo morbidly obese wf w generalized abdominal pain x2 days. Pain is 9/10/cramping/nothing makes better or worse. She had similar pain 2-3 yrs ago which resolved without medical intervention. Pt denies N/V/D/melena/hematochezia/dysuria/hematuria//fever/trauma. Timing/Duration: day(s) (2days) Activities at Onset: rest Quality: cramping Abdominal Pain Onset Location: generalized abdomen Pain Radiation: no radiation Severity of Pain-Max: severe Severity of Pain-Current: severe Modifying Factors: Improves With: nothing Associated Symptoms: No back, No chest pain, No diaphoresis, No diarrhea, No fever/chills, No fatigue, No headache, No heartburn, No loss of appetite, No nausea, No neck pain, No rash, No shortness of breath, No syncope, No vomiting, No weakness Previous symptoms: same symptoms as today (2-3 yrs ago w resolution) Allergies/Adverse Reactions: omeprazole [From Prilosec] Allergy (Severe, Verified 06/09/20 19:59) Hives Home Medications: Metformin HCl 1,000 mg PO BID 08/04/17 [History] Loratadine 10 mg [Claritin 10 mg] 10 mg PO DAILY 05/23/18 [History] Famotidine 20 mg [Pepcid 20 MG] 20 mg PO DAILY 08/27/18 [History] Fluticasone/Salmeterol [Advair 250-50 Diskus] 1 each IN DAILY 12/08/18 [History] Albuterol 8 gm Mdi Hfa [Ventolin Hfa MDI] 8 gm IH Q4HPRN PRN 06/28/19 [History] Prednisone 20 mg [Deltasone 20 mg] 20 mg PO DAILY 09/11/19 [History] Prednisone 20 mg [Deltasone 20 mg] 60 mg PO DAILY 10/06/19 [History] Hx Tetanus, Diphtheria Vaccination/Date Given: Yes Hx Influenza Vaccination/Date Given: Yes Hx Pneumococcal Vaccination/Date Given: Yes Travel Risk - International Travel Have you traveled outside of the country in past 3 weeks: No - Coronavirus Screening Are you exhibiting any of the following symptoms?: No Close contact with a COVID-19 positive Pt in past 14-21 Days: No - Review of Systems Constitutional: No Symptoms Eyes: No Symptoms Ears, Nose, & Throat: No Symptoms Respiratory: No Symptoms Cardiac: No Symptoms Genitourinary Symptoms: No Symptoms Musculoskeletal: No Symptoms Skin: No Symptoms Neurological: No Symptoms Psychological: No Symptoms Endocrine: No Symptoms Hematologic/Lymphatic: No Symptoms Immunological/Allergic: No Symptoms - Past Medical History Pertinent Past Medical History: Yes Neurological History: No Pertinent History ENT History: No Pertinent History Cardiac History: No Pertinent History Respiratory History: Asthma, Sleep Apnea Endocrine Medical History: Diabetes Type II Musculoskeletal History: Arthritis GI Medical History: GERD, Hernia History: No Pertinent History Psycho-Social History: Depression Female Reproductive Disorders: No Pertinent History Other Medical History: scoliosis - Past Surgical History Past Surgical History: Yes Neuro Surgical History: No Pertinent History Cardiac: No Pertinent History Respiratory: No Pertinent History Gastrointestinal: Hernia Repair Genitourinary: No Pertinent History Musculoskeletal: No Pertinent History Female Surgical History: Section Other Surgical History: Ear tubes both ears. left ear drum surgery, 2 umbilical hernia repair. - Social History Smoking Status: Never smoker Exposure to second hand smoke: No Alcohol Use: None Drug Use: none Patient Lives Alone: No Significant Family History: diabetes, hypertension - Female History Hx Now: No (unknown) - Nursing Vital Signs Nursing Vital Signs: Initial Vital Signs Temperature 98.9 F 06/09/20 20:00 Pulse Rate 98 H 06/09/20 20:00 Respiratory Rate 18 06/09/20 20:00 Blood Pressure 143/97 06/09/20 20:00 O2 Sat by Pulse Oximetry 97 06/09/20 20:00 Pain Scale Pain Intensity 2 - Physical Exam General Appearance: no apparent distress Eye Exam: PERRL/EOMI, eyes nml inspection Ears, Nose, Throat Exam: normal ENT inspection, TMs normal, pharynx normal Neck Exam: normal inspection, non-tender, supple, No meningismus, No mass Respiratory Exam: normal breath sounds, lungs clear, airway intact, No respiratory distress Cardiovascular Exam: regular rate/rhythm, normal heart sounds, normal peripheral pulses Gastrointestinal/Abdomen Exam: other (Morbidly obese/good BS/Soft/Diffuse TTP/no guarding or rebound) Back Exam: normal inspection, normal range of motion, CVA tenderness, vertebral tenderness Extremity Exam: normal inspection, normal range of motion Neurologic Exam: alert, oriented x 3, cooperative, claim technician II-XII nml as tested, normal mood/affect, nml cerebellar function, nml station & gait, sensation nml, No motor deficits, No sensory deficit Skin Exam: normal color, warm, dry, rash Lymphatic Exam: No adenopathy SpO2 Interpretation: normal SpO2: 97 O2 Delivery: Room Air - CT Exams Abdomen/Pelvis CT Interpretation: Discussed w/radiologist (Large, failed ventral hernia/TORREZ/Hepatosplenomegaly/diverticulosis) Ordered Tests: Active Orders 24 hr Category Date Time Status IV Insertion STAT Care 06/09/20 20:07 Completed ABDOMEN AND PELVIS W CONTRAST [CT] Stat Exams 06/09/20 21:16 Taken AMYLASE Stat Lab 06/09/20 20:10 Completed CBC W DIFF Stat Lab 06/09/20 20:10 Completed CMP Stat Lab 06/09/20 20:10 Completed HCG,QUALITATIVE URINE Stat Lab 06/09/20 20:10 Completed LIPASE Stat Lab 06/09/20 20:10 Completed UA W/RFX UR CULTURE Stat Lab 06/09/20 20:10 Completed Lab/Rad Data: Laboratory Result Diagrams 06/09/20 20:10 06/09/20 20:10 Laboratory Results 06/09/20 06/09/20 06/09/20 Range/Units 20:10 20:10 20:10 WBC (4.0-10.5) K/mm3 RBC (4.1-5.4) M/mm3 Hgb (12.0-16.0) gm/dl Hct (35-47) % MCV (78-100) fl MCH (26-32) pg MCHC (32-36) g/dl RDW (11.5-14.0) % Plt Count (150-450) K/mm3 MPV (7.5-11.0) fl Gran % (36.0-66.0) % Eos # (Auto) (0-0.5) Absolute Lymphs (auto) (1.0-4.6) Absolute Monos (auto) (0.0-1.3) Lymphocytes % (24.0-44.0) % Monocytes % (0.0-12.0) % Eosinophils % (0.00-5.0) % Basophils % (0.0-0.4) % Absolute Granulocytes (1.4-6.9) Basophils # (0-0.4) Sodium 131 L (137-145) mmol/L Potassium 4.7 (3.5-5.1) mmol/L Chloride 96 L (98-107) mmol/L Carbon Dioxide 25 (22-30) mmol/L Anion Gap 14.5 (5-15) MEQ/L BUN 11 (7-17) mg/dL Creatinine 0.60 (0.52-1.04) mg/dL Estimated GFR > 60.0 ML/MIN Glucose 290 H (74-106) mg/dL Calcium 9.9 (8.4-10.2) mg/dL Total Bilirubin 0.80 (0.2-1.3) mg/dL AST 67 H (14-36) U/L ALT 39 H (0-35) U/L Alkaline Phosphatase 150 H (38-126) U/L Serum Total Protein 7.5 (6.3-8.2) g/dL Albumin 4.5 (3.5-5.0) g/dL Amylase 53 (30-110) U/L Lipase 59 (23-300) U/L Urine Color YELLOW (YELLOW) Urine Appearance SLIGHTLY CLOUDY (CLEAR) Urine pH 5.0 (5-6) Ur Specific [place] 1.033 (1.005-1.025) Urine Protein >=500 (Negative) Urine Ketones NEGATIVE (NEGATIVE) Urine Blood NEGATIVE (0-5) Carloz/ul Urine Nitrite NEGATIVE (NEGATIVE) Urine Bilirubin NEGATIVE (NEGATIVE) Urine Urobilinogen NEGATIVE (0-1) mg/dL Ur Leukocyte Esterase NEGATIVE (NEGATIVE) Urine WBC (Auto) NONE (0-5) /HPF Urine RBC (Auto) NONE (0-2) /HPF U Epithel Cells (Auto) RARE (FEW) /HPF Urine Bacteria (Auto) NONE (NEGATIVE) /HPF Urine Mucus (Auto) SLIGHT (NEGATIVE) /HPF Urine Culture Reflexed NO (NO) Urine Glucose >=500 (NEGATIVE) mg/dL Urine HCG, Qual NEGATIVE (Negative) 06/09/20 Range/Units 20:10 WBC 10.3 (4.0-10.5) K/mm3 RBC 4.87 (4.1-5.4) M/mm3 Hgb 14.5 (12.0-16.0) gm/dl Hct 43.2 (35-47) % MCV 88.7 (78-100) fl MCH 29.8 (26-32) pg MCHC 33.6 (32-36) g/dl RDW 13.6 (11.5-14.0) % Plt Count 242 (150-450) K/mm3 MPV 10.3 (7.5-11.0) fl Gran % 60.2 (36.0-66.0) % Eos # (Auto) 0.15 (0-0.5) Absolute Lymphs (auto) 3.42 (1.0-4.6) Absolute Monos (auto) 0.49 (0.0-1.3) Lymphocytes % 33.3 (24.0-44.0) % Monocytes % 4.8 (0.0-12.0) % Eosinophils % 1.5 (0.00-5.0) % Basophils % 0.2 (0.0-0.4) % Absolute Granulocytes 6.18 (1.4-6.9) Basophils # 0.02 (0-0.4) Sodium (137-145) mmol/L Potassium (3.5-5.1) mmol/L Chloride (98-107) mmol/L Carbon Dioxide (22-30) mmol/L Anion Gap (5-15) MEQ/L BUN (7-17) mg/dL Creatinine (0.52-1.04) mg/dL Estimated GFR ML/MIN Glucose (74-106) mg/dL Calcium (8.4-10.2) mg/dL Total Bilirubin (0.2-1.3) mg/dL AST (14-36) U/L ALT (0-35) U/L Alkaline Phosphatase (38-126) U/L Serum Total Protein (6.3-8.2) g/dL Albumin (3.5-5.0) g/dL Amylase (30-110) U/L Lipase (23-300) U/L Urine Color (YELLOW) Urine Appearance (CLEAR) Urine pH (5-6) Ur Specific [place] (1.005-1.025) Urine Protein (Negative) Urine Ketones (NEGATIVE) Urine Blood (0-5) Carloz/ul Urine Nitrite (NEGATIVE) Urine Bilirubin (NEGATIVE) Urine Urobilinogen (0-1) mg/dL Ur Leukocyte Esterase (NEGATIVE) Urine WBC (Auto) (0-5) /HPF Urine RBC (Auto) (0-2) /HPF U Epithel Cells (Auto) (FEW) /HPF Urine Bacteria (Auto) (NEGATIVE) /HPF Urine Mucus (Auto) (NEGATIVE) /HPF Urine Culture Reflexed (NO) Urine Glucose (NEGATIVE) mg/dL Urine HCG, Qual (Negative) - Progress Counseled pt/family regarding: lab results, diagnosis, need for follow-up, rad results - Departure Departure Disposition: Home Clinical Impression: Abdominal pain Condition: Stable Critical Care Time: No Referrals: RAMESH ZARAGOZA [Primary Care Provider] - Instructions: Acute Abdomen (Belly Pain), Adult (DC) Additional Instructions: Follow up with family MD on Friday Return to ER for increasing pain or temperature greater than 100.5
[2020-06-09 22:29] VITALS: O2SAT 97
[2020-06-09 22:32] VITALS: BP 113/83; PULSE 88
--- NOTE | 2020-06-10 08:24 | XRAY ---
Indication: Upper abdomen pain and nausea. Multiple contiguous axial images obtained through the abdomen and pelvis using 80 cc Isovue 370 contrast. Comparison: February 19, 2019. Lung bases are clear. Heart is not enlarged. There remains grossly stable failed large infraumbilical ventral hernia repair surgery again with herniated omental fat, mesh graft, and small bowel loops without incarceration/obstruction. Remaining noncontrasted stomach and bowel loops appear nonobstructed. Stable minimal descending and sigmoid diverticulosis. No free fluid/air. Stable fatty hepatomegaly measuring 22.7 cm and splenomegaly measuring 13.3 cm. Remaining liver, gallbladder, pancreas, spleen, degenerative glands, kidneys, ureters, bladder, and uterus appear unremarkable. Minimal aortic calcifications. No AAA or pathological retroperitoneal lymphadenopathy. Osseous structures intact again with mild double curvature thoracolumbar scoliosis. Impression: 1. Stable failed large infraumbilical ventral hernia repair surgery. 2. Stable colonic diverticulosis, fatty hepatomegaly, and splenomegaly. 3. Remaining CT abdomen/pelvis with contrast exam is negative.
== END 2020-06-09 22:39 | disposition home or self-care (01) ==
LOC: ED 19:52
DX: R10.9 Unspecified abdominal pain (principal)
CPT/HCPCS: 36000; 36415; 74177; 80053; 81001; 82150; 83690; 84703; 85025; 99284

== ENCOUNTER 2020-07-09 19:00 | Observation (INO) | payer OTHER ==
[2020-07-09] MEDS ORDERED: Zofran 4 MG/2 ML VIAL IV ONE (19:26)
[2020-07-09] MEDS ORDERED: Hydromorphone 1 mg/ml Injection IV ONE (19:26)
[2020-07-09] MEDS ORDERED: Sodium Chloride 0.9% 1000 ML 1,000 ML IV STA (19:26)
[2020-07-09 19:28] LABS: Appearance SLIGHTLY CLOUDY (CLEAR); Bacteria RARE /HPF (NEGATIVE); Bilirubin NEGATIVE (NEGATIVE); Blood MODERATE Ery/ul (0-5); Epithelial Cells RARE /HPF (FEW); Glucose >=500 mg/dL (NEGATIVE); Ketones MODERATE (NEGATIVE); Leukocyte Esterase NEGATIVE (NEGATIVE); Mucus SLIGHT /HPF (NEGATIVE); Nitrite NEGATIVE (NEGATIVE); Protein,Urine Dip 100 (Negative); RBC 0-2 /HPF (0-2); Specific Gravity 1.042 (1.005-1.025); Urobilinogen 2 mg/dL (0-1)
--- NOTE | 2020-07-09 19:37 | ERPHSYRPT ---
- History of Present Illness Time Seen by Provider: 07/09/20 19:02 Historian: patient Exam Limitations: no limitations Patient Subjective Stated Complaint: pt states "I had belly pain that started yesterday, it just hendrickson." Triage Nursing Assessment: pt ambulated into the er; pt is axo x4; c/o abd pain; states 6/10 pain to abd; states pressure with urination; abd is round, obese, distented, soft, hyperactive bowel sounds in all quads, hernia present in RLQ; clear lung sounds in all lobes; clear heart tones; urine is yellow and cloudy; vitals wnl Physician History: Patient is here with diffuse abdominal pain for 2-3 days. Burning with urination starting in the last 24 hours. Location: generalized abdominal Quality: cramping Radiation: none Severity: moderate Duration: 2-3 days Timing: gradual Modifying factors/associated signs and symptoms: home OTC medication Allergies/Adverse Reactions: omeprazole [From Priexsulinsec] Allergy (Severe, Verified 07/09/20 19:15) Hives Home Medications: Metformin HCl 1,000 mg PO BID 08/04/17 [History] Loratadine 10 mg [Claritin 10 mg] 10 mg PO DAILY 05/23/18 [History] Famotidine 20 mg [Pepcid 20 MG] 20 mg PO DAILY 08/27/18 [History] Fluticasone/Salmeterol [Advair 250-50 Diskus] 1 each IN DAILY 12/08/18 [History] Albuterol 8 gm Mdi Hfa [Ventolin Hfa MDI] 8 gm IH Q4HPRN PRN 06/28/19 [History] Prednisone 20 mg [Deltasone 20 mg] 20 mg PO DAILY 09/11/19 [History] Hx Tetanus, Diphtheria Vaccination/Date Given: Yes Hx Influenza Vaccination/Date Given: Yes Hx Pneumococcal Vaccination/Date Given: Yes Travel Risk - International Travel Have you traveled outside of the country in past 3 weeks: No - Coronavirus Screening Symptoms: Vomiting/Diarrhea Close contact with a COVID-19 positive Pt in past 14-21 Days: No - Review of Systems Constitutional: No Fever, No Chills Eyes: No Symptoms Ears, Nose, & Throat: No Symptoms Respiratory: No Cough, No Dyspnea Cardiac: No Chest Pain, No Edema, No Syncope Abdominal/Gastrointestinal: Abdominal Pain, Nausea, Vomiting, No Diarrhea Genitourinary Symptoms: No Dysuria Musculoskeletal: No Back Pain, No Neck Pain Skin: No Rash Neurological: No Dizziness, No Focal Weakness, No Sensory Changes Psychological: No Symptoms Endocrine: No Symptoms All Other Systems: Reviewed and Negative - Past Medical History Pertinent Past Medical History: Yes Neurological History: No Pertinent History ENT History: No Pertinent History Cardiac History: No Pertinent History Respiratory History: Asthma, Sleep Apnea Endocrine Medical History: Diabetes Type II Musculoskeletal History: Arthritis GI Medical History: GERD, Hernia History: No Pertinent History Psycho-Social History: Depression Female Reproductive Disorders: No Pertinent History Other Medical History: scoliosis - Past Surgical History Past Surgical History: Yes Neuro Surgical History: No Pertinent History Cardiac: No Pertinent History Respiratory: No Pertinent History Gastrointestinal: Hernia Repair Genitourinary: No Pertinent History Musculoskeletal: No Pertinent History Female Surgical History: Section Other Surgical History: Ear tubes both ears. left ear drum surgery, 2 umbilical hernia repair. - Social History Smoking Status: Never smoker Exposure to second hand smoke: No Alcohol Use: None Drug Use: none Patient Lives Alone: No Significant Family History: diabetes, hypertension - Female History Hx Now: No - Nursing Vital Signs Nursing Vital Signs: Initial Vital Signs Temperature 98.2 F 07/09/20 19:17 Pulse Rate 98 H 07/09/20 19:17 Respiratory Rate 18 07/09/20 19:17 Blood Pressure 124/92 07/09/20 19:17 O2 Sat by Pulse Oximetry 97 07/09/20 19:17 Pain Scale Pain Intensity 3 - Physical Exam General Appearance: no apparent distress, alert Eye Exam: PERRL/EOMI, eyes nml inspection Ears, Nose, Throat Exam: normal ENT inspection, pharynx normal, moist mucous membranes Neck Exam: normal inspection, non-tender, supple, full range of motion Respiratory Exam: normal breath sounds, lungs clear, No respiratory distress Cardiovascular Exam: regular rate/rhythm, normal heart sounds Gastrointestinal/Abdomen Exam: soft, tenderness (previous abdominal surgery scars and RLQ hernia ), No mass Back Exam: normal inspection, normal range of motion, No CVA tenderness, No vertebral tenderness Extremity Exam: normal inspection, normal range of motion, pelvis stable Neurologic Exam: alert, oriented x 3, cooperative, normal mood/affect, nml cerebellar function, sensation nml, No motor deficits Skin Exam: normal color, warm, dry SpO2: 97 - Course Nursing assessment & vital signs reviewed: Yes EKG Interpreted by Me: Sinus Rhythm Ordered Tests: Active Orders 24 hr Category Date Time Status Code Status Order ROUTINE Care 07/09/20 21:47 Active EKG-ER Only STAT Care 07/09/20 19:26 Active IV Care Q6H Care 07/09/20 21:47 Active IV Insertion STAT Care 07/09/20 19:26 Active NG to Suction (Insertion) ROUTINE Care 07/09/20 21:[address] in Observation ROUTINE Care 07/09/20 21:47 Active NPO Diet 07/09/20 21:47 Active ABDOMEN AND PELVIS W CONTRAST [CT] Stat Exams 07/09/20 19:26 Taken NG TUBE PLACEMENT (RAD) Stat Exams 07/09/20 Ordered CBC W DIFF AM.LAB Lab 07/10/20 04:00 Ordered CBC W DIFF Stat Lab 07/09/20 19:52 Completed CMP AM.LAB Lab 07/10/20 04:00 Ordered CMP Stat Lab 07/09/20 19:52 Completed CULTURE,URINE Stat Lab 07/09/20 19:19 Received HCG QUALITATIVE,SERUM Stat Lab 07/09/20 19:52 Completed LIPASE Stat Lab 07/09/20 19:52 Completed Lactic Acid AM.LAB Lab 07/10/20 04:00 Ordered TROPONIN Stat Lab 07/09/20 19:52 Completed UA W/RFX UR CULTURE Stat Lab 07/09/20 19:19 Completed Medication Summary Generic Name Dose Route Start Last Admin Trade Name Freq PRN Reason Stop Dose Admin Hydromorphone HCl 1 mg 07/09/20 21:46 Hydromorphone 1 Mg/Ml Injection IV 07/14/20 21:45 Q4H PRN PRN PAIN Sodium Chloride 1,000 mls @ 100 mls/hr 07/09/20 22:00 07/09/20 21:56 Sodium Chloride 0.9% 1000 Ml IV 08/08/20 21:59 100 mls/hr .Q10H USMAN Administration Ondansetron HCl 4 mg 07/09/20 21:46 Zofran 4 Mg/2 Ml Vial IV 08/08/20 21:45 Q6H PRN PRN NAUSEA/VOMITING Discontinued Medications Generic Name Dose Route Start Last Admin Trade Name Lonnieq PRN Reason Stop Dose Admin Hydromorphone HCl 1 mg 07/09/20 19:26 07/09/20 19:55 Hydromorphone 1 Mg/Ml Injection IV 07/09/20 19:27 1 mg STAT ONE Administration Hydromorphone HCl Confirm 07/09/20 19:54 Hydromorphone 1 Mg/Ml Injection Administered 07/09/20 19:55 Dose 1 mg .ROUTE .STK-MED ONE Sodium Chloride 1,000 mls @ 999 mls/hr 07/09/20 19:26 07/09/20 20:56 Sodium Chloride 0.9% 1000 Ml IV 07/09/20 20:26 Infused .Q1H1M STA Infusion Sodium Chloride Confirm 07/09/20 19:54 Sodium Chloride 0.9% 1000 Ml Administered 07/09/20 19:55 Dose 1,000 mls @ ud .ROUTE .STK-MED ONE Ondansetron HCl 4 mg 07/09/20 19:26 07/09/20 19:55 Zofran 4 Mg/2 Ml Vial IV 07/09/20 19:27 4 mg STAT ONE Administration Ondansetron HCl Confirm 07/09/20 19:54 Zofran 4 Mg/2 Ml Vial Administered 07/09/20 19:55 Dose 4 mg .ROUTE .STK-MED ONE Lab/Rad Data: Laboratory Result Diagrams 07/09/20 19:52 07/09/20 19:52 Laboratory Results 07/09/20 07/09/20 07/09/20 Range/Units 19:52 19:52 19:52 WBC 11.9 H (4.0-10.5) K/mm3 RBC 4.90 (4.1-5.4) M/mm3 Hgb 14.6 (12.0-16.0) gm/dl Hct 43.1 (35-47) % MCV 88.0 (78-100) fl MCH 29.8 (26-32) pg MCHC 33.9 (32-36) g/dl RDW 13.8 (11.5-14.0) % Plt Count 309 (150-450) K/mm3 MPV 9.5 (7.5-11.0) fl Gran % 75.2 H (36.0-66.0) % Eos # (Auto) 0.03 (0-0.5) Absolute Lymphs (auto) 2.14 (1.0-4.6) Absolute Monos (auto) 0.76 (0.0-1.3) Lymphocytes % 18.0 L (24.0-44.0) % Monocytes % 6.4 (0.0-12.0) % Eosinophils % 0.3 (0.00-5.0) % Basophils % 0.1 (0.0-0.4) % Absolute Granulocytes 8.94 H (1.4-6.9) Basophils # 0.01 (0-0.4) Sodium 132 L (137-145) mmol/L Potassium 3.8 (3.5-5.1) mmol/L Chloride 96 L (98-107) mmol/L Carbon Dioxide 26 (22-30) mmol/L Anion Gap 13.3 (5-15) MEQ/L BUN 9 (7-17) mg/dL Creatinine 0.57 (0.52-1.04) mg/dL Estimated GFR > 60.0 ML/MIN Glucose 326 H (74-106) mg/dL Calcium 9.6 (8.4-10.2) mg/dL Total Bilirubin 1.20 (0.2-1.3) mg/dL AST 58 H (14-36) U/L ALT 44 H (0-35) U/L Alkaline Phosphatase 154 H (38-126) U/L Troponin I < 0.012 (0.000-0.034) ng/mL Serum Total Protein 7.7 (6.3-8.2) g/dL Albumin 4.3 (3.5-5.0) g/dL Lipase 24 (23-300) U/L Serum , Qual NEGATIVE (Negative) Urine Color (YELLOW) Urine Appearance (CLEAR) Urine pH (5-6) Ur Specific [place] (1.005-1.025) Urine Protein (Negative) Urine Ketones (NEGATIVE) Urine Blood (0-5) Carloz/ul Urine Nitrite (NEGATIVE) Urine Bilirubin (NEGATIVE) Urine Urobilinogen (0-1) mg/dL Ur Leukocyte Esterase (NEGATIVE) Urine WBC (Auto) (0-5) /HPF Urine RBC (Auto) (0-2) /HPF U Epithel Cells (Auto) (FEW) /HPF Urine Bacteria (Auto) (NEGATIVE) /HPF Urine Mucus (Auto) (NEGATIVE) /HPF Urine Culture Reflexed (NO) Urine Glucose (NEGATIVE) mg/dL 07/09/20 Range/Units 19:19 WBC (4.0-10.5) K/mm3 RBC (4.1-5.4) M/mm3 Hgb (12.0-16.0) gm/dl Hct (35-47) % MCV (78-100) fl MCH (26-32) pg MCHC (32-36) g/dl RDW (11.5-14.0) % Plt Count (150-450) K/mm3 MPV (7.5-11.0) fl Gran % (36.0-66.0) % Eos # (Auto) (0-0.5) Absolute Lymphs (auto) (1.0-4.6) Absolute Monos (auto) (0.0-1.3) Lymphocytes % (24.0-44.0) % Monocytes % (0.0-12.0) % Eosinophils % (0.00-5.0) % Basophils % (0.0-0.4) % Absolute Granulocytes (1.4-6.9) Basophils # (0-0.4) Sodium (137-145) mmol/L Potassium (3.5-5.1) mmol/L Chloride (98-107) mmol/L Carbon Dioxide (22-30) mmol/L Anion Gap (5-15) MEQ/L BUN (7-17) mg/dL Creatinine (0.52-1.04) mg/dL Estimated GFR ML/MIN Glucose (74-106) mg/dL Calcium (8.4-10.2) mg/dL Total Bilirubin (0.2-1.3) mg/dL AST (14-36) U/L ALT (0-35) U/L Alkaline Phosphatase (38-126) U/L Troponin I (0.000-0.034) ng/mL Serum Total Protein (6.3-8.2) g/dL Albumin (3.5-5.0) g/dL Lipase (23-300) U/L Serum , Qual (Negative) Urine Color YELLOW (YELLOW) Urine Appearance SLIGHTLY CLOUDY (CLEAR) Urine pH 5.0 (5-6) Ur Specific [place] 1.042 (1.005-1.025) Urine Protein 100 (Negative) Urine Ketones MODERATE (NEGATIVE) Urine Blood MODERATE (0-5) Carloz/ul Urine Nitrite NEGATIVE (NEGATIVE) Urine Bilirubin NEGATIVE (NEGATIVE) Urine Urobilinogen 2 (0-1) mg/dL Ur Leukocyte Esterase NEGATIVE (NEGATIVE) Urine WBC (Auto) 3-5 (0-5) /HPF Urine RBC (Auto) 0-2 (0-2) /HPF U Epithel Cells (Auto) RARE (FEW) /HPF Urine Bacteria (Auto) RARE (NEGATIVE) /HPF Urine Mucus (Auto) SLIGHT (NEGATIVE) /HPF Urine Culture Reflexed YES (NO) Urine Glucose >=500 (NEGATIVE) mg/dL - Progress Progress: improved Progress Note: 07/09/20 19:38 differential diagnosis includes kidney stone, compression fracture, infection, UTI, triple AAA - basic labs including: CBC, lipase, CMP, UA, urine - insert IV for fluids, pain meds, nausea control - consider imaging: CT ab/pelvis or U/S 07/09/20 21:59 CT scan shows partial bowel obstruction. This is consistent with patient's history of nausea and vomiting. I did discuss over the phone with on-call physician, Dr. Headley. He states that he will be the general surgeon for the patient. Recommended placement of an NG tube. He then stated that patient should be admitted to family medicine here. I discussed over the phone with on- call physician, Dr. Vika Mckinney. She accepted the patient. I did discuss this with the patient. She felt comfortable with admission. - Departure Departure Disposition: Observation Clinical Impression: Small bowel obstruction, partial Condition: Stable Critical Care Time: No
[2020-07-09] MEDS ORDERED: Sodium Chloride 0.9% 1000 ML 1,000 ML ONE (19:54)
[2020-07-09] MEDS ORDERED: Hydromorphone 1 mg/ml Injection ONE (19:54)
[2020-07-09] MEDS ORDERED: Zofran 4 MG/2 ML VIAL ONE (19:54)
[2020-07-09 20:01] LABS: Absolute Neutrophil Ct (ANC) 8.94 (1.4-6.9); BASOPHIL % 0.1 % (0.0-0.4); Basophil (Absolute #) 0.01 (0-0.4); Eosinophil % 0.3 % (0.00-5.0); Eosinophil (Absolute #) 0.03 (0-0.5); Hematocrit 43.1 % (35-47); Hemoglobin 14.6 gm/dl (12.0-16.0); Lymphocyte (Absolute #) 2.14 (1.0-4.6); Mean Corpuscular Hemoglobin 29.8 pg (26-32); Mean Corpuscular Hgb Concent. 33.9 g/dl (32-36); Mean Platelet Volume 9.5 fl (7.5-11.0); Monocyte (Absolute #) 0.76 (0.0-1.3); Monocytes % 6.4 % (0.0-12.0); Neutrophil % 75.2 % (36.0-66.0); Platelet Count 309 K/mm3 (150-450); Red Cell Distribution Width 13.8 % (11.5-14.0); White Blood Count 11.9 K/mm3 (4.0-10.5)
[2020-07-09 20:18] LABS: ALBUMIN 4.3 g/dL (3.5-5.0); ALKALINE PHOSPHATASE 154 U/L (38-126); ANION GAP 13.3 MEQ/L (5-15); BLOOD UREA NITROGEN 9 mg/dL (7-17); CHLORIDE 96 mmol/L (98-107); Calcium 9.6 mg/dL (8.4-10.2); Carbon Dioxide 26 mmol/L (22-30); Creatinine 1 0.57 mg/dL (0.52-1.04); EST GLOMERULAR FILTRATION RATE > 60.0 ML/MIN; Glucose 326 mg/dL (74-106); LIPASE 24 U/L (23-300); Potassium 3.8 mmol/L (3.5-5.1); SGOT/AST 58 U/L (14-36); SGPT/ALT 44 U/L (0-35); SODIUM 132 mmol/L (137-145); Total Protein 7.7 g/dL (6.3-8.2)
[2020-07-09 20:19] LABS: TROPONIN < 0.012 ng/mL (0.000-0.034)
[2020-07-09] MEDS ORDERED: Zofran 4 MG/2 ML VIAL IV PRN (21:46)
[2020-07-09] MEDS: Sodium Chloride 0.9% 1000 ML 1,000 ML IV SCH (21:56)
[2020-07-09] MEDS: Hydromorphone 1 mg/ml Injection IV PRN (23:23)
[2020-07-09] MEDS ORDERED: VENTOLIN COMMON CANISTER IH PRN (23:46)
[2020-07-10] MEDS: Hydromorphone 1 mg/ml Injection IV PRN ×3 (03:50→21:55)
[2020-07-10 06:24] LABS: Absolute Neutrophil Ct (ANC) 8.22 (1.4-6.9); BASOPHIL % 0.1 % (0.0-0.4); Basophil (Absolute #) 0.01 (0-0.4); Eosinophil % 0.6 % (0.00-5.0); Eosinophil (Absolute #) 0.07 (0-0.5); Hematocrit 40.6 % (35-47); Hemoglobin 13.2 gm/dl (12.0-16.0); Lymphocyte (Absolute #) 1.81 (1.0-4.6); Lymphocytes % 16.8 % (24.0-44.0); Mean Cell Volume 90.8 fl (78-100); Mean Corpuscular Hemoglobin 29.5 pg (26-32); Mean Corpuscular Hgb Concent. 32.5 g/dl (32-36); Mean Platelet Volume 9.5 fl (7.5-11.0); Monocyte (Absolute #) 0.68 (0.0-1.3); Monocytes % 6.3 % (0.0-12.0); Neutrophil % 76.2 % (36.0-66.0); Platelet Count 279 K/mm3 (150-450); Red Blood Count 4.47 M/mm3 (4.1-5.4); White Blood Count 10.8 K/mm3 (4.0-10.5)
[2020-07-10 06:35] LABS: ALBUMIN 3.9 g/dL (3.5-5.0); ALKALINE PHOSPHATASE 129 U/L (38-126); ANION GAP 11.6 MEQ/L (5-15); BLOOD UREA NITROGEN 9 mg/dL (7-17); CHLORIDE 101 mmol/L (98-107); Calcium 9.1 mg/dL (8.4-10.2); Carbon Dioxide 27 mmol/L (22-30); Creatinine 1 0.57 mg/dL (0.52-1.04); EST GLOMERULAR FILTRATION RATE > 60.0 ML/MIN; Glucose 267 mg/dL (74-106); Potassium 4.7 mmol/L (3.5-5.1); SGOT/AST 43 U/L (14-36); SGPT/ALT 41 U/L (0-35); SODIUM 135 mmol/L (137-145); Total Protein 6.6 g/dL (6.3-8.2)
[2020-07-10] MEDS: Advair Hfa 115/21 Common canister IH SCH ×2 (07:08→19:35)
[2020-07-10] MEDS: Sodium Chloride 0.9% 1000 ML 1,000 ML IV SCH ×2 (08:18→20:54)
--- NOTE | 2020-07-10 08:45 | PCM.HP ---
History of Present Illness - Chief Complaint Chief Complaint: SBO Date: 07/10/20 History of Present Illness: is a 40 year old female pt of mine from [facility] with morbid obesity, ventral hernia, asthma, and diabetes who was admitted through ER with small bowel obstruction. She had several days of abd pain and vomiting; in ER her CT abd/pelvis showed several loops of small bowel in the hernia with distended small bowel proximal to that (up to 3.8 cm). NG tube was placed and surgery was called, thank you. This morning she is denying pain. Her only complaint is that she is thirsty. - Review of Systems Abdominal/Gastrointestinal: Abdominal Pain, Nausea, Vomiting All Other Systems: Reviewed and Negative Medications & Allergies Home Medications: Home Medication List Metformin HCl 1,000 mg PO BID 08/04/17 [History Confirmed 07/09/20] Loratadine 10 mg [Claritin 10 mg] 10 mg PO DAILY 05/23/18 [History Confirmed 07/09/20] Famotidine 20 mg [Pepcid 20 MG] 20 mg PO DAILY 08/27/18 [History Confirmed 07/09/20] Fluticasone/Salmeterol [Advair 250-50 Diskus] 1 each IN DAILY 12/08/18 [History Confirmed 07/09/20] Albuterol 8 gm Mdi Hfa [Ventolin Hfa MDI] 8 gm IH Q4HPRN PRN 06/28/19 [History Confirmed 07/09/20] Prednisone 20 mg [Deltasone 20 mg] 20 mg PO DAILY 09/11/19 [History Confirmed 07/09/20] Albuterol/Ipratropium 3ml Neb* [DUONEB 0.5-3 MG/3 ml Neb] 3 ml NEBULIZE Q4H PRN PRN #1 box 10/04/19 [Rx Confirmed 07/09/20] Allergies/Adverse Reactions: Allergies Allergy/AdvReac Type Severity Reaction Status Date / Time omeprazole [From Prilosec] Allergy Severe Hives Verified 07/09/20 19:15 - Past Medical History Past Medical History: Yes Neurological History: No Pertinent History ENT History: No Pertinent History Cardiac History: No Pertinent History Respiratory History: Asthma, Sleep Apnea Endocrine Medical History: Diabetes Type II Musculoskelatal History: Arthritis GI Medical History: GERD, Hernia History: No Pertinent History Pyscho-Social History: Depression Reproductive Disorders: No Pertinent History Comment: scoliosis - Female History Are you now?: No - Past Surgical History Past Surgical History: Yes Neuro Surgical History: No Pertinent History Cardiac History: No Pertinent History Respiratory Surgery: No Pertinent History GI Surgical History: Hernia Repair Genitourinary Surgical Hx: No Pertinent History Musculskeletal Surgical Hx: No Pertinent History Female Surgical History: Section Other Surgical History: Ear tubes both ears. left ear drum surgery, 2 umbilical hernia repair. - Social History Smoking Status: Never smoker Exposure to second hand smoke: No Alcohol: None Drug Use: none Significant Family History: diabetes, hypertension - Physical Exam Vital Signs: Vital Signs - 24 hr Temp Pulse Resp BP Pulse Ox 07/10/20 07:16 98.5 F 82 16 113/78 97 07/10/20 07:09 94 L 07/10/20 04:00 97.6 F 82 18 128/83 97 07/09/20 23:35 96 H 18 95 07/09/20 22:51 98.0 F 96 H 17 139/95 95 07/09/20 22:01 97 07/09/20 21:08 87 111/78 95 07/09/20 20:06 95 H 144/92 96 07/09/20 19:17 98.2 F 98 H 18 124/92 97 General Appearance: no apparent distress, obese Neurologic Exam: oriented x 3, cooperative Eye Exam: eyes nml inspection Ears, Nose, Throat Exam: moist mucous membranes Neck Exam: normal inspection Respiratory Exam: normal breath sounds, lungs clear, No crackles/rales, No rhonchi, No wheezing Cardiovascular Exam: regular rate/rhythm, normal heart sounds, No murmur Gastrointestinal/Abdomen Exam: soft, normal bowel sounds, distention (R mid/lower abd), No tenderness Back Exam: normal inspection, No rash Extremity Exam: normal inspection, No pedal edema, No swelling Results - Labs Lab/Micro Results: Lab Results-Last 24 Hours 07/09/20 07/09/20 07/09/20 Range/Units 19:19 19:52 19:52 WBC 11.9 H (4.0-10.5) K/mm3 RBC 4.90 (4.1-5.4) M/mm3 Hgb 14.6 (12.0-16.0) gm/dl Hct 43.1 (35-47) % MCV 88.0 (78-100) fl MCH 29.8 (26-32) pg MCHC 33.9 (32-36) g/dl RDW 13.8 (11.5-14.0) % Plt Count 309 (150-450) K/mm3 MPV 9.5 (7.5-11.0) fl Gran % 75.2 H (36.0-66.0) % Eos # (Auto) 0.03 (0-0.5) Absolute Lymphs (auto) 2.14 (1.0-4.6) Absolute Monos (auto) 0.76 (0.0-1.3) Lymphocytes % 18.0 L (24.0-44.0) % Monocytes % 6.4 (0.0-12.0) % Eosinophils % 0.3 (0.00-5.0) % Basophils % 0.1 (0.0-0.4) % Absolute Granulocytes 8.94 H (1.4-6.9) Basophils # 0.01 (0-0.4) Sodium (137-145) mmol/L Potassium (3.5-5.1) mmol/L Chloride (98-107) mmol/L Carbon Dioxide (22-30) mmol/L Anion Gap (5-15) MEQ/L BUN (7-17) mg/dL Creatinine (0.52-1.04) mg/dL Estimated GFR ML/MIN Glucose (74-106) mg/dL POC Glucometer (74 to 106) mg/dL Lactic Acid (0.4-2.0) Calcium (8.4-10.2) mg/dL Total Bilirubin (0.2-1.3) mg/dL AST (14-36) U/L ALT (0-35) U/L Alkaline Phosphatase (38-126) U/L Troponin I (0.000-0.034) ng/mL Serum Total Protein (6.3-8.2) g/dL Albumin (3.5-5.0) g/dL Lipase (23-300) U/L Serum , Qual NEGATIVE (Negative) Urine Color YELLOW (YELLOW) Urine Appearance SLIGHTLY CLOUDY (CLEAR) Urine pH 5.0 (5-6) Ur Specific [place] 1.042 (1.005-1.025) Urine Protein 100 (Negative) Urine Ketones MODERATE (NEGATIVE) Urine Blood MODERATE (0-5) Carloz/ul Urine Nitrite NEGATIVE (NEGATIVE) Urine Bilirubin NEGATIVE (NEGATIVE) Urine Urobilinogen 2 (0-1) mg/dL Ur Leukocyte Esterase NEGATIVE (NEGATIVE) Urine WBC (Auto) 3-5 (0-5) /HPF Urine RBC (Auto) 0-2 (0-2) /HPF U Epithel Cells (Auto) RARE (FEW) /HPF Urine Bacteria (Auto) RARE (NEGATIVE) /HPF Urine Mucus (Auto) SLIGHT (NEGATIVE) /HPF Urine Culture Reflexed YES (NO) Urine Glucose >=500 (NEGATIVE) mg/dL 07/09/20 07/10/20 07/10/20 Range/Units 19:52 05:20 05:30 WBC 10.8 H (4.0-10.5) K/mm3 RBC 4.47 (4.1-5.4) M/mm3 Hgb 13.2 (12.0-16.0) gm/dl Hct 40.6 (35-47) % MCV 90.8 (78-100) fl MCH 29.5 (26-32) pg MCHC 32.5 (32-36) g/dl RDW 14.0 (11.5-14.0) % Plt Count 279 (150-450) K/mm3 MPV 9.5 (7.5-11.0) fl Gran % 76.2 H (36.0-66.0) % Eos # (Auto) 0.07 (0-0.5) Absolute Lymphs (auto) 1.81 (1.0-4.6) Absolute Monos (auto) 0.68 (0.0-1.3) Lymphocytes % 16.8 L (24.0-44.0) % Monocytes % 6.3 (0.0-12.0) % Eosinophils % 0.6 (0.00-5.0) % Basophils % 0.1 (0.0-0.4) % Absolute Granulocytes 8.22 H (1.4-6.9) Basophils # 0.01 (0-0.4) Sodium 132 L (137-145) mmol/L Potassium 3.8 (3.5-5.1) mmol/L Chloride 96 L (98-107) mmol/L Carbon Dioxide 26 (22-30) mmol/L Anion Gap 13.3 (5-15) MEQ/L BUN 9 (7-17) mg/dL Creatinine 0.57 (0.52-1.04) mg/dL Estimated GFR > 60.0 ML/MIN Glucose 326 H (74-106) mg/dL POC Glucometer 257 H (74 to 106) mg/dL Lactic Acid (0.4-2.0) Calcium 9.6 (8.4-10.2) mg/dL Total Bilirubin 1.20 (0.2-1.3) mg/dL AST 58 H (14-36) U/L ALT 44 H (0-35) U/L Alkaline Phosphatase 154 H (38-126) U/L Troponin I < 0.012 (0.000-0.034) ng/mL Serum Total Protein 7.7 (6.3-8.2) g/dL Albumin 4.3 (3.5-5.0) g/dL Lipase 24 (23-300) U/L Serum , Qual (Negative) Urine Color (YELLOW) Urine Appearance (CLEAR) Urine pH (5-6) Ur Specific [place] (1.005-1.025) Urine Protein (Negative) Urine Ketones (NEGATIVE) Urine Blood (0-5) Carloz/ul Urine Nitrite (NEGATIVE) Urine Bilirubin (NEGATIVE) Urine Urobilinogen (0-1) mg/dL Ur Leukocyte Esterase (NEGATIVE) Urine WBC (Auto) (0-5) /HPF Urine RBC (Auto) (0-2) /HPF U Epithel Cells (Auto) (FEW) /HPF Urine Bacteria (Auto) (NEGATIVE) /HPF Urine Mucus (Auto) (NEGATIVE) /HPF Urine Culture Reflexed (NO) Urine Glucose (NEGATIVE) mg/dL 07/10/20 07/10/20 Range/Units 05:30 06:06 WBC (4.0-10.5) K/mm3 RBC (4.1-5.4) M/mm3 Hgb (12.0-16.0) gm/dl Hct (35-47) % MCV (78-100) fl MCH (26-32) pg MCHC (32-36) g/dl RDW (11.5-14.0) % Plt Count (150-450) K/mm3 MPV (7.5-11.0) fl Gran % (36.0-66.0) % Eos # (Auto) (0-0.5) Absolute Lymphs (auto) (1.0-4.6) Absolute Monos (auto) (0.0-1.3) Lymphocytes % (24.0-44.0) % Monocytes % (0.0-12.0) % Eosinophils % (0.00-5.0) % Basophils % (0.0-0.4) % Absolute Granulocytes (1.4-6.9) Basophils # (0-0.4) Sodium 135 L (137-145) mmol/L Potassium 4.7 D (3.5-5.1) mmol/L Chloride 101 (98-107) mmol/L Carbon Dioxide 27 (22-30) mmol/L Anion Gap 11.6 (5-15) MEQ/L BUN 9 (7-17) mg/dL Creatinine 0.57 (0.52-1.04) mg/dL Estimated GFR > 60.0 ML/MIN Glucose 267 H (74-106) mg/dL POC Glucometer (74 to 106) mg/dL Lactic Acid 1.4 (0.4-2.0) Calcium 9.1 (8.4-10.2) mg/dL Total Bilirubin 1.00 (0.2-1.3) mg/dL AST 43 H (14-36) U/L ALT 41 H (0-35) U/L Alkaline Phosphatase 129 H (38-126) U/L Troponin I (0.000-0.034) ng/mL Serum Total Protein 6.6 (6.3-8.2) g/dL Albumin 3.9 (3.5-5.0) g/dL Lipase (23-300) U/L Serum , Qual (Negative) Urine Color (YELLOW) Urine Appearance (CLEAR) Urine pH (5-6) Ur Specific [place] (1.005-1.025) Urine Protein (Negative) Urine Ketones (NEGATIVE) Urine Blood (0-5) Carloz/ul Urine Nitrite (NEGATIVE) Urine Bilirubin (NEGATIVE) Urine Urobilinogen (0-1) mg/dL Ur Leukocyte Esterase (NEGATIVE) Urine WBC (Auto) (0-5) /HPF Urine RBC (Auto) (0-2) /HPF U Epithel Cells (Auto) (FEW) /HPF Urine Bacteria (Auto) (NEGATIVE) /HPF Urine Mucus (Auto) (NEGATIVE) /HPF Urine Culture Reflexed (NO) Urine Glucose (NEGATIVE) mg/dL - Radiology Impressions Radiology Exams & Impressions: Radiology Procedures Category Date Time Status ABDOMEN AND PELVIS W CONTRAST [CT] Stat Exams 07/09/20 19:26 Taken NG TUBE PLACEMENT (RAD) Stat Exams 07/09/20 22:00 Taken - Other Procedures and Tests Respiratory Therapy 07/09/20 23:35 Respiratory Therapy Assessment DAILY Assessment/Plan (1) Small bowel obstruction Current Visit: Yes Status: Acute Assessment & Plan: Surgery consulted, thank you. NG in place. Vitals are stable, labs without acute abnormality. Code(s): K56.609 - UNSP INTESTNL OBST, UNSP TO PARTIAL VERSUS COMPLETE OBST (2) Ventral hernia Current Visit: Yes Status: Chronic Qualifiers: Obstruction and gangrene presence: with obstruction but without gangrene Qualified Code(s): K43.6 - Other and unspecified ventral hernia with obstruction, without gangrene Code(s): K43.9 - VENTRAL HERNIA WITHOUT OBSTRUCTION OR GANGRENE (3) Asthma Current Visit: No Status: Chronic Qualifiers: Asthma severity: moderate Asthma persistence: persistent Asthma complication type: uncomplicated Qualified Code(s): J45.40 - Moderate persistent asthma, uncomplicated Code(s): J45.909 - UNSPECIFIED ASTHMA, UNCOMPLICATED (4) Type 2 diabetes mellitus Current Visit: No Status: Chronic Qualifiers: Diabetes mellitus correction insulin use: without correction use Diabetes mellitus complication status: with neurologic complications Diabetes mellitus complication detail: with polyneuropathy Qualified Code(s): E11.42 - Type 2 diabetes mellitus with diabetic polyneuropathy
--- NOTE | 2020-07-10 08:58 | XRAY ---
Indication: NG tube placement. Comparison: None Portable chest demonstrates NG tube traversing chest with tip in stomach. Lungs are inflated and clear. Heart is borderline enlarged. Bony thorax intact with double curvature scoliosis.
--- NOTE | 2020-07-10 08:58 | XRAY ---
Indication: Abdomen pain, hematuria, and elevated WBC. Multiple contiguous axial images obtained through the abdomen and pelvis using 80 cc Isovue 370 contrast only. Comparison: June 09, 2020. Lung bases remain clear. Heart is not enlarged. Stomach and small bowel loops are now mildly fluid distended with asynchronous fluid leveling. Small bowel loops are up to 3.5 cm in diameter. There remains a large failed ventral hernia again with herniated small bowel loops. Herniated bowel loops now appear decompressed. Above findings favor partial small bowel obstruction as there is normal distal colonic bowel gas. No free fluid/air. Stable minimal descending and sigmoid diverticulosis. Again incidental fatty hepatomegaly measuring 24.6 cm and splenomegaly measuring 12.7 cm. Remaining liver, gallbladder, pancreas, spleen, adrenal glands, kidneys, ureters, and bladder are unremarkable. Stable minimal aortic calcifications. No AAA or pathologic retroperitoneal lymphadenopathy. Osseous structures remain intact again with mild double curvature scoliosis. Impression: 1. New finding partial distal small bowel obstruction secondary to ventral hernia as detailed above. 2. Again incidental colonic diverticulosis, fatty hepatomegaly, splenomegaly, and chronic bony findings. Comment: Preliminary interpretation was made by [facility]. No critical discrepancy.
[2020-07-10] MEDS: Pepcid 20 MG VIAL IV SCH (11:33)
[2020-07-10] MEDS: Flonase NASAL NS SCH (11:37)
[2020-07-11] MEDS: Sodium Chloride 0.9% 1000 ML 1,000 ML IV SCH ×2 (06:43→18:15)
[2020-07-11] MEDS: Advair Hfa 115/21 Common canister IH SCH ×2 (07:29→19:30)
--- NOTE | 2020-07-11 08:29 | CONS ---
CONSULT DATE: 07/10/2020 This patient was seen for Dr. Chance Headley who was consulted apparently yesterday and had not seen the patient yet. HISTORY: A 40 year old morbidly obese female with history of hernia repair in the past. She has significant loss of domain complex recurrent ventral hernia. She is admitted with question of some fluid-filled loops of bowel. She has abdominal pain and vomiting. She was admitted yesterday and had NG placed. Apparently they did not let Dr. Chance Headley know she had a large loss of domain so is not really a surgical candidate here today. Dr. Chance Headley asked me to see her while I was doing some outpatient procedures. She is feeling better. She passed flatus. She did not have any abdominal pain now. PAST MEDICAL HISTORY: Morbid obesity. She has some chronic obstructive pulmonary disease, some diabetes, arthritis, reflux, sleep apnea, depression. PAST SURGICAL HISTORY: She had ear surgery. She had two ventral hernias in the past. She is not sure they did this. There is a large loss of domain. MEDICATIONS: She has been on metformin, loratadine, famotidine, fluticasone/salmeterol (Advair Diskus), Albuterol, Ventolin HFA, Deltasone daily, Albuterol, ipratropium. ALLERGIES: OMEPRAZOLE (HIVES). LAB DATA AND TESTS: White count 10, hemoglobin 13.2, PLT count 279,000. Bilirubin 1.2. REVIEW OF SYSTEMS: Fourteen systems reviewed. No chest pain or palpitations. Other systems negative or noncontributory as above and per preadmission questionnaire. She is feeling better, passing flatus, currently denies abdominal pain. PHYSICAL EXAMINATION: GENERAL: A chronically ill female in no acute distress. HEENT: Sclera nonicteric. NECK: No JVD. CHEST: Equal excursion, nonlabored breathing. CVS: Regular rate and rhythm. ABDOMEN: Obese, soft. No peritoneal signs. She had prior hernia repair. She had a large hernia off to the right side. EXTREMITIES: No cyanosis. NEURO: Alert, moving extremities symmetrically. PSYCH: Appropriate mood and affect. IMPRESSION: Question partial obstruction resolving in a morbidly obese 40 year old with complex recurrent ventral hernia, loss of domain. As per Dr. Chance Headley, the patient is absolutely not a candidate for repair locally. She needs tertiary referral. As she is passing flatus, she wants to try clamping NG and discontinue. She is keeping liquids down. Again, she will need referral to tertiary center surgeon for complex abdominal wall reconstruction. She is not a candidate for surgery here locally. If she comes back into the hospital I would not suggest admitting her here locally as she is not a surgical candidate here. She need tertiary referral for consideration of complex abdominal wall reconstruction in the same setting and they may decide to consider surgery at the same time to possibly better resolve. Either way no emergent surgery necessary at this time. Clamp her NG and if she tolerates sips of liquid and passing gas. Again, if she fails to improve transfer to tertiary center. When she is able to get out of the hospital then she needs elective referral to tertiary center. This patient was seen for Dr. Chance Headley. As per Dr. Chance Headley, the patient is not a candidate for surgery here locally.
--- NOTE | 2020-07-11 08:49 | PCM.DS ---
Discharge Summary Date of Admission: 07/09/20 21:56 Admitting Physician: RAMESH ZARAGOZA Consults: Consults on Case 07/10/20 09:00 Consult Surgery ROUTINE Primary Care Provider: RAMESH ZARAGOZA Allergies Allergies omeprazole [From Prilosec] Allergy (Severe, Verified 07/09/20 19:15) [facility] Summary - Hospital Course Hospital Course: Pt is 40 yo female pt of mine with morbid obesity, DM, and known ventral hernia who came to ER with 2d of vomiting and abd pain and was found on CT scan to have loops of small bowel in the hernia with likely SBO. She had NG placed; Dr. Mcgovern consulted and advised if she needs surgery she will have to go to [facility], but no surgery currently needed. Her NG was capped off x 4h with no issues; has tolerated CLD so it is to be removed this morning. If she is still tolerating po well through the day she may be able to discharge to home tonight. She did complain of some L sided chest pain that she thought was related to her shoulder and IV, but will get 2 troponins and an EKG. - Vitals & Intake/Output Vital Signs: Vital Signs Temperature 98.3 F 07/11/20 06:47 Pulse Rate 76 07/11/20 07:30 Respiratory Rate 16 07/11/20 07:30 Blood Pressure 141/83 07/11/20 06:47 O2 Sat by Pulse Oximetry 97 07/11/20 07:30 Intake & Output: Intake & Output 07/08/20 07/09/20 07/10/20 07/11/20 11:59 11:59 11:59 11:59 Intake Total 609 3071 Output Total 850 Balance -241 3071 Weight 110.5 kg - Lab Result Diagrams: 07/10/20 05:30 07/10/20 05:30 Lab Results-Last 24 Hrs: Lab Results-Last 24 Hours 07/10/20 07/10/20 07/10/20 Range/Units 12:44 15:30 18:20 POC Glucometer 201 H 221 H (74 to 106) mg/dL Hemoglobin A1c 9.44 H (4.5-6.0) % 07/10/20 07/11/20 Range/Units 23:32 06:45 POC Glucometer 187 H 187 H (74 to 106) mg/dL Hemoglobin A1c (4.5-6.0) % Micro Results-Entire Visit: Microbiology 07/09/20 19:19 Urine Culture - Final Clean Catch Midstream MIXED BLAIR; 3 OR MORE TYPES. NO PREDOMINANT ORGANISM. NO FURTHER WORKUP. PLEASE RESUBMIT IF CLINICALLY INDICATED. Accuchecks Date 07/10/20 Time 12:30 - Radiology Exams Ordered Rad Exams-Entire Visit: Radiology Procedures Category Date Time Status ABDOMEN AND PELVIS W CONTRAST [CT] Stat Exams 07/09/20 19:26 Completed NG TUBE PLACEMENT (RAD) Stat Exams 07/09/20 22:00 Completed - Procedures and Test Procedures and Tests throughout Hospitalization: Therapy Orders & Screens 07/09/20 23:15 RT Screen per Nursing Assess ONCE Comment: Protocol Order Physician Instructions: Greater than 3 points order RT Admission Screen Reason For Exam: Triggered on Admission Diagnosis: SBO Diagnosis: SBO Pneumonia: No Home O2: No Asthma: Yes CHF: No Home CPAP/BIPAP: Yes Home Nebs/MDI: Yes Total Points: 14 07/09/20 23:35 Respiratory Therapy Assessment DAILY Comment: Diagnosis: SBO Discharge Exam General Appearance: no apparent distress, alert, obese Neurologic Exam: oriented x 3, cooperative Eye Exam: eyes nml inspection Ears, Nose, Throat Exam: moist mucous membranes Neck Exam: normal inspection Respiratory Exam: normal breath sounds, lungs clear, No crackles/rales, No rh onchi, No wheezing Cardiovascular Exam: regular rate/rhythm, normal heart sounds, No murmur Gastrointestinal/Abdomen Exam: soft, normal bowel sounds, distention (R mid to lower abd), No tenderness, No mass, No guarding, No rebound Back Exam: normal inspection, No rash Extremity Exam: No pedal edema, No swelling Skin Exam: normal color, warm, dry, No rash Final Diagnosis/Problem List - Final Discharge Diagnosis/Problem (1) Small bowel obstruction Current Visit: Yes Status: Acute Code(s): K56.609 - UNSP INTESTNL OBST, UNSP TO PARTIAL VERSUS COMPLETE OBST (2) Ventral hernia Current Visit: Yes Status: Chronic Code(s): K43.9 - VENTRAL HERNIA WITHOUT OBSTRUCTION OR GANGRENE (3) Asthma Current Visit: No Status: Chronic Code(s): J45.909 - UNSPECIFIED ASTHMA, UNCOMPLICATED (4) Type 2 diabetes mellitus Current Visit: No Status: Chronic - Discharge Disposition: Home, Self-Care Condition: Stable Prescriptions: Continue Metformin HCl 1,000 mg PO BID Loratadine 10 mg [Claritin 10 mg] 10 mg PO DAILY Famotidine 20 mg [Pepcid 20 MG] 20 mg PO DAILY Fluticasone/Salmeterol [Advair 250-50 Diskus] 1 each IN DAILY Albuterol 8 gm Mdi Hfa [Ventolin Hfa MDI] 8 gm IH Q4HPRN PRN PRN Reason: Shortness Of Breath Albuterol/Ipratropium 3ml Neb* [DUONEB 0.5-3 MG/3 ml Neb] 3 ml NEBULIZE Q4H PRN PRN #1 box PRN Reason: Wheezing/Chest Congestion Discontinued Prednisone 20 mg [Deltasone 20 mg] 20 mg PO DAILY Follow up with: RAMESH ZARAGOZA [Primary Care Provider] - 1 Week
[2020-07-11] MEDS: Flonase NASAL NS SCH (09:32)
[2020-07-11] MEDS: Pepcid 20 MG VIAL IV SCH (09:33)
[2020-07-11] MEDS: Hydromorphone 1 mg/ml Injection IV PRN (09:39)
[2020-07-11] MEDS ORDERED: TYLENOL 325 MG PO PRN (19:49)
[2020-07-11] MEDS ORDERED: ZOFRAN ODT 4 MG PO PRN (19:49)
[2020-07-12] MEDS: Sodium Chloride 0.9% 1000 ML 1,000 ML IV SCH (01:19)
[2020-07-12 07:01] VITALS: BP 110/55; PULSE 73
[2020-07-12] MEDS: Advair Hfa 115/21 Common canister IH SCH (07:06)
[2020-07-12 07:09] VITALS: O2SAT 94
--- NOTE | 2020-07-12 08:25 | PCM.DS ---
Discharge Summary Date of Admission: 07/09/20 21:56 Admitting Physician: RAMESH MCKINNEY Consults: Consults on Case 07/10/20 09:00 Consult Surgery ROUTINE Primary Care Provider: RAMESH MCKINNEY Allergies Allergies omeprazole [From Prilosec] Allergy (Severe, Verified 07/09/20 19:15) [facility] Summary - Hospital Course Hospital Course: patient of Dr Mckinney admitted with 2 days of abd pain and vomiting, had partial SBO with large ventral hernia. resolved with conservative measures. NG is out and she is tolerating a regular diet with no pain, no nausea or vomiting. - Vitals & Intake/Output Vital Signs: Vital Signs Temperature 97.9 F 07/12/20 07:00 Pulse Rate 73 07/12/20 07:00 Respiratory Rate 20 07/12/20 07:00 Blood Pressure 110/55 07/12/20 07:00 O2 Sat by Pulse Oximetry 94 L 07/12/20 07:04 Intake & Output: Intake & Output 07/09/20 07/10/20 07/11/20 07/12/20 11:59 11:59 11:59 11:59 Intake Total 609 3071 1976 Output Total 850 Balance -241 3071 1976 Weight 110.5 kg - Lab Result Diagrams: 07/10/20 05:30 07/10/20 05:30 Lab Results-Last 24 Hrs: Lab Results-Last 24 Hours 07/11/20 07/11/20 07/12/20 Range/Units 11:35 15:56 00:08 POC Glucometer 194 H 192 H 230 H (74 to 106) mg/dL 07/12/20 Range/Units 05:35 POC Glucometer 220 H (74 to 106) mg/dL Micro Results-Entire Visit: Microbiology 07/09/20 19:19 Urine Culture - Final Clean Catch Midstream MIXED BLAIR; 3 OR MORE TYPES. NO PREDOMINANT ORGANISM. NO FURTHER WORKUP. PLEASE RESUBMIT IF CLINICALLY INDICATED. Accuchecks Date 07/11/20 Time 00:00 - Procedures and Test Procedures and Tests throughout Hospitalization: Therapy Orders & Screens 07/09/20 23:15 RT Screen per Nursing Assess ONCE Comment: Protocol Order Physician Instructions: Greater than 3 points order RT Admission Screen Reason For Exam: Triggered on Admission Diagnosis: SBO Diagnosis: SBO Pneumonia: No Home O2: No Asthma: Yes CHF: No Home CPAP/BIPAP: Yes Home Nebs/MDI: Yes Total Points: 14 07/09/20 23:35 Respiratory Therapy Assessment DAILY Comment: Diagnosis: SBO Discharge Exam General Appearance: no apparent distress, obese Neurologic Exam: alert, oriented x 3 Respiratory Exam: normal breath sounds, lungs clear, No respiratory distress Cardiovascular Exam: regular rate/rhythm, normal heart sounds Gastrointestinal/Abdomen Exam: soft, normal bowel sounds, other (ventral hernia, soft and reducible), No tenderness, No distention Final Diagnosis/Problem List - Final Discharge Diagnosis/Problem (1) Small bowel obstruction, partial Current Visit: Yes Status: Acute Assessment & Plan: advised to f/u if any recurrence of pain or vomiting/inability to tolerate po etc. otherwise take a soft/bland diet and f/u with Dr Mckinney in 1 week Code(s): K56.600 - PARTIAL INTESTINAL OBSTRUCTION, UNSPECIFIED TO CAUSE (2) Ventral hernia Current Visit: Yes Status: Chronic Code(s): K43.9 - VENTRAL HERNIA WITHOUT OBSTRUCTION OR GANGRENE (3) Asthma Current Visit: No Status: Chronic Code(s): J45.909 - UNSPECIFIED ASTHMA, UNCOMPLICATED (4) Type 2 diabetes mellitus Current Visit: No Status: Chronic - Discharge Disposition: Home, Self-Care Condition: Stable Prescriptions: Continue Metformin HCl 1,000 mg PO BID Loratadine 10 mg [Claritin 10 mg] 10 mg PO DAILY Famotidine 20 mg [Pepcid 20 MG] 20 mg PO DAILY Fluticasone/Salmeterol [Advair 250-50 Diskus] 1 each IN DAILY Albuterol 8 gm Mdi Hfa [Ventolin Hfa MDI] 8 gm IH Q4HPRN PRN PRN Reason: Shortness Of Breath Albuterol/Ipratropium 3ml Neb* [DUONEB 0.5-3 MG/3 ml Neb] 3 ml NEBULIZE Q4H PRN PRN #1 box PRN Reason: Wheezing/Chest Congestion Discontinued Prednisone 20 mg [Deltasone 20 mg] 20 mg PO DAILY Follow up with: RAMESH MCKINNEY [Primary Care Provider] - 1 Week
== END 2020-07-12 09:25 | disposition home or self-care (01) ==
LOC: ED 19:00 → MED SURG 21:56
PROVIDERS: ADMIT Family Medicine; ATTEND Family Medicine
DX: K56.609 Unspecified intestinal obstruction, unspecified as to partial versus complete obstruction (principal); K43.9 Ventral hernia without obstruction or gangrene; E11.9 Type 2 diabetes mellitus without complications; R11.10 Vomiting, unspecified; J45.909 Unspecified asthma, uncomplicated; Z79.899 Other long term (current) drug therapy; E66.01 Morbid (severe) obesity due to excess calories; G47.30 Sleep apnea, unspecified; J44.9 Chronic obstructive pulmonary disease, unspecified
CPT/HCPCS: 36000; 36415; 43752; 74177; 80053; 81001; 81025; 82962; 83036; 83605; 83690; 84484; 85025; 87086; 93005; 94640; 94760; 94762; 96360; 96374; 99285; G0378; J1170; J2405; A9270-GY

== ENCOUNTER 2020-09-01 15:55 | Emergency (ER) | payer OTHER ==
--- NOTE | 2020-09-01 16:15 | ERPHSYRPT ---
- History of Present Illness Time Seen by Provider: 09/01/20 16:14 Source: patient Exam Limitations: no limitations Patient Subjective Stated Complaint: L arm pain Triage Nursing Assessment: pt to ED c/o L arm pain with movement. pt holding arm in resting position on arrival to ED. states that it feels "numb" when touching forearm but constant throbbing pain. also states sharp shooting pains through lower arm. full ROM with some hestitation d/t pain. rates 3/10 at rest. cap refil < 3 sec on injured extremity Physician History: This is a 40-year-old obese white female has a history of asthma, diabetes, gastroesophageal reflux disease and sleep apnea who presents with left forearm pain. It began approximately 2 days ago after stretching her left arm out to give her fianc a hug. The pain is described as more of a numbness. She did not have a specific injury. She did not fall. She is never had this kind of pain before. She does not have any associated headache. She has no associated chest pain. She is not short of breath. Patient was concerned that the pain was not resolving. However, she did not use ice or take any medication to help her condition. Timing/Duration: day(s) (2) Severity: mild Modifying Factors: Improves With: movement Associated Symptoms: No denies symptoms Allergies/Adverse Reactions: omeprazole [From Prilosec] Allergy (Severe, Verified 07/09/20 19:15) Hives Home Medications: Metformin HCl 500 mg PO BID 08/04/17 [History] Loratadine 10 mg [Claritin 10 mg] 10 mg PO DAILY 05/23/18 [History] Famotidine 20 mg [Pepcid 20 MG] 20 mg PO DAILY 08/27/18 [History] Fluticasone/Salmeterol [Advair 250-50 Diskus] 1 each IN DAILY 12/08/18 [History] Albuterol 8 gm Mdi Hfa [Ventolin Hfa MDI] 8 gm IH Q4HPRN PRN 06/28/19 [History] Cetirizine HCl 5 mg PO 09/01/20 [History] Hx Tetanus, Diphtheria Vaccination/Date Given: Yes Hx Influenza Vaccination/Date Given: Yes Hx Pneumococcal Vaccination/Date Given: Yes Travel Risk - International Travel Have you traveled outside of the country in past 3 weeks: No - Coronavirus Screening Are you exhibiting any of the following symptoms?: No Close contact with a COVID-19 positive Pt in past 14-21 Days: No - Review of Systems Constitutional: No Symptoms Eyes: No Symptoms Ears, Nose, & Throat: No Symptoms Respiratory: No Symptoms Cardiac: No Symptoms Abdominal/Gastrointestinal: No Symptoms Genitourinary Symptoms: No Symptoms Musculoskeletal: Other (Pain left upper extremity from the left wrist shooting and radiating proximately to the left elbow) Skin: No Symptoms Neurological: Parasthesia (Left upper extremity left wrist radiating proximally to the left elbow) Psychological: No Symptoms Endocrine: No Symptoms Hematologic/Lymphatic: No Symptoms Immunological/Allergic: No Symptoms All Other Systems: Reviewed and Negative - Past Medical History Pertinent Past Medical History: Yes Neurological History: No Pertinent History ENT History: No Pertinent History Cardiac History: No Pertinent History Respiratory History: Asthma, Sleep Apnea Endocrine Medical History: Diabetes Type II Musculoskeletal History: Arthritis GI Medical History: GERD, Hernia History: No Pertinent History Psycho-Social History: Depression Female Reproductive Disorders: No Pertinent History Other Medical History: scoliosis - Past Surgical History Past Surgical History: Yes Neuro Surgical History: No Pertinent History Cardiac: No Pertinent History Respiratory: No Pertinent History Gastrointestinal: Hernia Repair Genitourinary: No Pertinent History Musculoskeletal: No Pertinent History Female Surgical History: Section Other Surgical History: Ear tubes both ears. left ear drum surgery, 2 umbilical hernia repair. - Social History Smoking Status: Never smoker Exposure to second hand smoke: No Alcohol Use: None Drug Use: none Patient Lives Alone: No Significant Family History: diabetes, hypertension - Female History Hx Now: No - Nursing Vital Signs Nursing Vital Signs: Initial Vital Signs Temperature 97.6 F 09/01/20 16:08 Pulse Rate 67 09/01/20 16:08 Respiratory Rate 20 09/01/20 16:08 Blood Pressure 117/76 09/01/20 16:08 O2 Sat by Pulse Oximetry 98 09/01/20 16:08 Pain Scale Pain Intensity 2 - Physical Exam General Appearance: no apparent distress, alert, anxiety, obese Eye Exam: PERRL/EOMI, eyes nml inspection Ears, Nose, Throat Exam: normal ENT inspection, moist mucous membranes Neck Exam: normal inspection, non-tender, supple, full range of motion Respiratory Exam: normal breath sounds, lungs clear, airway intact, No chest tenderness, No respiratory distress Cardiovascular Exam: regular rate/rhythm, normal heart sounds, normal peripheral pulses Gastrointestinal/Abdomen Exam: soft, normal bowel sounds, No tenderness Pelvic Exam: not done Rectal Exam: not done Back Exam: normal inspection, normal range of motion, No CVA tenderness, No vertebral tenderness Extremity Exam: normal inspection, normal range of motion, pelvis stable Neurologic Exam: alert, oriented x 3, cooperative, 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 There are no changes from the comparison EKG dated 07/09/2020) Ordered Tests: Active Orders 24 hr Category Date Time Status EKG-ER Only STAT Care 09/01/20 16:37 Active Pulse Oximetry (ED) STAT Care 09/01/20 16:37 Active CBC W DIFF Stat Lab 09/01/20 16:37 Completed CMP Stat Lab 09/01/20 16:37 Completed MAGNESIUM Stat Lab 09/01/20 16:37 Completed TROPONIN Q3H Lab 09/01/20 16:45 Completed TROPONIN Q3H Lab 09/01/20 19:45 Ordered TROPONIN Q3H Lab 09/01/20 22:45 Ordered TROPONIN Q3H Lab 09/02/20 01:45 Ordered TROPONIN Q3H Lab 09/02/20 04:45 Ordered Lab/Rad Data: Laboratory Result Diagrams 09/01/20 16:37 09/01/20 16:37 Laboratory Results 09/01/20 09/01/20 09/01/20 Range/Units 16:45 16:37 16:37 WBC 8.5 (4.0-10.5) K/mm3 RBC 4.67 (4.1-5.4) M/mm3 Hgb 13.9 (12.0-16.0) gm/dl Hct 41.2 (35-47) % MCV 88.2 (78-100) fl MCH 29.8 (26-32) pg MCHC 33.7 (32-36) g/dl RDW 13.6 (11.5-14.0) % Plt Count 283 (150-450) K/mm3 MPV 9.5 (7.5-11.0) fl Gran % 58.2 (36.0-66.0) % Eos # (Auto) 0.10 (0-0.5) Absolute Lymphs (auto) 2.94 (1.0-4.6) Absolute Monos (auto) 0.47 (0.0-1.3) Lymphocytes % 34.7 (24.0-44.0) % Monocytes % 5.5 (0.0-12.0) % Eosinophils % 1.2 (0.00-5.0) % Basophils % 0.4 (0.0-0.4) % Absolute Granulocytes 4.93 (1.4-6.9) Basophils # 0.03 (0-0.4) Sodium 133 L (137-145) mmol/L Potassium 4.2 (3.5-5.1) mmol/L Chloride 98 (98-107) mmol/L Carbon Dioxide 28 (22-30) mmol/L Anion Gap 11.9 (5-15) MEQ/L BUN 8 (7-17) mg/dL Creatinine 0.64 (0.52-1.04) mg/dL Estimated GFR > 60.0 ML/MIN Glucose 284 H (74-106) mg/dL Calcium 9.6 (8.4-10.2) mg/dL Magnesium 1.9 (1.6-2.3) mg/dL Total Bilirubin 0.80 (0.2-1.3) mg/dL AST 50 H (14-36) U/L ALT 42 H (0-35) U/L Alkaline Phosphatase 131 H (38-126) U/L Troponin I < 0.012 (0.000-0.034) ng/mL Serum Total Protein 7.3 (6.3-8.2) g/dL Albumin 4.1 (3.5-5.0) g/dL - Departure Departure Disposition: Home Clinical Impression: Strain of left forearm Condition: Stable Critical Care Time: No Referrals: RAMESH ZARAGOZA [Primary Care Provider] - Additional Instructions: Ice pack to area 3 times a day for the next 48 hours. Use Tylenol and ibuprofen for pain control. If your pain persists, follow-up with your primary care physician on 09/04/2020 to obtain a follow-up appointment.
[2020-09-01 17:18] VITALS: PULSE 87
[2020-09-01 17:21] LABS: Absolute Neutrophil Ct (ANC) 4.93 (1.4-6.9); BASOPHIL % 0.4 % (0.0-0.4); Basophil (Absolute #) 0.03 (0-0.4); Eosinophil % 1.2 % (0.00-5.0); Hematocrit 41.2 % (35-47); Hemoglobin 13.9 gm/dl (12.0-16.0); Lymphocyte (Absolute #) 2.94 (1.0-4.6); Lymphocytes % 34.7 % (24.0-44.0); Mean Cell Volume 88.2 fl (78-100); Mean Corpuscular Hemoglobin 29.8 pg (26-32); Mean Corpuscular Hgb Concent. 33.7 g/dl (32-36); Mean Platelet Volume 9.5 fl (7.5-11.0); Monocyte (Absolute #) 0.47 (0.0-1.3); Monocytes % 5.5 % (0.0-12.0); Neutrophil % 58.2 % (36.0-66.0); Platelet Count 283 K/mm3 (150-450); Red Blood Count 4.67 M/mm3 (4.1-5.4); Red Cell Distribution Width 13.6 % (11.5-14.0); White Blood Count 8.5 K/mm3 (4.0-10.5)
[2020-09-01 17:31] VITALS: O2SAT 98
[2020-09-01 17:34] LABS: ALBUMIN 4.1 g/dL (3.5-5.0); ALKALINE PHOSPHATASE 131 U/L (38-126); ANION GAP 11.9 MEQ/L (5-15); BLOOD UREA NITROGEN 8 mg/dL (7-17); CHLORIDE 98 mmol/L (98-107); Calcium 9.6 mg/dL (8.4-10.2); Carbon Dioxide 28 mmol/L (22-30); Creatinine 1 0.64 mg/dL (0.52-1.04); EST GLOMERULAR FILTRATION RATE > 60.0 ML/MIN; Glucose 284 mg/dL (74-106); MAGNESIUM 1.9 mg/dL (1.6-2.3); Potassium 4.2 mmol/L (3.5-5.1); SGOT/AST 50 U/L (14-36); SGPT/ALT 42 U/L (0-35); SODIUM 133 mmol/L (137-145); Total Protein 7.3 g/dL (6.3-8.2)
[2020-09-01 18:10] VITALS: BP 113/65
== END 2020-09-01 18:28 | disposition home or self-care (01) ==
LOC: ED 15:55
DX: S56.912A Strain of unspecified muscles, fascia and tendons at forearm level, left arm, initial encounter (principal); M79.602 Pain in left arm; J45.909 Unspecified asthma, uncomplicated; G47.30 Sleep apnea, unspecified; X50.0XXA Overexertion from strenuous movement or load, initial encounter; Y93.9 Activity, unspecified; Y92.9 Unspecified place or not applicable
CPT/HCPCS: 36415; 80053; 83735; 84484; 85025; 93005; 94760; 99284

== ENCOUNTER 2020-12-04 16:38 | Emergency (ER) | payer OTHER ==
[2020-12-04] MEDS ORDERED: TYLENOL 325 MG PO ONE (17:10)
--- NOTE | 2020-12-04 17:17 | ERPHSYRPT ---
- History of Present Illness Time Seen by Provider: 12/04/20 16:55 Source: patient Exam Limitations: no limitations Patient Subjective Stated Complaint: L foot pain Triage Nursing Assessment: pt to ED c/o L foot pain onset yesterday. denies injury or trauma. ambulatory back to ED with mild limp. no swelling or obvious deformity noted. rates 8/10 throbbing pain. reports this is a chronic pain that normally comes and goes on its own, will not go away now. Physician History: Patient is a 40-year-old female presents to our emergency department with complaints of left foot pain. Pain started yesterday. Pain rated at a 10. Pain primarily localized to posterior and plantar surface of her heel and foot. No trauma. Patient had similar pain in the past. Patient states the pain gradually/spontaneously improved. Patient denies trauma. No fever. No calf pain. Homans negative. Patient's pain worse with ambulation and palpation to plantar aspect of her left foot. Patient otherwise feels well. No associated chest pain or shortness of breath. No nausea vomiting or diaphoresis. Patient took Tylenol prior to arrival. Patient voices no other complaints or concerns at this time. Method of Injury: unknown Occurred: yesterday Quality: constant Severity of Pain-Max: moderate Severity of Pain-Current: mild Lower Extremities Pain: foot: left Modifying Factors: Improves With: other (Weightbearing) Associated Symptoms: none Allergies/Adverse Reactions: omeprazole [From Prilosec] Allergy (Severe, Verified 12/04/20 16:51) Hives Home Medications: Metformin HCl 1,000 mg PO BID 08/04/17 [History] Loratadine 10 mg [Claritin 10 mg] 10 mg PO DAILY 05/23/18 [History] Famotidine 20 mg [Pepcid 20 MG] 20 mg PO DAILY 08/27/18 [History] Fluticasone/Salmeterol [Advair 250-50 Diskus] 1 each IN DAILY 12/08/18 [History] Albuterol 8 gm Mdi Hfa [Ventolin Hfa MDI] 8 gm IH Q4HPRN PRN 06/28/19 [History] Cetirizine HCl 5 mg PO DAILY 09/01/20 [History] Insulin Glargine,Hum.rec.anlog [Basaglar Kwikpen U-100] 15 unit SQ 12/04/20 [History] Hx Tetanus, Diphtheria Vaccination/Date Given: Yes Hx Influenza Vaccination/Date Given: Yes Hx Pneumococcal Vaccination/Date Given: Yes Travel Risk - International Travel Have you traveled outside of the country in past 3 weeks: No - Coronavirus Screening Are you exhibiting any of the following symptoms?: No Close contact with a COVID-19 positive Pt in past 14-21 Days: No - Review of Systems Constitutional: No Symptoms, No Fever, No Chills Eyes: No Symptoms Ears, Nose, & Throat: No Symptoms Respiratory: No Symptoms, No Cough, No Dyspnea Cardiac: No Symptoms, No Chest Pain, No Edema, No Syncope Abdominal/Gastrointestinal: No Symptoms, No Abdominal Pain, No Nausea, No Vomiting, No Diarrhea Genitourinary Symptoms: No Symptoms, No Dysuria Musculoskeletal: No Symptoms, No Back Pain, No Neck Pain Skin: No Symptoms, No Rash Neurological: No Symptoms, No Dizziness, No Focal Weakness, No Sensory Changes Psychological: No Symptoms Endocrine: No Symptoms Hematologic/Lymphatic: No Symptoms Immunological/Allergic: No Symptoms All Other Systems: Reviewed and Negative - Past Medical History Pertinent Past Medical History: Yes Neurological History: No Pertinent History ENT History: No Pertinent History Cardiac History: No Pertinent History Respiratory History: Asthma, Sleep Apnea Endocrine Medical History: Diabetes Type II Musculoskeletal History: Arthritis GI Medical History: GERD, Hernia History: No Pertinent History Psycho-Social History: Depression Female Reproductive Disorders: No Pertinent History Other Medical History: scoliosis - Past Surgical History Past Surgical History: Yes Neuro Surgical History: No Pertinent History Cardiac: No Pertinent History Respiratory: No Pertinent History Gastrointestinal: Hernia Repair Genitourinary: No Pertinent History Musculoskeletal: No Pertinent History Female Surgical History: Section Other Surgical History: Ear tubes both ears. left ear drum surgery, 2 umbilical hernia repair. - Social History Smoking Status: Never smoker Exposure to second hand smoke: No Alcohol Use: None Drug Use: none Patient Lives Alone: No Significant Family History: diabetes, hypertension - Female History Hx Now: No - Nursing Vital Signs Nursing Vital Signs: Pain Scale Pain Intensity 8 - Physical Exam General Appearance: no apparent distress, alert Eyes, Ears, Nose, Throat Exam: moist mucous membranes Neck Exam: non-tender, supple Cardiovascular/Respiratory Exam: chest non-tender, normal breath sounds, regular rate/rhythm, no respiratory distress Gastrointestinal/Abdominal Exam: non-tender, soft Back Exam: normal inspection, No vertebral tenderness Hips Exam: bilateral: non-tender, normal inspection, normal range of motion, no evidence of injury Legs Exam: bilateral leg: non-tender, normal inspection, normal range of motion, no evidence of injury Knees Exam: bilateral knee: non-tender, normal inspection, normal range of motion, no evidence of injury Ankle Exam: bilateral ankle: non-tender, normal inspection, normal range of motion, no evidence of injury Foot Exam: right foot: non-tender, normal inspection, normal range of motion, no evidence of injury, left foot: pain, soft tissue tenderness, other (No swelling. No signs of trauma. PT DP pulse palpable. Compartments are soft. Cap refill less than 2 seconds. Foot is pink warm and well-perfused.) Neuro/Tendon Exam: normal sensation, normal motor functions Mental Status Exam: alert, oriented x 3, cooperative Skin Exam: normal color, warm, dry SpO2 Interpretation: normal SpO2: 98 O2 Delivery: Room Air - Course Nursing assessment & vital signs reviewed: Yes - Radiology Exams Foot X-ray Interpretation: Interpreted by me (Heel spur, pes planus, no fracture or dislocation.) Ordered Tests: Active Orders 24 hr Category Date Time Status FOOT (MINIMUM 3 VIEWS) Stat Exams 12/04/20 16:59 Taken Medication Summary Discontinued Medications Generic Name Dose Route Start Last Admin Trade Name Freq PRN Reason Stop Dose Admin Acetaminophen 975 mg 12/04/20 17:10 Tylenol 325 Mg PO 12/04/20 17:11 STAT ONE Ketorolac Tromethamine 30 mg 12/04/20 17:18 Toradol 30 Mg Injection IM 12/04/20 17:19 STAT ONE - Progress Progress: improved Progress Note: 12/04/20 17:32 Patient reassessed. Pain improved. X-ray negative for acute pathology. Clinical impression is plantar fasciitis. Patient received pain medication in our ED. Crutches provided. Will refer to podiatry for further evaluation and treatment, . Patient received a hard copy with Dr. Medel's contact information. Patient denies possibility of . 12/04/20 17:33 12/04/20 17:34 Counseled pt/family regarding: diagnosis, need for follow-up, rad results - Departure Departure Disposition: Home Clinical Impression: Foot pain, Heel spur, Pes planus, Plantar fasciitis of left foot Condition: Stable Critical Care Time: No Referrals: RAMESH ZARAGOZA [Primary Care Provider] - Additional Instructions: Discharge/Care Plan CLEOPATRAABENA was seen on 12/04/20 in the Emergency Room. The patient was counseled regarding Diagnosis,Lab results, Imaging studies, need for follow up and when to return to the Emergency Room. Prescriptions given: Discharge Note I have spoken with the patient and/or caregivers. I have explained the patient's condition, diagnosis and treatment plan based on the information available to me at this time. I have answered the patient's and/or caregiver's questions and addressed any concerns. The patient and/or caregivers have as good understanding of the patient's diagnosis, condition and treatment plan as can be expected at this point. The vital signs have been stable. The patient's condition is stable and appropriate for discharge from the emergency department. The patient will pursue further outpatient evaluation with the primary care physician or other designated or consulting physician as outlined in the discharge instructions. The patient and/or caregivers are agreeable to this plan of care and follow-up instructions have been explained in detail. The patient and/or caregivers have received these instruction. The patient/and or caregivers are aware that any significant change in condition or worsening of symptoms should prompt an immediate return to this or the closest emergency department or call 911.
[2020-12-04] MEDS ORDERED: TORAdol 30 mg Injection IM ONE (17:18)
[2020-12-04] MEDS ORDERED: TYLENOL 325 MG ONE (17:32)
[2020-12-04] MEDS ORDERED: TORAdol 30 mg Injection ONE (17:32)
[2020-12-04 17:43] VITALS: BP 131/81; PULSE 90; O2SAT 97
--- NOTE | 2020-12-05 08:39 | XRAY ---
Indication: Pain. No known injury. Comparison: February 01, 2019. 3 nonweightbearing views left foot demonstrates stable tiny heel spurs and tiny talonavicular accessory ossicle. No new/acute bony, articular, or soft tissue abnormalities.
== END 2020-12-04 17:51 | disposition home or self-care (01) ==
LOC: ED 16:38
DX: M79.672 Pain in left foot (principal); M77.32 Calcaneal spur, left foot; M21.42 Flat foot [pes planus] (acquired), left foot; M72.2 Plantar fascial fibromatosis; Z79.899 Other long term (current) drug therapy; E11.9 Type 2 diabetes mellitus without complications; Z79.4 Long term (current) use of insulin; Z79.84 Long term (current) use of oral hypoglycemic drugs; Z82.49 Family history of ischemic heart disease and other diseases of the circulatory system
CPT/HCPCS: 73630; 96372; 99284; J1885; A9270-GY

== ENCOUNTER 2020-12-06 21:07 | Emergency (ER) | payer OTHER ==
[2020-12-06] MEDS ORDERED: Augmentin 875-125 Tablet PO ONE (21:18)
[2020-12-06] MEDS ORDERED: TORAdol 30 mg Injection IM ONE (21:19)
--- NOTE | 2020-12-06 21:20 | ERPHSYRPT ---
- History of Present Illness Time Seen by Provider: 12/06/20 21:10 Source: patient Exam Limitations: no limitations Physician History: Patient is a 40-year-old female presents to our emergency department with complaints of left ear pain. Patient states she has a history of recurrent ear infections. Patient states her tympanic membrane is not present at the involved ear. No associated dizziness or difficulty hearing. Patient notices a serosanguineous drainage from the left ear. No fever. No nausea or vomiting. No diaphoresis. No trauma. No neck pain. Symptoms are mild to moderate in intensity. No specific worsening improving factors. Patient voices no other complaints or concerns at this time. Timing/Duration: gradual onset Severity: mild ENT Location: ear (L) Prearrival Treatment: no prearrival treatment (Patient did not take any analgesics prior to arrival.) Modifying Factors: Improves With: nothing Associated Symptoms: ear pain (L), No cough, No fever, No dizziness, No facial pain/swelling, No headache, No hearing loss, No jaw pain, No malaise, No motion sickness, No nasal congestion/drainage, No nasal foreign body, No neck pain, No poor fluid intake, No poor solids intake, No ringing of ears, No swollen glands, No tooth pain, No difficulty swallowing Allergies/Adverse Reactions: omeprazole [From Prilosec] Allergy (Severe, Verified 12/06/20 21:11) Hives Home Medications: Metformin HCl 1,000 mg PO BID 08/04/17 [History] Loratadine 10 mg [Claritin 10 mg] 10 mg PO DAILY 05/23/18 [History] Famotidine 20 mg [Pepcid 20 MG] 20 mg PO DAILY 08/27/18 [History] Fluticasone/Salmeterol [Advair 250-50 Diskus] 1 each IN DAILY 12/08/18 [History] Albuterol 8 gm Mdi Hfa [Ventolin Hfa MDI] 8 gm IH Q4HPRN PRN 06/28/19 [History] Cetirizine HCl 5 mg PO DAILY 09/01/20 [History] Insulin Glargine,Hum.rec.anlog [Matthias Hendrix U-100] 15 unit SQ HS 03/15/21 [History] Hx Tetanus, Diphtheria Vaccination/Date Given: Yes Hx Influenza Vaccination/Date Given: Yes Hx Pneumococcal Vaccination/Date Given: Yes - Review of Systems Constitutional: No Symptoms, No Fever, No Chills Eyes: No Symptoms Ears, Nose, & Throat: No Symptoms Respiratory: No Symptoms, No Cough, No Dyspnea Cardiac: No Symptoms, No Chest Pain, No Edema, No Syncope Abdominal/Gastrointestinal: No Symptoms, No Abdominal Pain, No Nausea, No Vomiting, No Diarrhea Genitourinary Symptoms: No Symptoms, No Dysuria Musculoskeletal: No Symptoms, No Back Pain, No Neck Pain Skin: No Symptoms, No Rash Neurological: No Symptoms, No Dizziness, No Focal Weakness, No Sensory Changes Psychological: No Symptoms Endocrine: No Symptoms Hematologic/Lymphatic: No Symptoms Immunological/Allergic: No Symptoms All Other Systems: Reviewed and Negative - Past Medical History Pertinent Past Medical History: Yes Neurological History: No Pertinent History ENT History: No Pertinent History Cardiac History: No Pertinent History Respiratory History: Asthma, Sleep Apnea Endocrine Medical History: Diabetes Type II Musculoskeletal History: Arthritis GI Medical History: GERD, Hernia History: No Pertinent History Psycho-Social History: Depression Female Reproductive Disorders: No Pertinent History Other Medical History: scoliosis - Past Surgical History Past Surgical History: Yes Neuro Surgical History: No Pertinent History Cardiac: No Pertinent History Respiratory: No Pertinent History Gastrointestinal: Hernia Repair Genitourinary: No Pertinent History Musculoskeletal: No Pertinent History Female Surgical History: Section Other Surgical History: Ear tubes both ears. left ear drum surgery, 2 umbilical hernia repair. - Social History Smoking Status: Never smoker Exposure to second hand smoke: No Alcohol Use: None Drug Use: none Patient Lives Alone: No Significant Family History: diabetes, hypertension - Nursing Vital Signs Nursing Vital Signs: Initial Vital Signs Temperature 98.5 F 12/06/20 21:07 Pulse Rate 83 12/06/20 21:07 Respiratory Rate 14 12/06/20 21:07 Blood Pressure 135/87 12/06/20 21:07 O2 Sat by Pulse Oximetry 98 12/06/20 21:07 Pain Scale Pain Intensity 10 - Physical Exam General Appearance: no apparent distress, alert Eye Exam: bilateral eye: normal inspection, PERRL, EOMI Ear Exam: right ear: auricle normal, canal normal, TM normal, left ear: other (There appears to be an absent tympanic membrane at the left ear. No otitis externa. No active bleeding. The inner ear appears to be irritated. No mastoid pain or tenderness.) Nasal Exam: normal inspection Throat Exam: pharynx normal, moist mucus membranes, No tonsillar exudate Neck Exam: normal inspection, supple Cardiovascular/Respiratory Exam: normal breath sounds, regular rate/rhythm Abdominal Exam: non-tender, soft Neurologic Exam: alert, oriented x 3, sensation nml, No motor deficits Skin Exam: normal color, warm, dry SpO2 Interpretation: normal SpO2: 98 O2 Delivery: Room Air Ordered Tests: Medication Summary Discontinued Medications Generic Name Dose Route Start Last Admin Trade Name Freq PRN Reason Stop Dose Admin Amoxicillin/Clavulanate Potassium 875 mg 12/06/20 21:18 12/06/20 21:26 Augmentin 875-125 Tablet PO 12/06/20 21:19 875 mg STAT ONE Administration Amoxicillin/Clavulanate Potassium Confirm 12/06/20 21:26 Augmentin 875-125 Tablet Administered 12/06/20 21:27 Dose 875 mg .ROUTE .STK-MED ONE Ketorolac Tromethamine 30 mg 12/06/20 21:19 12/06/20 21:26 Toradol 30 Mg Injection IM 12/06/20 21:20 30 mg STAT ONE Administration Ketorolac Tromethamine Confirm 12/06/20 21:26 Toradol 30 Mg Injection Administered 12/06/20 21:27 Dose 30 mg .ROUTE .STK-MED ONE - Departure Departure Disposition: Home Clinical Impression: Otitis media Condition: Stable Critical Care Time: No Referrals: RAMESH ZARAGOZA [Primary Care Provider] - Additional Instructions: Discharge/Care Plan CLEOPATRAABENA GARCIA was seen on 12/06/20 in the Emergency Room. The patient was counseled regarding Diagnosis,Lab results, Imaging studies, need for follow up and when to return to the Emergency Room. Prescriptions given: Discharge Note I have spoken with the patient and/or caregivers. I have explained the patient's condition, diagnosis and treatment plan based on the information available to me at this time. I have answered the patient's and/or caregiver's questions and addressed any concerns. The patient and/or caregivers have as good understanding of the patient's diagnosis, condition and treatment plan as can be expected at this point. The vital signs have been stable. The patient's condition is stable and appropriate for discharge from the emergency department. The patient will pursue further outpatient evaluation with the primary care physician or other designated or consulting physician as outlined in the discharge instructions. The patient and/or caregivers are agreeable to this plan of care and follow-up instructions have been explained in detail. The patient and/or caregivers have received these instruction. The patient/and or caregivers are aware that any significant change in condition or worsening of symptoms should prompt an immediate return to this or the closest emergency department or call 911. Prescriptions: Amox Tr/Potass Clav. 875 mg [Augmentin 875-125 Tablet] 875 mg PO BID 7 Days #14 tablet
[2020-12-06 21:22] VITALS: BP 135/87; PULSE 83; O2SAT 98
[2020-12-06] MEDS ORDERED: TORAdol 30 mg Injection ONE (21:26)
[2020-12-06] MEDS ORDERED: Augmentin 875-125 Tablet ONE (21:26)
== END 2020-12-06 21:48 | disposition home or self-care (01) ==
LOC: ED 21:07
DX: H66.92 Otitis media, unspecified, left ear (principal); E11.9 Type 2 diabetes mellitus without complications; Z79.899 Other long term (current) drug therapy
CPT/HCPCS: 96372; 99283; J1885; A9270-GY

== ENCOUNTER 2021-01-24 20:34 | Emergency (ER) | payer OTHER ==
--- NOTE | 2021-01-24 21:55 | ERPHSYRPT ---
- History of Present Illness Time Seen by Provider: 01/24/21 21:30 Source: patient Exam Limitations: no limitations Patient Subjective Stated Complaint: pt states she burned her finger on a pizza chen on friday. Triage Nursing Assessment: pt alert and oriented, answers questions approppt ambulatory with steady gait noted. respiraitons nonlabored. skin pink warm and dry. burn to rt 3rd digit approx 2x0.5cm with redness and mild swelling. cap refill wnl. Physician History: Patient is a 40-year-old female presents to our ED with a burn to the dorsal aspect of the right middle finger proximal phalanx. Patient burned it on a pizza chen. Patient is here because her boyfriend asked her to get "checked out". Pain is well controlled. The are interested in checking for possible infection. There is no infection observed in patient's finger. Patient has full mobility. Sensation intact. Nailbed intact. Nail plate intact. No other injuries reported. Tetanus up-to-date. Patient voices no other complaints concerns at this time. Occurred: days ago (2 days ago) Method of Injury: burn Quality: other (Patient has no active pain at this time.) Severity of Pain-Max: none Severity of Pain-Current: none Extremities Pain Location: 3rd finger: right Modifying Factors: Improves With: nothing, other (Palpation to the injured area reproduce symptoms. There is no trauma.) Associated Symptoms: none Allergies/Adverse Reactions: omeprazole [From Prilosec] Allergy (Severe, Verified 12/06/20 21:11) Hives Home Medications: Metformin HCl 1,000 mg PO BID 08/04/17 [History] Loratadine 10 mg [Claritin 10 mg] 10 mg PO DAILY 05/23/18 [History] Famotidine 20 mg [Pepcid 20 MG] 20 mg PO DAILY 08/27/18 [History] Fluticasone/Salmeterol [Advair 250-50 Diskus] 1 each IN DAILY 12/08/18 [History] Albuterol 8 gm Mdi Hfa [Ventolin Hfa MDI] 8 gm IH Q4HPRN PRN 06/28/19 [History] Cetirizine HCl 5 mg PO DAILY 09/01/20 [History] Insulin Glargine,Hum.rec.anlog [Matthias Hendrix U-100] 15 unit SQ HS 12/04/20 [History] Hx Tetanus, Diphtheria Vaccination/Date Given: Yes Hx Influenza Vaccination/Date Given: Yes Hx Pneumococcal Vaccination/Date Given: Yes Immunizations Up to Date: Yes Travel Risk - International Travel Have you traveled outside of the country in past 3 weeks: No - Coronavirus Screening Are you exhibiting any of the following symptoms?: No Close contact with a COVID-19 positive Pt in past 14-21 Days: No - Vaccine Status Have you recieved a Covid-19 vaccination: No - Review of Systems Constitutional: No Symptoms, No Fever, No Chills Eyes: No Symptoms Ears, Nose, & Throat: No Symptoms Respiratory: No Symptoms, No Cough, No Dyspnea Cardiac: No Symptoms, No Chest Pain, No Edema, No Syncope Abdominal/Gastrointestinal: No Symptoms, No Abdominal Pain, No Nausea, No Vomiting, No Diarrhea Genitourinary Symptoms: No Symptoms, No Dysuria Musculoskeletal: No Symptoms, No Back Pain, No Neck Pain Skin: No Symptoms, No Rash Neurological: No Symptoms, No Dizziness, No Focal Weakness, No Sensory Changes Psychological: No Symptoms Endocrine: No Symptoms Hematologic/Lymphatic: No Symptoms Immunological/Allergic: No Symptoms All Other Systems: Reviewed and Negative - Past Medical History Pertinent Past Medical History: Yes Neurological History: No Pertinent History ENT History: No Pertinent History Cardiac History: No Pertinent History Respiratory History: Asthma, Sleep Apnea Endocrine Medical History: Diabetes Type II Musculoskeletal History: No Pertinent History GI Medical History: GERD, Hernia History: No Pertinent History Psycho-Social History: Depression Female Reproductive Disorders: No Pertinent History Other Medical History: HAS A KIDNEY DOCTOR DUE TO VETO SODIUM LEVELS, NOTES THIS IS NOW UNDER CONTROL. TO HAVE HERNIA SURGERY IN February. - Past Surgical History Past Surgical History: Yes Neuro Surgical History: No Pertinent History Cardiac: No Pertinent History Respiratory: No Pertinent History Gastrointestinal: Hernia Repair Genitourinary: No Pertinent History Musculoskeletal: No Pertinent History Female Surgical History: Section Other Surgical History: Ear tubes both ears. left ear drum surgery, 2 umbilical hernia repair. - Social History Smoking Status: Never smoker Exposure to second hand smoke: Yes Alcohol Use: None Drug Use: none Patient Lives Alone: No Significant Family History: diabetes, hypertension - Female History Hx Last Menstrual Period: last month Hx Now: No - Nursing Vital Signs Nursing Vital Signs: Initial Vital Signs Temperature 99.2 F 01/24/21 20:55 Pulse Rate 82 01/24/21 20:55 Respiratory Rate 18 01/24/21 20:55 Blood Pressure 165/98 01/24/21 20:55 O2 Sat by Pulse Oximetry 99 01/24/21 20:55 Pain Scale Pain Intensity 3 - Physical Exam General Appearance: alert Eyes, Ears, Nose, Throat Exam: moist mucous membranes Neck Exam: non-tender, supple Cardiovascular/Respiratory Exam: chest non-tender, normal breath sounds, regular rate/rhythm, no respiratory distress Abdominal Exam: non-tender, No guarding Back Exam: normal inspection, No vertebral tenderness Shoulder Exam: normal inspection, non-tender, no evidence of injury, normal ROM Elbow/Forearm Exam: normal inspection, non-tender, no evidence of injury, normal ROM Wrist Exam: normal inspection, non-tender, no evidence of injury, normal ROM Hand Exam: normal inspection (Normal inspection with the exception of a 2 cm partial-thickness burn to the dorsal surface of the right long finger. Extremity and fingers neurovascular intact distally. Compartments are soft cap refill less than 2 seconds. Nailbed intact. Otherwise no open or draining lesions. ), non-tender, no evidence of injury Neuro/Tendon Exam: normal sensation, normal motor functions Mental Status Exam: alert, oriented x 3, cooperative Skin Exam: normal color, warm, dry SpO2 Interpretation: normal SpO2: 99 O2 Delivery: Room Air - Course Nursing assessment & vital signs reviewed: Yes - Progress Progress: unchanged Progress Note: The finger is not infected. The wound appears to be healing well. No indication for imaging studies or antibiotics at this time. Extremities neurovascular intact distally. Patient informed to keep the involved area clean and dry. Patient declined pain medication. Patient agrees to follow-up with primary care doctor within 48 hours for reevaluation. She voices no other complaints concerns at this time. 01/24/21 22:01 01/24/21 22:02 Counseled pt/family regarding: need for follow-up - Departure Departure Disposition: Home Clinical Impression: Burn of finger and thumb of right hand, second degree Condition: Stable Critical Care Time: No Referrals: RAMESH ZARAGOZA [Primary Care Provider] - Additional Instructions: Discharge/Care Plan CLEOPATRAABENA was seen on 01/24/21 in the Emergency Room. The patient was counseled regarding Diagnosis,Lab results, Imaging studies, need for follow up and when to return to the Emergency Room. Prescriptions given: Discharge Note I have spoken with the patient and/or caregivers. I have explained the patient's condition, diagnosis and treatment plan based on the information available to me at this time. I have answered the patient's and/or caregiver's questions and addressed any concerns. The patient and/or caregivers have as good understanding of the patient's diagnosis, condition and treatment plan as can be expected at this point. The vital signs have been stable. The patient's condition is stable and appropriate for discharge from the emergency department. The patient will pursue further outpatient evaluation with the primary care physician or other designated or consulting physician as outlined in the discharge instructions. The patient and/or caregivers are agreeable to this plan of care and follow-up instructions have been explained in detail. The patient and/or caregivers have received these instruction. The patient/and or caregivers are aware that any significant change in condition or worsening of symptoms should prompt an immediate return to this or the closest emergency department or call 911.
[2021-01-24 22:13] VITALS: BP 132/74; PULSE 86; O2SAT 100
== END 2021-01-24 22:13 | disposition home or self-care (01) ==
LOC: ED 20:34
DX: T23.211A Burn of second degree of right thumb (nail), initial encounter (principal); T23.221A Burn of second degree of single right finger (nail) except thumb, initial encounter; X19.XXXA Contact with other heat and hot substances, initial encounter; Y93.G3 Activity, cooking and baking; Y92.9 Unspecified place or not applicable; I10 Essential (primary) hypertension; E11.9 Type 2 diabetes mellitus without complications
CPT/HCPCS: 99283

== ENCOUNTER 2021-06-05 15:38 | Emergency (ER) | payer OTHER ==
[2021-06-05] MEDS ORDERED: Sodium Chloride 0.9% 1000 ML 1,000 ML IV SCH (16:30)
[2021-06-05 16:57] LABS: Hematocrit 40.3 % (35-47); Hemoglobin 13.4 gm/dl (12.0-16.0); Mean Cell Volume 87.6 fl (78-100); Mean Corpuscular Hemoglobin 29.1 pg (26-32); Mean Corpuscular Hgb Concent. 33.3 g/dl (32-36); Mean Platelet Volume 8.9 fl (7.5-11.0); Platelet Count 316 K/mm3 (150-450); Red Cell Distribution Width 13.4 % (11.5-14.0)
--- NOTE | 2021-06-05 17:04 | ERPHSYRPT ---
- History of Present Illness Time Seen by Provider: 06/05/21 15:59 Historian: patient Exam Limitations: no limitations Patient Subjective Stated Complaint: RLQ pain Triage Nursing Assessment: pt to ED c/o RLQ pain onset today. states pain worsens with movement, 8/10 at rest. hx hernia repair medial RLQ February 2021. denies bowel or urinary issues. "I dont know if maybe I pulled something or what but I did have hernia surgery right here in February." no NVD reported. non tender to palp Physician History: Patient is a 41-year-old female presents to our ED for evaluation of pain to the right lower quadrant right flank area. Pain started today just prior to arrival. Patient states she was resting when it started. No trauma. No fever. No nausea or vomiting. No diarrhea. No rash. Pain described as a sharp intermittent sensation that is rated 8 out of 10. Patient denies observing hematuria. Patient denies history of the same. Symptoms are moderate in intensity. No specific worsening improving factors. Patient voices no other complaints concerns at this time. Timing/Duration: today Activities at Onset: none Quality: aching Abdominal Pain Onset Location: RLQ Pain Radiation: no radiation Severity of Pain-Max: moderate Severity of Pain-Current: mild Modifying Factors: Improves With: nothing Associated Symptoms: denies symptoms Previous symptoms: no prior history Allergies/Adverse Reactions: omeprazole [From Prilosec] Allergy (Severe, Verified 06/05/21 16:03) Hives Home Medications: Metformin HCl 1,000 mg PO BID 08/04/17 [History] Loratadine 10 mg [Claritin 10 mg] 10 mg PO DAILY 05/23/18 [History] Famotidine 20 mg [Pepcid 20 MG] 20 mg PO DAILY 08/27/18 [History] Fluticasone/Salmeterol [Advair 250-50 Diskus] 1 each IN DAILY 12/08/18 [History] Albuterol 8 gm Mdi Hfa [Ventolin Hfa MDI] 8 gm IH Q4HPRN PRN 06/28/19 [History] Cetirizine HCl 5 mg PO DAILY 09/01/20 [History] Insulin Glargine,Hum.rec.anlog [Lorrieaglar Kwikpen U-100] 15 unit SQ 12/04/20 [History] Hx Tetanus, Diphtheria Vaccination/Date Given: Yes Hx Influenza Vaccination/Date Given: Yes Hx Pneumococcal Vaccination/Date Given: Yes Immunizations Up to Date: Yes Travel Risk - International Travel Have you traveled outside of the country in past 3 weeks: No - Coronavirus Screening Are you exhibiting any of the following symptoms?: No Close contact with a COVID-19 positive Pt in past 14-21 Days: No - Vaccine Status Have you recieved a Covid-19 vaccination: No - Review of Systems Constitutional: No Symptoms, No Fever, No Chills Eyes: No Symptoms Ears, Nose, & Throat: No Symptoms Respiratory: No Symptoms, No Cough, No Dyspnea Cardiac: No Symptoms, No Chest Pain, No Edema, No Syncope Abdominal/Gastrointestinal: No Symptoms, No Abdominal Pain, No Nausea, No Vomiting, No Diarrhea Genitourinary Symptoms: No Symptoms, No Dysuria Musculoskeletal: No Symptoms, No Back Pain, No Neck Pain Skin: No Symptoms, No Rash Neurological: No Symptoms, No Dizziness, No Focal Weakness, No Sensory Changes Psychological: No Symptoms Endocrine: No Symptoms Hematologic/Lymphatic: No Symptoms Immunological/Allergic: No Symptoms All Other Systems: Reviewed and Negative - Past Medical History Pertinent Past Medical History: Yes Neurological History: No Pertinent History, Peripheral Neuropathy ENT History: No Pertinent History Cardiac History: High Cholesterol Respiratory History: Asthma, Bronchitis, Sleep Apnea Endocrine Medical History: Diabetes Type II Musculoskeletal History: Osteoarthritis GI Medical History: GERD, Hernia History: No Pertinent History Psycho-Social History: Depression Female Reproductive Disorders: No Pertinent History Other Medical History: GERD, ANXIETY, MORBID OBESITY, CARPAL TUNNEL LUCIAN (NO SX), RECENT HERNIA REPAIR, - Past Surgical History Past Surgical History: Yes Neuro Surgical History: No Pertinent History Cardiac: No Pertinent History Respiratory: No Pertinent History Gastrointestinal: Hernia Repair Genitourinary: No Pertinent History Musculoskeletal: No Pertinent History Female Surgical History: Section Other Surgical History: Ear tubes both ears. left ear drum surgery, 3 umbilical hernia repair. - Social History Smoking Status: Never smoker Exposure to second hand smoke: Yes Alcohol Use: None Drug Use: none Patient Lives Alone: No Significant Family History: diabetes, hypertension - Female History Hx Now: No - Nursing Vital Signs Nursing Vital Signs: Initial Vital Signs Temperature 97.5 F 06/05/21 15:54 Pulse Rate 90 06/05/21 15:54 Respiratory Rate 20 06/05/21 15:54 Blood Pressure 161/90 06/05/21 15:54 O2 Sat by Pulse Oximetry 98 06/05/21 15:54 Pain Scale Pain Intensity 6 - Physical Exam General Appearance: no apparent distress, alert Eye Exam: PERRL/EOMI, eyes nml inspection Ears, Nose, Throat Exam: normal ENT inspection, pharynx normal, moist mucous membranes Neck Exam: normal inspection, non-tender, supple, full range of motion Respiratory Exam: normal breath sounds, lungs clear, airway intact, No respiratory distress Cardiovascular Exam: regular rate/rhythm, normal heart sounds, normal peripheral pulses Gastrointestinal/Abdomen Exam: soft, other (Tenderness palpation right flank and right lower quadrant. Overlying soft tissue intact. No signs of trauma. Surgical incision from hernia surgery performed in February is healing well.), No tenderness, No mass Pelvic Exam: not done Rectal Exam: deferred Back Exam: normal inspection, normal range of motion, No CVA tenderness, No vertebral tenderness Extremity Exam: normal inspection, normal range of motion, pelvis stable Neurologic Exam: alert, oriented x 3, cooperative, normal mood/affect, sensation nml, No motor deficits Skin Exam: normal color, warm, dry Lymphatic Exam: No adenopathy SpO2 Interpretation: normal SpO2: 98 O2 Delivery: Room Air - Course Nursing assessment & vital signs reviewed: Yes - CT Exams Abdomen/Pelvis CT Interpretation: Tele-radiologist Report (Compared to 07/09/2020, again large failed ventral hernia surgery with herniated small bowel loops less than before. No obstruction or incarceration. Stable overlying abdominal subcutaneous induration/inflammation without suspicious fluid or air. New mild diffuse fecal stasis. Stable colonic div) Ordered Tests: Active Orders 24 hr Category Date Time Status IV Insertion STAT Care 06/05/21 16:21 Active ABDOMEN AND PELVIS W CONTRAST [CT] Stat Exams 06/05/21 19:19 Taken CBC W DIFF Stat Lab 06/05/21 16:45 Completed CMP Stat Lab 06/05/21 16:45 Completed HCG,QUALITATIVE URINE Stat Lab 06/05/21 17:30 Completed LIPASE Stat Lab 06/05/21 16:45 Completed Manual Differential NC Stat Lab 06/05/21 16:45 Completed TROPONIN Q3H Lab 06/05/21 16:45 Completed TROPONIN Q3H Lab 06/05/21 19:15 Completed TROPONIN Q3H Lab 06/05/21 22:30 Ordered TROPONIN Q3H Lab 06/06/21 01:30 Ordered TROPONIN Q3H Lab 06/06/21 04:30 Ordered Medication Summary Generic Name Dose Route Start Last Admin Trade Name Darius PRN Reason Stop Dose Admin Sodium Chloride 1,000 mls @ 100 mls/hr 06/05/21 16:30 06/05/21 17:24 Sodium Chloride 0.9% 1000 Ml IV 07/05/21 16:29 100 mls/hr .Q10H USMAN Administration Lab/Rad Data: Laboratory Result Diagrams 06/05/21 16:45 06/05/21 16:45 Laboratory Results 06/05/21 06/05/21 06/05/21 Range/Units 19:15 17:30 16:45 WBC (4.0-10.5) K/mm3 RBC (4.1-5.4) M/mm3 Hgb (12.0-16.0) gm/dl Hct (35-47) % MCV (78-100) fl MCH (26-32) pg MCHC (32-36) g/dl RDW (11.5-14.0) % Plt Count (150-450) K/mm3 MPV (7.5-11.0) fl Sodium (137-145) mmol/L Potassium (3.5-5.1) mmol/L Chloride (98-107) mmol/L Carbon Dioxide (22-30) mmol/L Anion Gap (5-15) MEQ/L BUN (7-17) mg/dL Creatinine (0.52-1.04) mg/dL Estimated GFR ML/MIN Glucose (74-106) mg/dL Calcium (8.4-10.2) mg/dL Total Bilirubin (0.2-1.3) mg/dL AST (14-36) U/L ALT (0-35) U/L Alkaline Phosphatase (38-126) U/L Troponin I < 0.012 < 0.012 (0.000-0.034) ng/mL Serum Total Protein (6.3-8.2) g/dL Albumin (3.5-5.0) g/dL Lipase (23-300) U/L Urine HCG, Qual NEGATIVE (Negative) 09/14/21 09/14/21 Range/Units 16:45 16:45 WBC 8.0 (4.0-10.5) K/mm3 RBC 4.60 (4.1-5.4) M/mm3 Hgb 13.4 (12.0-16.0) gm/dl Hct 40.3 (35-47) % MCV 87.6 (78-100) fl MCH 29.1 (26-32) pg MCHC 33.3 (32-36) g/dl RDW 13.4 (11.5-14.0) % Plt Count 316 (150-450) K/mm3 MPV 8.9 (7.5-11.0) fl Sodium 136 L (137-145) mmol/L Potassium 4.4 (3.5-5.1) mmol/L Chloride 98 (98-107) mmol/L Carbon Dioxide 27 (22-30) mmol/L Anion Gap 15.0 (5-15) MEQ/L BUN 11 (7-17) mg/dL Creatinine 0.78 (0.52-1.04) mg/dL Estimated GFR > 60.0 ML/MIN Glucose 201 H (74-106) mg/dL Calcium 9.4 (8.4-10.2) mg/dL Total Bilirubin 0.50 (0.2-1.3) mg/dL AST 21 (14-36) U/L ALT 22 (0-35) U/L Alkaline Phosphatase 90 (38-126) U/L Troponin I (0.000-0.034) ng/mL Serum Total Protein 7.3 (6.3-8.2) g/dL Albumin 4.3 (3.5-5.0) g/dL Lipase 35 (23-300) U/L Urine HCG, Qual (Negative) - Progress Progress: improved Progress Note: Case discussed with Dr. Arrieta who advises discharge and follow-up with Dr. Headley on . There is nothing to do from an ER perspective at this time. We will discharge patient home. 06/05/21 20:28 Discussed with : Otoniel Will see patient in: office Counseled pt/family regarding: lab results, diagnosis, need for follow-up, rad results - Departure Departure Disposition: Home Clinical Impression: Ventral hernia, Herniated small bowel loops, Subcutaneous induration, New mild diffuse fecal stasis, Diverticulosis, Fatty liver, Hepatomegaly, Splenomegaly Condition: Stable Critical Care Time: No Referrals: RAMESH SCOTT [Primary Care Provider] - BELKIS HEADLEY [ACTIVE STAFF] - Additional Instructions: Follow-up with Dr. Headley on please call for an appointment Discharge/Care Plan CLEOPATRAABENA was seen on 06/05/21 in the Emergency Room. The patient was counseled regarding Diagnosis,Lab results, Imaging studies, need for follow up and when to return to the Emergency Room. Prescriptions given: Discharge Note I have spoken with the patient and/or caregivers. I have explained the patient's condition, diagnosis and treatment plan based on the information available to me at this time. I have answered the patient's and/or caregiver's questions and ad dressed any concerns. The patient and/or caregivers have as good understanding of the patient's diagnosis, condition and treatment plan as can be expected at this point. The vital signs have been stable. The patient's condition is stable and appropriate for discharge from the emergency department. The patient will pursue further outpatient evaluation with the primary care physician or other designated or consulting physician as outlined in the discharge instructions. The patient and/or caregivers are agreeable to this plan of care and follow-up instructions have been explained in detail. The patient and/or caregivers have received these instruction. The patient/and or caregivers are aware that any significant change in condition or worsening of symptoms should prompt an immediate return to this or the closest emergency department or call 911.
[2021-06-05 17:10] LABS: ALBUMIN 4.3 g/dL (3.5-5.0); ALKALINE PHOSPHATASE 90 U/L (38-126); BLOOD UREA NITROGEN 11 mg/dL (7-17); CHLORIDE 98 mmol/L (98-107); Calcium 9.4 mg/dL (8.4-10.2); Carbon Dioxide 27 mmol/L (22-30); Creatinine 1 0.78 mg/dL (0.52-1.04); EST GLOMERULAR FILTRATION RATE > 60.0 ML/MIN; Glucose 201 mg/dL (74-106); LIPASE 35 U/L (23-300); Potassium 4.4 mmol/L (3.5-5.1); SGOT/AST 21 U/L (14-36); SGPT/ALT 22 U/L (0-35); SODIUM 136 mmol/L (137-145); Total Protein 7.3 g/dL (6.3-8.2)
[2021-06-05] MEDS ORDERED: Sodium Chloride 0.9% 1000 ML 1,000 ML ONE (17:19)
[2021-06-05 20:22] VITALS: BP 131/88
[2021-06-05 20:43] VITALS: PULSE 90; O2SAT 99
--- NOTE | 2021-06-06 08:55 | XRAY ---
Indication: Right flank pain. Multiple contiguous axial images obtained through the abdomen and pelvis using 100 cc Isovue 370 contrast. Comparison: July 09. Lung bases remain clear. Heart not enlarged. Noncontrasted stomach and bowel loops nonobstructed again with scattered descending/sigmoid diverticulosis without diverticulitis. There is now mild diffuse scattered colonic fecal debris throughout. No free fluid/air. Again 21 cm fatty hepatomegaly and 13.1 cm splenomegaly. Remaining liver, gallbladder, pancreas, spleen, adrenal glands, kidneys, ureters, bladder, and uterus are unremarkable. Stable minimal aortic calcifications. No AAA or pathologic retroperitoneal lymphadenopathy. Osseous structures intact again with moderate levorotoscoliosis. There remains a large ventral hernia with failed mesh graft and herniated small bowel loops less than before. No evidence for obstruction/incarceration. Overlying abdominal wall again demonstrates grossly stable subcutaneous induration/inflammation without suspicious fluid or air. Impression: 1. Again large failed ventral hernia surgery with herniated small bowel loops less than before without complications. Again overlying abdominal wall subcutaneous induration/inflammation. 2. New mild diffuse fecal stasis. 3. Again incidental colonic diverticulosis, fatty hepatomegaly, splenomegaly, and chronic bony findings.
== END 2021-06-05 20:44 | disposition home or self-care (01) ==
LOC: ED 15:38
DX: K43.9 Ventral hernia without obstruction or gangrene (principal); R23.4 Changes in skin texture; K56.41 Fecal impaction; K57.90 Diverticulosis of intestine, part unspecified, without perforation or abscess without bleeding; K76.0 Fatty (change of) liver, not elsewhere classified; R16.0 Hepatomegaly, not elsewhere classified; R16.1 Splenomegaly, not elsewhere classified; K46.9 Unspecified abdominal hernia without obstruction or gangrene; R10.31 Right lower quadrant pain; Z79.899 Other long term (current) drug therapy; E11.9 Type 2 diabetes mellitus without complications; E78.00 Pure hypercholesterolemia, unspecified
CPT/HCPCS: 36000; 36415; 74177; 80053; 83690; 84484; 84703; 85025; 99284

== ENCOUNTER 2022-01-04 16:30 | Emergency (ER) | payer OTHER ==
[2022-01-04 16:39] VITALS: O2SAT 98
[2022-01-04] MEDS ORDERED: TORAdol 30 mg Injection IM ONE (16:50)
[2022-01-04] MEDS ORDERED: TORAdol 30 mg Injection ONE (16:55)
--- NOTE | 2022-01-04 17:00 | ERPHSYRPT ---
- History of Present Illness Source: patient Exam Limitations: no limitations Patient Subjective Stated Complaint: PT states "Both my ears are killing me." Triage Nursing Assessment: pt presented alert and oriented X 3, skin pwd pt ambulates with an upright steady gait, able to speak in clear full sentences. Pt resting comfortably on the bed. Physician History: 41yo wf w B otalgia since 6AM. 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 She denies fever/cough/coryza/ST/N/V/D. Timing/Duration: abrupt onset (6AM) Severity: moderate ENT Location: ear (R), ear (L) Prearrival Treatment: no prearrival treatment Associated Symptoms: ear pain (R), ear pain (L), No cough, No fever, No chills, No change in hearing, No dizziness, No drooling, No ear drainage, No facial pain/swelling, No headache, No hearing loss, No jaw pain, No malaise, No motion sickness, No nasal congestion/drainage, No epistaxis, No nasal foreign body, No neck pain, No poor fluid intake, No poor solids intake, No ringing of ears, No swollen glands, No sinus infection, No sore throat, No tooth pain, No difficulty swallowing, No voice change Allergies/Adverse Reactions: omeprazole [From Prilosec] Allergy (Severe, Verified 06/05/21 16:03) Hives Home Medications: RX: Metformin HCl 1,000 mg PO BID 08/04/17 [History] RX: Loratadine 10 mg [Claritin 10 mg] 10 mg PO DAILY 05/23/18 [History] RX: Famotidine 20 mg [Pepcid 20 MG] 20 mg PO DAILY 08/27/18 [History] RX: Fluticasone/Salmeterol [Advair 250-50 Diskus] 1 each IN DAILY 12/08/18 [History] RX: Albuterol 8 gm Mdi Hfa [Ventolin Hfa MDI] 8 gm IH Q4HPRN PRN 06/28/19 [History] RX: Cetirizine HCl 5 mg PO DAILY 09/01/20 [History] Insulin Glargine,Hum.rec.anlog [Matthias Hendrix U-100] 15 unit SQ HS 12/04/20 [History] Hx Tetanus, Diphtheria Vaccination/Date Given: No Hx Influenza Vaccination/Date Given: Yes Hx Pneumococcal Vaccination/Date Given: Yes Immunizations Up to Date: Yes Travel Risk - International Travel Have you traveled outside of the country in past 3 weeks: No - Coronavirus Screening Are you exhibiting any of the following symptoms?: No Close contact with a COVID-19 positive Pt in past 14-21 Days: No - Vaccine Status Have you recieved a Covid-19 vaccination: No - Review of Systems Constitutional: No Symptoms Eyes: No Symptoms Ears, Nose, & Throat: No Symptoms, Ear Pain Respiratory: No Symptoms Cardiac: No Symptoms Abdominal/Gastrointestinal: No Symptoms Genitourinary Symptoms: No Symptoms Musculoskeletal: No Symptoms Skin: No Symptoms Neurological: No Symptoms Psychological: No Symptoms Endocrine: No Symptoms Hematologic/Lymphatic: No Symptoms Immunological/Allergic: No Symptoms - Past Medical History Pertinent Past Medical History: Yes Neurological History: No Pertinent History, Peripheral Neuropathy ENT History: No Pertinent History Cardiac History: High Cholesterol Respiratory History: Asthma, Bronchitis, Sleep Apnea Endocrine Medical History: Diabetes Type II Musculoskeletal History: Osteoarthritis GI Medical History: GERD, Hernia History: No Pertinent History Psycho-Social History: Depression Female Reproductive Disorders: No Pertinent History Other Medical History: GERD, ANXIETY, MORBID OBESITY, CARPAL TUNNEL LUCIAN (NO SX), RECENT HERNIA REPAIR, - Past Surgical History Past Surgical History: Yes Neuro Surgical History: No Pertinent History Cardiac: No Pertinent History Respiratory: No Pertinent History Gastrointestinal: Hernia Repair Genitourinary: No Pertinent History Musculoskeletal: No Pertinent History Female Surgical History: Section Other Surgical History: Ear tubes both ears. left ear drum surgery, 3 umbilical hernia repair. - Social History Smoking Status: Never smoker Exposure to second hand smoke: Yes Alcohol Use: None Drug Use: none Patient Lives Alone: No Significant Family History: diabetes, hypertension - Female History Hx Last Menstrual Period: 12/17/2021 Hx Now: No - Nursing Vital Signs Nursing Vital Signs: Initial Vital Signs Temperature 97.8 F 01/04/22 16:34 Pulse Rate 91 H 01/04/22 16:34 Respiratory Rate 20 01/04/22 16:34 Blood Pressure 182/111 01/04/22 16:34 O2 Sat by Pulse Oximetry 98 01/04/22 16:34 Pain Scale Pain Intensity 6 Hypertensive - Physical Exam General Appearance: no apparent distress Eye Exam: bilateral eye: normal inspection, PERRL, EOMI Ear Exam: right ear: TM dull, left ear: TM perforation (Chronic/No drainage), bilateral ear: auricle normal, canal normal Nasal Exam: normal inspection Throat Exam: normal, pharynx normal Neck Exam: normal inspection, non-tender, supple, full range of motion, trachea midline Cardiovascular/Respiratory Exam: normal breath sounds, heart sounds normal Abdominal Exam: non-tender, soft Neurologic Exam: alert, oriented x 3, cooperative, 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, normal mood/affect, nml cerebellar function, nml station & gait, sensation nml, No motor deficits, No sensory deficit Skin Exam: normal color, warm, dry SpO2 Interpretation: normal SpO2: 98 O2 Delivery: Room Air - Course Nursing assessment & vital signs reviewed: Yes Ordered Tests: Medication Summary Discontinued Medications Generic Name Dose Route Start Last Admin Trade Name Freq PRN Reason Stop Dose Admin Ketorolac Tromethamine 30 mg 01/04/22 16:50 01/04/22 16:59 Ketorolac Tromethamine 30 Mg/Ml Inj IM 01/04/22 16:51 30 mg STAT ONE Administration Ketorolac Tromethamine Confirm 01/04/22 16:55 Ketorolac Tromethamine 30 Mg/Ml Inj Administered 01/04/22 16:56 Dose 30 mg .ROUTE .STK-MED ONE - Progress Progress: improved Progress Note: 01/04/22 17:03 30mg IM Toradol 01/04/22 19:48 BP decreasing before discharge Counseled pt/family regarding: diagnosis, need for follow-up - Departure Departure Disposition: Home Clinical Impression: Otalgia of both ears, Tympanic membrane perforation Condition: Stable Critical Care Time: No Referrals: RAMESH SCOTT [Primary Care Provider] - Follow up/PCP as directed Instructions: Ear Infections (Otitis Media) in Children Additional Instructions: Start Amoxicillin twice a day Motrin/Tylenol for pain Follow up with your ENT on Friday Return to ER for increasing pain or temperature greater than 100.5 Prescriptions: RX: Amoxicillin 875 mg PO BID #20 tablet
[2022-01-04 17:11] VITALS: BP 172/100; PULSE 88
== END 2022-01-04 17:11 | disposition home or self-care (01) ==
LOC: ED 16:30
DX: H92.03 Otalgia, bilateral (principal); H72.92 Unspecified perforation of tympanic membrane, left ear; E78.5 Hyperlipidemia, unspecified; E11.42 Type 2 diabetes mellitus with diabetic polyneuropathy; K21.9 Gastro-esophageal reflux disease without esophagitis; Z79.4 Long term (current) use of insulin; Z79.899 Other long term (current) drug therapy
CPT/HCPCS: 96372; 99283; J1885

== ENCOUNTER 2022-01-05 17:06 | Emergency (ER) | payer OTHER ==
--- NOTE | 2022-01-05 17:18 | ERPHSYRPT ---
- History of Present Illness Time Seen by Provider: 01/05/22 17:12 Source: patient Exam Limitations: no limitations Physician History: Patient is a 41-year-old white female who was seen in the ER yesterday and treated with a Toradol shot for an earache. She states that the place that the shot was given is now extremely painful the pain radiates all the way to her shoulder blade and into her chest she says this is hot and tender to touch its red she also complains of numbness in the left hand. Occurred: yesterday Method of Injury: other (Toradol injection) Severity of Pain-Max: severe Severity of Pain-Current: mild Extremities Pain Location: arm: left Modifying Factors: Improves With: movement Associated Symptoms: none Allergies/Adverse Reactions: omeprazole [From Prilosec] Allergy (Severe, Verified 06/05/21 16:03) Hives Home Medications: Metformin HCl 1,000 mg PO BID 08/04/17 [History] Loratadine 10 mg [Claritin 10 mg] 10 mg PO DAILY 05/23/18 [History] Famotidine 20 mg [Pepcid 20 MG] 20 mg PO DAILY 08/27/18 [History] Fluticasone/Salmeterol [Advair 250-50 Diskus] 1 each IN DAILY 12/08/18 [History] Albuterol 8 gm Mdi Hfa [Ventolin Hfa MDI] 8 gm IH Q4HPRN PRN 06/28/19 [History] Cetirizine HCl 5 mg PO DAILY 09/01/20 [History] Insulin Glargine,Hum.rec.anlog [Matthias Hendrix U-100] 15 unit SQ HS 12/04/20 [History] Hx Tetanus, Diphtheria Vaccination/Date Given: No Hx Influenza Vaccination/Date Given: Yes Hx Pneumococcal Vaccination/Date Given: Yes Travel Risk - Vaccine Status Have you recieved a Covid-19 vaccination: No - Review of Systems Constitutional: No Fever, No Chills Eyes: No Symptoms Ears, Nose, & Throat: No Symptoms Respiratory: No Cough, No Dyspnea Cardiac: No Chest Pain, No Edema, No Syncope Abdominal/Gastrointestinal: No Abdominal Pain, No Nausea, No Vomiting, No Diarrhea Genitourinary Symptoms: No Dysuria Musculoskeletal: No Back Pain, No Neck Pain Skin: No Rash Neurological: No Dizziness, No Focal Weakness, No Sensory Changes Psychological: No Symptoms Endocrine: No Symptoms All Other Systems: Reviewed and Negative - Past Medical History Pertinent Past Medical History: Yes Neurological History: No Pertinent History, Peripheral Neuropathy ENT History: No Pertinent History Cardiac History: High Cholesterol Respiratory History: Asthma, Bronchitis, Sleep Apnea Endocrine Medical History: Diabetes Type II Musculoskeletal History: Osteoarthritis GI Medical History: GERD, Hernia History: No Pertinent History Psycho-Social History: Depression Female Reproductive Disorders: No Pertinent History Other Medical History: GERD, ANXIETY, MORBID OBESITY, CARPAL TUNNEL LUCIAN (NO SX), RECENT HERNIA REPAIR, - Past Surgical History Past Surgical History: Yes Neuro Surgical History: No Pertinent History Cardiac: No Pertinent History Respiratory: No Pertinent History Gastrointestinal: Hernia Repair Genitourinary: No Pertinent History Musculoskeletal: No Pertinent History Female Surgical History: Section Other Surgical History: Ear tubes both ears. left ear drum surgery, 3 umbilical hernia repair. - Social History Smoking Status: Never smoker Exposure to second hand smoke: Yes Alcohol Use: None Drug Use: none Patient Lives Alone: No Significant Family History: diabetes, hypertension - Physical Exam General Appearance: mild distress, alert Eyes, Ears, Nose, Throat Exam: moist mucous membranes Neck Exam: non-tender, supple Cardiovascular/Respiratory Exam: chest non-tender, normal breath sounds, regular rate/rhythm, no respiratory distress Abdominal Exam: non-tender, No guarding Back Exam: normal inspection, No vertebral tenderness Shoulder Exam: pain (Some redness some heat some tenderness at the injection site otherwise normal exam) Elbow/Forearm Exam: normal inspection, non-tender Wrist Exam: normal inspection, non-tender Hand Exam: normal inspection, non-tender Neuro/Tendon Exam: normal sensation, normal motor functions Mental Status Exam: alert, oriented x 3, cooperative Skin Exam: normal color, warm, dry - Course Nursing assessment & vital signs reviewed: Yes - Progress Progress: unchanged Progress Note: 01/05/22 17:15 Patient was instructed to use ice packs and take the prednisone. - Departure Departure Disposition: Home Clinical Impression: Localized adverse drug reaction Condition: Stable Critical Care Time: No Referrals: RAMESH SCOTT [Primary Care Provider] - Follow up/PCP as directed Prescriptions: Prednisone 10 mg [Deltasone 10 mg] 10 mg PO TID 4 Days #12 tablet
[2022-01-05 17:23] VITALS: BP 186/94; PULSE 88; O2SAT 93
== END 2022-01-05 17:26 | disposition home or self-care (01) ==
LOC: ED 17:06
DX: M79.622 Pain in left upper arm (principal); T39.8X5A Adverse effect of other nonopioid analgesics and antipyretics, not elsewhere classified, initial encounter; R20.0 Anesthesia of skin; M25.512 Pain in left shoulder; E78.5 Hyperlipidemia, unspecified; E11.42 Type 2 diabetes mellitus with diabetic polyneuropathy; K21.9 Gastro-esophageal reflux disease without esophagitis; Z79.4 Long term (current) use of insulin; Z79.52 Long term (current) use of systemic steroids; Z79.899 Other long term (current) drug therapy
CPT/HCPCS: 99283

== ENCOUNTER 2022-02-22 16:39 | Emergency (ER) | payer OTHER ==
[2022-02-22 16:47] VITALS: O2SAT 98
[2022-02-22] MEDS ORDERED: NORCO 5/325 MG PO ONE (16:53)
[2022-02-22] MEDS ORDERED: NORCO 5/325 MG ONE (16:56)
--- NOTE | 2022-02-22 17:08 | ERPHSYRPT ---
- History of Present Illness Time Seen by Provider: 02/22/22 16:42 Source: patient Exam Limitations: no limitations Patient Subjective Stated Complaint: pt here for left wrist pain today after hitting left hand againist metal yesterday, she states having sharp pains to [facility] Triage Nursing Assessment: pt alert, resp easy, skin w/d/p, no swelling or bruising noted , strong radial pulse Physician History: 41 years old female presented in the ER with chief complaint of left hand/wrist pain after she accidentally hit it against a metal yesterday. She is complaining of moderate intensity sharp pain in the hand and wrist with movements with some swelling of the second and third digit without tingling and numbness. Occurred: yesterday Method of Injury: direct blow Quality: sharpness Severity of Pain-Max: moderate Severity of Pain-Current: moderate Extremities Pain Location: hand: left Modifying Factors: Improves With: rest. Worsens With: movement Associated Symptoms: none Allergies/Adverse Reactions: omeprazole [From Prilosec] Allergy (Severe, Verified 02/22/22 16:51) Hives ketorolac [From Toradol] Allergy (Verified 02/22/22 16:51) Home Medications: Metformin HCl 1,000 mg PO BID 08/04/17 [History] Loratadine 10 mg [Claritin 10 mg] 10 mg PO DAILY 05/23/18 [History] Famotidine 20 mg [Pepcid 20 MG] 20 mg PO DAILY 08/27/18 [History] Fluticasone/Salmeterol [Advair 250-50 Diskus] 1 each IN DAILY 12/08/18 [History] Albuterol 8 gm Mdi Hfa [Ventolin Hfa MDI] 8 gm IH Q4HPRN PRN 06/28/19 [History] Cetirizine HCl 5 mg PO DAILY 09/01/20 [History] Insulin Glargine,Hum.rec.anlog [Lorrieaglharriett [place] U-100] 15 unit SQ HS 12/04/20 [History] Atorvastatin Calcium 40 mg PO DAILY 02/22/22 [History] Hx Tetanus, Diphtheria Vaccination/Date Given: No Hx Influenza Vaccination/Date Given: Yes Hx Pneumococcal Vaccination/Date Given: Yes Immunizations Up to Date: Yes Travel Risk - International Travel Have you traveled outside of the country in past 3 weeks: No - Coronavirus Screening Are you exhibiting any of the following symptoms?: No - Vaccine Status Have you recieved a Covid-19 vaccination: No - Review of Systems Constitutional: No Symptoms Ears, Nose, & Throat: No Symptoms Respiratory: No Symptoms Cardiac: No Symptoms Abdominal/Gastrointestinal: No Symptoms Musculoskeletal: Injury, Joint Pain Skin: No Symptoms Neurological: No Symptoms Endocrine: No Symptoms Hematologic/Lymphatic: No Symptoms Immunological/Allergic: No Symptoms - Past Medical History Pertinent Past Medical History: Yes Neurological History: No Pertinent History, Peripheral Neuropathy ENT History: No Pertinent History Cardiac History: High Cholesterol Respiratory History: Asthma, Bronchitis, Sleep Apnea Endocrine Medical History: Diabetes Type II Musculoskeletal History: Osteoarthritis GI Medical History: GERD, Hernia History: No Pertinent History Psycho-Social History: Depression Female Reproductive Disorders: No Pertinent History Other Medical History: GERD, ANXIETY, MORBID OBESITY, CARPAL TUNNEL LUCIAN (NO SX), RECENT HERNIA REPAIR, - Past Surgical History Past Surgical History: Yes Neuro Surgical History: No Pertinent History Cardiac: No Pertinent History Respiratory: No Pertinent History Gastrointestinal: Hernia Repair Genitourinary: No Pertinent History Musculoskeletal: No Pertinent History Female Surgical History: Section Other Surgical History: Ear tubes both ears. left ear drum surgery, 3 umbilical hernia repair. - Social History Smoking Status: Never smoker Exposure to second hand smoke: Yes Alcohol Use: None Drug Use: none Patient Lives Alone: No Significant Family History: diabetes, hypertension - Female History Hx Last Menstrual Period: january Hx Now: No - Nursing Vital Signs Nursing Vital Signs: Initial Vital Signs Temperature 97.3 F 02/22/22 16:46 Pulse Rate 78 02/22/22 16:46 Blood Pressure 132/91 02/22/22 16:46 O2 Sat by Pulse Oximetry 98 02/22/22 16:46 Pain Scale Pain Intensity 7 - Physical Exam General Appearance: no apparent distress, alert Neck Exam: normal inspection, full range of motion Cardiovascular/Respiratory Exam: normal breath sounds, regular rate/rhythm Back Exam: normal inspection, normal range of motion Wrist Exam: normal inspection, limited ROM, pain, swelling Hand Exam: bone tenderness (Lateral dorsum of hand), soft tissue tenderness, swelling Neuro/Tendon Exam: normal sensation, normal motor functions, normal tendon functions Mental Status Exam: alert, oriented x 3, cooperative Skin Exam: normal color SpO2 Interpretation: normal SpO2: 98 O2 Delivery: Room Air Ordered Tests: Active Orders 24 hr Category Date Time Status HAND (MINIMUM 3 VIEWS) Stat Exams 02/22/22 Taken WRIST (MIN 3 VIEWS) Stat Exams 02/22/22 17:10 Taken Medication Summary Discontinued Medications Generic Name Dose Route Start Last Admin Trade Name Darius PRN Reason Stop Dose Admin Hydrocodone Bitart/Acetaminophen 1 tab 02/22/22 16:53 02/22/22 16:57 Hydrocodone/Apap 5/325 Mg Tablet PO 02/22/22 16:54 1 tab STAT ONE Administration Hydrocodone Bitart/Acetaminophen Confirm 02/22/22 16:56 Hydrocodone/Apap 5/325 Mg Tablet Administered 02/22/22 16:57 Dose 1 tab .ROUTE .STK-MED ONE - Progress Progress: improved, re-examined Progress Note: 02/22/22 18:32 No obvious fracture dislocation reviewed by me, official report is pending. Placed in Velcro splint and outpatient Ortho follow-up recommended. Counseled pt/family regarding: diagnosis, need for follow-up, rad results - Departure Departure Disposition: Home Clinical Impression: Hand contusion Condition: Stable Critical Care Time: No Referrals: RAMESH SCOTT [Primary Care Provider] - Follow up/PCP as directed TRAVIS - NICCI FERRER NP [NON-STAFF PHY W/O PRIVILEGES] - Follow up/PCP as directed (In 3 days for reevaluation) Instructions: Common Wrist Injuries (DC) Additional Instructions: Take Tylenol/NSAIDs which you have at home as needed. Intermittent ice application. Follow-up with Ortho for reevaluation. Return to ER for any worsening.
[2022-02-22 18:34] VITALS: BP 116/77; PULSE 74
--- NOTE | 2022-02-22 22:12 | XRAY ---
Indication: Pain following injury. Comparison: None 3 view left hand obtained. No bony, articular, or soft tissue abnormalities. Wrist reported separately.
--- NOTE | 2022-02-22 22:12 | XRAY ---
Indication: Pain following injury. Comparison: None 3 view left wrist demonstrates 5-6 mm ulnar negative variance commonly seen with [place] disease. No other bony, articular, or soft tissue abnormalities.
== END 2022-02-22 18:46 | disposition home or self-care (01) ==
LOC: ED 16:39
DX: S60.222A Contusion of left hand, initial encounter (principal); W22.8XXA Striking against or struck by other objects, initial encounter; M25.532 Pain in left wrist; M79.642 Pain in left hand; E11.42 Type 2 diabetes mellitus with diabetic polyneuropathy; E78.5 Hyperlipidemia, unspecified; Z79.4 Long term (current) use of insulin; Z79.899 Other long term (current) drug therapy; Z28.310 Unvaccinated for COVID-19
CPT/HCPCS: 73110; 73130; 99284; A9270-GY

== ENCOUNTER 2022-03-20 23:31 | Emergency (ER) | payer OTHER ==
[2022-03-20 23:51] VITALS: O2SAT 97
--- NOTE | 2022-03-21 00:08 | ERPHSYRPT ---
- History of Present Illness Time Seen by Provider: 03/20/22 23:45 Source: patient Exam Limitations: no limitations Patient Subjective Stated Complaint: pt states she got a pneumonia vaccine and a "tb vaccine" yesterday in her upper arms and today she has a bump that is pa inful at the injection site on her lt arm. Triage Nursing Assessment: pt alert and oriented, answers questions approp. pt ambulatory with steady gait noted. localized redness and induated area at injection site to lt upper amr. range of motion, to lt arm wnl. cap refill and radial pulse wnl. Physician History: 41-year-old obese white female patient who under went injections of vaccines yesterday who noticed subcutaneous lump left outer upper arm in the region of the deltoid muscle. She never had this before after injection. Timing/Duration: today Quality: painful Severity: mild Location: extremities (Left upper arm) Possible Causes: other (Post vaccine injection) Associated Symptoms: denies symptoms Allergies/Adverse Reactions: omeprazole [From Prilosec] Allergy (Severe, Verified 03/20/22 23:52) Hives ketorolac [From Toradol] Allergy (Verified 03/20/22 23:52) Home Medications: Metformin HCl 1,000 mg PO BID 08/04/17 [History] Loratadine 10 mg [Claritin 10 mg] 10 mg PO DAILY 05/23/18 [History] Famotidine 20 mg [Pepcid 20 MG] 20 mg PO DAILY 08/27/18 [History] Fluticasone/Salmeterol [Advair 250-50 Diskus] 1 each IN DAILY 12/08/18 [History] Albuterol 8 gm Mdi Hfa [Ventolin Hfa MDI] 8 gm IH Q4HPRN PRN 06/28/19 [History] Cetirizine HCl 5 mg PO DAILY 09/01/20 [History] Insulin Glargine,Hum.rec.anlog [Lorrieaglharriett [place] U-100] 15 unit SQ HS 12/04/20 [History] Atorvastatin Calcium 40 mg PO DAILY 02/22/22 [History] Hx Tetanus, Diphtheria Vaccination/Date Given: Yes Hx Influenza Vaccination/Date Given: No Hx Pneumococcal Vaccination/Date Given: Yes Immunizations Up to Date: Yes Travel Risk - International Travel Have you traveled outside of the country in past 3 weeks: No - Coronavirus Screening Are you exhibiting any of the following symptoms?: No Close contact with a COVID-19 positive Pt in past 14-21 Days: No - Vaccine Status Have you recieved a Covid-19 vaccination: No - Review of Systems Constitutional: No Symptoms Eyes: No Symptoms Ears, Nose, & Throat: No Symptoms Respiratory: No Symptoms Cardiac: No Symptoms Abdominal/Gastrointestinal: No Symptoms Genitourinary Symptoms: No Symptoms Musculoskeletal: No Symptoms Skin: Induration (Left upper arm postinjection site) Neurological: No Symptoms Psychological: No Symptoms Endocrine: No Symptoms Hematologic/Lymphatic: No Symptoms Immunological/Allergic: No Symptoms All Other Systems: Reviewed and Negative - Past Medical History Pertinent Past Medical History: Yes Neurological History: No Pertinent History ENT History: No Pertinent History Cardiac History: High Cholesterol, Hypertension Respiratory History: Asthma, Bronchitis, Sleep Apnea Endocrine Medical History: Diabetes Type II, Liver Disease Musculoskeletal History: Osteoarthritis, Other GI Medical History: GERD, Hernia History: No Pertinent History Psycho-Social History: Anxiety, Depression Female Reproductive Disorders: No Pertinent History Other Medical History: HX OF SCOLIOSIS NOTED AND HX OF RECEIVING P.T. FOR PLANTAR FASCITIS. PMHX ALSO INCLUDES ANXIETY/DEPRESSION, RESTLESS LEG SYNDROME, CARPAL TUNNEL SYNDROME, GERD, OBESITY. SX HX: ABDOMINAL HERNIA REPAIR - Past Surgical History Past Surgical History: Yes Neuro Surgical History: No Pertinent History Cardiac: No Pertinent History Respiratory: No Pertinent History Gastrointestinal: Hernia Repair Genitourinary: No Pertinent History Musculoskeletal: No Pertinent History Female Surgical History: Section Other Surgical History: Ear tubes both ears. left ear drum surgery, 3 umbilical hernia repair. - Social History Smoking Status: Never smoker Exposure to second hand smoke: Yes Alcohol Use: None Drug Use: none Patient Lives Alone: No Significant Family History: diabetes, hypertension - Female History Hx Last Menstrual Period: last week Hx Now: No - Nursing Vital Signs Nursing Vital Signs: Initial Vital Signs Temperature 97.4 F 03/20/22 23:38 Pulse Rate 82 03/20/22 23:38 Respiratory Rate 18 03/20/22 23:38 Blood Pressure 145/94 03/20/22 23:38 O2 Sat by Pulse Oximetry 97 03/20/22 23:38 Pain Scale Pain Intensity 4 - Physical Exam General Appearance: no apparent distress, alert, anxiety, obese Eye Exam: PERRL/EOMI, eyes nml inspection Ears, Nose, Throat Exam: normal ENT inspection, moist mucous membranes Neck Exam: normal inspection, non-tender, supple, full range of motion Respiratory Exam: airway intact, No chest tenderness, No respiratory distress Gastrointestinal/Abdomen Exam: No tenderness Pelvic Exam: not done Rectal Exam: not done Back Exam: normal inspection, normal range of motion, No CVA tenderness, No vertebral tenderness Extremity Exam: inflammation (Induration in the skin overlying the deltoid on the left side. This is the post injection site), swelling, other (No cellulitis) Neurologic Exam: alert, oriented x 3, cooperative, print finisher II-XII nml as tested, normal mood/affect, nml cerebellar function, nml station & gait, sensation nml Skin Exam: normal color, warm, dry, other (See above) Lymphatic Exam: No adenopathy SpO2 Interpretation: normal SpO2: 97 O2 Delivery: Room Air - Course Nursing assessment & vital signs reviewed: Yes - Progress Progress: unchanged Counseled pt/family regarding: diagnosis, need for follow-up - Departure Departure Disposition: Home Clinical Impression: Induration of skin Condition: Stable Critical Care Time: No Referrals: RAMESH SCOTT [Primary Care Provider] - Follow up/PCP as directed Additional Instructions: Keep area of concern clean daily. May apply ice and heat to the area but not directly on the skin 3-4 times a day for the next 48 hours. Follow-up with your primary care physician for any further concerns.
[2022-03-21 00:29] VITALS: BP 119/78; PULSE 84
== END 2022-03-21 00:24 | disposition home or self-care (01) ==
LOC: ED 23:31
DX: T88.1XXA Other complications following immunization, not elsewhere classified, initial encounter (principal); R23.4 Changes in skin texture; R22.32 Localized swelling, mass and lump, left upper limb; E78.5 Hyperlipidemia, unspecified; I10 Essential (primary) hypertension; E11.9 Type 2 diabetes mellitus without complications; Z79.4 Long term (current) use of insulin; Z79.84 Long term (current) use of oral hypoglycemic drugs; Z79.899 Other long term (current) drug therapy; Z28.310 Unvaccinated for COVID-19
CPT/HCPCS: 99281

== ENCOUNTER 2022-04-11 21:17 | Emergency (ER) | payer OTHER ==
[2022-04-11 21:29] VITALS: O2SAT 98
[2022-04-11] MEDS ORDERED: BABY ASPIRIN 81 MG CHEW PO ONE (21:44)
--- NOTE | 2022-04-11 21:47 | ERPHSYRPT ---
- History of Present Illness Time Seen by Provider: 04/11/22 21:23 Historian: patient Exam Limitations: no limitations Patient Subjective Stated Complaint: pt states approx 5 min prior to coming into the er, she had sudden stabbing pain in her lt shoulder/chest. rated pain 10/10 at that time. rates pain 2/10 at this time and states pain is radiating down lt arm. Triage Nursing Assessment: pt alert and oriented, answers questions approp. pt ambulatory with steady gait noted. respirations nonlabored. lungs cta. heart rate 90 on monitor, sinus rhythm. Physician History: 41 years old morbidly obese female with history of hypertension, hyperlipidemia, diabetes mellitus presented in the ER sudden onset twinging pain in the left shoulder/upper chest almost 20 to 30 minutes prior to arrival, lasted for almost 4 to 5 minutes and improved with applying pressure with the other hand on the anterior chest wall. Denies any chest pain at present. No difficulty breathing. No palpitations. No fever chills or cough reported. Timing/Duration: hour(s) (0.5), resolved prior to arrival, sudden, improved Activities at Onset: rest Quality: sharpness Chest Pain Radiation: no radiation Severity of Pain-Max: moderate Severity of Pain-Current: none Modifying Factors: Improves With: nothing Associated Symptoms: denies symptoms Prior Chest Pain/Cardiac Workup: no prior chest pain, no prior cardiac workup Nitro Today/Relief: no nitro taken today Aspirin Treatment Today: 81 mg x 1 Allergies/Adverse Reactions: omeprazole [From Prilosec] Allergy (Severe, Verified 04/11/22 21:30) Hives ketorolac [From Toradol] Allergy (Unknown, Verified 04/11/22 21:30) Home Medications: Metformin HCl 1,000 mg PO BID 08/04/17 [History] Loratadine 10 mg [Claritin 10 mg] 10 mg PO DAILY 05/23/18 [History] Famotidine 20 mg [Pepcid 20 MG] 20 mg PO DAILY 08/27/18 [History] Fluticasone/Salmeterol [Advair 250-50 Diskus] 1 each IN DAILY 12/08/18 [History] Albuterol 8 gm Mdi Hfa [Ventolin Hfa MDI] 8 gm IH Q4HPRN PRN 06/28/19 [History] Cetirizine HCl 5 mg PO DAILY 09/01/20 [History] Insulin Glargine,Hum.rec.anlog [Matthias Hendrix U-100] 15 unit SQ HS 12/04/20 [History] Atorvastatin Calcium 40 mg PO DAILY 02/22/22 [History] Hx Tetanus, Diphtheria Vaccination/Date Given: Yes Hx Influenza Vaccination/Date Given: No Hx Pneumococcal Vaccination/Date Given: Yes Immunizations Up to Date: Yes Travel Risk - International Travel Have you traveled outside of the country in past 3 weeks: No - Coronavirus Screening Are you exhibiting any of the following symptoms?: No Close contact with a COVID-19 positive Pt in past 14-21 Days: No - Vaccine Status Have you recieved a Covid-19 vaccination: No - Review of Systems Constitutional: No Symptoms Eyes: No Symptoms Ears, Nose, & Throat: No Symptoms Respiratory: No Symptoms Cardiac: Chest Pain Abdominal/Gastrointestinal: No Symptoms Genitourinary Symptoms: No Symptoms Musculoskeletal: No Symptoms Skin: No Symptoms Neurological: No Symptoms Psychological: No Symptoms Endocrine: No Symptoms Hematologic/Lymphatic: No Symptoms Immunological/Allergic: No Symptoms - Past Medical History Pertinent Past Medical History: Yes Neurological History: No Pertinent History ENT History: No Pertinent History Cardiac History: High Cholesterol, Hypertension Respiratory History: Asthma, Bronchitis, Sleep Apnea Endocrine Medical History: Diabetes Type II, Liver Disease Musculoskeletal History: Osteoarthritis, Other GI Medical History: GERD, Hernia History: No Pertinent History Psycho-Social History: Anxiety, Depression Female Reproductive Disorders: No Pertinent History Other Medical History: HX OF SCOLIOSIS NOTED AND HX OF RECEIVING P.T. FOR PLANTAR FASCITIS. PMHX ALSO INCLUDES ANXIETY/DEPRESSION, RESTLESS LEG SYNDROME, CARPAL TUNNEL SYNDROME, GERD, OBESITY. SX HX: ABDOMINAL HERNIA REPAIR - Past Surgical History Past Surgical History: Yes Neuro Surgical History: No Pertinent History Cardiac: No Pertinent History Respiratory: No Pertinent History Gastrointestinal: Hernia Repair Genitourinary: No Pertinent History Musculoskeletal: No Pertinent History Female Surgical History: Section Other Surgical History: Ear tubes both ears. left ear drum surgery, 3 umbilical hernia repair. - Social History Smoking Status: Never smoker Exposure to second hand smoke: Yes Alcohol Use: None Drug Use: none Patient Lives Alone: No Significant Family History: diabetes, hypertension - Female History Hx Last Menstrual Period: current Hx Now: No - Nursing Vital Signs Nursing Vital Signs: Initial Vital Signs Temperature 98.0 F 04/11/22 21:18 Pulse Rate 88 04/11/22 21:18 Respiratory Rate 18 04/11/22 21:18 Blood Pressure 137/105 04/11/22 21:18 O2 Sat by Pulse Oximetry 98 04/11/22 21:18 Pain Scale Pain Intensity 2 - Physical Exam General Appearance: no apparent distress, alert Eye Exam: PERRL/EOMI Ears, Nose, Throat Exam: normal ENT inspection Neck Exam: normal inspection, full range of motion Respiratory Exam: normal breath sounds, chest tenderness (Minimal tenderness left upper chest/shoulder area. No crepitus.), lungs clear Cardiovascular Exam: regular rate/rhythm, normal heart sounds Gastrointestinal/Abdomen Exam: soft, normal bowel sounds, No tenderness Back Exam: normal inspection Extremity Exam: normal inspection, normal range of motion Neurologic Exam: alert, oriented x 3, cooperative Skin Exam: normal color SpO2 Interpretation: normal SpO2: 98 O2 Delivery: Room Air - Course EKG Interpreted by Me: RATE (86), Sinus Rhythm, NORMAL AXIS, NORMAL INTERVALS, NORMAL QRS Ordered Tests: Active Orders 24 hr Category Date Time Status Branch Banker STAT Care 04/11/22 21:44 Active EKG-ER Only STAT Care 04/11/22 21:44 Active CHEST 1 VIEW (PORTABLE) Stat Exams 04/11/22 22:06 Taken CBC W DIFF Stat Lab 04/11/22 22:12 Completed CMP Stat Lab 04/11/22 22:12 Completed NT PRO BNP Stat Lab 04/11/22 22:12 Completed TROPONIN Q3H Lab 04/11/22 22:12 Completed TROPONIN Q3H Lab 04/12/22 00:45 Ordered TROPONIN Q3H Lab 04/12/22 03:45 Ordered TROPONIN Q3H Lab 04/12/22 06:45 Ordered TROPONIN Q3H Lab 04/12/22 09:45 Ordered Medication Summary Discontinued Medications Generic Name Dose Route Start Last Admin Trade Name Freq PRN Reason Stop Dose Admin Aspirin 324 mg 04/11/22 21:44 04/11/22 22:04 Aspirin 81 Mg Tab.Chew PO 04/11/22 21:45 324 mg STAT ONE Administration Aspirin Confirm 04/11/22 21:57 Aspirin 81 Mg Tab.Chew Administered 04/11/22 21:58 Dose 324 mg .ROUTE .STK-MED ONE Lab/Rad Data: Laboratory Result Diagrams 04/11/22 22:12 04/11/22 22:12 Laboratory Results 04/11/22 04/11/22 04/11/22 Range/Units 22:12 22:12 22:12 WBC 9.7 (4.0-10.5) x10^3/uL RBC 4.11 (4.1-5.4) x10^6/uL Hgb 12.1 (12.0-16.0) g/dL Hct 36.4 (35-47) % MCV 88.6 (78-100) fL MCH 29.4 (26-32) pg MCHC 33.2 (32-36) g/dL RDW 12.7 (11.5-14.0) % Plt Count 319 (150-450) x10^3/uL MPV 9.2 (7.5-11.0) fL Gran % 58.7 (36.0-66.0) % Immature Gran % (Auto) 0.1 (0.00-0.4) % Nucleat RBC Rel Count 0.0 (0.00-0.1) % Eos # (Auto) 0.15 (0-0.5) x10^3/uL Immature Gran # (Auto) 0.01 (0.00-0.03) x10^3u/L Absolute Lymphs (auto) 3.21 (1.0-4.6) x10^3/uL Absolute Monos (auto) 0.60 (0.0-1.3) x10^3/uL Absolute Nucleated RBC 0.00 (0.00-0.01) x10^3u/L Lymphocytes % 33.1 (24.0-44.0) % Monocytes % 6.2 (0.0-12.0) % Eosinophils % 1.5 (0.00-5.0) % Basophils % 0.4 (0.0-0.4) % Absolute Granulocytes 5.68 (1.4-6.9) x10^3/uL Basophils # 0.04 (0-0.4) x10^3/uL Sodium 134 L (137-145) mmol/L Potassium 4.3 (3.5-5.1) mmol/L Chloride 101 (98-107) mmol/L Carbon Dioxide 27 (22-30) mmol/L Anion Gap 10.8 (5-15) MEQ/L BUN 14 (7-17) mg/dL Creatinine 0.66 (0.52-1.04) mg/dL Estimated GFR > 60.0 ML/MIN Glucose 250 H (74-106) mg/dL Calcium 8.9 (8.4-10.2) mg/dL Total Bilirubin 0.70 (0.2-1.3) mg/dL AST 19 (14-36) U/L ALT 19 (0-35) U/L Alkaline Phosphatase 92 (38-126) U/L Troponin I < 0.012 (0.000-0.034) ng/mL NT-Pro-B Natriuret Pep 37.5 (0-450) pg/mL Serum Total Protein 7.1 (6.3-8.2) g/dL Albumin 3.9 (3.5-5.0) g/dL - Progress Progress: improved Air Movement: good Progress Note: 04/11/22 23:04 Patient is chest pain-free while in the ER. EKG showed normal sinus rhythm with no acute ischemic changes. Chest x-ray no acute cardiopulmonary findings reviewed by me, official report is pending. Negative troponins. Chest pain seems more of a musculoskeletal which improved with applying pressure and does have minimal reproducibility when I was palpating. Do not think she needs second troponin and stable for discharge with outpatient primary care and cardiology follow-up. Discussed signs symptoms of worsening needing return to ER which she seems understanding. Blood Culture(s) Obtained: No Antibiotics given: No Counseled pt/family regarding: lab results, diagnosis, need for follow-up, rad results - Departure Departure Disposition: Home Clinical Impression: Atypical chest pain Condition: Stable Critical Care Time: No Referrals: RAMESH SCOTT [Primary Care Provider] - Follow up/PCP as directed (1-2 days for reevaluation) AGUSTIN FUNG [CONSULTING PHYSICIAN] - Follow up/PCP as directed (Call for appointment for reevaluation) Instructions: Angina (DC), Chest Pain (DC) Additional Instructions: Take Tylenol as needed for pain. Follow-up with primary care and cardiology for reevaluation. Return to ER for if having again chest pain or palpitations, difficulty breathing etc.
[2022-04-11] MEDS ORDERED: BABY ASPIRIN 81 MG CHEW ONE (21:57)
[2022-04-11 22:14] LABS: Absolute Neutrophil Ct (ANC) 5.68 x10^3/uL (1.4-6.9); Basophil (Absolute #) 0.04 x10^3/uL (0-0.4); Eosinophil % 1.5 % (0.00-5.0); Eosinophil (Absolute #) 0.15 x10^3/uL (0-0.5); Hematocrit 36.4 % (35-47); Hemoglobin 12.1 g/dL (12.0-16.0); Lymphocyte (Absolute #) 3.21 x10^3/uL (1.0-4.6); Lymphocytes % 33.1 % (24.0-44.0); Mean Cell Volume 88.6 fL (78-100); Mean Corpuscular Hemoglobin 29.4 pg (26-32); Mean Corpuscular Hgb Concent. 33.2 g/dL (32-36); Mean Platelet Volume 9.2 fL (7.5-11.0); Monocytes % 6.2 % (0.0-12.0); Neutrophil % 58.7 % (36.0-66.0); Platelet Count 319 x10^3/uL (150-450); Red Blood Count 4.11 x10^6/uL (4.1-5.4); Red Cell Distribution Width 12.7 % (11.5-14.0); White Blood Count 9.7 x10^3/uL (4.0-10.5)
[2022-04-11 22:33] LABS: ALBUMIN 3.9 g/dL (3.5-5.0); ALKALINE PHOSPHATASE 92 U/L (38-126); ANION GAP 10.8 MEQ/L (5-15); BLOOD UREA NITROGEN 14 mg/dL (7-17); CHLORIDE 101 mmol/L (98-107); Calcium 8.9 mg/dL (8.4-10.2); Carbon Dioxide 27 mmol/L (22-30); Creatinine 1 0.66 mg/dL (0.52-1.04); EST GLOMERULAR FILTRATION RATE > 60.0 ML/MIN; Glucose 250 mg/dL (74-106); NT PRO BNP 37.5 pg/mL (0-450); Potassium 4.3 mmol/L (3.5-5.1); SGOT/AST 19 U/L (14-36); SGPT/ALT 19 U/L (0-35); SODIUM 134 mmol/L (137-145); Total Protein 7.1 g/dL (6.3-8.2)
[2022-04-11 23:05] VITALS: BP 134/90; PULSE 81
--- NOTE | 2022-04-12 08:50 | XRAY ---
Indication: Chest pain. Comparison: November 05, 2019. Portable chest remains clear. Heart not enlarged. Bony thorax intact again with double curvature scoliosis. No new/acute findings.
== END 2022-04-11 23:08 | disposition home or self-care (01) ==
LOC: ED 21:17
DX: R07.89 Other chest pain (principal); M25.512 Pain in left shoulder; I10 Essential (primary) hypertension; E78.5 Hyperlipidemia, unspecified; E11.9 Type 2 diabetes mellitus without complications; Z79.4 Long term (current) use of insulin; Z79.84 Long term (current) use of oral hypoglycemic drugs; Z79.899 Other long term (current) drug therapy; Z28.310 Unvaccinated for COVID-19
CPT/HCPCS: 36415; 71045; 80053; 83880; 84484; 85025; 93005; 93041; 99284; A9270-GY

== ENCOUNTER 2022-05-12 12:57 | Emergency (ER) | payer OTHER ==
--- NOTE | 2022-05-12 13:47 | ERPHSYRPT ---
- History of Present Illness Source: patient Exam Limitations: no limitations Patient Subjective Stated Complaint: pt here for left hand pain after tripping in house last night and falling, Triage Nursing Assessment: pt alert, walked in, resp easy, skin w/d/p. face mask in place, has swelling to top of left hand, has strong radial pulse, no bruising noted Physician History: 42 yo wf fell at her house last night injuring her L hand. Pt is L handed and denies any other injuries at this time that need to be addressed. Occurred: yesterday Method of Injury: fell Quality: constant Severity of Pain-Max: moderate Severity of Pain-Current: moderate Extremities Pain Location: hand: left Modifying Factors: Improves With: movement Associated Symptoms: none Allergies/Adverse Reactions: omeprazole [From Prilosec] Allergy (Severe, Verified 05/12/22 13:14) Hives ketorolac [From Toradol] Allergy (Unknown, Verified 05/12/22 13:14) Home Medications: Metformin HCl 1,000 mg PO BID 08/04/17 [History] Loratadine 10 mg [Claritin 10 mg] 10 mg PO DAILY 05/23/18 [History] Famotidine 20 mg [Pepcid 20 MG] 20 mg PO DAILY 08/27/18 [History] Fluticasone/Salmeterol [Advair 250-50 Diskus] 1 each IN DAILY 12/08/18 [History] Albuterol 8 gm Mdi Hfa [Ventolin Hfa MDI] 8 gm IH Q4HPRN PRN 06/28/19 [History] Cetirizine HCl 5 mg PO DAILY 09/01/20 [History] Insulin Glargine,Hum.rec.anlog [Basaglar Kwikpen U-100] 15 unit SQ HS 12/04/20 [History] Atorvastatin Calcium 40 mg PO DAILY 02/22/22 [History] Hx Tetanus, Diphtheria Vaccination/Date Given: Yes Hx Influenza Vaccination/Date Given: No Hx Pneumococcal Vaccination/Date Given: Yes Immunizations Up to Date: Yes Travel Risk - International Travel Have you traveled outside of the country in past 3 weeks: No - Coronavirus Screening Are you exhibiting any of the following symptoms?: No Close contact with a COVID-19 positive Pt in past 14-21 Days: No - Vaccine Status Have you recieved a Covid-19 vaccination: No - Review of Systems Constitutional: No Symptoms Eyes: No Symptoms Ears, Nose, & Throat: No Symptoms Respiratory: No Symptoms Cardiac: No Symptoms Abdominal/Gastrointestinal: No Symptoms Genitourinary Symptoms: No Symptoms Skin: No Symptoms Neurological: No Symptoms Psychological: No Symptoms Endocrine: No Symptoms Hematologic/Lymphatic: No Symptoms Immunological/Allergic: No Symptoms - Past Medical History Pertinent Past Medical History: Yes Neurological History: No Pertinent History ENT History: No Pertinent History Cardiac History: High Cholesterol, Hypertension Respiratory History: Asthma, Bronchitis, Sleep Apnea Endocrine Medical History: Diabetes Type II, Liver Disease Musculoskeletal History: Osteoarthritis, Other GI Medical History: GERD, Hernia History: No Pertinent History Psycho-Social History: Anxiety, Depression Female Reproductive Disorders: No Pertinent History Other Medical History: HX OF SCOLIOSIS NOTED AND HX OF RECEIVING P.T. FOR PLANTAR FASCITIS. PMHX ALSO INCLUDES ANXIETY/DEPRESSION, RESTLESS LEG SYNDROME, CARPAL TUNNEL SYNDROME, GERD, OBESITY. SX HX: ABDOMINAL HERNIA REPAIR - Past Surgical History Past Surgical History: Yes Neuro Surgical History: No Pertinent History Cardiac: No Pertinent History Respiratory: No Pertinent History Gastrointestinal: Hernia Repair Genitourinary: No Pertinent History Musculoskeletal: No Pertinent History Female Surgical History: Section Other Surgical History: Ear tubes both ears. left ear drum surgery, 3 umbilical hernia repair. - Social History Smoking Status: Never smoker Exposure to second hand smoke: Yes Alcohol Use: None Drug Use: none Patient Lives Alone: No Significant Family History: diabetes, hypertension - Female History Hx Last Menstrual Period: last week Hx Now: No - Nursing Vital Signs Nursing Vital Signs: Initial Vital Signs Temperature 97.2 F 05/12/22 13:15 Pulse Rate 77 05/12/22 13:15 Respiratory Rate 16 05/12/22 13:15 Blood Pressure 124/79 05/12/22 13:15 O2 Sat by Pulse Oximetry 98 05/12/22 13:15 Pain Scale Pain Intensity 6 WNL - Physical Exam General Appearance: no apparent distress Eyes, Ears, Nose, Throat Exam: normal ENT inspection, TMs normal, pharynx normal, moist mucous membranes Neck Exam: normal inspection, non-tender, supple, full range of motion, No Brudzinski, No Kernig's, No meningismus, No carotid bruit Cardiovascular/Respiratory Exam: chest non-tender, normal breath sounds, regular rate/rhythm, heart sounds normal Abdominal Exam: non-tender, soft Back Exam: normal inspection, normal range of motion, No CVA tenderness, No vertebral tenderness Shoulder Exam: normal inspection Elbow/Forearm Exam: normal inspection Wrist Exam: normal inspection Hand Exam: bone tenderness (L dorsal hand moderately TTP/Mild edema/No deformity/No erythema/Good radial pulse, distal sensation, and capillary return) DTR - Upper Extremity Exam: bicep (R): 2+, bicep (L): 2+ Neuro/Tendon Exam: normal sensation, normal motor functions, normal tendon functions, responds to pain, no evidence tendon injury, No motor deficit, No sensory deficit Mental Status Exam: alert, oriented x 3, cooperative Skin Exam: normal color, warm, dry SpO2 Interpretation: normal SpO2: 98 O2 Delivery: Room Air - Course Nursing assessment & vital signs reviewed: Yes - Radiology Exams Hand X-ray Interpretation: Interpreted by me (L hand neg per ER read) Ordered Tests: Active Orders 24 hr Category Date Time Status Guy Bandage Application -[facility] STAT Care 05/12/22 13:41 Completed HAND (MINIMUM 3 VIEWS) Stat Exams 05/12/22 13:24 Taken - Progress Progress Note: 05/12/22 13:45 Pt refused IM Toradol 05/12/22 13:46 Guy wrap L hand per nursing/NVI Counseled pt/family regarding: diagnosis, need for follow-up, rad results - Departure Departure Disposition: Home Clinical Impression: Contusion, hand Condition: Stable Critical Care Time: No Referrals: RAMESH SCOTT [Primary Care Provider] - Follow up/PCP as directed Instructions: Contusion (DC), Hand Pain (DC) Additional Instructions: Ice for 12-24 hours Motrin/tylenol as needed for pain Follow up with your family MD for continued pain
[2022-05-12 14:01] VITALS: BP 115/74; PULSE 80
[2022-05-12 15:06] VITALS: O2SAT 98
--- NOTE | 2022-05-12 20:06 | XRAY ---
Indication: Pain following fall. Comparison: February 22, 2022 3 view left hand obtained. Again no bony, articular, or soft tissue abnormalities.
== END 2022-05-12 14:01 | disposition home or self-care (01) ==
LOC: ED 12:57
DX: S60.222A Contusion of left hand, initial encounter (principal); W01.0XXA Fall on same level from slipping, tripping and stumbling without subsequent striking against object, initial encounter; M79.642 Pain in left hand; E78.5 Hyperlipidemia, unspecified; I10 Essential (primary) hypertension; E11.9 Type 2 diabetes mellitus without complications; Z79.4 Long term (current) use of insulin; Z79.84 Long term (current) use of oral hypoglycemic drugs; Z79.899 Other long term (current) drug therapy; Z28.310 Unvaccinated for COVID-19
CPT/HCPCS: 73130; 99283

== ENCOUNTER 2022-05-20 20:20 | Emergency (ER) | payer OTHER ==
--- NOTE | 2022-05-20 20:25 | ERPHSYRPT ---
- History of Present Illness Time Seen by Provider: 05/20/22 20:24 Source: patient Exam Limitations: no limitations Physician History: This is an obese 42-year-old white female patient who presents to the emergency department with low back pain since yesterday afternoon. There is no fall or trauma to the area. Today she has noticed that she has had some dysuria as well. She is concerned about a urinary tract infection. Patient has a history of diabetes, hyperlipidemia, hypertension, obesity, asthma and anxiety issues. She is had no vomiting. She denies chest pain and she denies shortness of breath. Timing/Duration: yesterday Activites at Onset: none Quality: burning (With urination) Onset Location: low back pain Pain Radiation: none Severity of Pain-Max: moderate Severity of Pain-Current: mild (To moderate) Prior abdominal problems: none Sexual intercourse history: non-contributory Modifying Factors: Improves With: nothing Associated Symptoms: dysuria, lower back pain Allergies/Adverse Reactions: omeprazole [From Prilosec] Allergy (Severe, Verified 05/20/22 21:11) Hives ketorolac [From Toradol] Allergy (Unknown, Verified 05/20/22 21:11) Home Medications: Metformin HCl 1,000 mg PO BID 08/04/17 [History] Loratadine 10 mg [Claritin 10 mg] 10 mg PO DAILY 05/23/18 [History] Famotidine 20 mg [Pepcid 20 MG] 20 mg PO DAILY 08/27/18 [History] Fluticasone/Salmeterol [Advair 250-50 Diskus] 1 each IN DAILY 12/08/18 [History] Albuterol 8 gm Mdi Hfa [Ventolin Hfa MDI] 8 gm IH Q4HPRN PRN 06/28/19 [History] Cetirizine HCl 5 mg PO DAILY 09/01/20 [History] Insulin Glargine,Hum.rec.anlog [Basaglar Geoikpen U-100] 15 unit SQ HS 12/04/20 [History] Atorvastatin Calcium 40 mg PO DAILY 02/22/22 [History] Hx Tetanus, Diphtheria Vaccination/Date Given: Yes Hx Influenza Vaccination/Date Given: No Hx Pneumococcal Vaccination/Date Given: Yes Travel Risk - International Travel Have you traveled outside of the country in past 3 weeks: No - Coronavirus Screening Are you exhibiting any of the following symptoms?: No Close contact with a COVID-19 positive Pt in past 14-21 Days: No - Vaccine Status Have you recieved a Covid-19 vaccination: No - Review of Systems Constitutional: No Symptoms Eyes: No Symptoms Ears, Nose, & Throat: No Symptoms, Throat Swelling Cardiac: No Symptoms Abdominal/Gastrointestinal: No Symptoms Genitourinary Symptoms: Dysuria Musculoskeletal: Back Pain Skin: No Symptoms Neurological: No Symptoms Psychological: No Symptoms Endocrine: No Symptoms Hematologic/Lymphatic: No Symptoms Immunological/Allergic: No Symptoms All Other Systems: Reviewed and Negative - Past Medical History Pertinent Past Medical History: Yes Neurological History: No Pertinent History ENT History: No Pertinent History Cardiac History: High Cholesterol, Hypertension Respiratory History: Asthma, Bronchitis, Sleep Apnea Endocrine Medical History: Diabetes Type II, Liver Disease Musculoskeletal History: Osteoarthritis, Other GI Medical History: GERD, Hernia History: No Pertinent History Psycho-Social History: Anxiety, Depression Female Reproductive Disorders: No Pertinent History Other Medical History: HX OF SCOLIOSIS NOTED AND HX OF RECEIVING P.T. FOR PLANTAR FASCITIS. PMHX ALSO INCLUDES ANXIETY/DEPRESSION, RESTLESS LEG SYNDROME, CARPAL TUNNEL SYNDROME, GERD, OBESITY. SX HX: ABDOMINAL HERNIA REPAIR - Past Surgical History Past Surgical History: Yes Neuro Surgical History: No Pertinent History Cardiac: No Pertinent History Respiratory: No Pertinent History Gastrointestinal: Hernia Repair Genitourinary: No Pertinent History Musculoskeletal: No Pertinent History Female Surgical History: Section Other Surgical History: Ear tubes both ears. left ear drum surgery, 3 umbilical hernia repair. - Social History Smoking Status: Never smoker Exposure to second hand smoke: Yes Alcohol Use: None Drug Use: none Patient Lives Alone: No Significant Family History: diabetes, hypertension - Nursing Vital Signs Nursing Vital Signs: Initial Vital Signs Temperature 97.2 F 05/20/22 21:04 Pulse Rate 89 05/20/22 21:04 Respiratory Rate 16 05/20/22 21:04 Blood Pressure 134/78 05/20/22 21:04 O2 Sat by Pulse Oximetry 95 05/20/22 21:04 Pain Scale Pain Intensity 10 - Physical Exam General Appearance: no apparent distress, alert, obese Eye Exam: PERRL/EOMI, eyes nml inspection Ears, Nose, Throat Exam: normal ENT inspection, moist mucous membranes Neck Exam: normal inspection, non-tender, supple, full range of motion Respiratory Exam: normal breath sounds, lungs clear, airway intact, No chest tenderness, No respiratory distress Cardiovascular Exam: regular rate/rhythm, normal heart sounds, normal peripheral pulses Gastrointestinal/Abdomen Exam: soft, normal bowel sounds, No tenderness Pelvic Exam: not done Rectal Exam: not done Back Exam: normal inspection, normal range of motion, muscle spasm, No CVA tenderness, No vertebral tenderness Extremity Exam: normal inspection, normal range of motion, pelvis stable Neurologic Exam: alert, oriented x 3, 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, 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, normal mood/affect, nml cerebellar function, nml station & gait, sensation nml Skin Exam: normal color, warm, dry Lymphatic Exam: No adenopathy SpO2 Interpretation: normal O2 Delivery: Room Air Ordered Tests: Active Orders 24 hr Category Date Time Status UA W/RFX CULTURE Stat Lab 05/20/22 21:04 Completed Medication Summary Discontinued Medications Generic Name Dose Route Start Last Admin Trade Name Darius PRN Reason Stop Dose Admin Hydrocodone Bitart/Acetaminophen 1 tab 05/20/22 22:37 Hydrocodone/Apap 5/325 Mg Tablet PO 05/20/22 22:38 SENT HOME W/ PATIENT ONE Phenazopyridine HCl 200 mg 05/20/22 22:37 Phenazopyridine Hcl 200 Mg Tablet PO 05/20/22 22:38 STAT ONE Lab/Rad Data: Laboratory Results 05/20/22 Range/Units 21:04 Urinalys Dipstick Clnc MAIN LAB Urine Color YELLOW (YELLOW) Urine Appearance CLEAR (CLEAR) Urine pH 5.5 (5-6) Ur Specific [place] 1.015 (1.005-1.025) POC Urine Protein Conf NEGATIVE (Negative) Urine Ketones NEGATIVE (NEGATIVE) Urine Nitrite NEGATIVE (NEGATIVE) Urine Bilirubin NEGATIVE (NEGATIVE) Urine Urobilinogen 0.2 (0-1) mg/dL Urine Leukocytes NEGATIVE (NEGATIVE) Urine WBC (Auto) 0-2 (0-5) /HPF Urine RBC (Auto) 0-2 (0-2) /HPF U Epithel Cells (Auto) FEW (FEW) /HPF Urine RBC NEGATIVE (0-5) Carloz/ul Urine Mucus (Auto) SLIGHT (NEGATIVE) /HPF Ur Culture Indicated? NO Urine Glucose NEGATIVE (NEGATIVE) mg/dL - Progress Progress: unchanged Air Movement: good Counseled pt/family regarding: lab results, diagnosis, need for follow-up - Departure Departure Disposition: Home Clinical Impression: Back muscle spasm, Dysuria Condition: Stable Critical Care Time: No Referrals: RAMESH SCOTT [Primary Care Provider] - Follow up/PCP as directed Additional Instructions: Drink plenty of fluids. Take your medication as prescribed. Follow-up with your primary care physician for further evaluation and management. Prescriptions: Orphenadrine Citrate 100 mg [Norflex 100 MG Tablet] 100 mg PO BID #10 tab
[2022-05-20 21:10] VITALS: O2SAT 95
[2022-05-20 21:16] LABS: Epithelial Cells FEW /HPF (FEW); Mucus SLIGHT /HPF (NEGATIVE); RBC 0-2 /HPF (0-2); WBC 0-2 /HPF (0-5)
[2022-05-20 21:17] LABS: Appearance CLEAR (CLEAR); Bilirubin NEGATIVE (NEGATIVE); Dipstick done @ ? MAIN LAB; Glucose NEGATIVE (NEGATIVE); Ketones NEGATIVE (NEGATIVE); Nitrite NEGATIVE (NEGATIVE); Ph 5.5 (5-6); Protein,Urine Dip NEGATIVE (Negative); RBC NEGATIVE Ery/ul (0-5); Specific Gravity 1.015 (1.005-1.025); Urine Cultured Indicated? NO; Urobilinogen 0.2 mg/dL (0-1)
[2022-05-20] MEDS ORDERED: PYRIDIUM 200 MG PO ONE (22:37)
[2022-05-20] MEDS ORDERED: NORCO 5/325 MG PO ONE (22:37)
[2022-05-20] MEDS ORDERED: NORCO 5/325 MG ONE (22:40)
[2022-05-20] MEDS ORDERED: PYRIDIUM 200 MG ONE (22:41)
[2022-05-20 22:46] VITALS: BP 125/85; PULSE 80
== END 2022-05-20 22:51 | disposition home or self-care (01) ==
LOC: ED 20:20
DX: M62.830 Muscle spasm of back (principal); R30.0 Dysuria; M54.50 Low back pain, unspecified; E11.9 Type 2 diabetes mellitus without complications; I10 Essential (primary) hypertension; E78.5 Hyperlipidemia, unspecified; Z79.4 Long term (current) use of insulin; Z79.84 Long term (current) use of oral hypoglycemic drugs; Z79.899 Other long term (current) drug therapy; Z28.310 Unvaccinated for COVID-19
CPT/HCPCS: 81015; 99282; A9270-GY

== ENCOUNTER 2022-07-24 19:08 | Emergency (ER) | payer OTHER ==
[2022-07-24 20:39] VITALS: O2SAT 99
--- NOTE | 2022-07-24 20:42 | ERPHSYRPT ---
- History of Present Illness Time Seen by Provider: 07/24/22 20:42 Source: patient Exam Limitations: no limitations Physician History: This is a 42-year-old obese white female patient of Dr. Hank Hyatt who presents with 2-day history of right earache, sore throat, sinus congestion, mild productive cough without fever. Patient has a history of gastroesophageal reflux disease, diabetes, hyperlipidemia and hypertension. Patient denies chest pain. She denies shortness of breath. She denies nausea vomiting diarrhea. Timing/Duration: gradual onset Severity: mild Associated Symptoms: ear pain (R), cough, sore throat Allergies/Adverse Reactions: omeprazole [From Prilosec] Allergy (Severe, Verified 07/24/22 20:46) Hives ketorolac [From Toradol] Allergy (Unknown, Verified 07/24/22 20:46) Home Medications: Metformin HCl 1,000 mg PO BID 08/04/17 [History] Loratadine 10 mg [Claritin 10 mg] 10 mg PO DAILY 05/23/18 [History] Famotidine 20 mg [Pepcid 20 MG] 20 mg PO DAILY 08/27/18 [History] Fluticasone/Salmeterol [Advair 250-50 Diskus] 1 each IN DAILY 12/08/18 [History] Albuterol 8 gm Mdi Hfa [Ventolin Hfa MDI] 8 gm IH Q4HPRN PRN 06/28/19 [History] Cetirizine HCl 5 mg PO DAILY 09/01/20 [History] Insulin Glargine,Hum.rec.anlog [Lorrieaglar Geoikpen U-100] 15 unit SQ HS 12/04/20 [History] Atorvastatin Calcium 40 mg PO DAILY 02/22/22 [History] Hx Tetanus, Diphtheria Vaccination/Date Given: Yes Hx Influenza Vaccination/Date Given: No Hx Pneumococcal Vaccination/Date Given: Yes Travel Risk - International Travel Have you traveled outside of the country in past 3 weeks: No - Coronavirus Screening Are you exhibiting any of the following symptoms?: No Close contact with a COVID-19 positive Pt in past 14-21 Days: No - Vaccine Status Have you recieved a Covid-19 vaccination: No - Review of Systems Constitutional: No Symptoms Eyes: No Symptoms Ears, Nose, & Throat: Ear Pain, Throat Pain (Right) Respiratory: Cough Cardiac: No Symptoms Abdominal/Gastrointestinal: No Symptoms Genitourinary Symptoms: No Symptoms Musculoskeletal: No Symptoms Skin: No Symptoms Neurological: No Symptoms Psychological: No Symptoms Endocrine: No Symptoms Hematologic/Lymphatic: No Symptoms Immunological/Allergic: No Symptoms All Other Systems: Reviewed and Negative - Past Medical History Pertinent Past Medical History: Yes Neurological History: No Pertinent History ENT History: No Pertinent History Cardiac History: High Cholesterol, Hypertension Respiratory History: Asthma, Bronchitis, Sleep Apnea Endocrine Medical History: Diabetes Type II, Liver Disease Musculoskeletal History: Osteoarthritis, Other GI Medical History: GERD, Hernia History: No Pertinent History Psycho-Social History: Anxiety, Depression Female Reproductive Disorders: No Pertinent History Other Medical History: HX OF SCOLIOSIS NOTED AND HX OF RECEIVING P.T. FOR PLANTAR FASCITIS. PMHX ALSO INCLUDES ANXIETY/DEPRESSION, RESTLESS LEG SYNDROME, CARPAL TUNNEL SYNDROME, GERD, OBESITY. SX HX: ABDOMINAL HERNIA REPAIR - Past Surgical History Past Surgical History: Yes Neuro Surgical History: No Pertinent History Cardiac: No Pertinent History Respiratory: No Pertinent History Gastrointestinal: Hernia Repair Genitourinary: No Pertinent History Musculoskeletal: No Pertinent History Female Surgical History: Section Other Surgical History: Ear tubes both ears. left ear drum surgery, 3 umbilical hernia repair. - Social History Smoking Status: Never smoker Exposure to second hand smoke: Yes Alcohol Use: None Drug Use: none Patient Lives Alone: No Significant Family History: diabetes, hypertension - Nursing Vital Signs Nursing Vital Signs: Initial Vital Signs Temperature 97.8 F 07/24/22 20:38 Pulse Rate 103 H 07/24/22 20:38 Respiratory Rate 18 07/24/22 20:38 Blood Pressure 154/100 07/24/22 20:38 O2 Sat by Pulse Oximetry 99 07/24/22 20:38 Pain Scale Pain Intensity 8 - Physical Exam General Appearance: no apparent distress, alert, anxiety, obese Eye Exam: bilateral eye: normal inspection, PERRL, EOMI Ear Exam: right ear: erythema, tenderness, TM dull, left ear: canal normal, other (Chronic perforated tympanic membrane status postsurgery in the past), bilateral ear: auricle normal Nasal Exam: normal inspection Throat Exam: normal, pharynx normal Neck Exam: normal inspection, non-tender Cardiovascular/Respiratory Exam: chest non-tender, no respiratory distress Abdominal Exam: non-tender Neurologic Exam: alert, oriented x 3, 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, 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, normal mood/affect, nml cerebellar function, nml station & gait, sensation nml Skin Exam: normal color, warm, dry SpO2 Interpretation: normal SpO2: 99 O2 Delivery: Room Air - Course Nursing assessment & vital signs reviewed: Yes Ordered Tests: Medication Summary Generic Name Dose Route Start Last Admin Trade Name Freq PRN Reason Stop Dose Admin Prednisone 20 mg 07/25/22 21:06 Prednisone 20 Mg Tablet PO 07/25/22 21:07 STAT ONE Discontinued Medications Generic Name Dose Route Start Last Admin Trade Name Freq PRN Reason Stop Dose Admin Azithromycin 500 mg 07/24/22 21:05 Azithromycin 250 Mg Tablet PO 07/24/22 21:06 STAT ONE - Progress Progress: unchanged Counseled pt/family regarding: diagnosis, need for follow-up, rad results - Departure Departure Disposition: Home Clinical Impression: Right otitis media Condition: Stable Critical Care Time: No Referrals: RAMESH SCOTT [Primary Care Provider] - Follow up/PCP as directed Additional Instructions: Drink plenty of fluids. Take your medication as prescribed. Follow-up with your primary care physician for further evaluation and management. Prescriptions: Hydrocodone/Acetaminophen [Hydrocodone-Acetamn 7.5-325/15] 10 ml PO Q8H PRN PRN #120 ml MDD 30 ml PRN Reason: Cough Prednisone 10 mg [Deltasone 10 mg] 10 mg PO TID #12 tablet Azithromycin 250 mg [Zithromax 250 MG TABLET] 250 mg PO ZPACK #6 tablet
[2022-07-24] MEDS ORDERED: Zithromax 250 MG TABLET ONE (21:21)
[2022-07-24] MEDS ORDERED: DELTASONE 20 MG ONE ×2 (21:21→21:31)
[2022-07-24] MEDS: Zithromax 250 MG TABLET PO ONE (21:23)
[2022-07-24] MEDS: DELTASONE 20 MG PO ONE (21:23)
[2022-07-24] MEDS ORDERED: HYDROCODONE-ACETAMIN 2.5-108/5 ML SOLUTION ONE (21:31)
[2022-07-24] MEDS: HYDROCODONE-ACETAMIN 2.5-108/5 ML SOLUTION PO STA (21:41)
[2022-07-24 22:00] VITALS: BP 146/90; PULSE 98
== END 2022-07-24 21:45 | disposition home or self-care (01) ==
LOC: ED 19:08
DX: H66.91 Otitis media, unspecified, right ear (principal); H92.01 Otalgia, right ear; J02.9 Acute pharyngitis, unspecified; R09.81 Nasal congestion; R05.1 Acute cough; E11.9 Type 2 diabetes mellitus without complications; E78.5 Hyperlipidemia, unspecified; I10 Essential (primary) hypertension; Z79.4 Long term (current) use of insulin; Z79.84 Long term (current) use of oral hypoglycemic drugs; Z79.891 Long term (current) use of opiate analgesic; Z79.52 Long term (current) use of systemic steroids; Z79.899 Other long term (current) drug therapy; Z28.310 Unvaccinated for COVID-19
CPT/HCPCS: 99282; A9270-GY

== ENCOUNTER 2022-09-01 18:06 | Emergency (ER) | payer OTHER ==
[2022-09-01 18:18] VITALS: O2SAT 98
--- NOTE | 2022-09-01 18:36 | ERPHSYRPT ---
- History of Present Illness Time Seen by Provider: 09/01/22 18:35 Source: patient Exam Limitations: no limitations Patient Subjective Stated Complaint: PT states "I am having back pain and some slight cramping. I spotted this month only and I am trying to get . The last time I was the only way they knew was with blood work. My urine test was never positive." Triage Nursing Assessment: Pt presented alert and oriented X 3, skin pwd. Pt ambulates with an upright steady gait, able to speak in clear full sentences pt resting comfortably on the bed. Physician History: PT states "I am having back pain and some slight cramping. I spotted this month only and I am trying to get . The last time I was the only way they knew was with blood work. My urine test was never positive." Timing/Duration: today Severity of Pain-Max: none Severity of Pain-Current: none Prior abdominal problems: none Sexual intercourse history: non-contributory Modifying Factors: Improves With: nothing Associated Symptoms: denies symptoms Allergies/Adverse Reactions: omeprazole [From Prilosec] Allergy (Severe, Verified 07/24/22 20:46) Hives ketorolac [From Toradol] Allergy (Unknown, Verified 07/24/22 20:46) Home Medications: Metformin HCl 1,000 mg PO BID 08/04/17 [History] Loratadine 10 mg [Claritin 10 mg] 10 mg PO DAILY 05/23/18 [History] Famotidine 20 mg [Pepcid 20 MG] 20 mg PO DAILY 08/27/18 [History] Fluticasone/Salmeterol [Advair 250-50 Diskus] 1 each IN DAILY 12/08/18 [History] Albuterol 8 gm Mdi Hfa [Ventolin Hfa MDI] 8 gm IH Q4HPRN PRN 06/28/19 [History] Cetirizine HCl 5 mg PO DAILY 09/01/20 [History] Insulin Glargine,Hum.rec.anlog [Basaglar Kwikpen U-100] 15 unit SQ HS 12/04/20 [History] Atorvastatin Calcium 40 mg PO DAILY 02/22/22 [History] Hx Tetanus, Diphtheria Vaccination/Date Given: Yes Hx Influenza Vaccination/Date Given: No Hx Pneumococcal Vaccination/Date Given: Yes Travel Risk - International Travel Have you traveled outside of the country in past 3 weeks: No - Coronavirus Screening Are you exhibiting any of the following symptoms?: No Close contact with a COVID-19 positive Pt in past 14-21 Days: No - Vaccine Status Have you recieved a Covid-19 vaccination: No - Review of Systems Constitutional: No Symptoms Eyes: No Symptoms Ears, Nose, & Throat: No Symptoms Respiratory: No Symptoms Cardiac: No Symptoms Abdominal/Gastrointestinal: No Symptoms Genitourinary Symptoms: Musculoskeletal: No Symptoms - Past Medical History Pertinent Past Medical History: Yes Neurological History: No Pertinent History ENT History: No Pertinent History Cardiac History: High Cholesterol, Hypertension Respiratory History: Asthma, Bronchitis, Sleep Apnea Endocrine Medical History: Diabetes Type II, Liver Disease Musculoskeletal History: Osteoarthritis, Other GI Medical History: GERD, Hernia History: No Pertinent History Psycho-Social History: Anxiety, Depression Female Reproductive Disorders: No Pertinent History Other Medical History: HX OF SCOLIOSIS NOTED AND HX OF RECEIVING P.T. FOR PLANTAR FASCITIS. PMHX ALSO INCLUDES ANXIETY/DEPRESSION, RESTLESS LEG SYNDROME, CARPAL TUNNEL SYNDROME, GERD, OBESITY. SX HX: ABDOMINAL HERNIA REPAIR - Past Surgical History Past Surgical History: Yes Neuro Surgical History: No Pertinent History Cardiac: No Pertinent History Respiratory: No Pertinent History Gastrointestinal: Hernia Repair Genitourinary: No Pertinent History Musculoskeletal: No Pertinent History Female Surgical History: Section Other Surgical History: Ear tubes both ears. left ear drum surgery, 3 umbilical hernia repair. - Social History Smoking Status: Never smoker Exposure to second hand smoke: Yes Alcohol Use: None Drug Use: none Patient Lives Alone: No Significant Family History: diabetes, hypertension - Female History Hx Last Menstrual Period: 08/30/2022 Hx Now: (unknown) - Nursing Vital Signs Nursing Vital Signs: Initial Vital Signs Temperature 98.1 F 09/01/22 18:13 Pulse Rate 98 H 09/01/22 18:13 Respiratory Rate 20 09/01/22 18:13 Blood Pressure 136/92 09/01/22 18:13 O2 Sat by Pulse Oximetry 98 09/01/22 18:13 Pain Scale Pain Intensity 2 - Physical Exam General Appearance: no apparent distress, alert Eye Exam: PERRL/EOMI, eyes nml inspection Ears, Nose, Throat Exam: normal ENT inspection, TMs normal, pharynx normal, moist mucous membranes Neck Exam: normal inspection, non-tender, supple, full range of motion Respiratory Exam: normal breath sounds, lungs clear, No respiratory distress Cardiovascular Exam: regular rate/rhythm, normal heart sounds, normal peripheral pulses Gastrointestinal/Abdomen Exam: soft, No tenderness, No mass Back Exam: normal inspection, normal range of motion, No CVA tenderness, No vertebral tenderness Extremity Exam: normal inspection, normal range of motion, pelvis stable Neurologic Exam: alert, oriented x 3, cooperative, 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 tested, normal mood/affect, sensation nml, No motor deficits Skin Exam: normal color, warm, dry Lymphatic Exam: No adenopathy SpO2: 98 - Course Nursing assessment & vital signs reviewed: Yes Ordered Tests: Active Orders 24 hr Category Date Time Status HCG QUALITATIVE,SERUM Stat Lab 09/01/22 18:51 Completed Lab/Rad Data: Laboratory Results 09/01/22 Range/Units 18:51 Serum , Qual NEGATIVE (Negative) - Progress Progress: improved Counseled pt/family regarding: lab results, diagnosis, need for follow-up - Departure Departure Disposition: Home Clinical Impression: Abdominal pain Qualifiers: Abdominal location: generalized Qualified Code(s): R10.84 - Generalized abdominal pain Condition: Stable Critical Care Time: No Referrals: RAMESH SCOTT [Primary Care Provider] - Follow up/PCP as directed Additional Instructions: Discharge/Care Plan CLEOPATRAABENA was seen on 09/01/22 in the Emergency Room. The patient was counseled regarding Diagnosis,Lab results, Imaging studies, need for follow up and when to return to the Emergency Room. Prescriptions given: Discharge Note I have spoken with the patient and/or caregivers. I have explained the patient's condition, diagnosis and treatment plan based on the information available to me at this time. I have answered the patient's and/or caregiver's questions and addressed any concerns. The patient and/or caregivers have as good understanding of the patient's diagnosis, condition and treatment plan as can be expected at this point. The vital signs have been stable. The patient's condition is stable and appropriate for discharge from the emergency department. The patient will pursue further outpatient evaluation with the primary care physician or other designated or consulting physician as outlined in the discharge instructions. The patient and/or caregivers are agreeable to this plan of care and follow-up instructions have been explained in detail. The patient and/or caregivers have received these instruction. The patient/and or caregivers are aware that any significant change in condition or worsening of symptoms should prompt an immediate return to this or the closest emergency department or call 911. ABENA WHELAN was seen on 09/01/22 n the Emergency Room. At that time you were treated for an emergent condition, during your visit Laboratory, Radiology and/or other procedures may have been ordered. It is very important that you follow-up with your Primary Care Physician RAMESH SCOTT within the next 24-48 hours to review your Emergency Room visit and the final results of testing that was ordered. Some test results such as Urine Cultures, Blood Cultures, and other cultures if ordered will not be finalized for 24-48 hours. If you do not have a Primary Care Provider please call the medical records department at [phone] ext [phone] to obtain a copy of your results or you may sign into our patient portal to obtain these results by visiting us @ [email or web address] and completing the following steps: 1. Click on the Patient Portal link 2. Click the Patient Self Enrollment Link to complete the enrollment form and entering your 3. Once the enrollment form is completed you will receive an email with a temporary ID and password at the email address you provided. 4. Next choose a user name and password. Your user name must be at least 4 characters long and your password must be at least 4 characters long. 5. Choose a security question from the list and provide your answer to the question. If you already have signed into the Health Portal you may access your Health Care Information 14/04 by the following steps: 1. Login to our website @ [email or web address] 2. Enter your original user name and password. FAQS The [facility] Health Portal is an online tool that contains your Lab Results, Radiology Reports, Visit History, Discharge Instructions and Health Summary Lab and Radiology Results will not be available for 72 hours on the portal. The Portal is a secure site, passwords are encryted and URLs are re-written so they cannot be copied and pasted. You and authorized family members are the only ones who can access your Portal. Also there is a timeout feature that protects your information if you leave the Portal page open. If you have technical difficulty please use the Contact Us link on the page this will allow you to submit any questions you have regarding the Portal or you may contact the Medical Record Department at [phone] ext [phone].
[2022-09-01 19:21] VITALS: BP 125/81; PULSE 92
== END 2022-09-01 19:21 | disposition home or self-care (01) ==
LOC: ED 18:06
DX: R10.84 Generalized abdominal pain (principal); M54.50 Low back pain, unspecified; E78.5 Hyperlipidemia, unspecified; I10 Essential (primary) hypertension; E11.9 Type 2 diabetes mellitus without complications; Z79.4 Long term (current) use of insulin; Z79.84 Long term (current) use of oral hypoglycemic drugs; Z79.899 Other long term (current) drug therapy; Z28.310 Unvaccinated for COVID-19
CPT/HCPCS: 36415; 84703; 99282

== ENCOUNTER 2023-04-19 15:26 | Emergency (ER) | payer OTHER ==
--- NOTE | 2023-04-19 15:32 | ERPHSYRPT ---
- History of Present Illness Time Seen by Provider: 04/19/23 15:32 Source: patient Exam Limitations: no limitations Physician History: This is an obese 43-year-old white female patient who has a history of hyperlipidemia and hypertension and is diabetic and presents with a few day history of itchy red raised rash left side of her face, bilateral upper extremities right lateral thigh and in the pannus of her abdomen. She has been exposed to poison lydia which she knows she is allergic to. She has tried topical creams and there is not helping. Patient has no chest pain. She has no shortness of breath. She has no abdominal pain. She has no nausea vomiting or diarrhea symptoms Timing/Duration: day(s) (Over the last few days) Quality: itchy Severity: mild Location: face, extremities (Bilateral upper and lower extremities), other (Skin of her lower abdominal pannus) Possible Causes: poison lydia Modifying Factors: Improves With: scratching, other (Lotions topically which are not helping) Associated Symptoms: change in skin texture, rash Allergies/Adverse Reactions: omeprazole [From Prilosec] Allergy (Severe, Verified 04/19/23 15:34) Hives ketorolac [From Toradol] Allergy (Unknown, Verified 04/19/23 15:34) Home Medications: Metformin HCl 1,000 mg PO BID 08/04/17 [History] Loratadine 10 mg [Claritin 10 mg] 10 mg PO DAILY 05/23/18 [History] Famotidine 20 mg [Pepcid 20 MG] 20 mg PO DAILY 08/27/18 [History] Fluticasone/Salmeterol [Advair 250-50 Diskus] 1 each IN DAILY 12/08/18 [History] Albuterol 8 gm Mdi Hfa [Ventolin Hfa MDI] 8 gm IH Q4HPRN PRN 06/28/19 [History] Cetirizine HCl 5 mg PO DAILY 09/01/20 [History] Insulin Glargine,Hum.rec.anlog [Basaglar Kwikpen U-100] 15 unit SQ HS 12/04/20 [History] Atorvastatin Calcium 40 mg PO DAILY 02/22/22 [History] Hx Tetanus, Diphtheria Vaccination/Date Given: Yes Hx Influenza Vaccination/Date Given: No Hx Pneumococcal Vaccination/Date Given: Yes Travel Risk - International Travel Have you traveled outside of the country in past 3 weeks: No - Coronavirus Screening Are you exhibiting any of the following symptoms?: No Close contact with a COVID-19 positive Pt in past 14-21 Days: No - Vaccine Status Have you recieved a Covid-19 vaccination: No - Review of Systems Constitutional: No Symptoms Eyes: No Symptoms Ears, Nose, & Throat: No Symptoms Respiratory: No Symptoms Cardiac: No Symptoms Abdominal/Gastrointestinal: No Symptoms Genitourinary Symptoms: No Symptoms Musculoskeletal: No Symptoms Skin: Rash Neurological: No Symptoms Psychological: No Symptoms Endocrine: No Symptoms Hematologic/Lymphatic: No Symptoms Immunological/Allergic: No Symptoms All Other Systems: Reviewed and Negative - Past Medical History Pertinent Past Medical History: Yes Neurological History: No Pertinent History ENT History: No Pertinent History Cardiac History: High Cholesterol, Hypertension Respiratory History: Asthma, Bronchitis, Sleep Apnea Endocrine Medical History: Diabetes Type II, Liver Disease Musculoskeletal History: Osteoarthritis, Other GI Medical History: GERD, Hernia History: No Pertinent History Psycho-Social History: Anxiety, Depression Female Reproductive Disorders: No Pertinent History Other Medical History: HX OF SCOLIOSIS NOTED AND HX OF RECEIVING P.T. FOR PLANTAR FASCITIS. PMHX ALSO INCLUDES ANXIETY/DEPRESSION, RESTLESS LEG SYNDROME, CARPAL TUNNEL SYNDROME, GERD, OBESITY. SX HX: ABDOMINAL HERNIA REPAIR - Past Surgical History Past Surgical History: Yes Neuro Surgical History: No Pertinent History Cardiac: No Pertinent History Respiratory: No Pertinent History Gastrointestinal: Hernia Repair Genitourinary: No Pertinent History Musculoskeletal: No Pertinent History Female Surgical History: Section Other Surgical History: Ear tubes both ears. left ear drum surgery, 3 umbilical hernia repair. - Social History Smoking Status: Never smoker Exposure to second hand smoke: Yes Alcohol Use: None Drug Use: none Patient Lives Alone: No Significant Family History: diabetes, hypertension - Nursing Vital Signs Nursing Vital Signs: Initial Vital Signs Temperature 98 F 04/19/23 15:36 Pulse Rate 88 04/19/23 15:36 Respiratory Rate 18 04/19/23 15:36 Blood Pressure 132/89 04/19/23 15:36 O2 Sat by Pulse Oximetry 97 04/19/23 15:36 Pain Scale Pain Intensity 0 - Physical Exam General Appearance: no apparent distress, alert, anxiety, obese Eye Exam: PERRL/EOMI, eyes nml inspection Ears, Nose, Throat Exam: normal ENT inspection, moist mucous membranes Neck Exam: normal inspection, non-tender, supple, full range of motion Respiratory Exam: normal breath sounds, lungs clear, airway intact, No chest tenderness, No respiratory distress Cardiovascular Exam: regular rate/rhythm, normal heart sounds, normal peripheral pulses Gastrointestinal/Abdomen Exam: No tenderness Pelvic Exam: not done Rectal Exam: not done Back Exam: normal inspection, normal range of motion, No CVA tenderness, No vertebral tenderness Extremity Exam: normal range of motion, pelvis stable Neurologic Exam: alert, oriented x 3, cooperative, 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 It is dry rash is red and raised. No blistering at this point. It itches.) Lymphatic Exam: No adenopathy SpO2 Interpretation: normal O2 Delivery: Room Air - Course Nursing assessment & vital signs reviewed: Yes - Progress Progress: unchanged Progress Note: 04/19/23 16:11 This patient's medical issue is 1 of low complexity. Level complexity in the work-up performed is based on the review of patient's past medical history, review of the patient's medication list, review of the patient's drug allergy list, history present illness and physical finds on examination. The patient does not require laboratory radiographic studies. A prescription for prednisone and Benadryl will be remotely sent to her pharmacy. She was told to monitor her blood sugar closely while on the prednisone. She is to follow-up with her primary care provider on 04/21/2023 for further evaluation management. Counseled pt/family regarding: lab results, diagnosis, need for follow-up - Departure Departure Disposition: Home Clinical Impression: Contact dermatitis and eczema due to plant, Poison lydia dermatitis Condition: Stable Critical Care Time: No Referrals: RAMESH SCOTT [Primary Care Provider] - Follow up/PCP as directed Additional Instructions: Keep the skin rash sites clean and dry. Do not scratch. Take your medication as prescribed. Monitor your blood sugar levels closely while taking your steroids. Follow-up with your primary care provider on 04/21/2023 for further evaluation and management. Hold your loratadine and cetirizine while taking the Benadryl you are prescribed. Prescriptions: Diphenhydramine HCl 25 mg [Benadryl 25 mg Capsule] 25 mg PO Q8H PRN #9 cap PRN Reason: Itching Prednisone 10 mg [Deltasone 10 mg] 10 mg PO TID #12 tablet
[2023-04-19 15:45] VITALS: RESP 18; TEMP 98; O2SAT 97
[2023-04-19 16:29] VITALS: BP 132/94; PULSE 84
== END 2023-04-19 16:28 | disposition home or self-care (01) ==
LOC: ED 15:26
DX: L24.7 Irritant contact dermatitis due to plants, except food (principal); L23.7 Allergic contact dermatitis due to plants, except food; E78.5 Hyperlipidemia, unspecified; I10 Essential (primary) hypertension; E11.9 Type 2 diabetes mellitus without complications; Z79.84 Long term (current) use of oral hypoglycemic drugs; Z79.4 Long term (current) use of insulin; Z79.52 Long term (current) use of systemic steroids; Z79.899 Other long term (current) drug therapy; Z28.310 Unvaccinated for COVID-19
CPT/HCPCS: 99281